=== PATIENT | male | born 1960 | race Caucasian/White ===

== ENCOUNTER 2025-07-27 10:16 | Inpatient (IN) | payer MEDICARE, SELFPAY ==
[2025-07-27] VITALS (19 sets, daily range): BP systolic 107–122; BP diastolic 65–87; PULSE 2–71; BMI 38.4; BMI 36.5
[2025-07-27 06:49] LABS: Hematocrit 23.3 % (39.0-52.0); Hemoglobin 7.2 g/dL (13.0-18.0); Mean Corp Hgb Conc. 30.9 g/dL (33.0-37.0); Mean Corpuscular Volume 97.9 fL (80.0-94.0); Nucleated Red Blood Cells % 0 % (-); Platelet Count 215 10^3/uL (130-400); Red Cell Dist. Width 16.7 % (11.5-14.5)
[2025-07-27 07:20] LABS: ALT (SGPT) 16 U/L (0-50); AST (SGOT) 21 U/L (17-59); Albumin 4.0 g/dl (3.5-5.0); Alkaline Phosphatase 131 U/L (38-126); Blood Urea Nitrogen 45 mg/dl (9-20); Calcium 8.9 mg/dl (8.4-10.2); Carbon Dioxide 28 mmol/L (22-30); Chloride 99 mmol/L (98-107); Estimated Creatinine Clearance 21 ml/min; Glucose 164 mg/dl (70-99); Potassium 3.8 mmol/L (3.5-5.1); Sodium 141 mmol/L (135-145); Total Protein 7.4 g/dl (6.3-8.2); Troponin I 0.068 ng/ml; eGFR 12.18
[2025-07-27 08:18] LABS: Venous Blood Gas B.E. 4.9 mmol/L (-4 to +4); Venous Blood Gas O2 Sat % 74.0 %
[2025-07-27 08:20] LABS: Venous Blood Gas O2 Therapy 4L
--- NOTE | 2025-07-27 08:20 | ED.GENMED ---
History of Present Illness
General
Chief Complaint: Breathing Problem
Source: patient and significant other
Time Seen by Provider: 07/27/25 06:39
History of Present Illness
History of Present Illness:
Note:
CHIEF COMPLAINT(S)
Intermittent sharp chest pain upon removal of Bipap mask and discolored urine.
HISTORY OF PRESENT ILLNESS
The patient is a 65-year-old male with a significant past medical history who presents with intermittent sharp left-sided chest pain that occurs upon removal of the Bipap mask. The pain is described as excruciating and radiates from the middle to
the upper chest. This symptom has been persistent for the last three days. Additionally, the patient reports episodes of discolored urine, described as pink, which occurred yesterday and today. Each episode of sharp chest pain is accompanied by a
release of urine, raising concerns about potential incontinence during these episodes. The patient expressed a history of anxiety during transitions off respiratory support devices, which may contribute to his distress during these episodes.
PAST MEDICAL AND SURGICAL HISTORY
The patient has a history of diabetes, hyperlipidemia, morbid obesity with alveolar hypoventilation syndrome, anxiety disorder, seizures, obstructive sleep apnea, polyneuropathy, hypertensive heart disease, chronic kidney disease, paroxysmal atrial
fibrillation, heart failure, pleural effusion, respiratory failure, gastroesophageal reflux disease, and end-stage renal disease requiring dialysis.
CHRONIC MEDICAL CONDITIONS SIGNIFICANTLY AFFECTING CARE
- Chronic obstructive pulmonary disease (COPD) requiring supplemental oxygen
- End-stage renal disease requiring dialysis
- Hypertensive heart disease and chronic kidney disease
- Paroxysmal atrial fibrillation
- Heart failure
SOCIAL DETERMINANTS AFFECTING HEALTH
Anxiety related to use and transition of oxygen and respiratory devices.
PHYSICAL EXAM
General: Alert, no acute distress. Obese
Skin: Warm and dry.
Head: Normocephalic, atraumatic.
Neck: Supple, trachea midline.
Eyes, Ears, Nose, Mouth, and Throat: Oral mucosa moist.
Cardiovascular: Regular rhythm, no murmurs. Chronic venous stasis changes to bilateral lower extremities
Respiratory: On four liters of nasal cannula, diminished breath sounds at bases, no respiratory distress
Gastrointestinal: Abdomen nondistended.
Musculoskeletal: Decreased mobility, uses a walker, left upper extremity AV graft noted with normal thrill.
Neurological: Alert and oriented to person, place, time, and situation. No focal neurological deficits observed.
Psychiatric: Cooperative, appropriate mood and affect.
PLAN
- Evaluate and monitor for potential causes of chest pain, including possible cardiac etiology.
- Re-evaluate urinary discoloration and incontinence in relation to episodes of chest pain.
- Coordination with a laminator to manage end-stage renal disease treatments and monitor dialysis effectiveness.
- Continued supplemental oxygen at home, history of respiratory failure and requirement for Bipap maintenance.
- Address anxiety related to respiratory support with potential psychologic support or therapy.
- Encourage mobilization and physical therapy to improve mobility and prevent further deconditioning.
DIFFERENTIAL DIAGNOSIS
The Differential Diagnosis includes, in no particular order and is not limited to:
1. Angina
2. Myocardial infarction
3. Pulmonary embolism
4. Gastroesophageal reflux disease
5. Anxiety-induced hyperventilation
6. Costochondritis
7. Urinary tract infection
8. Hematuria secondary to anticoagulation
9. Pulmonary edema
10. Anxiety disorder-related somatic symptoms
CARE-UPDATE
07/27/25 - 08:13
Patient exhibits signs of mild lower lobe pneumonia. Treatment will continue with current antibiotics; monitor for any changes in symptoms or respiratory status. Follow-up imaging may be required to assess resolution.
EKG
My independent EKG interpretation is:
- Rhythm: Atrial flutter with ventricular paced rhythm
- Ventricular Rate: 70 bpm
- Atrial Rate: 150 bpm
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
Disposition:
SUMMARY OF ENCOUNTER
The patient, a 65-year-old male with a significant medical history, presented to the emergency department with complaints of intermittent sharp chest pain upon removal of his Bipap mask and discolored urine, described as pink, over the last few
days. A complete blood count revealed anemia with hemoglobin at 7.2, and a baseline is unknown. The chemistry panel showed chronic renal insufficiency with creatinine at 5.0 and blood urea nitrogen elevated at 45. Potassium levels were normal at
3.8. Troponin levels were slightly elevated at 0.068, indicating potential cardiac involvement, and BNP was significantly elevated, exceeding 27,000, suggesting possible heart failure or fluid overload. A chest x-ray showed a suspected left lower
lobe infiltrate and a small pleural effusion. Treatment was initiated with broad-spectrum antibiotics, likely to address the suspected infection and prevent further complications. Given the patients end-stage renal disease, he typically receives
dialysis on Mondays, Wednesdays, and Fridays; thus, his care involves tight management of renal function and fluid status. Patient found to be hypercapnic. Start BiPAP. Patient admits he was off his BiPAP last night due to symptoms.
DISPOSITION
Admit.
ASSESSMENT
The patient is likely experiencing a combination of heart failure due to elevated BNP levels, anemia of unknown baseline possibly exacerbated by chronic kidney disease, and an infectious process given the infiltrate seen on imaging. There is also a
concern for potential cardiac ischemia given the elevated troponin level, albeit slightly.
EMERGENCY TREATMENTS ADMINISTERED
Broad-spectrum antibiotics were administered.
INDEPENDENT REVIEW OF LABS AND INTERPRETATION OF TESTS
- My independent review of CBC indicates anemia with hemoglobin at 7.2 and a normal white blood cell count of 8.6.
- My independent review of chemistry panel reveals chronic renal insufficiency with creatinine at 5.0, potassium normal at 3.8, and elevated BUN at 45.
- My independent review of cardiac markers indicates a slightly elevated troponin level at 0.068 and BNP greater than 27,000.
- My independent interpretation of the chest x-ray reveals a suspected left lower lobe infiltrate and a small pleural effusion.
PLAN
1. Admission for further monitoring and management.
2. Continue with broad-spectrum antibiotics to address the suspected infection.
3. Consulting nephrology to assess dialysis needs given the patients end-stage renal disease.
4. Additional cardiac workup given the elevated troponin to rule out myocardial infarction.
5. Continued oxygen support at home levels and reassessment of the need for respiratory support adjustments.
6. Further evaluation and monitoring of anemia and potential transfusion if clinically indicated.
7. Start BiPAP in light of hypercapnia
MEDICAL DECISION MAKING
-Complexity of Data Reviewed: Chronic conditions affecting care [diabetes, end-stage renal disease, heart failure, anemia]. Differential diagnosis includes angina, myocardial infarction, pulmonary embolism, gastroesophageal reflux disease,
anxiety-induced hyperventilation, costochondritis, urinary tract infection, hematuria secondary to anticoagulation, pulmonary edema, and anxiety disorder-related somatic symptoms.
-Data:
Category 1
- My independent review and interpretation of lab work including CBC, chemistry panel, cardiac markers, and chest x-ray.
Category 2
- Input from patient history reporting known chronic conditions including diabetes and end-stage renal disease.
-Risk:
Consideration of Admission/Observation: Escalation of care including admission was considered given the complexity and risk of the patients presenting complaint, exam findings, and underlying comorbidities. Admission was determined necessary due to
ongoing symptoms, elevated cardiac markers, and to address potential complications arising from the combination of fluid overload, cardiac concerns, and potential infection.
Diagnosis:
Anemia
Chronic renal failure
Acute hypercapnic respiratory failure
Chronic CHF
Pneumonia
Pleural effusion
Atypical chest pain
Phy Exam
Physical Exam
Physical Exam:
.
Scores
Heart Failure Risk
Heart Failure Risk Score: Not Applicable
Course
Orders/Labs/Results
Orders:
Orders
07/27/25 06:07
Electrocardiogram (*1) Urgent
Reason for Study: Shortness of Breath
EKG- Treatment ONCE
07/27/25 06:41
Complete Blood Count/With Diff Urgent
Comprehensive Metabolic Panel Urgent
NT-proBNP Urgent
TSH Reflex To Free T4 Urgent
Comment: ADD ON
Troponin I Urgent
07/27/25 07:24
Urinalysis Reflex To Culture Urgent
CR Chest - 2 Views Urgent
Comment:
Reason For Exam: cp
07/27/25 07:57
Venous Blood Gas Urgent
%Oxygen/Room Air: 4L
07/27/25 08:19
Piperacillin/Tazo 3.375 Gram [Zosyn] 3.375 gram in 50 ml IV NOW
07/27/25 08:42
Lactic Acid Q4H
Comment: CANCEL 2nd LACTIC ACID IF 1st LACTIC ACID IS LESS THAN 2
Blood Culture Q30M
IMELDA Source: Blood/Venous
Specimen Description:
07/27/25 09:09
Vancomycin [Vancocin] 2,000 mg 0.9% Sodium Chloride 500 ml [Nss] 500 ml IV NOW
07/27/25 09:13
Blood Culture Q30M
IMELDA Source: Blood/Venous
Specimen Description:
07/27/25 09:56
Admit/Transfer Patient As Directed
Co-Sign Provider:
Level of Care: Inpatient admission
Assign to:: IMU- Intermediate Care
Physician / Group: Hospitalist: Gerald
Diagnosis: Acute on chronic respiratory failure with hypoxia and hypercapnea
Reason for Hospitalization: Acute on chronic respiratory failure with hypoxia and hypercapnea
Expected length of stay greater than two midnights?: Yes
ELOS- Estimated Length of Stay in days: 2
I certify the patient meets the requirements for IP care: Yes
07/27/25 09:58
PRN Pain Medication Management As Directed
May give lesser potent ordered pain med per pt: Yes
preference::
Protocol:: Medication orders for pain may be administered in a
manner that supports deferring to patient preference
when the pt is:
- Requesting an ordered lesser potent pain medication.
Least to most potent pain medications are defined
as: acetaminophen < NSAID < tramadol < opioids
(morphine, oxycodone, hydromorphone).
- Requesting a lesser dose of the same medication IF
ORDERED.
- Requesting a less intrusive route of administration
if both routes are prescribed by the provider (PO <
IV).
07/27/25 Lunch
1600 calorie (13 carb) Diabetic
At Your Request: Limited Participation
07/27/25 10:02
Code Status As Directed
Resuscitation Status: Full Code
07/27/25 10:05
CT Chest W/o Iv Contrast Routine
Comment:
Reason For Exam: respiratory failure, poss pna v effusion
07/27/25 10:06
NEPHROLOGY CONSULT Routine
Consulting Provider: Gavin Stewart
Was physician already notified: Yes
Reason for consult: ESRD on HD
07/27/25 10:08
Add On- LAB Routine
Tests Added?: TSH w reflex please, thanks!
07/27/25 13:13
Acetaminophen [Tylenol] 650 mg PO Q6HPRN PRN pain
Melatonin 5 mg PO HSPRN PRN sleep
Sennosides [Senokot] 8.6 mg PO DAILYPRN PRN constipation
07/27/25 13:13
Activity As Directed
Activity Level: As Tolerated
Vital Signs As Directed
Frequency: Per unit guidelines
07/27/25 13:31
Troponin I Q6H
07/27/25 14:00
Ipratropium/Albuterol Sulfate [Duoneb] 3 ml INH R Q6
07/27/25 16:00
Calcium Acetate [Phoslo] 667 mg PO TID
Droxidopa 200 mg PO TID
07/27/25 18:00
Midodrine [ProAmatine] 15 mg PO TID@0800,1300,1800
07/27/25 20:00
Apixaban [Eliquis] 2.5 mg PO BID
Famotidine [Pepcid] 20 mg PO BID
Lacosamide [Vimpat] 50 mg PO BID
07/28/25 06:00
BMP [Basic Metabolic Panel] IN AM
CBC/With Diff [Complete Blood Count/With Diff] IN AM
Magnesium IN AM
Phosphorus IN AM
07/28/25 08:00
Cholecalciferol (Vitamin D3) [VITAMIN D3 (cholecalciferol)] 50 mcg PO DAILY
Clopidogrel Bisulfate [Plavix] 75 mg PO DAILY
Polyethylene Glycol Powder [Miralax] 17 grams PO DAILY
Rosuvastatin Calcium [Crestor] 40 mg PO DAILY
07/29/25 06:00
BMP [Basic Metabolic Panel] IN AM
CBC/With Diff [Complete Blood Count/With Diff] IN AM
Magnesium IN AM
Phosphorus IN AM
07/30/25 06:00
BMP [Basic Metabolic Panel] IN AM
CBC/With Diff [Complete Blood Count/With Diff] IN AM
Magnesium IN AM
Phosphorus IN AM
07/30/25 11:00
DC Protocol for Telemetry ONCE
Abnormal Lab Results
07/27/25 07/27/25
06:41 07:57
RBC 2.38 L 10^6/uL
(4.70-6.10)
Hgb 7.2 L g/dL
(13.0-18.0)
Hct 23.3 L %
(39.0-52.0)
MCV 97.9 H fL
(80.0-94.0)
MCHC 30.9 L g/dL
(33.0-37.0)
RDW 16.7 H %
(11.5-14.5)
Absolute Lymphs (auto) 1.1 L 10^3/uL
(1.2-3.4)
Absolute Monos (auto) 0.9 H 10^3/uL
(0.1-0.6)
Lymphocytes % 13.1 L %
(20.5-51.1)
Monocytes % 9.9 H %
(1.7-9.3)
VBG pH 7.24 L
(7.32-7.43)
VBG pCO2 78 H* mmHg
(35-48)
VBG HCO3 33.4 H mmol/L
(22-27)
BUN 45 H mg/dl
(9-20)
Creatinine 5.0 H* mg/dL
(0.7-1.3)
Glucose 164 H mg/dl
(70-99)
Alkaline Phosphatase 131 H U/L
(38-126)
Troponin I 0.068 H* ng/ml
07/27/25 06:41
07/27/25 06:41
Vital Signs
Initial and Last Documented VS:
Initial Vital Signs
Temp Pulse Resp Pulse Ox
98.3 F 70 18 94
07/27/25 06:08 07/27/25 06:08 07/27/25 06:08 07/27/25 06:08
Last Documented Vital Signs
Temp Pulse Resp BP Pulse Ox
97.6 F 70 23 120/75 93
07/27/25 13:18 07/27/25 13:36 07/27/25 13:36 07/27/25 13:35 07/27/25 13:55
*Pulse Oximetry
SaO2: 95
Nasal Cannula flow liters per minute: 4
Patient hypoxic: yes
*Critical Care Note
Total Time (30-74mins, 75-104mins- exclusive of procedures): 35 minutes
Data Reviewed
Source: significant other (Significant other states that he has had to have advanced oxygen support the past)
ED Attending Note
-
Portions of this chart may have been created with voice recognition software.� Occasional wrong word or��sound alike� substitutions may have occurred due to the inherent limitations of voice recognition software.
Discharge Plan
Departure
Patient Disposition: Admit
Date of Disposition: 07/27/25
Time of Disposition: 08:21
Admit to: Telemetry
Presentation/result/management discussed w/ accepting MD/DO: Hospitalist
Discharge Problem:
Pneumonia, Anemia, Chronic renal failure, Obstructive sleep apnea, Obesity, Atrial flutter, Acute hypercapnic respiratory failure
Interventions
Interventions:
*Risk Screen - Suicide Last Done: 07/27/25 06:08
*General Assessment Last Done: 07/27/25 06:08
*Neglect/Abuse Screening Last Done: 07/27/25 06:08
*ED- Fall Risk Assessment Last Done: 07/27/25 06:45
*ED COVID-19 Vaccine History Last Done: 07/27/25 06:45
*Nursing Disposition Last Done: 07/27/25 13:10
ED- Cardiac Assessment Last Done: 07/27/25 06:46
ED- Pulmonary Assessment Last Done: 07/27/25 06:46
Discharge Date and Time
Discharge Date/Time: 07/27/25 13:10
[2025-07-27] MEDS: ZOSYN 50 IV ×3 (09:20→23:00)
[2025-07-27] MEDS: VANCOCIN 540 MG IV (09:50)
--- NOTE | 2025-07-27 10:05 | HPS.HSE ---
Family Physician
-
Family Physician: Jose Alfred
Chief Complaint
-
Chest pain, acute hypercapnic respiratory failure
History of Present Illness
Mr. Talbert is a 65-year-old male with medical history of heart failure (unspecified type), paroxysmal A-fib, chronic hypoxic respiratory failure (on supplemental oxygen at baseline), ESRD (HD MWF), anemia of chronic disease, ALVIN (on BiPAP at night),
seizure disorder, insulin-dependent diabetes mellitus, and prostate enlargement who presented via EMS from [facility] with sharp left-sided chest pain overnight. He was unable to tolerate his BiPAP due to the pain. Upon evaluation in the ED he
was normotensive and afebrile. Initial chest imaging was concerning for left-sided pneumonia. Labs were remarkable for anemia with a hemoglobin of 7.2, abnormal creatinine of 5.0, elevated troponin of 0.068, and elevated proBNP of greater than
27,000. BNP and troponin are of equivocal significance considering his end-stage renal disease. He did not have a leukocytosis and lactic acid was within normal limits. However he had an abnormal pCO2 of 78 on VBG. He was placed on BiPAP,
started on broad-spectrum antibiotics, and admitted for further evaluation and management of acute hypercapnic respiratory failure and pneumonia.
Medical History
Past Medical History
Past Medical History: Reports Other
Additional Past Medical History:
medical history of heart failure (unspecified type), paroxysmal A-fib, COPD, chronic hypoxic respiratory failure (on supplemental oxygen at baseline), ESRD (HD MWF), anemia of chronic disease, ALVIN (on BiPAP at night), seizure disorder,
insulin-dependent diabetes mellitus, and prostate enlargement
Past Surgical History: Reports Other
Additional Past Surgical History:
Left thoracentesis (reported)
Social History
Tobacco: Non-smoker
Alcohol: None
Drug: None
Family History
Family History: Not pertinent
Allergies / Home Medications
Allergies reflects when Allergies were last updated in [facility].
Home Medications with original date entered in [facility]
Allergy/Medication List:
Allergies
Allergy/AdvReac Type Severity Reaction Status Date / Time
cephalexin Allergy Hives Verified 07/27/25 07:00
Home Medications
acetaminophen 325 mg tablet 650 mg PO Q6HPRN PRN mild pain 07/27/25
apixaban 2.5 mg tablet 2.5 mg PO BID 07/27/25
bisacodyl 10 mg rectal suppository (Dulcolax (bisacodyl)) 10 mg AR DAILYPRN PRN if no bm aftr mom 07/27/25
calcium acetate 667 mg tablet 667 mg PO AC 07/27/25
cholecalciferol (vitamin D3) 50 mcg (2,000 unit) capsule (Vitamin D3) 50 mcg PO DAILY 07/27/25
clopidogrel 75 mg tablet 75 mg PO DAILY 07/27/25
droxidopa 200 mg capsule 200 mg PO AC 07/27/25
famotidine 20 mg tablet 20 mg PO BID 07/27/25
insulin glargine 100 unit/mL (3 mL) subcutaneous pen (Basaglar KwikPen U-100 Insulin) 5 unit SC BID 07/27/25
insulin lispro 100 unit/mL subcutaneous pen 1 sliding scale dose SC AC 07/27/25
ipratropium 0.5 mg-albuterol 3 mg (2.5 mg base)/3 mL nebulization soln 3 ml inhalation R Q6HPRN PRN sob 07/27/25
lacosamide 50 mg tablet 50 mg PO BID 07/27/25
melatonin 5 mg tablet 5 mg PO HSPRN PRN sleep 07/27/25
midodrine 5 mg tablet 15 mg PO TID 07/27/25
polyethylene glycol 3350 17 gram oral powder packet 17 g PO DAILY 07/27/25
rosuvastatin 40 mg tablet 40 mg PO QPM 07/27/25
sennosides 8.6 mg capsule (senna) 17.2 mg PO DAILYPRN PRN constipation 07/27/25
sodium chloride-hypochlorous acid 0.033 % irrigation solution (Vashe) 1 irrig irrigation BID 07/27/25
Review of Systems
-
History Source: Patient
A 12 point ROS was completed and negative except as noted: Yes
Respiratory: Reports Trouble Breathing
Cardiac: Reports Chest Pain (Sharp left chest pain)
: Reports Difficulty Voiding (Chronic due to prostate enlargement)
Physical Exam
Vital Signs
Vital Signs
Temp Pulse Resp BP Pulse Ox
98.3 F 71 21 108/70 95
07/27/25 06:08 07/27/25 09:02 07/27/25 09:02 07/27/25 09:02 07/27/25 08:23
Physical Exam
General: Pain
Laboratory Results
-
07/27/25 06:41
07/27/25 06:41
Laboratory Results
Lactic Acid 1.6 mmol/L (0.7-2.0) 07/27/25 08:42
Total Bilirubin 0.8 mg/dl (0.2-1.3) 07/27/25 06:41
AST 21 U/L (17-59) 07/27/25 06:41
ALT 16 U/L (0-50) 07/27/25 06:41
Alkaline Phosphatase 131 U/L (38-126) H 07/27/25 06:41
Troponin I 0.068 ng/ml H* 07/27/25 06:41
Impression/Plan
-
General: No Apparent Distress, uncomfortable
HEENT: NormoCephalic, BiPAP mask in place
Respiratory: Decreased left basilar breath sounds, scattered rhonchi bilaterally
Cardiac: S1/S2 and Regular Rhythm; No Rub or Gallop
GI: Soft, Non Tender, Non Distended and Normal Bowel Sounds
Musculoskeletal: No Edema, no deformity
Skin: Warm and dry, bilateral lower extremity lipodermatosclerosis
: NO Lyles
Neuro: Awake but somnolent, Nonfocal/grossly intact
Psych: Calm and cooperative
Mr. Talbert is a 65-year-old male with medical history of heart failure (unspecified type), paroxysmal A-fib, chronic hypoxic respiratory failure (on supplemental oxygen at baseline), ESRD (HD MWF), anemia of chronic disease, ALVIN (on BiPAP at night),
seizure disorder, insulin-dependent diabetes mellitus, and prostate enlargement who presented via EMS from [facility] with sharp left-sided chest pain overnight. He was unable to tolerate his BiPAP due to the pain. Upon evaluation in the ED he
was normotensive and afebrile. Initial chest imaging was concerning for left-sided pneumonia. Labs were remarkable for anemia with a hemoglobin of 7.2, abnormal creatinine of 5.0, elevated troponin of 0.068, and elevated proBNP of greater than
27,000. BNP and troponin are of equivocal significance considering his end-stage renal disease. He did not have a leukocytosis and lactic acid was within normal limits. However he had an abnormal pCO2 of 78 on VBG. He was placed on BiPAP,
started on broad-spectrum antibiotics, and admitted for further evaluation and management of acute hypercapnic respiratory failure and pneumonia.
Acute hypercapnic respiratory failure:
- Secondary to pneumonia, CT imaging shows extensive bilateral infiltrates left worse than right
- Continue broad-spectrum antibiotics for now
- Follow-up cultures including sputum culture
- Continuous BiPAP for now, can take breaks as needed to eat and drink
- To be evaluated by pulmonology
- Patient has a history of recurrent pneumonia with reported left-sided effusion status post thoracentesis
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
- Attempting to get his prior medical records, reportedly on file at [place]
Chronic hypoxic respiratory failure:
- Secondary to COPD
- Continue supplemental oxygen and titrate as needed
- Continue scheduled nebulizers with additional as needed
ESRD:
- Continue dialysis per nephro
Anemia of chronic disease:
- Secondary to renal disease
- Hemoglobin 7.2 on admission labs, unclear baseline
- Attempting to obtain prior medical records to establish baseline hemoglobin
- No evidence of bleeding
- Monitor
CHF:
- Chronic, unspecified type, attempting to get medical records to clarify
- Unclear if current presentation is partly due to volume overload, significantly elevated proBNP but has ESRD
- Volume status managed primarily by dialysis, patient makes very little urine
- Does not appear to be on beta-blockade
- Does not appear to be on afterload reducing agents, rather takes midodrine 50 mg 3 times per day which we will continue
IDDM:
- Uses insulin glargine 5 units twice daily and short acting insulin per sliding scale at home
- Will start with Lantus 5 units at night for now with additional sliding scale as needed
- Accu-Cheks
- Diabetic diet
Paroxysmal A-fib:
- Currently rate controlled
- Not on AV andres blocking agents as an outpatient
- Continue anticoagulation with renally dosed Eliquis
Seizure disorder:
- Continue home lacosamide 50 mg p.o. twice daily
Prostate enlargement:
- Patient reports making very little urine, urinates twice daily
DVT prophylaxis: Eliquis
CODE STATUS: Full code
Total time spent on today's encounter was 65 minutes
--- NOTE | 2025-07-27 10:59 | PHA.VAN.IN ---
Assessment
- Assessment
Renal Function: Unknown baseline
Concomitant Antimicrobials: piperacillin/tazobactam
Plan
- Plan
Initial / Loading Dose: 2000mg - 07/27
Maintenance Regimen: dosing by level
Monitoring: random 07/28 0600
MRSA Screen: Ordered per protocol
Pharmacokinetics Vancomycin I
- -
Patient Age: 65
Patient Sex: Male
Vancomycin Day #: 1
Indication: Pulmonary/Respiratory
Requesting Provider: Dr. Duarte
Pertinent Antimicrobial Allergies:
cephalexin - hives
Height / Weight:
Height 6 ft
Actual Weight 128.4 kg
Pertinent Past Medical History: BMI ~38, DM, CKD
- Vital Signs / Lab Results
Temp Pulse Resp BP Pulse Ox
98.3 F 71 21 108/70 95
07/27/25 06:08 07/27/25 09:02 07/27/25 09:02 07/27/25 09:02 07/27/25 08:23
Lab Results - Hematology
07/27/25
06:41
WBC 8.6
Lab Results - Chemistry
07/27/25
06:41
BUN 45 H
Creatinine 5.0 H*
Estimated Creat Clear 21
Albumin 4.0
07/27/25
08:42
Lactic Acid 1.6
--- NOTE | 2025-07-27 11:22 | W.CON.NEPH ---
Addendum entered and electronically signed by Gavin Stewart MD 07/27/25 13:38:
check iron studies on HD for anemia, LENARD on HD
Addendum entered and electronically signed by Gavin Stewart MD 07/27/25 13:35:
I agree with the residence note with the addendum
65 year old gentleman with ESRD since 2019 which he believes is due to antiviral treatment for COVID. He had a left upper extremity AV fistula created three and half years ago which has been functioning well. He typically dialyze is with the
[facility] on Wednesdays and Fridays. Recently however he has been admitted to [facility]. He has atrial fibrillation on eliquis anticoagulation. He also has orthostasis on Droxidopa. His diabetes is controlled with insulin
therapy. He was sent to the hospital because of three days of left-sided chest pain. Imaging studies have shown multifocal bilateral pneumonia. We are asked to assist with management of his dialysis.
Patient is awake alert oriented and in no distress. Mood and affect were pleasant, insight and judgment were good. Pupils are equal round and reactive to light, extraocular movements are intact, sclera were anicteric. Hearing was normal, ears and
nose are intact. Neck was supple with trachea midline and no thyromegaly. Heart was regular rate and rhythm without rubs. Lower extremities without edema. Lungs were clear to auscultation bilaterally and with normal excursion. Abdomen was soft,
nontender, with normal active bowel sounds, and no hepatosplenomegaly. Skin was without rash and with normal turgor. Left upper extremity AVF with poor thrill, +bruit.
Laboratory values reviewed.
CT chest reviewed, bilateral multi-lobar pneumonia
chest x-ray 07/26/25 by reading left lower lobe infiltrate
EKG 07/26/25 by my reading Aflutter with V paced rhythm
Assessment
ESRD
Bilateral multilobar pneumonia
DM2
Orthostatic hypotension
Afib/Aflutter/PPM
Plan
HD tomorrow
abx dosed for ESRD
Original Note:
Consultation
-
Date/Time Consultation Requested: 07/27/2025 10:06
Date/Time Consultation Performed: 07/27/2025 11:20
Requesting Provider: Gavin Duarte MD
Performing Provider: Gavin Stewart MD
Reason for Consultation: ESRD
Medical History
-
Chief Complaint: Chest pain
History of Present Illness:
This is a 65-year-old male with past medical history of ESRD requiring dialysis MWF at [facility], atrial fibrillation on Eliquis, COPD, ALVIN on CPAP, T2DM who presents to ED 07/27/2025 complaining of sharp left-sided chest pain ongoing for the
past 3 days. In addition patient admits to discolored urine described as brown-reddish urine ongoing for the past 2 days.
To his history, he has a history of ESRD requiring dialysis diagnosed in 2019. Patient reports ESRD was caused by an antiviral medication which was used to treat COVID-19 at that time. Since then he has been receiving dialysis Monday
Monday. He currently has a AV fistula with his last dialysis session on Monday. His sessions typically last for 4 hours and he gets midday sessions. Upon presentation, laboratory showed creatinine of 5.0, BUN 45, eGFR 12.8.
Past Medical History
Past medical history
ALVIN on BiPAP, paroxysmal atrial fibrillation, ESRD on dialysis MWF, heart failure, T2DM, COPD, hyperlipidemia
Past Surgical History
Bariatric surgery, Lithotripsy, hernia, Cardiac stents
Social History
Living: Assisted Living
Allergies / Home Medications
Allergy/AdvReac Type Severity Reaction Status Date / Time
cephalexin Allergy Hives Verified 07/27/25 07:00
�Medication �Instructions �Recorded �Confirmed �Type
acetaminophen 325 mg tablet 650 mg PO Q6H PRN pain 07/27/25 07/27/25 History
apixaban 2.5 mg tablet 2.5 mg PO BID 07/27/25 07/27/25 History
calcium acetate 667 mg tablet 667 mg PO TID 07/27/25 07/27/25 History
cholecalciferol (vitamin D3) 50 50 mcg PO DAILY 07/27/25 07/27/25 History
mcg (2,000 unit) capsule (Vitamin
D3)
clopidogrel 75 mg tablet 75 mg PO DAILY 07/27/25 07/27/25 History
droxidopa 200 mg capsule 200 mg PO TID 07/27/25 07/27/25 History
famotidine 20 mg tablet 20 mg PO BID 07/27/25 07/27/25 History
insulin glargine 100 unit/mL (3 5 unit SC BID 07/27/25 07/27/25 History
mL) subcutaneous pen (Basaglar
KwikPen U-100 Insulin)
insulin lispro 100 unit/mL 1 sliding scale dose SC DIRECTED 07/27/25 07/27/25 History
subcutaneous pen
ipratropium 0.5 mg-albuterol 3 mg 3 ml inhalation Q6H SOB 07/27/25 07/27/25 History
(2.5 mg base)/3 mL nebulization
soln
lacosamide 50 mg tablet 50 mg PO BID 07/27/25 07/27/25 History
melatonin 5 mg tablet 5 mg PO HS PRN sleep 07/27/25 07/27/25 History
midodrine 5 mg tablet 15 mg PO TID 07/27/25 07/27/25 History
polyethylene glycol 3350 17 gram 17 g PO DAILY 07/27/25 07/27/25 History
oral powder packet
rosuvastatin 40 mg tablet 40 mg PO DAILY 07/27/25 07/27/25 History
sennosides 8.6 mg capsule (senna) 8.6 mg PO DAILY PRN constipation 07/27/25 07/27/25 History
Physical Exam
Vital Signs
Vital Signs
Temp Pulse Resp BP Pulse Ox
98.3 F 71 21 108/70 95
07/27/25 06:08 07/27/25 09:02 07/27/25 09:02 07/27/25 09:02 07/27/25 08:23
Lab Results
WBC 8.6 10^3/uL (4.8-10.8) 07/27/25 06:41
RBC 2.38 10^6/uL (4.70-6.10) L 07/27/25 06:41
Hgb 7.2 g/dL (13.0-18.0) L 07/27/25 06:41
Hct 23.3 % (39.0-52.0) L 07/27/25 06:41
Plt Count 215 10^3/uL (130-400) 07/27/25 06:41
Sodium 141 mmol/L (135-145) 07/27/25 06:41
Potassium 3.8 mmol/L (3.5-5.1) 07/27/25 06:41
Chloride 99 mmol/L (98-107) 07/27/25 06:41
Carbon Dioxide 28 mmol/L (22-30) 07/27/25 06:41
BUN 45 mg/dl (9-20) H 07/27/25 06:41
Creatinine 5.0 mg/dL (0.7-1.3) H* 07/27/25 06:41
eGFR 12.18 07/27/25 06:41
Glucose 164 mg/dl (70-99) H 07/27/25 06:41
Calcium 8.9 mg/dl (8.4-10.2) 07/27/25 06:41
Jnu-U-Hscuyiwokjm Pept > 60660 pg/ml 07/27/25 06:41
Albumin 4.0 g/dl (3.5-5.0) 07/27/25 06:41
Physical Exam
General: Awake and Alert
HEENT: PERRL and Other (On BiPAP)
Respiratory: Other (Decreased breath sounds bilateral bases)
Cardiac: S1/S2
Abdomen: Soft, Nontender and Nondistended
Musculoskeletal: No Edema
Vascular Access: AVF
Assessment/Plan
-
Assessment
ESRD requiring dialysis
Acute hypoxic respiratory insufficiency
Pneumonia
Paroxysmal atrial fibrillation
T2DM
Anemia
Plan
HD tomorrow
Check Iron studies
Abx per primary
Follow BMP
--- NOTE | 2025-07-27 12:24 | CM ---
Addendum entered by Jennifer Silva 07/27/25 12:34:
Per nursing at [facility] patient receives HD, Mon, Wed, Fri at 2pm, patient is on Bipap, 4 liters of oxygen, patient is assist of one person to transfer to w/c, set up for grooming and eating.
Plan; To return to [facility] when stable.
Original Note:
competitive intelligence manager reviewed patient's chart and met with patient and spoke with patient's Fallon arevalo by phone, Patient was admitted from [facility] and plan is for patient to return to [facility] when stable, patient has been at
multiple rehab facilities, patient with ESRD and is on HD, Patient also uses BIPAP, plan will be to return to [facility] when stable.
PCP: Jose Alfred
Pharmacy: [facility].
[2025-07-27] MEDS: DUONEB 3 ML INH ×2 (13:35→19:22)
[2025-07-27 13:46] LABS: Venous Blood Gas B.E. 2.7 mmol/L (-4 to +4)
--- NOTE | 2025-07-27 13:47 | PTCARENOTE ---
Patient arrived to IMU from ED. Stand and pivot from the stretcher to the chair. On BiPAP 18/6 with 4L with SpO2 92%. AOx3. V-paced with BBB and first degree on monitor. BP stable. C/O of chest pain. Repeat trop sent to lab. Call byrne within reach,
bed in lowest position, and bed of wheels locked.
[2025-07-27 13:50] LABS: Venous Blood Gas O2 Sat % 99.8 %
--- NOTE | 2025-07-27 14:00 | PTCARENOTE ---
RT at bedside to take BiPAP off patient post VBG results. Patient refused to come off of BiPAP. Care ongoing.
[2025-07-27 14:13] LABS: Troponin I 0.057 ng/ml
--- NOTE | 2025-07-27 14:55 | CON.PUL ---
Consultation
Consultation Request
Date/Time Consultation Requested: 07/27/2025 - 1209
Date/Time Consultation Performed: 07/27/2025 - 1434
Requesting Provider: Dr. Duarte
Performing Provider: Dr. Maldonado
Reason for Consultation: Acute respiratory failure
Medical History
-
Chief Complaint: Extreme chest pain
History of Present Illness:
65-year-old obese male non-smoker with past medical history of CHF, paroxysmal A-fib, chronic hypoxic respiratory failure on supplemental oxygen, ESRD on HD MWF, anemia of chronic disease, ALVIN on nocturnal BiPAP, seizure disorder, DM type II, and
BPH who presented with chest pain. Patient presented from [facility] with sharp left-sided chest pain that started overnight. He was unable to tolerate his BiPAP due to this pain. Chest imaging was concerning for left-sided pneumonia. Blood
gas showed an acute component of hypercapnia and he was placed onto BiPAP, broad-spectrum antibiotics were started and he was admitted to the IMU for further care. Pulmonary service now consulted for additional management/recommendations.
When I saw the pt he was in a chair in [facility]. He was on 4L/min NC saturating 86% --> I raised him to 6L/min with sats improving to 89-90%. He desaturates easily during movement or with speaking. Current HR 70 and BP 113/65. He says the BiPAP
helps him feel better - settings are 18/6 with set rate of 16. He says he was recently hospitalized at [place]. He does use oxygen but he has been hospitalized for so many months that he has not had a chance to be home with oxygen yet for more than 1
day. He currently denies chest pain, COYNE, abd pain, N/V/f/c.
PMHx: CHF, paroxysmal A-fib, chronic hypoxic respiratory failure on supplemental oxygen, ESRD on HD MWF, anemia of chronic disease, ALVNI on nocturnal BiPAP, seizure disorder, DM type II, BPH
PSHx: Left thoracentesis
Past Medical History
Past Medical History: Other (Above as per HPI)
Past Surgical History: Other (Above as per HPI)
Social History
Tobacco: Non-smoker
Alcohol: None
Drug: None
Personal:
Family History
Family History: Reviewed & Not Pertinent
Allergies / Home Medications
Allergies
Allergy/AdvReac Type Severity Reaction Status Date / Time
cephalexin Allergy Hives Verified 07/27/25 07:00
Home Medications
�Medication �Instructions �Recorded �Confirmed �Last Taken �Type
acetaminophen 325 mg tablet 650 mg PO Q6HPRN PRN mild pain 07/27/25 07/27/25 Unknown History
apixaban 2.5 mg tablet 2.5 mg PO BID 07/27/25 07/27/25 07/26/25 History
bisacodyl 10 mg rectal suppository 10 mg LA DAILYPRN PRN if no bm 07/27/25 07/27/25 Unknown History
(Dulcolax (bisacodyl)) aftr mom
calcium acetate 667 mg tablet 667 mg PO AC 07/27/25 07/27/25 07/26/25 History
cholecalciferol (vitamin D3) 50 50 mcg PO DAILY 07/27/25 07/27/25 07/26/25 History
mcg (2,000 unit) capsule (Vitamin
D3)
clopidogrel 75 mg tablet 75 mg PO DAILY 07/27/25 07/27/25 07/26/25 History
droxidopa 200 mg capsule 200 mg PO AC 07/27/25 07/27/25 07/26/25 History
famotidine 20 mg tablet 20 mg PO BID 07/27/25 07/27/25 07/26/25 History
insulin glargine 100 unit/mL (3 5 unit SC BID 07/27/25 07/27/25 07/26/25 History
mL) subcutaneous pen (Basaglar
KwikPen U-100 Insulin)
insulin lispro 100 unit/mL 1 sliding scale dose SC AC 07/27/25 07/27/25 07/26/25 History
subcutaneous pen
ipratropium 0.5 mg-albuterol 3 mg 3 ml inhalation R Q6HPRN PRN sob 07/27/25 07/27/25 Unknown History
(2.5 mg base)/3 mL nebulization
soln
lacosamide 50 mg tablet 50 mg PO BID 07/27/25 07/27/25 07/26/25 History
melatonin 5 mg tablet 5 mg PO HSPRN PRN sleep 07/27/25 07/27/25 Unknown History
midodrine 5 mg tablet 15 mg PO TID 07/27/25 07/27/25 07/26/25 History
polyethylene glycol 3350 17 gram 17 g PO DAILY 07/27/25 07/27/25 07/26/25 History
oral powder packet
rosuvastatin 40 mg tablet 40 mg PO QPM 07/27/25 07/27/25 07/26/25 History
sennosides 8.6 mg capsule (senna) 17.2 mg PO DAILYPRN PRN 07/27/25 07/27/25 07/26/25 History
constipation
sodium chloride-hypochlorous acid 1 irrig irrigation BID 07/27/25 07/27/25 07/26/25 History
0.033 % irrigation solution (Vashe)
Review of Systems
-
History Source: Patient
All other systems: Negative unless noted
Vitals / Labs / Diagnostic Testing
Vital Signs
Temp Pulse Resp BP Pulse Ox
96.1 F L 71 28 107/84 96
07/27/25 19:43 07/27/25 19:23 07/27/25 19:23 07/27/25 17:27 07/27/25 19:23
Lab Data
07/27/25 06:41
07/27/25 06:41
Diagnostic Testing:
Physical Exam
-
HEENT: Normocephalic, Anicteric and Other (thick neck)
Cardiovascular: S1/S2 and Peripheral Edema (+1 lower extremity edema bilaterally)
Respiratory: Wheeze (negative), Rales ([place] bilaterally in the anterior lung sullivan), Rhonchi (negative), Non-Labored Respirations and Other (Greatly diminished breath sounds bilaterally)
GI: Soft, Distended (Abdominal obesity), Non Tender and Normal Bowel Sounds
Neurology: Awake, Alert, Oriented and Tremors (negative)
Skin: Warm, Dry and Other (Chronic venous stasis changes in the bilateral lower extremities)
General: Respiratory Distress (negative), Comfortable, Fever (negative) and Chills (negative)
Assessment
-
Assessment: 65-year-old obese male non-smoker with past medical history of CHF, paroxysmal A-fib, chronic hypoxic respiratory failure on supplemental oxygen, ESRD on HD MWF, anemia of chronic disease, ALVIN on nocturnal BiPAP, seizure disorder, DM
type II, and BPH who presented with chest pain. Patient presented from [facility] with sharp left-sided chest pain that started overnight. He was unable to tolerate his BiPAP due to this pain. Chest imaging was concerning for left-sided
pneumonia. Blood gas showed an acute component of hypercapnia and he was placed onto BiPAP, broad-spectrum antibiotics were started and he was admitted to the IMU for further care. Pulmonary service now consulted for additional
management/recommendations.
Chronic conditions FANS CLERK: CHF, paroxysmal A-fib, chronic hypoxic respiratory failure on supplemental oxygen, ESRD on HD MWF, anemia of chronic disease, ALVIN on nocturnal BiPAP, seizure disorder, DM type II, BPH
Impression:
#Acute on chronic hypercapnic respiratory failure s/p improvement with BiPAP
#ALVIN on BiPAP/suspected OHS
#Acute hypoxic respiratory failure due to multifocal PNA
#Hospital acquired pneumonia (present on admission)
#Anemia
#ESRD on HD
#Elevated troponin likely due to demand ischemia with type II IN
#Abnormal urinalysis with positive nitrites and +3 leukocyte esterase with concern for UTI
#Severe anterior wedge compression fracture of T7
#CHF with acute exacerbation
#Paroxysmal A-fib
Plan:
- CT chest obtained today (07/27) shows evidence of multifocal pneumonia with patchy nodular opacities in the right upper lobe and consolidative opacities in the right lower lobe + left upper/left lower lobe with bilateral pleural effusions with
loculation in the left hemithorax, and fluid in the left oblique fissure
- Monitor mental status -if he begins to become lethargic then would place onto BiPAP and check urgent blood gas, otherwise he is at risk of intubation due to CO2 narcosis
- Maintain MAP>65
- Continue midodrine (home med)
- Hold anti-hypertensives unless needed
- Trend troponin until peaks
- Recommend cardiology consult
- Check echo
- EKG shows V-paced rhythm with underlying A-flutter; negative for Sgarbossa criteria
- Continue with BiPAP while trending serial blood gases to assure pH + pCO2 remained stable
- Continue nasal cannula while not on BiPAP, and titrate to maintain SpO2 >90-94%
- DuoNebs q6hr
- prn nebulized bronchodilators - not currently bronchospastic
- Incentive spirometer encouraged q1hr while awake
- Continue with antibiotics to Zosyn + IV vancomycin
- Follow-up infectious workup with blood cultures + urine culture; check MRSA screen and if negative then can dc IV vanc
- Obtain sputum culture if patient can produce a decent sample
- Check urine antigens for legionella and Strep PNA
- Replete electrolytes with K>4, Mg>2
- Defer HD to nephrology
- Trend H/H and transfuse if needed to keep Hb>7g/dL; keep plt>20k, unless there is concern for bleeding then keep plt>50k
- Maintain euglycemia with goal BG >100 and <180
- Pepcid 20mg BID
- DVT ppx: Eliquis
Pulmonary service will continue to follow along.
Data:
CT Chest 07/27/2025:
Mild right upper lobe pneumonia. Consolidation in the left upper lobe, left lower lobe and right lower lobe also concerning for pneumonia.
Moderate loculated left pleural effusion. Small loculated right pleural effusion.
Mild cardiomegaly.
Severe anterior wedge compression fracture of T7. Age indeterminate.
Total time spent today was 78 minutes for this encounter. Time includes reviewing laboratory test/imaging results, reviewing pertinent medical records, obtaining and reviewing medical history, performing an appropriate exam, ordering medications,
tests and procedures. Time also includes documentation of this encounter, coordinating patient care and communicating with other healthcare professionals. Total time does not include separately billed tests performed on this date of service.
--- NOTE | 2025-07-27 16:29 | PTCARENOTE ---
Patient screaming 'help'. This RN and other staff members into room. Patient found on the toilet in the bathroom. Patient unplugged himself from the monitor and took off oxygen. SpO2 61% on RA. Immediately put on 15L midflow and SpO2 90%. Ambulated
back to chair assist x2. Chair alarm in place and audible. Patient stated that he walked himself to the bathroom without assistance because 'he was going to poop his pants and he does not have any other underwear'. Educated patient that he cannot
get up with staff assistance. Call byrne and belongings within reach.
[2025-07-27] MEDS: PHOSLO 667 MG PO ×2 (17:27→19:13)
[2025-07-27 17:45] LABS: Glucose - Point of Care 206 mg/dl (70-99)
[2025-07-27] MEDS: DROXIDOPA 200 MG PO ×2 (17:56→21:58)
[2025-07-27] MEDS: NOVOLOG FLEXPEN-LOW RESISTANCE 2 UNITS SC (17:56)
--- NOTE | 2025-07-27 19:05 | PTCARENOTE ---
Patient refused antifungal powder for MASD. Education provided and patient verbalized understanding.
[2025-07-27] MEDS: ELIQUIS 2.5 MG PO (19:13)
[2025-07-27] MEDS: PEPCID 20 MG PO (19:13)
[2025-07-27 19:39] LABS: Urine Character Cloudy (Clear)
[2025-07-27 19:42] LABS: Urine Red Blood Cell >100 /HPF (0-2)
[2025-07-27 21:27] LABS: Glucose - Point of Care 234 mg/dl (70-99)
[2025-07-27] MEDS: VIMPAT 50 MG PO (21:58)
[2025-07-27] MEDS: LANTUS 0.05 UNITS SC (21:58)
[2025-07-28] VITALS (44 sets, daily range): BP systolic 86–115; BP diastolic 51–89; PULSE 2–89; O2SAT 94–98
--- NOTE | 2025-07-28 02:17 | PTCARENOTE ---
Pt agreeable to take HS medications. Agreeable to wear BiPAP HS. VSS at this time. Call byrne within reach.
[2025-07-28] MEDS: DUONEB 3 ML INH ×2 (03:55→07:21)
[2025-07-28 06:09] LABS: Hematocrit 26.5 % (39.0-52.0); Hemoglobin 8.2 g/dL (13.0-18.0); Mean Corp Hgb Conc. 30.9 g/dL (33.0-37.0); Mean Corpuscular Volume 100.8 fL (80.0-94.0); Nucleated Red Blood Cells % 0 % (-); Platelet Count 244 10^3/uL (130-400); Red Cell Dist. Width 16.9 % (11.5-14.5)
[2025-07-28 07:50] LABS: Glucose - Point of Care 165 mg/dl (70-99)
[2025-07-28] MEDS: RETACRIT 10000 UNITS IV (08:25)
[2025-07-28] MEDS: MANNITOL 25% 12.5 GRAMS IV ×2 (08:28→10:22)
[2025-07-28] MEDS: FLEXBUMIN 25% FOR HEMODIALYSIS 12.5 GRAMS IV ×2 (08:29→10:20)
--- NOTE | 2025-07-28 08:50 | W.PN.HOSP.TC ---
Today's Communication/Plan
-
Echocardiogram
Cardiology consult
Hold antibiotics
PT/OT
reduce dose of famotidine
Assessment / Plan
Assessment / Plan
Gen-AAOx3, mild respiratory distress with conversation, obese
HEENT-NC, AT, anicteric, clear oral mm
Neck-supple
CV-reg, no M, +S1/S2
Lungs-clear B/L
Abd-soft, NT, ND
Ext-bilateral lower extremity edema, hyperpigmentation
Musculoskeletal-no cyanosis, clubbing
Skin-warm and dry
Neuro-grossly non-focal
Psych-calm, cooperative
Acute on chronic hypoxic/hypercapnic respiratory failure -suspect due to bilateral pulmonary edema. Clinically doubt pneumonia. Patient denies cough, fever or chills.
On presentation he was afebrile, WBC count normal. WBC count 11.5k today, still afebrile. Hold further antibiotics.
Currently stable on 4 L nasal cannula oxygen. Use BiPAP while sleeping.
Patient denies history of emphysema or chronic lung disease. Never smoked.
Acute pulmonary edema -due to acute heart failure exacerbation in the setting of ESRD. Unknown type of heart failure.
Admission BNP greater than 27,000.
Check echocardiogram. Consult cardiology.
Patient unclear about details but believes his weight is up at least 10 pounds.
Troponin elevation -suspect acute nonischemic myocardial injury in the setting of respiratory failure, heart failure. Troponin trending down.
ESRD -on dialysis Monday. Nephrology consulted.
Paroxysmal atrial fibrillation -continue Eliquis.
Chronic anemia -hemoglobin 8.2 today. Baseline unknown. Suspect related to ESRD. Continue erythropoietin.
ALVIN -continue BiPAP while sleeping.
Seizure disorder -continue AEDs.
Hyperlipidemia -on rosuvastatin.
Chronic orthostatic hypotension -on droxidopa, midodrine.
DM 2 with hyperglycemia -prior to admission he was on glargine 5 units twice daily, lispro sliding scale.
Currently on Lantus 5 units at bedtime, aspart low resistance corrective scale.
BPH
Obesity due to excess calories
Full code
PT/OT
Dispo -SNF when medically stable.
Anticipated Discharge: > 48 hours
Subjective/Interval History
-
Date of Service: July 28, 2025
Patient seen and examined. Has conversational dyspnea. Orthopnea. Denies cough, fever or chills.
Objective Data
-
Labs:
Laboratory Results
07/28/25 07/28/25
05:44 07:00
WBC 11.5 H
Hgb 8.2 L
Hct 26.5 L
Plt Count 244
Sodium Pending
Potassium Pending
Chloride Pending
Carbon Dioxide Pending
BUN Pending
Creatinine Pending
Glucose Pending
Calcium Pending
Vital Signs:
Vital Signs
Temp Pulse Resp BP Pulse Ox
97.4 F 70 21 111/71 95
07/28/25 03:00 07/28/25 07:23 07/28/25 07:23 07/28/25 06:00 07/28/25 07:23
I&O
07/27/25 07/28/25 07/29/25
06:59 06:59 06:59
Intake Total 770 / 770
Output Total 50 / 50
Balance 720 / 720
Review of Systems
-
History Source: Patient
All other systems: Reviewed and negative
--- NOTE | 2025-07-28 09:09 | W.PN.PUL3 ---
Today's Communication / Plan
-
Volume overload a predominant issue, HD ongoing per renal
Wean O2 as tolerated, BIPAP nightly ongoing
ECHO pending, effusions are noted, but likely too small to tap
Encouraged OOB/IS/PT when not on HD
Agree with stopping abx, urine culture final pending
Assessment
-
65-year-old obese male non-smoker with past medical history of CHF, paroxysmal A-fib, chronic hypoxic respiratory failure on supplemental oxygen, ESRD on HD MWF, anemia of chronic disease, ALVIN on nocturnal BiPAP, seizure disorder, DM type II, and
BPH who presented with chest pain, hematuria. Patient presented from [facility] with sharp left-sided chest pain that started overnight. He was unable to tolerate his BiPAP due to this pain. Chest imaging was concerning for left-sided
pneumonia. Blood gas showed an acute component of hypercapnia and he was placed onto BiPAP, broad-spectrum antibiotics were started and he was admitted to the IMU for further care. Pulmonary service now consulted for additional
management/recommendations.
Impression:
Acute on chronic hypercapnic respiratory failure s/p improvement with BiPAP
ALVIN on BiPAP/suspected OHS
Acute on chronic hypoxic respiratory failure
Loculated effusion, r/o PNA
CHF with severe acute decompensated exacerbation, proBNP >83285
Elevated troponin likely due to demand ischemia with type II RI
Hematuria w/ abnormal urinalysis-positive nitrites and +3 leukocyte esterase, concerning for UTI
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
CHF
Paroxysmal A-fib
Chronic hypoxic respiratory failure on supplemental oxygen
ESRD on HD MWF
Anemia of chronic disease
ALVIN on nocturnal BiPAP
Seizure disorder
DM type II
BPH
ESRD on HD
Severe anterior wedge compression fracture of T7
Plan:
Remains on 8L NC, when off BIPAP
Maintained on BIPAP use nightly and PRN
CT chest obtained today (07/27) shows evidence of multifocal pneumonia with patchy nodular opacities in the right upper lobe and consolidative opacities in the right lower lobe + left upper/left lower lobe with bilateral pleural effusions with
loculation in the left hemithorax, and fluid in the left oblique fissure
Monitor mental status -if he begins to become lethargic then would place onto BiPAP and check urgent blood gas, otherwise he is at risk of intubation due to CO2 narcosis
Appears too small for thoracentesis
Volume overload a clear issue ongoing, volume removal needed via HD
Maintain MAP>65, continue midodrine (home med)
Hold anti-hypertensives unless needed
Trend troponin until peaks
Recommend cardiology consult
EKG shows V-paced rhythm with underlying A-flutter; negative for Sgarbossa criteria
Check echo, still pending-cardiomegaly noted on imaging with compression of L side
Continue with BiPAP while trending serial blood gases to assure pH + pCO2 remained stable
Continue nasal cannula while not on BiPAP, and titrate to maintain SpO2 >90-94%
DuoNebs q6hr
prn nebulized bronchodilators - not currently bronchospastic
Incentive spirometer encouraged q1hr while awake
Continue with antibiotics to Zosyn + IV vancomycin
Possible UTI, urine culture still pending, stop vanc
Follow-up infectious workup with blood cultures + urine culture; check MRSA screen and if negative then can dc IV vanc
Obtain sputum culture if patient can produce a decent sample
Check urine antigens for legionella and Strep PNA
ESRD on HF
Defer HD to nephrology
- Trend H/H and transfuse if needed to keep Hb>7g/dL; keep plt>20k, unless there is concern for bleeding then keep plt>50k
- Maintain euglycemia with goal BG >100 and <180
- Pepcid 20mg BID
- DVT ppx: Eliquis
Pulmonary service will continue to follow along.
Data:
CXR 07/27/25: Findings suggesting left lower lobe pneumonia. Small right pleural effusion. Cardiomegaly. Limited inspiration.
CT Chest 07/27/2025: Mild right upper lobe pneumonia. Consolidation in the left upper lobe, left lower lobe and right lower lobe also concerning for pneumonia. Moderate loculated left pleural effusion. Small loculated right pleural effusion. Mild
cardiomegaly. Severe anterior wedge compression fracture of T7. Age indeterminate.
ECHO pending
Total time spent today was 51 minutes for this encounter. Time includes reviewing laboratory test/imaging results, reviewing pertinent medical records, obtaining and reviewing medical history, performing an appropriate exam, ordering medications,
tests and procedures. Time also includes documentation of this encounter, coordinating patient care and communicating with other healthcare professionals. Total time does not include separately billed tests performed on this date of service.
Subjective Data
-
Date of Service:
Date of Service: July 28, 2025
Chief Complaint: Pulmonary Follow Up
Subjective:
On HD and BIPAP
Notes his SOB has not been improved
Remains on 8L while off PAP
Objective Data
Data Reviewed
Vital Signs / I&O / Oxygen:
Vital Signs
Temp Pulse Resp BP Pulse Ox
98.8 F 70 21 111/71 95
07/28/25 07:08 07/28/25 07:23 07/28/25 07:23 07/28/25 06:00 07/28/25 07:23
Intake and Output
07/27/25 07/28/25 07/29/25
06:59 06:59 06:59
Intake Total 770 / 770
Output Total 50 / 50
Balance 720 / 720
SaO2 95
Nasal Cannula flow liters per 8
minute
Physical Exam
General: Comfortable and Other (NAD, obese)
HEENT: Normocephalic, Anicteric and Moist Mucous Membranes
Cardiovascular: S1-S2, Regular Rhythm and Peripheral Edema
Respiratory: Non-Labored Respirations and Other (overall diminished BS, poor body habitus)
GI: Soft, Distended (hernia present) and Non Tender
Neurology: Awake, Alert, Oriented and No Motor Deficits
Skin: Warm, Dry and Good Color
Labs/Micro/Reports
Lab Data
07/28/25 05:44
Microbiology
07/27/25 08:42 Blood/Venous Blood Culture - Preliminary
No Growth in 24 hours- Final report to follow
07/27/25 13:31 Nose Nasal Screen MRSA (PCR) - Final
MRSA not detected - performed by PCR methodology.
[2025-07-28] MEDS: PHOSLO 667 MG PO ×3 (09:21→19:22)
[2025-07-28] MEDS: MIRALAX 17 GRAMS PO (09:21)
[2025-07-28] MEDS: VIMPAT 50 MG PO ×2 (09:21→19:23)
[2025-07-28] MEDS: DROXIDOPA 200 MG PO ×3 (09:21→19:22)
[2025-07-28] MEDS: NOVOLOG FLEXPEN-LOW RESISTANCE 1 UNITS SC ×2 (09:22→18:03)
[2025-07-28] MEDS: ZOSYN IV (09:26)
[2025-07-28] MEDS: PEPCID PO (09:26)
[2025-07-28 09:51] LABS: Blood Urea Nitrogen 36 mg/dl (9-20); Calcium 8.2 mg/dl (8.4-10.2); Carbon Dioxide 28 mmol/L (22-30); Chloride 98 mmol/L (98-107); Estimated Creatinine Clearance 25 ml/min; Glucose 221 mg/dl (70-99); Iron 52 ug/dl (49-181); Magnesium 1.8 mg/dl (1.6-2.3); Potassium 3.4 mmol/L (3.5-5.1); Sodium 137 mmol/L (135-145); eGFR 15.46
--- NOTE | 2025-07-28 10:01 | W.PN.NEPH.HD ---
Assessment
-
seen on hd. bp soft. midodrine given
will do extra UF tomorrow
Progress Note - Hemodialysis
-
Date of Service: July 28, 2025
Duration: 30 minutes and 3 hours
Potassium Bath: 2
Calcium Bath: 2.5
Opti-Dialyzer: 160
Ultrafiltration: Other
Blood Flow: 400
Dialysate Flow: 600
[2025-07-28 10:03] LABS: Ferritin 893.0 ng/ml (17.9-464.0)
[2025-07-28 10:09] LABS: Total Iron Binding Capacity 255 ug/dl (261-462)
--- NOTE | 2025-07-28 11:16 | CON.CAR ---
Addendum entered and electronically signed by Sharath Murray MD 07/28/25 18:22:
65-year-old man with end-stage renal disease who resides at [place] who presented with chest pain and suspected left lung pneumonia.
PMH: End-stage renal disease, obstructive sleep apnea on BiPAP, seizures, type 2 diabetes, COPD, paroxysmal A-fib, orthostasis on both droxidopa and midodrine, hypercholesterolemia, CHF, Pacemaker, GERD
Current medicines: Lantus, apixaban 2.5 mg twice daily, clopidogrel 75 mg daily, droxidopa, 200 mg 3 times daily, Vimpat, midodrine 15 mg p.o. 3 times daily, MiraLAX, rosuvastatin 40 mg a day, Pepcid 10 mg at bedtime, as needed midodrine
86/54, pulse 78, respiratory rate 35, saturations 92%, weight is 122 kg, another weight is 128.4 kg, morbidly obese, limited lung exam but diminished in bases,, edema, massively obese,currently on BiPAP
Chest CT probable right upper lobe pneumonia, mild left upper lobe pneumonia, severe left lower lobe and moderate right lower lobe pneumonia, loculated left pleural effusion small loculated right pleural effusion, T7 fracture
Chest x-ray: Pacemaker, massive cardiomegaly, effusions, vascular congestion
Echo is pending:
Hemoglobin is 8.2, white count is 11.5, MCV is 100.8, creatinine is 4.1, BUN is 36, potassium is 3.4, proBNP is greater than 27,000, troponin is 0.068
ECG atrial flutter with ventricular pacing.
Impression:
Acute on chronic heart failure, EF currently unknown
Suspected bilateral pneumonia with bilateral loculated effusions
Pleuritic chest pain with low-level troponin 0.068
Anemia
Obstructive sleep apnea
Acute on chronic respiratory failure, likely multifactorial
End-stage renal disease
Paroxysmal atrial fibrillation, currently in atrial flutter
Orthostatic hypotension on both midodrine and droxidopa
Morbid obesity
GERD
Seizure disorder
Anxiety
Pacemaker
GERD
Hypercholesterolemia
Type 2 diabetes
Hematuria
Plan:
He presents with acute on chronic heart failure, EF unknown. He has an elevated troponin that is likely nonischemic myocardial injury.
He has profound orthostasis/hypotension likely chronic given that he is on both midodrine and droxidopa, something I have not seen previously. We may need to consider phenylephrine or norepinephrine if hypotension remains an ongoing issue.
He has anemia with hematuria, on Plavix and apixaban. His apixaban should be 5 mg twice daily, and he should probably not be on Plavix given recent data on combined therapy for chronic conditions. I will stop Plavix and increase apixaban to 5 mg
daily. If hemoglobin drops further we may need to hold Eliquis.
We will need to interrogate pacemaker. I might consider an increase in his basal rate to augment his cardiac output.
He has ongoing acute on chronic heart failure, EF unknown. It will be important to rule out pericardial effusion etc. Await echo. From cardiology standpoint, will defer volume management to nephrology and would favor aggressive dialysis as blood
pressure will tolerate.
Optimization of GDMT for heart failure will be problematic given his blood pressure.
We will need to review his old records regarding possibility of underlying CAD/etc. Options very limited at this time.
Original Note:
Consultation
Consultation Request
Date/Time Consultation Requested: 07/28/2025 08:50
Date/Time Consultation Performed: 07/28/2025 10:30
Requesting Provider: Nickolas Spencer DO
Performing Provider: Devon Morley DO (Resident); Sharath Murray MD
Reason for Consultation: SOB, Chest Pain
Medical History
-
Chief Complaint: Chest Pain
History of Present Illness:
Erich Talbert is a 65M w/ PMHx of CHF (unknown type), atrial fibrillation, chronic hypoxic respiratory failure requiring supplemental O2 and BiPAP qhs, ESRD on HD MWF, ACD, ALVIN, Sz d/o, and IDDM who presented to the ED yesterday morning with chest
pain. Patient presented from [facility] where he endorses that over the past 4 days, he had been experiencing chest pain intermittently. Patient states that the pain presents upon waking up in the morning. He denies that these pains wake him from
sleep. Instead, he wakes up without pain, and then when he removes his BiPAP and puts on his nasal cannula, is when he starts to experiences the pain, which lasts for about 5 minutes afterwards before subsiding. He endorses that the pain is very
localized to the left parasternal area, and sometimes radiates up to the left upper chest.
Additionally, the patient endorses brown/reddish urine for approximately 2 days. He notes that he always sleeps in Walden's position. He is unsure about weight gain, as he does not get weighed at [facility], but notes from what he has been told
at dialysis, his weights are usually up and down, and have not recently been up.
ED COURSE
Hb 7.2, Cr 5.0, Trop 0.068
BNP 73627
CXR showed possible L sided pneumonia
VBG showed acute component of hypercapnia
Patient was placed on BiPAP, started on broad spectrum abx and admitted to IMU.
HOSPITAL COURSE
MWF HD, electrolyte repletion per nephrology
Continued on midodrine for soft BPs.
Continued on BiPAP with repeat blood gas showing resolution of hypercapnia
CT Chest showing mild right upper lobe pneumonia, consolidation in the left upper lobe, left lower lobe and right lower lobe also concerning for pneumonia, and moderate loculated left pleural effusion as well as small loculated right pleural
effusion.
At time of interview, patient is receiving HD, currently on BiPAP and without any acute complaints.
Past Medical History
Past Medical History: Other (CHF? (unknown type?), atrial fibrillation, chronic hypoxic respiratory failure requiring supplemental O2 and BiPAP qhs, ESRD on HD MWF, ACD, ALVIN, Sz d/o, and IDDM)
Social History
Tobacco: Non-Smoker
Alcohol: None
Drug: None
Living: Half-Way
Allergies / Home Medications
Allergy/AdvReac Type Severity Reaction Status Date / Time
cephalexin Allergy Hives Verified 07/27/25 07:00
�Medication �Instructions �Recorded �Confirmed �Type
acetaminophen 325 mg tablet 650 mg PO Q6HPRN PRN mild pain 07/27/25 07/27/25 History
apixaban 2.5 mg tablet 2.5 mg PO BID AFib 07/27/25 07/27/25 History
bisacodyl 10 mg rectal suppository 10 mg OR DAILYPRN PRN if no bm 07/27/25 07/27/25 History
(Dulcolax (bisacodyl)) aftr mom
calcium acetate 667 mg tablet 667 mg PO AC Hyperphosphatemia 07/27/25 07/27/25 History
cholecalciferol (vitamin D3) 50 50 mcg PO DAILY Supplement 07/27/25 07/27/25 History
mcg (2,000 unit) capsule (Vitamin
D3)
clopidogrel 75 mg tablet 75 mg PO DAILY Blood Clot 07/27/25 07/27/25 History
Prevention/Tx
droxidopa 200 mg capsule 200 mg PO AC Orthostatic 07/27/25 07/27/25 History
hypotension
famotidine 20 mg tablet 20 mg PO BID Gastrointestinal Issue 07/27/25 07/27/25 History
insulin glargine 100 unit/mL (3 5 unit SC BID Diabetes 07/27/25 07/27/25 History
mL) subcutaneous pen (Basaglar
KwikPen U-100 Insulin)
insulin lispro 100 unit/mL 1 sliding scale dose SC AC Diabetes 07/27/25 07/27/25 History
subcutaneous pen
ipratropium 0.5 mg-albuterol 3 mg 3 ml inhalation R Q6HPRN PRN sob 07/27/25 07/27/25 History
(2.5 mg base)/3 mL nebulization
soln
lacosamide 50 mg tablet 50 mg PO BID Seizures 07/27/25 07/27/25 History
melatonin 5 mg tablet 5 mg PO HSPRN PRN sleep 07/27/25 07/27/25 History
midodrine 5 mg tablet 15 mg PO TID Hypotension 07/27/25 07/27/25 History
polyethylene glycol 3350 17 gram 17 g PO DAILY Constipation 07/27/25 07/27/25 History
oral powder packet
rosuvastatin 40 mg tablet 40 mg PO QPM High Cholesterol 07/27/25 07/27/25 History
sennosides 8.6 mg capsule (senna) 17.2 mg PO DAILYPRN PRN 07/27/25 07/27/25 History
constipation
sodium chloride-hypochlorous acid 1 irrig irrigation BID Wounds 07/27/25 07/27/25 History
0.033 % irrigation solution (Vashe)
Review of Systems
-
History Source: Patient
All other systems: Negative unless noted
Physical Exam
Vital Signs
Temp Pulse Resp BP Pulse Ox
98.8 F 70 21 111/71 95
07/28/25 07:08 07/28/25 07:23 07/28/25 07:23 07/28/25 06:00 07/28/25 07:23
Lab Results
07/28/25 05:44
07/28/25 08:52
Troponin I 0.057 ng/ml H* 07/27/25 13:31
[id number] Pept > 01414 pg/ml 07/27/25 06:41
Physical Exam
General: Other (Currently receiving HD, on BiPAP with adequate oxygenation)
Respiratory: Clear and Other (Good air movement on BiPAP)
Cardiac: S1/S2 and Regular Rhythm; Negative Murmur or Rub
Musculoskeletal: No Clubbing, No Cyanosis, No Edema and Other (chronic venous stasis changes of the lower extremities bilaterally)
Skin: Warm
Neuro: Awake
Psych: Calm
Impression / Plan
-
Erich Princeton is a 65M w/ PMHx of atrial fibrillation, chronic hypoxic respiratory failure requiring supplemental O2 and BiPAP qhs, ESRD on HD MWF, ACD, ALVIN, Sz d/o, IDDM and possible CHF who presented to the ED with daily sharp CP lasting five
minutes at a time for the past few mornings when taking off his BiPAP and putting on nasal cannula, and was found to have potential pneumonia on CXR/CT Chest, without clinical signs of pneumonia. In the ED his troponin was 0.068 and BNP 27,000. We
were consulted to evaluate for CHF. There is a questionable hisotry of CHF, and no old records to review, but given the elevated BNP and acute on chronic respiratory failure, it would benefit the patient to evaluate for heart failure. We will
continue to follow.
PLAN
Await ECHO results for further recommendations.
[2025-07-28 11:43] LABS: Glucose - Point of Care 125 mg/dl (70-99)
[2025-07-28] MEDS: CRESTOR 40 MG PO (12:53)
[2025-07-28] MEDS: ELIQUIS 2.5 MG PO (12:54)
[2025-07-28] MEDS: PLAVIX 75 MG PO (12:54)
[2025-07-28] MEDS: VITAMIN D3 (cholecalciferol) 50 MCG PO (12:54)
[2025-07-28] MEDS: NOVOLOG FLEXPEN-LOW RESISTANCE SC (12:55)
[2025-07-28] MEDS: CALCIUM GLUCONATE 100 IV (14:51)
[2025-07-28] MEDS: KCL 20 MEQ PO (14:51)
--- NOTE | 2025-07-28 15:55 | PTCARENOTE ---
Caring for pt throughout the day. Aox3, very anxious. Pt's S.O also very anxious over the phone, emotional support provided. VPaced on tele monitor. On and off Bipap throughout the day by RT. Tolerated HD. OOB to chair for short time. Bed alarm in
place for safety. Call byrne within reach.
[2025-07-28 17:36] LABS: Glucose - Point of Care 179 mg/dl (70-99)
[2025-07-28] MEDS: ELIQUIS 5 MG PO (19:23)
[2025-07-28] MEDS: LANTUS 0.05 UNITS SC (21:40)
[2025-07-28] MEDS: PEPCID 10 MG PO (21:41)
[2025-07-28 21:52] LABS: Glucose - Point of Care 143 mg/dl (70-99)
[2025-07-29] VITALS (30 sets, daily range): BP systolic 95–142; BP diastolic 63–85; PULSE 2; BMI 36.3
--- NOTE | 2025-07-29 07:57 | W.PN.HOSP.TC ---
Today's Communication/Plan
-
Wean down oxygen
Daily weights
Check labs
Echocardiogram
Assessment / Plan
Assessment / Plan
Gen-AAOx3, mild respiratory distress with conversation, obese
HEENT-NC, AT, anicteric, clear oral mm
Neck-supple
CV-reg, no M, +S1/S2
Lungs-clear B/L
Abd-soft, NT, ND
Ext-bilateral lower extremity edema, hyperpigmentation
Musculoskeletal-no cyanosis, clubbing
Skin-warm and dry
Neuro-grossly non-focal
Psych-calm, cooperative
Acute on chronic hypoxic/hypercapnic respiratory failure -suspect due to bilateral pulmonary edema. Clinically doubt pneumonia. Patient denies cough, fever or chills.
Antibiotics discontinued.
Currently stable on 10 L nasal cannula oxygen, wean down oxygen as able. Use BiPAP while sleeping.
Patient denies history of emphysema or chronic lung disease. Never smoked.
Acute pulmonary edema -due to acute heart failure exacerbation in the setting of ESRD. Unknown type of heart failure.
Admission BNP greater than 27,000.
Check echocardiogram. Appreciate cardiology input.
Patient unclear about details but believes his weight is up at least 10 pounds.
Unclear accuracy of weights, no weight recorded in 2 days. Spoke with nursing about getting daily weights.
Troponin elevation -suspect acute nonischemic myocardial injury in the setting of respiratory failure, heart failure. Troponin trending down.
ESRD -on dialysis Monday. Nephrology consulted. He had dialysis yesterday, getting ultrafiltration today.
CAD -with history of coronary stents. Plavix discontinued by cardiology. Patient states last stent was 2021.
Paroxysmal atrial fibrillation -continue Eliquis. Dose increased by cardiology to 5 mg twice daily.
Chronic anemia -hemoglobin pending for today. Baseline unknown. Suspect related to ESRD. Continue erythropoietin.
ALVIN -continue BiPAP while sleeping.
Seizure disorder -continue AEDs.
Hyperlipidemia -on rosuvastatin.
Chronic orthostatic hypotension -on droxidopa, midodrine.
DM 2 with hyperglycemia -prior to admission he was on glargine 5 units twice daily, lispro sliding scale.
Currently on Lantus 5 units at bedtime, aspart low resistance corrective scale.
BPH
Obesity due to excess calories
Full code
PT/OT
Dispo -SNF when medically stable.
Anticipated Discharge: > 48 hours
Subjective/Interval History
-
Date of Service: July 29, 2025
Patient seen and examined. States breathing is a little bit better. No other complaints.
Objective Data
-
Labs:
Laboratory Results
07/29/25
07:39
WBC Pending
Hgb Pending
Hct Pending
Plt Count Pending
Sodium Pending
Potassium Pending
Chloride Pending
Carbon Dioxide Pending
BUN Pending
Creatinine Pending
Glucose Pending
Calcium Pending
Vital Signs:
Vital Signs
Temp Pulse Resp BP Pulse Ox
96.7 F L 71 20 105/65 100
07/29/25 03:00 07/29/25 06:00 07/29/25 06:00 07/29/25 06:00 07/29/25 06:00
I&O
07/28/25 07/29/25 07/30/25
06:59 06:59 06:59
Intake Total 770 / 770
Output Total 50 / 50
Balance 720 / 720
Review of Systems
-
History Source: Patient
All other systems: Reviewed and negative
[2025-07-29 08:08] LABS: Hematocrit 26.2 % (39.0-52.0); Hemoglobin 8.3 g/dL (13.0-18.0); Mean Corp Hgb Conc. 31.7 g/dL (33.0-37.0); Mean Corpuscular Volume 100.8 fL (80.0-94.0); Nucleated Red Blood Cells % 0 % (-); Platelet Count 277 10^3/uL (130-400); Red Cell Dist. Width 17.4 % (11.5-14.5)
[2025-07-29] MEDS: PHOSLO 667 MG PO ×3 (08:18→20:21)
[2025-07-29] MEDS: DROXIDOPA 200 MG PO ×3 (08:18→20:22)
[2025-07-29] MEDS: MIRALAX 17 GRAMS PO (08:19)
[2025-07-29] MEDS: CRESTOR 40 MG PO (08:19)
[2025-07-29] MEDS: VITAMIN D3 (cholecalciferol) 50 MCG PO (08:19)
[2025-07-29] MEDS: VIMPAT 50 MG PO ×2 (08:19→20:22)
[2025-07-29] MEDS: ELIQUIS 5 MG PO ×2 (08:20→20:21)
[2025-07-29] MEDS: FLEXBUMIN 25% FOR HEMODIALYSIS 12.5 GRAMS IV ×2 (08:23→09:48)
[2025-07-29 08:42] LABS: Blood Urea Nitrogen 38 mg/dl (9-20); Calcium 9.2 mg/dl (8.4-10.2); Carbon Dioxide 27 mmol/L (22-30); Chloride 100 mmol/L (98-107); Estimated Creatinine Clearance 22 ml/min; Glucose 149 mg/dl (70-99); Magnesium 2.0 mg/dl (1.6-2.3); Potassium 4.1 mmol/L (3.5-5.1); Sodium 139 mmol/L (135-145); eGFR 13.83
[2025-07-29 09:19] LABS: Glucose - Point of Care 149 mg/dl (70-99)
--- NOTE | 2025-07-29 09:26 | W.PN.PUL3 ---
Today's Communication / Plan
-
BIPAP can be changed to nightly and PRN use, O2 ~6-8L, satting 98%, could likely wean down further
Continue volume removal via HD
IS encouraged, PT/OT, OOB
Daily weights/fluid and diet restrictions continued
Can likely transfer out of IMU if doing well
Assessment
-
65-year-old obese male non-smoker with past medical history of CHF, paroxysmal A-fib, chronic hypoxic respiratory failure on supplemental oxygen, ESRD on HD MWF, anemia of chronic disease, ALVIN on nocturnal BiPAP, seizure disorder, DM type II, and
BPH who presented with chest pain, hematuria. Patient presented from [facility] with sharp left-sided chest pain that started overnight. He was unable to tolerate his BiPAP due to this pain. Chest imaging was concerning for left-sided
pneumonia. Blood gas showed an acute component of hypercapnia and he was placed onto BiPAP, broad-spectrum antibiotics were started and he was admitted to the IMU for further care. Pulmonary service now consulted for additional
management/recommendations.
Impression:
Acute on chronic hypercapnic respiratory failure s/p improvement with BiPAP
ALVIN on BiPAP/suspected OHS
Acute on chronic hypoxic respiratory failure
Loculated effusion, r/o PNA
CHF with severe acute decompensated exacerbation, proBNP >00046
Elevated troponin likely due to demand ischemia with type II IN
Hematuria w/ abnormal urinalysis-positive nitrites and +3 leukocyte esterase, concerning for UTI
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
CHF
Paroxysmal A-fib
Chronic hypoxic respiratory failure on supplemental oxygen
ESRD on HD MWF
Anemia of chronic disease
ALVIN on nocturnal BiPAP
Seizure disorder
DM type II
BPH
ESRD on HD
Severe anterior wedge compression fracture of T7
Plan:
Remains on 8L NC, when off BIPAP--weaning down
Maintained on BIPAP use nightly and PRN--can take longer breaks during the day
CT chest obtained today (07/27) shows evidence of multifocal pneumonia with patchy nodular opacities in the right upper lobe and consolidative opacities in the right lower lobe + left upper/left lower lobe with bilateral pleural effusions with
loculation in the left hemithorax, and fluid in the left oblique fissure
Monitor mental status -if he begins to become lethargic then would place onto BiPAP and check urgent blood gas, otherwise he is at risk of intubation due to CO2 narcosis
Appears too small for thoracentesis
Volume overload a clear issue ongoing, volume removal needed via HD
Maintain MAP>65, continue midodrine (home med)
Hold anti-hypertensives unless needed
Trend troponin until peaks
Recommend cardiology consult
EKG shows V-paced rhythm with underlying A-flutter; negative for Sgarbossa criteria
Check echo, still pending-cardiomegaly noted on imaging with compression of L side
Continue with BiPAP while trending serial blood gases to assure pH + pCO2 remained stable
Continue nasal cannula while not on BiPAP, and titrate to maintain SpO2 >90-94%
DuoNebs q6hr
prn nebulized bronchodilators - not currently bronchospastic
Incentive spirometer encouraged q1hr while awake
Continue with antibiotics to Zosyn + IV vancomycin
Possible UTI, urine culture still pending, stop vanc
Follow-up infectious workup with blood cultures + urine culture; check MRSA screen and if negative then can dc IV vanc
Obtain sputum culture if patient can produce a decent sample
Check urine antigens for legionella and Strep PNA
ESRD on HF
Defer HD to nephrology
- Trend H/H and transfuse if needed to keep Hb>7g/dL; keep plt>20k, unless there is concern for bleeding then keep plt>50k
- Maintain euglycemia with goal BG >100 and <180
- Pepcid 20mg BID
- DVT ppx: Eliquis
Pulmonary service will continue to follow along.
Data:
CXR 07/27/25: Findings suggesting left lower lobe pneumonia. Small right pleural effusion. Cardiomegaly. Limited inspiration.
CT Chest 07/27/2025: Mild right upper lobe pneumonia. Consolidation in the left upper lobe, left lower lobe and right lower lobe also concerning for pneumonia. Moderate loculated left pleural effusion. Small loculated right pleural effusion. Mild
cardiomegaly. Severe anterior wedge compression fracture of T7. Age indeterminate.
ECHO pending
Total time spent today was 51 minutes for this encounter. Time includes reviewing laboratory test/imaging results, reviewing pertinent medical records, obtaining and reviewing medical history, performing an appropriate exam, ordering medications,
tests and procedures. Time also includes documentation of this encounter, coordinating patient care and communicating with other healthcare professionals. Total time does not include separately billed tests performed on this date of service.
Subjective Data
-
Date of Service:
Date of Service: July 29, 2025
Chief Complaint: Pulmonary Follow Up
Subjective:
Remains on BIPAP overnight, can take breaks today
O2 reduced to 6-8L use --satting 98%
Objective Data
Data Reviewed
Vital Signs / I&O / Oxygen:
Vital Signs
Temp Pulse Resp BP Pulse Ox
98.4 F 71 20 105/65 100
07/29/25 09:09 07/29/25 06:00 07/29/25 06:00 07/29/25 06:00 07/29/25 06:00
Intake and Output
07/28/25 07/29/25 07/30/25
06:59 06:59 06:59
Intake Total 770 / 770
Output Total 50 / 50
Balance 720 / 720
SaO2 100
Nasal Cannula flow liters per 5
minute
Physical Exam
General: Comfortable and Other (NAD, obese)
HEENT: Normocephalic, Anicteric and Moist Mucous Membranes
Cardiovascular: S1-S2, Regular Rhythm and Peripheral Edema
Respiratory: Non-Labored Respirations and Other (overall diminished BS, poor body habitus)
GI: Soft, Distended (hernia present) and Non Tender
Neurology: Awake, Alert, Oriented and No Motor Deficits
Skin: Warm, Dry and Good Color
Labs/Micro/Reports
Lab Data
07/29/25 07:39
07/29/25 07:39
Microbiology
07/27/25 08:42 Blood/Venous Blood Culture - Preliminary
No Growth in 48 hours- Final report to follow
07/27/25 09:13 Blood/Venous Blood Culture - Preliminary
No Growth in 24 hours- Final report to follow
07/27/25 13:31 Nose Nasal Screen MRSA (PCR) - Final
MRSA not detected - performed by PCR methodology.
[2025-07-29] MEDS: NOVOLOG FLEXPEN-LOW RESISTANCE SC (10:10)
--- NOTE | 2025-07-29 10:21 | W.PN.NEPH.HD ---
Assessment
-
seen on dialysis=extra UF today shila tx
HD wed reg schedule
Progress Note - Hemodialysis
-
Date of Service: July 29, 2025
--- NOTE | 2025-07-29 11:32 | CM ---
Following up on Patient. RN State that patient is on a higher nasal cannula then he was at [facility] so they are working on weaning him down. Patient from [facility] for LTC.
JULIO CÉSAR Pham saw that PT/OT recommended SNF so made referral to [facility] so they can follow
[2025-07-29 12:10] LABS: Glucose - Point of Care 240 mg/dl (70-99)
[2025-07-29] MEDS: NOVOLOG FLEXPEN-LOW RESISTANCE 2 UNITS SC (13:07)
--- NOTE | 2025-07-29 15:24 | W.PN.CD ---
Addendum entered and electronically signed by Sharath Murray MD 07/29/25 16:07:
65-year-old man with end-stage renal disease who resides at [facility] who presented with chest pain and suspected left lung pneumonia.
PMH: End-stage renal disease, obstructive sleep apnea on BiPAP, seizures, type 2 diabetes, COPD, paroxysmal A-fib, orthostasis on both droxidopa and midodrine, hypercholesterolemia, CHF, Pacemaker, GERD
Current medications: Lantus insulin, droxidopa 200 3 times daily, Vimpat, midodrine 15 mg p.o. 3 times daily, polyethylene, rosuvastatin 40 mg a day, apixaban 5 mg twice daily, aspirin has been stopped
105/65, pulse 71, respiratory rate 20, afebrile sats 100%, weight is 121.3 kg, down 0.7 kg, complains of shortness of breath but not on BiPAP, wants to sit in chair, just completed hemodialysis, diminished breath sounds left greater than right base,
limited exam, regular rate and rhythm, no obvious murmurs, 2+ to 3+ edema, extremely obese
Hemoglobin is 8.3, BUN/creatinine are 38 and 4.5, potassium is 4.[address] probable right upper lobe pneumonia, mild left upper lobe pneumonia, severe left lower lobe and moderate right lower lobe pneumonia, loculated left pleural effusion small loculated right pleural effusion, T7 fracture
Chest x-ray: Pacemaker, massive cardiomegaly, effusions, vascular congestion
Telemetry: Atrial fibrillation/flutter and ventricular pacing 70
Impression:
Acute on chronic heart failure, EF currently unknown
Suspected bilateral pneumonia with bilateral loculated effusions
Pleuritic chest pain with low-level troponin 0.068
Anemia
Obstructive sleep apnea
Acute on chronic respiratory failure, likely multifactorial
End-stage renal disease
Paroxysmal atrial fibrillation, currently in atrial flutter
Orthostatic hypotension on both midodrine and droxidopa
Morbid obesity
GERD
Seizure disorder
Anxiety
Pacemaker
GERD
Hypercholesterolemia
Type 2 diabetes
Hematuria
Plan:
Cardiac status largely unchanged, suspect still substantially volume overloaded.
Anticoagulant regimen has been optimized, now on appropriate dose apixaban and off clopidogrel
Will await records
Favor continued aggressive hemodialysis as blood pressure permits. Dialysis nurse reports 2.4 kg today.
Await echocardiogram.
Long-term therapeutic options remain limited
Original Note:
Today's Communication / Plan
-
.
Impression / Plan
-
Erich Talbert is a 65M w/ PMHx of atrial fibrillation, chronic hypoxic respiratory failure requiring supplemental O2 and BiPAP qhs, ESRD on HD MWF, ACD, ALVIN, Sz d/o, IDDM, orthostasis on midodrine and doxidropa, and possible CHF who presented to the
ED with daily sharp CP lasting five minutes at a time for the past few mornings when taking off his BiPAP and putting on nasal cannula, and was found to have potential pneumonia on CXR/CT Chest, without clinical signs of pneumonia. In the ED his
troponin was 0.068 and BNP 27,000. We were consulted to evaluate for CHF. There is a questionable hisotry of CHF, and no old records to review, but given the elevated BNP and acute on chronic respiratory failure, it would benefit the patient to
evaluate for heart failure. We will continue to follow. This morning his respiratory status is improved, saturating 100% on 8L O2. Troponins have peaked and likely represent nonischemic myocardial injury.
PLAN
Await ECHO results for further recommendations.
Plavix discontinued, Hb stable, continue to monitor
Continue Midodrine and Droxidopa, maintain MAP > 65
Optimization of GDMT is not really an option at this point given soft BPs
Will need to interrogate PM
Continue HD; volume management per nephrology
Physical Exam
Vital Signs/Labs
Vital Signs
Temp Pulse Resp BP Pulse Ox
98.1 F 71 20 138/85 100
07/29/25 12:38 07/29/25 06:00 07/29/25 06:00 07/29/25 14:00 07/29/25 06:00
07/28/25 07/29/25 07/30/25
06:59 06:59 06:59
Actual Weight 122 kg 121.3 kg
07/29/25 07:39
07/29/25 07:39
Magnesium 2.0 mg/dl (1.6-2.3) 07/29/25 07:39
07/27/25
06:41
Jsk-[id number]-Jzmwmoqpoba Pept > 18794
LAB Results
07/27/25 07/27/25
06:41 13:31
Troponin I 0.068 H* 0.057 H*
Physical Exam
Constitutional: Other (99% on 8L NC; drops to low 90s with prolonged speaking)
Cardiovascular: Rhythm & rate is regular, Pedal edema is absent, JVD pressure is normal and Systolic murmur absent
Respiratory: Respiratory effort normal and Other (upper lung sullivan clear to auscultation, diminished bibasilar breath sounds)
Neuro/Psych: Alert
Data Reviewed
-
Date of Service: July 29, 2025
Labs: Labs Reviewed by me
[2025-07-29 16:49] LABS: Glucose - Point of Care 162 mg/dl (70-99)
[2025-07-29] MEDS: NOVOLOG FLEXPEN-LOW RESISTANCE 1 UNITS SC (17:59)
[2025-07-29] MEDS: PEPCID 10 MG PO (20:21)
--- NOTE | 2025-07-29 21:42 | PTCARENOTE ---
Caring for pt overnight. aaox3, denies pain. C/o SOB at rest, states its the worst it has been. pt asked to be put on bipap early. RT up to see pt. Sats currently 92% on bipap 15L. Vpaced on monitor. BP stable. No assessment changes. Will monitor.
[2025-07-29 21:52] LABS: Glucose - Point of Care 215 mg/dl (70-99)
[2025-07-29] MEDS: LANTUS 0.05 UNITS SC (21:53)
[2025-07-30] VITALS (33 sets, daily range): BP systolic 98–125; BP diastolic 37–84; PULSE 2–91; O2SAT 94–98; BMI 35.5
--- NOTE | 2025-07-30 02:28 | DOWNTIME ---
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 Downtime documentation of patient's care, including medication administrations, has been reconciled in the electronic record per guidelines. Refer to the
patient's paper chart under the miscellaneous tab to see printed paper medication records and downtime forms.
[2025-07-30 05:57] LABS: Hematocrit 25.7 % (39.0-52.0); Hemoglobin 8.0 g/dL (13.0-18.0); Mean Corp Hgb Conc. 31.1 g/dL (33.0-37.0); Mean Corpuscular Volume 101.2 fL (80.0-94.0); Nucleated Red Blood Cells % 0 % (-); Platelet Count 193 10^3/uL (130-400); Red Cell Dist. Width 17.5 % (11.5-14.5)
[2025-07-30 06:49] LABS: Blood Urea Nitrogen 51 mg/dl (9-20); Calcium 8.7 mg/dl (8.4-10.2); Carbon Dioxide 29 mmol/L (22-30); Chloride 99 mmol/L (98-107); Estimated Creatinine Clearance 18 ml/min; Glucose 114 mg/dl (70-99); Magnesium 2.2 mg/dl (1.6-2.3); Potassium 3.8 mmol/L (3.5-5.1); Sodium 140 mmol/L (135-145); eGFR 10.87
--- NOTE | 2025-07-30 07:46 | W.PN.HOSP.TC ---
Addendum entered and electronically signed by Nickolas Spencer DO 07/30/25 13:07:
Updated patient's power of civil rights attorney Romain Frances, on the phone. [phone].
We discussed that Mr. Talbert unfortunately has a poor overall prognosis given his multiple comorbidities and progressive decline over the years.
We talked about objective findings including echocardiogram results, imaging results, etc.
Romain is Erich's cousin.
Original Note:
Today's Communication/Plan
-
Chest x-ray with decubital films
Assessment / Plan
Assessment / Plan
Gen-AAOx3, mild respiratory distress with conversation, obese
HEENT-NC, AT, anicteric, clear oral mm
Neck-supple
CV-reg, no M, +S1/S2
Lungs-clear B/L
Abd-soft, NT, ND
Ext-bilateral lower extremity edema, hyperpigmentation
Musculoskeletal-no cyanosis, clubbing
Skin-warm and dry
Neuro-grossly non-focal
Psych-calm, cooperative
Acute on chronic hypoxic/hypercapnic respiratory failure -suspect due to bilateral pulmonary edema, bilateral pleural effusions, worse on the left. Clinically doubt pneumonia. Patient denies cough, fever or chills.
Antibiotics discontinued.
Currently stable on 10 L nasal cannula oxygen, wean down oxygen as able. Use BiPAP while sleeping.
Patient denies history of emphysema or chronic lung disease. Never smoked.
Acute pulmonary edema -due to acute heart failure exacerbation in the setting of ESRD.
Admission BNP greater than 27,000.
Patient unclear about details but believes his weight is up at least 10 pounds.
Weight down 10 kg since admission.
Acute on chronic heart failure with midrange EF exacerbation -EF 45%. Mild LVH with septal contraction abnormalities, multiple regional wall motion abnormalities, probable restrictive physiology. Moderate AR, severe TR, PA pressure 62 mmHg.
Bilateral pleural effusions -moderate loculated left pleural effusion, small loculated right effusion on CT. Patient states had a thoracentesis on the left side about 4 months ago at [facility]. Details unavailable.
Will check chest x-ray today to evaluate for possible thoracentesis.
Troponin elevation -suspect acute nonischemic myocardial injury in the setting of respiratory failure, heart failure. Troponin trending down.
ESRD -on dialysis Monday. Nephrology following.
CAD -with history of coronary stents. Plavix discontinued by cardiology. Patient states last stent was 2021.
Paroxysmal atrial fibrillation -continue Eliquis. Dose increased by cardiology to 5 mg twice daily.
Chronic anemia -hemoglobin stable at 8.0. Baseline unknown. Suspect related to ESRD. Continue erythropoietin.
ALVIN -continue BiPAP while sleeping.
Seizure disorder -continue AEDs.
Hyperlipidemia -on rosuvastatin.
Chronic orthostatic hypotension -on droxidopa, midodrine.
DM 2 with hyperglycemia -prior to admission he was on glargine 5 units twice daily, lispro sliding scale.
Currently on Lantus 5 units at bedtime, aspart low resistance corrective scale.
BPH
Obesity due to excess calories -patient states he had bariatric surgery about 8 or 9 years ago. Originally weighed 400 pounds.
Full code
PT/OT
Dispo -SNF when medically stable.
Anticipated Discharge: > 48 hours
Subjective/Interval History
-
Date of Service: July 30, 2025
Patient seen and examined. No new complaints.
Objective Data
-
Labs:
Laboratory Results
07/30/25
05:32
WBC 8.3
Hgb 8.0 L
Hct 25.7 L
Plt Count 193 D
Sodium 140
Potassium 3.8
Chloride 99
Carbon Dioxide 29
BUN 51 H
Creatinine 5.5 H*
Glucose 114 H
Calcium 8.7
Vital Signs:
Vital Signs
Temp Pulse Resp BP Pulse Ox
97.5 F 70 15 125/84 90
07/30/25 03:00 07/30/25 04:00 07/30/25 04:00 07/30/25 04:00 07/30/25 02:00
Review of Systems
-
History Source: Patient
All other systems: Reviewed and negative
[2025-07-30] MEDS: VIMPAT 50 MG PO ×2 (07:48→20:13)
[2025-07-30] MEDS: DROXIDOPA 200 MG PO ×3 (07:48→20:14)
[2025-07-30] MEDS: CRESTOR 40 MG PO (07:48)
[2025-07-30] MEDS: VITAMIN D3 (cholecalciferol) 50 MCG PO (07:48)
[2025-07-30 07:54] LABS: Glucose - Point of Care 130 mg/dl (70-99)
[2025-07-30] MEDS: NOVOLOG FLEXPEN-LOW RESISTANCE SC ×2 (08:44→13:46)
--- NOTE | 2025-07-30 09:07 | W.PN.PUL3 ---
Today's Communication / Plan
-
ECHO w/ reduced EF, severe PH
Volume removal ongoing with HD
O2 weaned to 4L when off BIPAP, will adjust BIPAP for possible apneas at night
Repeat CXR
Encouraged PT/OT, IS -- body habitus likely contributing to hypoxia
Assessment
-
65-year-old obese male non-smoker with past medical history of CHF, paroxysmal A-fib, chronic hypoxic respiratory failure on supplemental oxygen, ESRD on HD MWF, anemia of chronic disease, ALVIN on nocturnal BiPAP, seizure disorder, DM type II, and
BPH who presented with chest pain, hematuria. Patient presented from [facility] with sharp left-sided chest pain that started overnight. He was unable to tolerate his BiPAP due to this pain. Chest imaging was concerning for left-sided
pneumonia. Blood gas showed an acute component of hypercapnia and he was placed onto BiPAP, broad-spectrum antibiotics were started and he was admitted to the IMU for further care. Pulmonary service now consulted for additional
management/recommendations.
Impression:
Acute on chronic hypercapnic respiratory failure s/p improvement with BiPAP
ALVIN on BiPAP/suspected OHS
Acute on chronic hypoxic respiratory failure
Loculated effusion, r/o PNA
Acute HFrEF with severe acute decompensated exacerbation, proBNP >64214
Elevated troponin likely due to demand ischemia with type II PR
Hematuria w/ abnormal urinalysis-positive nitrites and +3 leukocyte esterase, concerning for UTI
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
CHF
Paroxysmal A-fib
Chronic hypoxic respiratory failure on supplemental oxygen
ESRD on HD MWF
Anemia of chronic disease
ALVIN on nocturnal BiPAP
Seizure disorder
DM type II
BPH
ESRD on HD
Severe anterior wedge compression fracture of T7
Plan:
Remains on 4L NC, when off BIPAP--weaning down
Maintained on BIPAP use nightly and PRN--can take longer breaks during the day
Adjustments on BIPAP device as needed
CT chest obtained today (9/14) shows evidence of multifocal pneumonia with patchy nodular opacities in the right upper lobe and consolidative opacities in the right lower lobe + left upper/left lower lobe with bilateral pleural effusions with
loculation in the left hemithorax, and fluid in the left oblique fissure
Monitor mental status -if he begins to become lethargic then would place onto BiPAP and check urgent blood gas, otherwise he is at risk of intubation due to CO2 narcosis
Appears too small for thoracentesis
Volume overload a clear issue ongoing, volume removal needed via HD
Maintain MAP>65, continue midodrine (home med)
Hold anti-hypertensives unless needed
Trend troponin until peaks
Recommend cardiology consult
EKG shows V-paced rhythm with underlying A-flutter; negative for Sgarbossa criteria
ECHO showing reduced EF, 45%/severe PH
Continue with BiPAP while trending serial blood gases to assure pH + pCO2 remained stable
Continue nasal cannula while not on BiPAP, and titrate to maintain SpO2 >90-94%
DuoNebs q6hr
prn nebulized bronchodilators - not currently bronchospastic
Incentive spirometer encouraged q1hr while awake
Continue with antibiotics to Zosyn + IV vancomycin
Possible UTI, urine culture still pending, stop vanc
Follow-up infectious workup with blood cultures + urine culture; check MRSA screen and if negative then can dc IV vanc
Obtain sputum culture if patient can produce a decent sample
Check urine antigens for legionella and Strep PNA
ESRD on HF
Defer HD to nephrology
- Trend H/H and transfuse if needed to keep Hb>7g/dL; keep plt>20k, unless there is concern for bleeding then keep plt>50k
- Maintain euglycemia with goal BG >100 and <180
- Pepcid 20mg BID
- DVT ppx: Eliquis
Pulmonary service will continue to follow along.
Data:
CXR 07/27/25: Findings suggesting left lower lobe pneumonia. Small right pleural effusion. Cardiomegaly. Limited inspiration.
CT Chest 07/27/2025: Mild right upper lobe pneumonia. Consolidation in the left upper lobe, left lower lobe and right lower lobe also concerning for pneumonia. Moderate loculated left pleural effusion. Small loculated right pleural effusion. Mild
cardiomegaly. Severe anterior wedge compression fracture of T7. Age indeterminate.
ECHO 07/29/25- 1. Mild left ventricular hypertrophy with septal contraction abnormalities, multiple regional wall motion abnormalities as described below with estimated ejection fraction 45%. Probable restrictive physiology.
2. Thickened mitral leaflets with mitral annular calcification, mild mitral regurgitation and dilated left atrium.
3. Aortic sclerosis with moderate aortic regurgitation.
4. Dilated and focally hypokinetic right ventricle, mildly dilated right atrium, severe tricuspid regurgitation and pulmonary artery systolic pressure of 62 mmHg. Pacing wire identified.
5. Large left pleural effusion is seen.
6. There are no prior echoes available for comparison.
Total time spent today was 51 minutes for this encounter. Time includes reviewing laboratory test/imaging results, reviewing pertinent medical records, obtaining and reviewing medical history, performing an appropriate exam, ordering medications,
tests and procedures. Time also includes documentation of this encounter, coordinating patient care and communicating with other healthcare professionals. Total time does not include separately billed tests performed on this date of service.
Subjective Data
-
Date of Service:
Date of Service: July 30, 2025
Chief Complaint: Pulmonary Follow Up
Subjective:
Some hypoxemia noted overnight while on BIPAP
When off, he has been weaned to 4L NC
Objective Data
Data Reviewed
Vital Signs / I&O / Oxygen:
Vital Signs
Temp Pulse Resp BP Pulse Ox
97.5 F 70 15 125/84 90
07/30/25 07:05 07/30/25 04:00 07/30/25 04:00 07/30/25 04:00 07/30/25 02:00
SaO2 90
Nasal Cannula flow liters per 5
minute
Physical Exam
General: Comfortable and Other (NAD, obese)
HEENT: Normocephalic, Anicteric and Moist Mucous Membranes
Cardiovascular: S1-S2, Regular Rhythm and Peripheral Edema
Respiratory: Non-Labored Respirations and Other (overall diminished BS, poor body habitus)
GI: Soft, Distended (hernia present) and Non Tender
Neurology: Awake, Alert, Oriented and No Motor Deficits
Skin: Warm, Dry and Good Color
Labs/Micro/Reports
Lab Data
07/30/25 05:32
07/30/25 05:32
Microbiology
07/27/25 08:42 Blood/Venous Blood Culture - Preliminary
No Growth in 72 hours- Final report to follow
07/27/25 19:26 Urine Urine Culture - Preliminary
Escherichia coli
07/27/25 09:13 Blood/Venous Blood Culture - Preliminary
No Growth in 48 hours- Final report to follow
07/27/25 13:31 Nose Nasal Screen MRSA (PCR) - Final
MRSA not detected - performed by PCR methodology.
--- NOTE | 2025-07-30 09:18 | W.PN.CD ---
Addendum entered and electronically signed by Tadeo Espinal DO 07/30/25 13:01:
I saw and evaluated the patient. I reviewed the resident�s note and agree with findings and plan as documented in the resident�s note.
Impression:
Acute on chronic heart failure, EF 45%
Suspected bilateral pneumonia with bilateral loculated effusions
Pleuritic chest pain with low-level peak troponin 0.068
Anemia
Obstructive sleep apnea
History of CAD with multiple stents per patient
Acute on chronic respiratory failure, likely multifactorial
End-stage renal disease
Paroxysmal atrial fibrillation, currently in atrial flutter
Orthostatic hypotension on both midodrine and droxidopa
Morbid obesity
GERD
Seizure disorder
Anxiety
Pacemaker
GERD
Hypercholesterolemia
Type 2 diabetes
[address] probable right upper lobe pneumonia, mild left upper lobe pneumonia, severe left lower lobe and moderate right lower lobe pneumonia, loculated left pleural effusion small loculated right pleural effusion, T7 fracture
Chest x-ray: Pacemaker, massive cardiomegaly, effusions, vascular congestion
Plan:
He continues with Eliquis for stroke prophylaxis and the setting of paroxysmal atrial fibrillation/flutter
Continue midodrine/droxidopa for orthostasis
Continue HD for volume control.
Options are limited with regards to GDMT given his chronic orthostasis. Could consider Toprol given his history of CAD, if blood pressure can tolerate.
Await records from Dr. Hamilton from [facility]. 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
Continue volume control as per nephrology with HD.
Evaluation and imaging of pleural effusion as per primary service. Consider thoracentesis if there is significant amount of fluid
Reviewed available records from previous hospitalization for respiratory failure and seizure May 2025 outside hospital
Original Note:
Today's Communication / Plan
-
.
Impression / Plan
-
Erich Talbert is a 65M w/ PMHx of atrial fibrillation, chronic hypoxic respiratory failure requiring supplemental O2 and BiPAP qhs, ESRD on HD MWF, ACD, ALVIN, Sz d/o, IDDM, orthostasis on midodrine and doxidropa, and possible CHF who presented to the
ED with daily sharp CP lasting five minutes at a time for the past few mornings (RETURN TO SERVICE INSPECTOR) when taking off his BiPAP and putting on nasal cannula, and was found to have potential pneumonia on CXR/CT Chest, without clinical signs of pneumonia. In the ED
his troponin was 0.068 and BNP 27,000. We were consulted to evaluate for CHF. There is a questionable hisotry of CHF, and no old records to review, but given the elevated BNP and acute on chronic respiratory failure, it would benefit the patient to
evaluate for heart failure. We will continue to follow. No chest pain events during admission. Initial improvement in respiratory status s/p HD on Monday, but a little worse this morning. Saturating high 80s to low 90s on 11L. For HD today.
Troponins have peaked and likely represent nonischemic myocardial injury. ECHO w/ EF 45%, multiple wall motion abnormalities. Dilated and focally hypokinetic right ventricle, mildly dilated right atrium, severe tricuspid regurgitation and pulmonary
artery systolic pressure of 62 mmHg. Possible restrictive pathology?
PLAN
Anticoagulation regimen has been optimized.
Continue Midodrine and Droxidopa, maintain MAP > 65
Optimization of GDMT is not really an option at this point given soft BPs.
Will consider adding low dose BB at some point, both from secondary [place] prevention standpoint, and CHF standpoint, but will need more confidence in blood pressure management.
Will obtain records from his previous cardiology office visit, Dr. Aiken at [facility].
Continue HD; volume management per nephrology
L Pleural Effusion management per primary.
Physical Exam
Vital Signs/Labs
Vital Signs
Temp Pulse Resp BP Pulse Ox
97.5 F 70 15 125/84 90
07/30/25 07:05 07/30/25 04:00 07/30/25 04:00 07/30/25 04:00 07/30/25 02:00
07/29/25 07/30/25 07/31/25
06:59 06:59 06:59
Actual Weight 118.7 kg
07/30/25 05:32
07/30/25 05:32
Magnesium 2.2 mg/dl (1.6-2.3) 07/30/25 05:32
07/27/25
06:41
[id number]-Ydswsemowjt Pept > 36418
LAB Results
07/27/25
13:31
Troponin I 0.057 H*
Physical Exam
Constitutional: Other (Mild respiratory distress)
Cardiovascular: Rhythm & rate is regular, Pedal edema is absent and Systolic murmur absent
Respiratory: Labored respirations and Other (Anterior Exam: upper lung sullivan CTAB, diminished breath sounds bibasilarly)
Neuro/Psych: Alert
Data Reviewed
-
Date of Service: July 30, 2025
--- NOTE | 2025-07-30 09:26 | W.PN.NEPH.HD ---
Assessment
-
Seen on HD. still SOB. on high 8L O2. VSS otherwise. access ok
UF tomorrow
Progress Note - Hemodialysis
-
Date of Service: July 30, 2025
Duration: 30 minutes and 3 hours
Potassium Bath: 2
Calcium Bath: 2.5
Opti-Dialyzer: 160
Ultrafiltration: Other (2.5kg)
Blood Flow: 400
Dialysate Flow: 600
Heparin: 0
EPO: 52914 units
[2025-07-30] MEDS: RETACRIT 10000 UNITS IV (10:12)
[2025-07-30] MEDS: PHOSLO 667 MG PO ×2 (10:24→17:46)
[2025-07-30] MEDS: COMPAZINE 5 MG IV (10:24)
[2025-07-30 11:44] LABS: Glucose - Point of Care 129 mg/dl (70-99)
[2025-07-30] MEDS: ELIQUIS 5 MG PO ×2 (12:50→20:13)
[2025-07-30] MEDS: MIRALAX 17 GRAMS PO (12:50)
[2025-07-30 17:01] LABS: Glucose - Point of Care 236 mg/dl (70-99)
[2025-07-30] MEDS: NOVOLOG FLEXPEN-LOW RESISTANCE 2 UNITS SC (17:46)
[2025-07-30] MEDS: PEPCID 10 MG PO (20:12)
[2025-07-30] MEDS: LANTUS 0.05 UNITS SC (21:25)
[2025-07-30] MEDS: SENOKOT 8.6 MG PO (21:27)
--- NOTE | 2025-07-30 21:35 | PTCARENOTE ---
Caring for pt overnight. aaox3, pleasant. Denies pain. SOB at rest and exertion. Remains on 8LMF. Bipap HS, requested bipap early for sob. When sitting in chair pt was c/o chest pressure, sob, nausea & feeling hot. BP stable. EKG done, reading
aflutter Vpaced. Occupational Health Specialist aware. Pt felt better after getting to bed. All other VSS. L lung dimished. No other issues, will continue to monitor.
[2025-07-30 21:36] LABS: Glucose - Point of Care 238 mg/dl (70-99)
[2025-07-31] VITALS (11 sets, daily range): BP systolic 102–126; BP diastolic 68–91; BMI 35.3
[2025-07-31 04:55] LABS: Hematocrit 26.5 % (39.0-52.0); Hemoglobin 8.3 g/dL (13.0-18.0)
[2025-07-31 05:22] LABS: Carbon Dioxide 28 mmol/L (22-30); Chloride 101 mmol/L (98-107); Potassium 3.6 mmol/L (3.5-5.1); Sodium 141 mmol/L (135-145)
--- NOTE | 2025-07-31 07:38 | W.PN.HOSP.TC ---
Today's Communication/Plan
-
Chest ultrasound
Adjust insulin
Assessment / Plan
Assessment / Plan
Gen-AAOx3, mild respiratory distress with conversation, obese
HEENT-NC, AT, anicteric, clear oral mm
Neck-supple
CV-reg, no M, +S1/S2
Lungs-clear B/L
Abd-soft, NT, ND
Ext-bilateral lower extremity edema, hyperpigmentation
Musculoskeletal-no cyanosis, clubbing
Skin-warm and dry
Neuro-grossly non-focal
Psych-calm, cooperative
Acute on chronic hypoxic/hypercapnic respiratory failure -suspect due to bilateral pulmonary edema, bilateral pleural effusions, worse on the left. Clinically doubt pneumonia. Patient denies cough, fever or chills.
Antibiotics discontinued.
Currently stable on 8 L nasal cannula oxygen, wean down oxygen as able. Use BiPAP while sleeping.
Patient denies history of emphysema or chronic lung disease. Never smoked.
Acute pulmonary edema -due to acute heart failure exacerbation in the setting of ESRD.
Admission BNP greater than 27,000.
Patient unclear about details but believes his weight is up at least 10 pounds.
Weight down 10 kg since admission.
Acute on chronic heart failure with midrange EF exacerbation -EF 45%. Mild LVH with septal contraction abnormalities, multiple regional wall motion abnormalities, probable restrictive physiology. Moderate AR, severe TR, PA pressure 62 mmHg.
Bilateral pleural effusions -moderate loculated left pleural effusion, small loculated right effusion on CT. Patient states had a thoracentesis on the left side about 4 months ago at [facility]. Details unavailable.
Repeat chest x-ray 07/30 with moderate bilateral pleural effusions, associated atelectasis, cannot rule out pneumonia. Clinically without significant pneumonia symptoms although coughing started last night. Will monitor for now off antibiotics.
Chest ultrasound to be done today and decide if feasible for thoracentesis.
Troponin elevation -suspect acute nonischemic myocardial injury in the setting of respiratory failure, heart failure. Troponin trending down.
ESRD -on dialysis Monday. Nephrology following.
CAD -with history of coronary stents. Plavix discontinued by cardiology. Patient states last stent was 2021.
Paroxysmal atrial fibrillation -continue Eliquis. Dose increased by cardiology to 5 mg twice daily.
Chronic anemia -hemoglobin stable at 8.3. Baseline unknown. Suspect related to ESRD. Continue erythropoietin.
ALVIN -continue BiPAP while sleeping.
Seizure disorder -continue AEDs.
Hyperlipidemia -on rosuvastatin.
Chronic orthostatic hypotension -on droxidopa, midodrine.
DM 2 with hyperglycemia -prior to admission he was on glargine 5 units twice daily, lispro sliding scale.
Currently on Lantus 5 units at bedtime, aspart low resistance corrective scale.
Glucoses in the morning are controlled but tend to go over 200 by dinnertime and bedtime. Can add mealtime aspart with lunch and dinner.
BPH
Obesity due to excess calories -patient states he had bariatric surgery about 8 or 9 years ago. Originally weighed 400 pounds.
Full code
PT/OT
Dispo -SNF when medically stable.
Anticipated Discharge: > 48 hours
Subjective/Interval History
-
Date of Service: July 31, 2025
Patient seen and examined. Complaining of dry cough that started last night.
Objective Data
-
Labs:
Laboratory Results
07/31/25
04:36
Hgb 8.3 L
Hct 26.5 L
Sodium 141
Potassium 3.6
Chloride 101
Carbon Dioxide 28
Vital Signs:
Vital Signs
Temp Pulse Resp BP Pulse Ox
98.1 F 71 15 102/68 100
07/31/25 07:34 07/31/25 06:00 07/31/25 06:00 07/31/25 06:00 07/31/25 06:00
Review of Systems
-
History Source: Patient
All other systems: Reviewed and negative
[2025-07-31 07:46] LABS: Glucose - Point of Care 143 mg/dl (70-99)
[2025-07-31] MEDS: NOVOLOG FLEXPEN-LOW RESISTANCE SC ×2 (08:55→17:32)
[2025-07-31] MEDS: CRESTOR 40 MG PO (08:56)
[2025-07-31] MEDS: DROXIDOPA 200 MG PO ×3 (09:01→21:49)
[2025-07-31] MEDS: ELIQUIS 5 MG PO ×2 (09:03→20:01)
[2025-07-31] MEDS: PHOSLO 667 MG PO ×3 (09:03→17:28)
[2025-07-31] MEDS: VITAMIN D3 (cholecalciferol) 50 MCG PO (09:03)
[2025-07-31] MEDS: MIRALAX 17 GRAMS PO (09:05)
[2025-07-31] MEDS: VIMPAT 50 MG PO ×2 (09:07→20:01)
--- NOTE | 2025-07-31 09:11 | W.PN.PUL3 ---
Today's Communication / Plan
-
Chest US w/ small to moderate L side, patient was agreeable to thora which can be done in AM
ESRD on HD, has session this afternoon, volume removal per renal
Weaning O2 as able
E coli noted on urine, continue abx
PT/OT evals
BIPAP continues nightly
Assessment
-
65-year-old obese male non-smoker with past medical history of CHF, paroxysmal A-fib, chronic hypoxic respiratory failure on supplemental oxygen, ESRD on HD MWF, anemia of chronic disease, ALVIN on nocturnal BiPAP, seizure disorder, DM type II, and
BPH who presented with chest pain, hematuria. Patient presented from [facility] with sharp left-sided chest pain that started overnight. He was unable to tolerate his BiPAP due to this pain. Chest imaging was concerning for left-sided
pneumonia. Blood gas showed an acute component of hypercapnia and he was placed onto BiPAP, broad-spectrum antibiotics were started and he was admitted to the IMU for further care. Pulmonary service now consulted for additional
management/recommendations.
Impression:
Acute on chronic hypercapnic respiratory failure s/p improvement with BiPAP
ALVIN on BiPAP/suspected OHS
Acute on chronic hypoxic respiratory failure
Loculated effusion, r/o PNA
Acute HFrEF with severe acute decompensated exacerbation, proBNP >52838
Elevated troponin likely due to demand ischemia with type II AR
E. Coli UTI
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
CHF
Paroxysmal A-fib
Chronic hypoxic respiratory failure on supplemental oxygen
ESRD on HD MWF
Anemia of chronic disease
ALVIN on nocturnal BiPAP
Seizure disorder
DM type II
BPH
ESRD on HD
Severe anterior wedge compression fracture of T7
Plan:
Remains on 4L NC, when off BIPAP--weaning down
Maintained on BIPAP use nightly and PRN--can take longer breaks during the day
Adjustments on BIPAP device as needed
CT chest obtained today (07/27) shows evidence of multifocal pneumonia with patchy nodular opacities in the right upper lobe and consolidative opacities in the right lower lobe + left upper/left lower lobe with bilateral pleural effusions with
loculation in the left hemithorax, and fluid in the left oblique fissure
Monitor mental status -if he begins to become lethargic then would place onto BiPAP and check urgent blood gas, otherwise he is at risk of intubation due to CO2 narcosis
Appears too small for thoracentesis
Chest US reviewed with small-moderate L effusion--he was amenable to thora
Volume overload a clear issue ongoing, volume removal needed via HD
Maintain MAP>65, continue midodrine (home med)
Hold anti-hypertensives unless needed
Trend troponin until peaks
Recommend cardiology consult
EKG shows V-paced rhythm with underlying A-flutter; negative for Sgarbossa criteria
ECHO showing reduced EF, 45%/severe PH
Continue with BiPAP while trending serial blood gases to assure pH + pCO2 remained stable
Continue nasal cannula while not on BiPAP, and titrate to maintain SpO2 >90-94%
DuoNebs q6hr
prn nebulized bronchodilators - not currently bronchospastic
Incentive spirometer encouraged q1hr while awake
Continue with antibiotics to Zosyn + IV vancomycin
E.coli UTI, cultures reviewed
Stop vanco
Resume IV abx
ESRD on HF
Defer HD to nephrology
- Trend H/H and transfuse if needed to keep Hb>7g/dL; keep plt>20k, unless there is concern for bleeding then keep plt>50k
- Maintain euglycemia with goal BG >100 and <180
- Pepcid 20mg BID
- DVT ppx: Eliquis
Pulmonary service will continue to follow along.
Data:
CXR 07/27/25: Findings suggesting left lower lobe pneumonia. Small right pleural effusion. Cardiomegaly. Limited inspiration.
CT Chest 07/27/2025: Mild right upper lobe pneumonia. Consolidation in the left upper lobe, left lower lobe and right lower lobe also concerning for pneumonia. Moderate loculated left pleural effusion. Small loculated right pleural effusion. Mild
cardiomegaly. Severe anterior wedge compression fracture of T7. Age indeterminate.
ECHO 07/29/25- 1. Mild left ventricular hypertrophy with septal contraction abnormalities, multiple regional wall motion abnormalities as described below with estimated ejection fraction 45%. Probable restrictive physiology.
2. Thickened mitral leaflets with mitral annular calcification, mild mitral regurgitation and dilated left atrium.
3. Aortic sclerosis with moderate aortic regurgitation.
4. Dilated and focally hypokinetic right ventricle, mildly dilated right atrium, severe tricuspid regurgitation and pulmonary artery systolic pressure of 62 mmHg. Pacing wire identified.
5. Large left pleural effusion is seen.
6. There are no prior echoes available for comparison.
Total time spent today was 51 minutes for this encounter. Time includes reviewing laboratory test/imaging results, reviewing pertinent medical records, obtaining and reviewing medical history, performing an appropriate exam, ordering medications,
tests and procedures. Time also includes documentation of this encounter, coordinating patient care and communicating with other healthcare professionals. Total time does not include separately billed tests performed on this date of service.
Subjective Data
-
Date of Service:
Date of Service: July 31, 2025
Chief Complaint: Pulmonary Follow Up
Subjective:
Better this AM, sitting in chair
Now on 6L NC
Objective Data
Data Reviewed
Vital Signs / I&O / Oxygen:
Vital Signs
Temp Pulse Resp BP Pulse Ox
98.1 F 71 15 102/68 100
07/31/25 07:34 07/31/25 06:00 07/31/25 06:00 07/31/25 06:00 07/31/25 06:00
SaO2 100
Nasal Cannula flow liters per 8
minute
Physical Exam
General: Comfortable and Other (NAD, obese)
HEENT: Normocephalic, Anicteric and Moist Mucous Membranes
Cardiovascular: S1-S2, Regular Rhythm and Peripheral Edema
Respiratory: Non-Labored Respirations and Other (overall diminished BS, poor body habitus)
GI: Soft, Distended (hernia present) and Non Tender
Neurology: Awake, Alert, Oriented and No Motor Deficits
Skin: Warm, Dry and Good Color
Labs/Micro/Reports
Lab Data
07/31/25 04:36
07/31/25 04:36
Microbiology
07/27/25 08:42 Blood/Venous Blood Culture - Preliminary
No Growth in 4 days- Final report to follow
07/27/25 09:13 Blood/Venous Blood Culture - Preliminary
No Growth in 72 hours- Final report to follow
07/27/25 19:26 Urine Urine Culture - Preliminary
Escherichia coli
07/27/25 13:31 Nose Nasal Screen MRSA (PCR) - Final
MRSA not detected - performed by PCR methodology.
--- NOTE | 2025-07-31 09:26 | W.PN.CARDCBS ---
Today's Communication / Plan
-
He continues with Eliquis for stroke prophylaxis and the setting of paroxysmal atrial fibrillation/flutter
Continue midodrine/droxidopa for orthostasis
Continue HD for volume control.
wt down 8-20 lbs, pt believed he was 10 lbs up in wt.
Options are limited with regards to GDMT given his chronic orthostasis. Could consider Toprol given his history of CAD, if blood pressure can tolerate.
Await records from Dr. Aiken from [facility]. 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
Continue volume control as per nephrology with HD.
Medical therapy for nonMI troponin, could consider outpt ischemic eval with his banbury mill operator.
Echo reviewed with pt.
Evaluation and imaging of pleural effusion as per primary service.
Consider thoracentesis if there is significant amount of fluid, chest u/s ordered by primary service.
Evaluation of back pain as per primary service.
Impression / Plan
-
.
Composition Roll Maker And Cutter: Dr Aiken, [facility]
Impression:
Acute on chronic heart failure, EF 45%
Suspected bilateral pneumonia with bilateral loculated effusions
Pleuritic chest pain with low-level peak troponin 0.068
b/l pleural effusions
Anemia
Obstructive sleep apnea
History of CAD with multiple stents per patient
Acute on chronic respiratory failure, likely multifactorial
End-stage renal disease
Paroxysmal atrial fibrillation, currently in atrial flutter
Orthostatic hypotension on both midodrine and droxidopa
Morbid obesity
GERD
Seizure disorder
Anxiety
Pacemaker
GERD
Hypercholesterolemia
Type 2 diabetes
Hematuria
[address] probable right upper lobe pneumonia, mild left upper lobe pneumonia, severe left lower lobe and moderate right lower lobe pneumonia, loculated left pleural effusion small loculated right pleural effusion, T7 fracture
Chest x-ray: Pacemaker, massive cardiomegaly, effusions, vascular congestion
Echo Sept 2024: Mild left ventricular hypertrophy with septal contraction abnormalities, multiple regional wall motion abnormalities as described below with estimated ejection fraction 45%. Probable restrictive physiology.
mild mitral regurgitation and dilated left atrium, moderate aortic regurgitation, Dilated and focally hypokinetic right ventricle, mildly dilated right atrium, severe tricuspid regurgitation, PASP 62 mmHg. Pacing wire
identified. Large left pleural effusion is seen.
Plan:
He continues with Eliquis for stroke prophylaxis and the setting of paroxysmal atrial fibrillation/flutter
Continue midodrine/droxidopa for orthostasis
Continue HD for volume control.
wt down 8-20 lbs, pt believed he was 10 lbs up in wt.
Options are limited with regards to GDMT given his chronic orthostasis. Could consider Toprol given his history of CAD, if blood pressure can tolerate.
Await records from Dr. Aiken from [facility]. 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
Continue volume control as per nephrology with HD.
Medical therapy for nonMI troponin, could consider outpt ischemic eval with his banbury mill operator.
Echo reviewed with pt.
Evaluation and imaging of pleural effusion as per primary service.
Consider thoracentesis if there is significant amount of fluid, chest u/s ordered by primary service.
Evaluation of back pain as per primary service.
Discussed with nursing.
Progress Note - Composition Roll Maker And Cutter
Subjective
Date of Service: July 31, 2025
Pt seen and examined. Complains of back pain and lethargy. No chest pain or shortness of breath.
Objective
Labs:
07/31/25 04:36
07/31/25 04:36
Labs
Hgb 8.3 g/dL (13.0-18.0) L 07/31/25 04:36
Hct 26.5 % (39.0-52.0) L 07/31/25 04:36
Plt Count 193 10^3/uL (130-400) D 07/30/25 05:32
Sodium 141 mmol/L (135-145) 07/31/25 04:36
Potassium 3.6 mmol/L (3.5-5.1) 07/31/25 04:36
BUN 51 mg/dl (9-20) H 07/30/25 05:32
Creatinine 5.5 mg/dL (0.7-1.3) H* 07/30/25 05:32
Glucose 114 mg/dl (70-99) H 07/30/25 05:32
Vital Signs and I&O:
Vital Signs
Temp Pulse Resp BP Pulse Ox
98.1 F 71 15 112/75 100
07/31/25 07:34 07/31/25 06:00 07/31/25 06:00 07/31/25 09:01 07/31/25 06:00
Vital Signs
Temp Pulse Resp BP Pulse Ox
98.1 F 71 15 112/75 100
07/31/25 07:34 07/31/25 06:00 07/31/25 06:00 07/31/25 09:01 07/31/25 06:00
Physical Exam
Physical Exam
General: No acute distress, AAOX3
Neck: Negative JVD
Heart: Regular, Negative S3 positive S1/S2, Negative S4, No murmur
Lungs: CTA b/l, negative wheezes/rales/rhonchi
Abd: Morbid obesity. Positive BS, NT/ND, neg rebound/rigidity/guarding
Ext: Negative cyanosis/clubbing/edema
Neuro: nonfocal
[2025-07-31] MEDS: NOVOLOG FLEXPEN 4 UNITS SC ×2 (12:11→18:05)
[2025-07-31] MEDS: NOVOLOG FLEXPEN-LOW RESISTANCE 2 UNITS SC (12:11)
[2025-07-31 12:23] LABS: Glucose - Point of Care 232 mg/dl (70-99)
--- NOTE | 2025-07-31 14:02 | PTCARENOTE ---
pt arrived from imu. able to walk to bed with RW and min assist. pt very chan. o2 6l. able to recover quickly. placed air overlay on mattress requested by pt for comfort. red/purple area noted over pt sacrum and testicles. wounds on both shins
noted. breath sounds diminished both lungs
--- NOTE | 2025-07-31 14:22 | PTCARENOTE ---
Received downgrade orders from hospitalist; Bed obtained on , Report given to Alex MENDES. Transport contacted, Pt moved to Rm [id number].
[2025-07-31 14:42] LABS: LDH 150 U/L (120-246); Total Protein 6.9 g/dl (6.3-8.2)
--- NOTE | 2025-07-31 15:21 | W.PN.NEPH.HD ---
Assessment
-
Seen on HD. VSS. says he feels a little confused today. down to 6L NC. Access ok
HD tomorrow
Progress Note - Hemodialysis
-
Date of Service: July 31, 2025
Duration: 30 minutes and 2 hours
Opti-Dialyzer: 160
Ultrafiltration: Other (2.5kg)
Blood Flow: 250
Heparin: 0
EPO: 0
--- NOTE | 2025-07-31 15:22 | CM ---
Following up on Patient. RN stated that patient needed HD sessions 4 days in a row so not ready.
PLAN: Return to [place] when ready.
[2025-07-31 17:30] LABS: Glucose - Point of Care 133 mg/dl (70-99)
[2025-07-31 21:41] LABS: Glucose - Point of Care 145 mg/dl (70-99)
[2025-07-31] MEDS: LANTUS 0.05 UNITS SC (21:48)
[2025-07-31] MEDS: PEPCID 10 MG PO (21:49)
[2025-08-01] VITALS (11 sets, daily range): BP systolic 70–114; BP diastolic 49–76; PULSE 2–74; BMI 36.0
[2025-08-01 07:46] LABS: Glucose - Point of Care 185 mg/dl (70-99)
[2025-08-01] MEDS: MIRALAX PO ×2 (07:49→07:58)
[2025-08-01] MEDS: ELIQUIS 5 MG PO ×2 (07:50→20:08)
[2025-08-01] MEDS: VITAMIN D3 (cholecalciferol) 50 MCG PO (07:50)
[2025-08-01] MEDS: DROXIDOPA 200 MG PO ×3 (07:50→20:08)
[2025-08-01] MEDS: VIMPAT 50 MG PO ×2 (07:50→20:11)
[2025-08-01] MEDS: CRESTOR 40 MG PO (07:50)
[2025-08-01] MEDS: PHOSLO 667 MG PO ×3 (07:50→17:34)
[2025-08-01] MEDS: NOVOLOG FLEXPEN-LOW RESISTANCE 1 UNITS SC (07:51)
[2025-08-01] MEDS: NOVOLOG FLEXPEN 4 UNITS SC ×3 (07:52→17:33)
[2025-08-01 08:22] LABS: Hematocrit 26.1 % (39.0-52.0); Hemoglobin 8.2 g/dL (13.0-18.0)
[2025-08-01] MEDS: MANNITOL 25% 12.5 GRAMS IV ×2 (08:25→10:00)
[2025-08-01] MEDS: FLEXBUMIN 25% FOR HEMODIALYSIS 12.5 GRAMS IV ×2 (08:30→09:59)
[2025-08-01] MEDS: RETACRIT 10000 UNITS IV (08:37)
[2025-08-01 08:51] LABS: Carbon Dioxide 26 mmol/L (22-30); Chloride 101 mmol/L (98-107); Potassium 3.8 mmol/L (3.5-5.1); Sodium 140 mmol/L (135-145)
--- NOTE | 2025-08-01 09:10 | W.PN.PUL3 ---
Today's Communication / Plan
-
Still remains on O2, weaning as tolerated
He is currently on HD, with volume removal
IR is consulted for thoracentesis, likely today
Encourage continued out of bed, PT OT
Await fluid analysis
Assessment
-
65-year-old obese male non-smoker with past medical history of CHF, paroxysmal A-fib, chronic hypoxic respiratory failure on supplemental oxygen, ESRD on HD MWF, anemia of chronic disease, ALVIN on nocturnal BiPAP, seizure disorder, DM type II, and
BPH who presented with chest pain, hematuria. Patient presented from [facility] with sharp left-sided chest pain that started overnight. He was unable to tolerate his BiPAP due to this pain. Chest imaging was concerning for left-sided
pneumonia. Blood gas showed an acute component of hypercapnia and he was placed onto BiPAP, broad-spectrum antibiotics were started and he was admitted to the IMU for further care. Pulmonary service now consulted for additional
management/recommendations.
Impression:
Acute on chronic hypercapnic respiratory failure s/p improvement with BiPAP
ALVIN on BiPAP/suspected OHS
Acute on chronic hypoxic respiratory failure
Loculated effusion, r/o PNA
Acute HFrEF with severe acute decompensated exacerbation, proBNP >82967
Elevated troponin likely due to demand ischemia with type II PA
E. Coli UTI
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
CHF
Paroxysmal A-fib
Chronic hypoxic respiratory failure on supplemental oxygen
ESRD on HD MWF
Anemia of chronic disease
ALVIN on nocturnal BiPAP
Seizure disorder
DM type II
BPH
ESRD on HD
Severe anterior wedge compression fracture of T7
Plan:
Remains on 4L NC, when off BIPAP--weaning down
Maintained on BIPAP use nightly and PRN--can take longer breaks during the day
Adjustments on BIPAP device as needed
CT chest obtained today (07/27) shows evidence of multifocal pneumonia with patchy nodular opacities in the right upper lobe and consolidative opacities in the right lower lobe + left upper/left lower lobe with bilateral pleural effusions with
loculation in the left hemithorax, and fluid in the left oblique fissure
Monitor mental status -if he begins to become lethargic then would place onto BiPAP and check urgent blood gas, otherwise he is at risk of intubation due to CO2 narcosis
Appears too small for thoracentesis
Chest US reviewed with small-moderate L effusion--he was amenable to thora
Volume overload a clear issue ongoing, volume removal needed via HD
Maintain MAP>65, continue midodrine (home med)
Hold anti-hypertensives unless needed
Trend troponin until peaks
Recommend cardiology consult
EKG shows V-paced rhythm with underlying A-flutter; negative for Sgarbossa criteria
ECHO showing reduced EF, 45%/severe PH
Continue with BiPAP while trending serial blood gases to assure pH + pCO2 remained stable
Continue nasal cannula while not on BiPAP, and titrate to maintain SpO2 >90-94%
DuoNebs q6hr
prn nebulized bronchodilators - not currently bronchospastic
Incentive spirometer encouraged q1hr while awake
Continue with antibiotics to Zosyn + IV vancomycin
E.coli UTI, cultures reviewed
Stop vanco
Resume IV abx
ESRD on HF
Defer HD to nephrology
- Trend H/H and transfuse if needed to keep Hb>7g/dL; keep plt>20k, unless there is concern for bleeding then keep plt>50k
- Maintain euglycemia with goal BG >100 and <180
- Pepcid 20mg BID
- DVT ppx: Eliquis
Pulmonary service will continue to follow along.
Data:
CXR 07/27/25: Findings suggesting left lower lobe pneumonia. Small right pleural effusion. Cardiomegaly. Limited inspiration.
CT Chest 07/27/2025: Mild right upper lobe pneumonia. Consolidation in the left upper lobe, left lower lobe and right lower lobe also concerning for pneumonia. Moderate loculated left pleural effusion. Small loculated right pleural effusion. Mild
cardiomegaly. Severe anterior wedge compression fracture of T7. Age indeterminate.
ECHO 07/29/25- 1. Mild left ventricular hypertrophy with septal contraction abnormalities, multiple regional wall motion abnormalities as described below with estimated ejection fraction 45%. Probable restrictive physiology.
2. Thickened mitral leaflets with mitral annular calcification, mild mitral regurgitation and dilated left atrium.
3. Aortic sclerosis with moderate aortic regurgitation.
4. Dilated and focally hypokinetic right ventricle, mildly dilated right atrium, severe tricuspid regurgitation and pulmonary artery systolic pressure of 62 mmHg. Pacing wire identified.
5. Large left pleural effusion is seen.
6. There are no prior echoes available for comparison.
Total time spent today was 51 minutes for this encounter. Time includes reviewing laboratory test/imaging results, reviewing pertinent medical records, obtaining and reviewing medical history, performing an appropriate exam, ordering medications,
tests and procedures. Time also includes documentation of this encounter, coordinating patient care and communicating with other healthcare professionals. Total time does not include separately billed tests performed on this date of service.
Subjective Data
-
Date of Service:
Date of Service: August 01, 2025
Chief Complaint: Pulmonary Follow Up
Subjective:
No new complaints, currently on HD
He remains on O2
Objective Data
Data Reviewed
Vital Signs / I&O / Oxygen:
Vital Signs
Temp Pulse Resp BP Pulse Ox
97.7 F 72 19 108/70 99
08/01/25 07:00 08/01/25 07:51 08/01/25 07:00 08/01/25 07:51 08/01/25 07:00
Intake and Output
07/31/25 08/01/25 08/02/25
06:59 06:59 06:59
Intake Total 360 / 360
Balance 360 / 360
SaO2 99
Nasal Cannula flow liters per 6
minute
Physical Exam
General: Comfortable and Other (NAD, obese)
HEENT: Normocephalic, Anicteric and Moist Mucous Membranes
Cardiovascular: S1-S2, Regular Rhythm and Peripheral Edema
Respiratory: Non-Labored Respirations and Other (overall diminished BS, poor body habitus)
GI: Soft, Distended (hernia present) and Non Tender
Neurology: Awake, Alert, Oriented and No Motor Deficits
Skin: Warm, Dry and Good Color
Labs/Micro/Reports
Lab Data
08/01/25 07:51
08/01/25 07:51
Microbiology
07/27/25 08:42 Blood/Venous Blood Culture - Final
No Growth - Final Report
07/27/25 09:13 Blood/Venous Blood Culture - Preliminary
No Growth in 4 days- Final report to follow
07/27/25 19:26 Urine Urine Culture - Final
Escherichia coli - ESBL
--- NOTE | 2025-08-01 10:38 | W.PN.HOSP.TC ---
Today's Communication/Plan
-
Dialysis
Thoracentesis
Liberalize diet
Assessment / Plan
Assessment / Plan
Gen-AAOx3, obese
HEENT-NC, AT, anicteric, clear oral mm
Neck-supple
CV-reg, no M, +S1/S2
Lungs-clear B/L
Abd-soft, NT, ND
Ext-bilateral lower extremity edema, hyperpigmentation
Musculoskeletal-no cyanosis, clubbing
Skin-warm and dry
Neuro-grossly non-focal
Psych-calm, cooperative
Acute on chronic hypoxic/hypercapnic respiratory failure -suspect due to bilateral pulmonary edema, bilateral pleural effusions, worse on the left. Clinically doubt pneumonia. Patient denies cough, fever or chills.
Antibiotics discontinued.
Currently stable on 8 L nasal cannula oxygen, wean down oxygen as able. Use BiPAP while sleeping.
Patient denies history of emphysema or chronic lung disease. Never smoked.
Acute pulmonary edema -due to acute heart failure exacerbation in the setting of ESRD.
Admission BNP greater than 27,000.
Patient unclear about details but believes his weight is up at least 10 pounds.
Weight down 8 kg since admission.
Acute on chronic heart failure with midrange EF exacerbation -EF 45%. Mild LVH with septal contraction abnormalities, multiple regional wall motion abnormalities, probable restrictive physiology. Moderate AR, severe TR, PA pressure 62 mmHg.
Bilateral pleural effusions -moderate loculated left pleural effusion, small loculated right effusion on CT. Patient states had a thoracentesis on the left side about 4 months ago at [facility]. Details unavailable.
Repeat chest x-ray 07/30 with moderate bilateral pleural effusions, associated atelectasis, cannot rule out pneumonia. Clinically without significant pneumonia symptoms although coughing started last night. Will monitor for now off antibiotics.
Chest ultrasound shows small to moderate left pleural effusion, small right-sided.
IR consulted for thoracentesis on the left side today after dialysis.
Troponin elevation -suspect acute nonischemic myocardial injury in the setting of respiratory failure, heart failure. Troponin trending down.
ESRD -on dialysis Monday. Nephrology following.
CAD -with history of coronary stents. Plavix discontinued by cardiology. Patient states last stent was 2021.
Paroxysmal atrial fibrillation -continue Eliquis. Dose increased by cardiology to 5 mg twice daily.
Chronic anemia -hemoglobin stable at 8.3. Baseline unknown. Suspect related to ESRD. Continue erythropoietin.
ALVIN -continue BiPAP while sleeping.
Seizure disorder -continue AEDs.
Hyperlipidemia -on rosuvastatin.
Chronic orthostatic hypotension -on droxidopa, midodrine.
DM 2 with hyperglycemia -prior to admission he was on glargine 5 units twice daily, lispro sliding scale.
Currently on Lantus 5 units at bedtime, 4 units with each meal, aspart low resistance corrective scale.
Glucose 185 this morning, 145 last night.
BPH
Obesity due to excess calories -patient states he had bariatric surgery about 8 or 9 years ago. Originally weighed 400 pounds.
Full code
PT/OT
Dispo -SNF when medically stable.
Anticipated Discharge: > 48 hours
Subjective/Interval History
-
Date of Service: August 01, 2025
Patient seen and examined, complaining of inadequate calories in diet.
Objective Data
-
Labs:
Laboratory Results
08/01/25
07:51
Hgb 8.2 L
Hct 26.1 L
Sodium 140
Potassium 3.8
Chloride 101
Carbon Dioxide 26
Vital Signs:
Vital Signs
Temp Pulse Resp BP Pulse Ox
97.7 F 72 19 108/70 99
08/01/25 07:00 08/01/25 07:51 08/01/25 07:00 08/01/25 07:51 08/01/25 09:01
I&O
09/08/01/25 08/02/25
06:59 06:59 06:59
Intake Total 360 / 360
Balance 360 / 360
Review of Systems
-
History Source: Patient
All other systems: Reviewed and negative
--- NOTE | 2025-08-01 11:37 | W.PN.NEPH.HD ---
Assessment
-
shila HD 2.5 L
next tx will be monday
Progress Note - Hemodialysis
-
Date of Service: August 01, 2025
Duration: 30 minutes and 2 hours
Potassium Bath: 3
Calcium Bath: 2.5
Opti-Dialyzer: 160
Ultrafiltration: Other (2.5kg)
Blood Flow: 250
Heparin: 0
EPO: 0
[2025-08-01 12:29] LABS: Glucose - Point of Care 85 mg/dl (70-99)
[2025-08-01] MEDS: NOVOLOG FLEXPEN-LOW RESISTANCE SC ×2 (12:35→17:32)
--- NOTE | 2025-08-01 14:07 | W.PN.CARDCBS ---
Addendum entered and electronically signed by Sharath Murray MD 08/01/25 19:45:
65-year-old man with end-stage renal disease who resides at [place] who presented with chest pain and suspected left lung pneumonia.
PMH: End-stage renal disease, obstructive sleep apnea on BiPAP, seizures, type 2 diabetes, COPD, paroxysmal A-fib, orthostasis on both droxidopa and midodrine, hypercholesterolemia, CHF, Pacemaker, GERD
Current meds: Lantus insulin, droxidopa, Vimpat, midodrine 15 3 times daily, MiraLAX, rosuvastatin 40 mg a day, Pepcid, apixaban 5 mg twice daily, insulin
107/65, pulse 72, respiratory rate 18, afebrile, weight is 120.4 kg, up 2.4 kg from the , Appears relatively comfortable, had dialysis earlier this morning, diminished breath sounds in lung, regular rate and rhythm, JVD hard to assess, massively
obese, lower extremity edema but improved
Chest x-ray:Low lung volumes, bilateral effusions, possible infiltrates at bases, pacemaker,
Thoracentesis:1000 mL of serosanguineous fluid from left performed today
Hemoglobin is 8.2, Troponin 0.057, proBNP greater than 27,000 on admission July 27
Plan:
Volume status is modestly improved. Best option is to continue aggressive hemodialysis as blood pressure will tolerate.
No changes in medical regimen at this time.
We will sign off. Outpatient superintendent commissary is Dr. Anupam Aiken and patient should follow up to him. Please call with questions
Original Note:
Today's Communication / Plan
-
-getting thoracentesis today
Impression / Plan
-
.
Veterinary Medical Officer: Dr Aiken, [facility]
Impression:
Acute on chronic heart failure, EF 45%
Suspected bilateral pneumonia with bilateral loculated effusions
Pleuritic chest pain with low-level peak troponin 0.068
b/l pleural effusions
Anemia
Obstructive sleep apnea
History of CAD with multiple stents per patient
Acute on chronic respiratory failure, likely multifactorial
End-stage renal disease
Paroxysmal atrial fibrillation, currently in atrial flutter
Orthostatic hypotension on both midodrine and droxidopa
Morbid obesity
GERD
Gilbert's disease
Seizure disorder
Anxiety
Pacemaker -[employer] pacemaker
AV block s/p pacemaker
NSTEMI
GERD
Hypercholesterolemia
Type 2 diabetes
[address] probable right upper lobe pneumonia, mild left upper lobe pneumonia, severe left lower lobe and moderate right lower lobe pneumonia, loculated left pleural effusion small loculated right pleural effusion, T7 fracture
Chest x-ray: Pacemaker, massive cardiomegaly, effusions, vascular congestion
Echo Jul 29 2025: Mild left ventricular hypertrophy with septal contraction abnormalities, multiple regional wall motion abnormalities as described below with estimated ejection fraction 45%. Probable restrictive physiology.
mild mitral regurgitation and dilated left atrium, moderate aortic regurgitation, Dilated and focally hypokinetic right ventricle, mildly dilated right atrium, severe tricuspid regurgitation, PASP 62 mmHg. Pacing wire
identified. Large left pleural effusion is seen.
TTE 06/30/2025 at [place]: EF 55%, moderate TR, PASP 58 mmHg
Plan:
He continues with Eliquis for stroke prophylaxis and the setting of paroxysmal atrial fibrillation/flutter
telemetry reviewed: V paced, 70s with PVCs
Continue HD for volume control. wt was up 5 lbs overnight, overall down down 3 lbs on standing scale since admit.
Had HD today with 2.5 L removed. Next HD Monday
wt down 8-20 lbs, pt believed he was 10 lbs up in wt.
Options are limited with regards to GDMT given his chronic orthostasis. Could consider Toprol given his history of CAD, if blood pressure can tolerate.
Continue midodrine/droxidopa for orthostasis. BPs have been 95-108/65-[address] Aiken from [facility]. I personally requested these today and patient signed records release. I personally spoke with Dr Aiken's office today and await records to be faxed. THe office confirms he was last seen >1 yr
ago.
Continue volume control as per nephrology with HD.
Medical therapy for nonMI troponin, could consider outpt ischemic eval with his superintendent commissary.
Echo 07/29/2025 EF 45%, multiple regional wall motion abnormalities, moderate AI, severe TR, PASP 62, large left pleural effusion.
Evaluation and imaging of pleural effusion as per primary service.
-Plan for left-sided thoracentesis today after dialysis
Evaluation of back pain as per primary service.
Progress Note - Veterinary Medical Officer
Subjective
Date of Service: August 01, 2025
c/o feeling confused
coughing overnight
Objective
Labs:
08/01/25 07:51
08/01/25 07:51
Labs
Hgb 8.2 g/dL (13.0-18.0) L 08/01/25 07:51
Hct 26.1 % (39.0-52.0) L 08/01/25 07:51
Plt Count 193 10^3/uL (130-400) D 07/30/25 05:32
Sodium 140 mmol/L (135-145) 08/01/25 07:51
Potassium 3.8 mmol/L (3.5-5.1) 08/01/25 07:51
BUN 51 mg/dl (9-20) H 07/30/25 05:32
Creatinine 5.5 mg/dL (0.7-1.3) H* 07/30/25 05:32
Glucose 114 mg/dl (70-99) H 07/30/25 05:32
Vital Signs and I&O:
Vital Signs
Temp Pulse Resp BP Pulse Ox
97.4 F 72 19 108/68 99
08/01/25 10:57 08/01/25 13:26 08/01/25 10:57 08/01/25 13:26 08/01/25 10:57
Vital Signs
Temp Pulse Resp BP Pulse Ox
97.4 F 72 19 108/68 99
08/01/25 10:57 08/01/25 13:26 08/01/25 10:57 08/01/25 13:26 08/01/25 10:57
Intake & Output
07/30/25 07/31/25 08/01/25 08/02/25
06:59 06:59 06:59 06:59
Intake Total 360 / 360
Balance 360 / 360
Physical Exam
Physical Exam
GEN: No distress, awake, Ox3
HEENT: supple, anicteric, mmm
LUNGS: decreased at bases
CV: Reg, S1/S2, no murmur
ABD: soft, BS+, NT/ND
EXT: trace LE edema with venous stasis color changes
NEURO: Gross non-focal
SKIN: No rash
[2025-08-01 17:14] LABS: Body Fluid Second Tech DW
[2025-08-01 17:31] LABS: Glucose - Point of Care 144 mg/dl (70-99)
[2025-08-01] MEDS: PEPCID 10 MG PO (20:09)
[2025-08-01 21:36] LABS: Glucose - Point of Care 160 mg/dl (70-99)
[2025-08-01] MEDS: LANTUS 0.05 UNITS SC (22:27)
[2025-08-02] VITALS (8 sets, daily range): BP systolic 105–155; BP diastolic 65–71; PULSE 2–70; O2SAT 100; BMI 36.0
[2025-08-02 07:33] LABS: Glucose - Point of Care 109 mg/dl (70-99)
[2025-08-02] MEDS: MIRALAX 17 GRAMS PO (07:48)
[2025-08-02] MEDS: VIMPAT 50 MG PO ×2 (07:49→20:58)
[2025-08-02] MEDS: CRESTOR 40 MG PO (07:49)
[2025-08-02] MEDS: DROXIDOPA 200 MG PO ×3 (07:49→20:29)
[2025-08-02] MEDS: ELIQUIS 5 MG PO ×2 (07:49→20:29)
[2025-08-02] MEDS: PHOSLO 667 MG PO ×3 (07:49→17:42)
[2025-08-02] MEDS: NOVOLOG FLEXPEN-LOW RESISTANCE SC (07:49)
[2025-08-02] MEDS: VITAMIN D3 (cholecalciferol) 50 MCG PO (07:49)
[2025-08-02] MEDS: NOVOLOG FLEXPEN 4 UNITS SC ×3 (07:50→17:39)
--- NOTE | 2025-08-02 10:04 | W.PN.PUL3 ---
Today's Communication / Plan
-
- Initiate treatment for community-acquired pneumonia, follow-up on pleural fluid cultures
- Continue BiPAP nightly and when napping, wean oxygen as tolerated
Assessment
-
65-year-old obese male non-smoker with past medical history of CHF, paroxysmal A-fib, chronic hypoxic respiratory failure on supplemental oxygen, ESRD on HD MWF, anemia of chronic disease, ALVIN on nocturnal BiPAP, seizure disorder, DM type II, and
BPH who presented with chest pain, hematuria. Patient presented from [facility] with sharp left-sided chest pain that started overnight. He was unable to tolerate his BiPAP due to this pain. Chest imaging was concerning for left-sided
pneumonia. Blood gas showed an acute component of hypercapnia and he was placed onto BiPAP, broad-spectrum antibiotics were started and he was admitted to the IMU for further care. Pulmonary service now consulted for additional
management/recommendations.
Impression:
#1. Acute on chronic hypercapnic respiratory failure s/p improvement with BiPAP
- Follow-up ABG with improving hypercapnia, this morning awake and alert
- Continue BiPAP therapy nightly and when napping, follow-up VBG in a.m.
#2. ALVIN on BiPAP/suspected OHS
- At baseline patient uses nightly BiPAP. Continue
- Patient at risk of hypercapnia and encephalopathy. Low threshold to check blood gas in the event of any change in mental status
#3. Acute on chronic hypoxic respiratory failure
-Suspect related to volume overload, pulmonary edema. Cannot rule out multifocal pneumonia
-Pleural fluid analysis suggestive of exudative effusion, concerning for parapneumonic effusion.
-Continue fluid removal as tolerated with HD, initiate antibiotics targeting community-acquired pneumonia, follow-up on pleural fluid cultures
#4. B/l Pleural effusions, L>R
- Chronically volume overload with underlying heart failure and incisional disease with very elevated BNP
- S/p left-sided thoracentesis on 08/01, 1 L fluid removed, exudative with protein 4.5 and LDH 226. pH is normal and glucose is not low. Parapneumonic effusion in differential diagnosis. Also multifocal opacities noted concerning for pneumonia
-Follow-up on pleural fluid cultures, initiate antibiotics targeting community-acquired pneumonia
#5. Acute HFrEF with severe acute decompensated exacerbation, proBNP >37152
- Also noted to have elevated troponin likely due to demand ischemia with type II [place]
- Cardiology service on case, continue fluid removal with dialysis as tolerated
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
CHF
Paroxysmal A-fib
Chronic hypoxic respiratory failure on supplemental oxygen
ESRD on HD MWF
Anemia of chronic disease
ALVIN on nocturnal BiPAP
Seizure disorder
DM type II
BPH
ESRD on HD
Severe anterior wedge compression fracture of T7
Pulmonary service will continue to follow along.
Data:
CXR 07/27/25: Findings suggesting left lower lobe pneumonia. Small right pleural effusion. Cardiomegaly. Limited inspiration.
CT Chest 07/27/2025: Mild right upper lobe pneumonia. Consolidation in the left upper lobe, left lower lobe and right lower lobe also concerning for pneumonia. Moderate loculated left pleural effusion. Small loculated right pleural effusion. Mild
cardiomegaly. Severe anterior wedge compression fracture of T7. Age indeterminate.
ECHO 07/29/25- 1. Mild left ventricular hypertrophy with septal contraction abnormalities, multiple regional wall motion abnormalities as described below with estimated ejection fraction 45%. Probable restrictive physiology.
2. Thickened mitral leaflets with mitral annular calcification, mild mitral regurgitation and dilated left atrium.
3. Aortic sclerosis with moderate aortic regurgitation.
4. Dilated and focally hypokinetic right ventricle, mildly dilated right atrium, severe tricuspid regurgitation and pulmonary artery systolic pressure of 62 mmHg. Pacing wire identified.
5. Large left pleural effusion is seen.
6. There are no prior echoes available for comparison.
Total time spent today was 45 minutes for this encounter. Time includes reviewing laboratory test/imaging results, reviewing pertinent medical records, obtaining and reviewing medical history, performing an appropriate exam, ordering medications,
tests and procedures. Time also includes documentation of this encounter, coordinating patient care and communicating with other healthcare professionals. Total time does not include separately billed tests performed on this date of service.
Subjective Data
-
Date of Service:
Date of Service: August 02, 2025
Chief Complaint: Pulmonary Follow Up
Subjective:
Comfortably sitting in chair in no acute distress
Review of Systems
Genitourinary: Other (No new symptoms reported, reports feeling better since he had thoracentesis)
Objective Data
Data Reviewed
Vital Signs / I&O / Oxygen:
Vital Signs
Temp Pulse Resp BP Pulse Ox
98.3 F 72 18 108/70 100
08/02/25 07:30 08/02/25 07:30 08/02/25 07:30 08/02/25 07:30 08/02/25 07:30
Intake and Output
08/01/25 08/02/25 08/03/25
06:59 06:59 06:59
Intake Total 360 / 360 940 / 940
Balance 360 / 360 940 / 940
SaO2 100
Nasal Cannula flow liters per 6
minute
Physical Exam
General: Comfortable and Other (NAD, obese)
HEENT: Normocephalic, Anicteric and Moist Mucous Membranes
Cardiovascular: S1-S2, Regular Rhythm and Peripheral Edema
Respiratory: Non-Labored Respirations and Other (overall diminished BS, poor body habitus)
GI: Soft, Distended (hernia present) and Non Tender
Neurology: Awake, Alert, Oriented and No Motor Deficits
Skin: Warm, Dry and Good Color
Labs/Micro/Reports
Lab Data
08/01/25 07:51
08/01/25 07:51
Microbiology
08/01/25 14:38 Pleural Fluid Gram Stain - Preliminary
07/27/25 09:13 Blood/Venous Blood Culture - Final
No Growth - Final Report
07/27/25 08:42 Blood/Venous Blood Culture - Final
No Growth - Final Report
07/27/25 19:26 Urine Urine Culture - Final
Escherichia coli - ESBL
--- NOTE | 2025-08-02 10:24 | W.PN.HOSP.TC ---
Today's Communication/Plan
-
Start antibiotics
Wean oxygen as able
Continue PT
Assessment / Plan
Assessment / Plan
Gen-awake, not fully alert, obese
HEENT-NC, AT, anicteric, clear oral mm
Neck-supple
CV-reg, no M, +S1/S2
Lungs-clear B/L
Abd-soft, NT, ND
Ext-bilateral lower extremity edema, hyperpigmentation
Musculoskeletal-no cyanosis, clubbing
Skin-warm and dry
Neuro-grossly non-focal
Psych-calm, cooperative
Acute on chronic hypoxic/hypercapnic respiratory failure -suspect due to bilateral pulmonary edema, bilateral pleural effusions, worse on the left.
Currently stable on 6 L nasal cannula oxygen, wean down oxygen as able. Use BiPAP while sleeping.
Patient denies history of emphysema or chronic lung disease. Never smoked.
Acute pulmonary edema -due to acute heart failure exacerbation in the setting of ESRD.
Admission BNP greater than 27,000.
Patient unclear about details but believes his weight is up at least 10 pounds.
Weight down 8 kg since admission.
Acute on chronic heart failure with midrange EF exacerbation -EF 45%. Mild LVH with septal contraction abnormalities, multiple regional wall motion abnormalities, probable restrictive physiology. Moderate AR, severe TR, PA pressure 62 mmHg.
Bilateral pleural effusions -moderate loculated left pleural effusion, small loculated right effusion on CT. Patient states had a thoracentesis on the left side about 4 months ago at [facility]. Details unavailable.
Repeat chest x-ray 07/30 with moderate bilateral pleural effusions, associated atelectasis, cannot rule out pneumonia. Mild cough noted to start in the hospital.
Exudative fluid noted on thoracentesis, 1 L removed serosanguineous fluid by IR from the left chest. Symptomatic occasionally feels better, less short of breath.
Start empiric antibiotics for presumed community-acquired pneumonia. Discussed with pulmonary.
Bacteriuria -urine culture shows ESBL E. coli. Unclear if this represents true infection. Patient has minimal symptoms and makes minimal urine but does note new onset of hematuria. Started on Unasyn for pneumonia which will also cover E. coli.
Troponin elevation -suspect acute nonischemic myocardial injury in the setting of respiratory failure, heart failure. Troponin trending down.
ESRD -on dialysis Monday. Nephrology following.
CAD -with history of coronary stents. Plavix discontinued by cardiology. Patient states last stent was 2021.
Paroxysmal atrial fibrillation -continue Eliquis. Dose increased by cardiology to 5 mg twice daily.
Chronic anemia -hemoglobin stable at 8.3. Baseline unknown. Suspect related to ESRD. Continue erythropoietin.
ALVIN -continue BiPAP while sleeping.
Seizure disorder -continue AEDs.
Hyperlipidemia -on rosuvastatin.
Chronic orthostatic hypotension -on droxidopa, midodrine.
DM 2 with hyperglycemia -prior to admission he was on glargine 5 units twice daily, lispro sliding scale.
Currently on Lantus 5 units at bedtime, 4 units with each meal, aspart low resistance corrective scale.
Glucose 109 this morning, 160 last night.
BPH
Obesity due to excess calories -patient states he had bariatric surgery about 8 or 9 years ago. Originally weighed 400 pounds.
Full code
PT/OT
Dispo -SNF when medically stable.
Anticipated Discharge: > 48 hours
Subjective/Interval History
-
Date of Service: August 02, 2025
Patient seen and examined. No new complaints. Feeling sleepy.
Objective Data
-
Vital Signs:
Vital Signs
Temp Pulse Resp BP Pulse Ox
98.3 F 72 18 108/70 100
08/02/25 07:30 08/02/25 07:30 08/02/25 07:30 08/02/25 07:30 08/02/25 07:30
I&O
08/01/25 08/02/25 08/03/25
06:59 06:59 06:59
Intake Total 360 / 360 940 / 940
Balance 360 / 360 940 / 940
Review of Systems
-
History Source: Patient
All other systems: Reviewed and negative
[2025-08-02] MEDS: UNASYN IV ×2 (12:02→23:01)
[2025-08-02 12:16] LABS: Glucose - Point of Care 246 mg/dl (70-99)
[2025-08-02] MEDS: NOVOLOG FLEXPEN-LOW RESISTANCE 2 UNITS SC (12:43)
--- NOTE | 2025-08-02 15:30 | W.PN.NEPH.PH ---
Today's Communication / Plan
-
No acute need for dialysis today
Assessment/Plan
-
Assessment
ESRD requiring dialysis
Acute hypoxic respiratory insufficiency
Pneumonia
Paroxysmal atrial fibrillation
T2DM
Anemia
Plan
Continue Monday schedule
Abx per primary
Follow BMP
Ultrafiltration with dialysis 5 days a last week
No acute need for further ultrafiltration today and he is status post thoracentesis 1 L
-
-
Date of Service: August 02, 2025
CC / HPI / ROS
-
Chief Complaint:
Shortness of breath
History of Present Illness:
ESRD/pneumonia
Review of Systems:
Remains on nasal cannula but much improved
Labs
-
Labs:
WBC 8.3 10^3/uL (4.8-10.8) 07/30/25 05:32
RBC 2.54 10^6/uL (4.70-6.10) L 07/30/25 05:32
Hgb 8.2 g/dL (13.0-18.0) L 08/01/25 07:51
Hct 26.1 % (39.0-52.0) L 08/01/25 07:51
Plt Count 193 10^3/uL (130-400) D 07/30/25 05:32
Sodium 140 mmol/L (135-145) 08/01/25 07:51
Potassium 3.8 mmol/L (3.5-5.1) 08/01/25 07:51
Chloride 101 mmol/L (98-107) 08/01/25 07:51
Carbon Dioxide 26 mmol/L (22-30) 08/01/25 07:51
BUN 51 mg/dl (9-20) H 07/30/25 05:32
Creatinine 5.5 mg/dL (0.7-1.3) H* 07/30/25 05:32
eGFR 10.87 07/30/25 05:32
Glucose 114 mg/dl (70-99) H 07/30/25 05:32
Calcium 8.7 mg/dl (8.4-10.2) 07/30/25 05:32
Phosphorus 5.4 mg/dl (2.5-4.5) H 07/30/25 05:32
Vcz-P-Utgheogfzzl Pept > 36969 pg/ml 07/27/25 06:41
Albumin 4.0 g/dl (3.5-5.0) 07/27/25 06:41
Physical Exam
-
Vital Signs:
Vital Signs
Temp Pulse Resp BP Pulse Ox
98.6 F 72 18 122/71 99
08/02/25 11:45 08/02/25 11:45 08/02/25 11:45 08/02/25 11:45 08/02/25 11:45
Respiratory:: Bilateral: CTA
Lung Excursion:: Normal
Abdomen:: Soft
Bowel Sounds:: Normal
Extremity Edema:: None: Bilateral:
[2025-08-02 16:40] LABS: Glucose - Point of Care 160 mg/dl (70-99)
[2025-08-02] MEDS: NOVOLOG FLEXPEN-LOW RESISTANCE 1 UNITS SC (17:38)
[2025-08-02] MEDS: PEPCID 10 MG PO (20:29)
[2025-08-02 21:28] LABS: Glucose - Point of Care 151 mg/dl (70-99)
[2025-08-02] MEDS: LANTUS 0.05 UNITS SC (23:01)
[2025-08-03] VITALS (7 sets, daily range): BP systolic 102–119; BP diastolic 66–74; PULSE 2–70; BMI 34.1
[2025-08-03 06:31] LABS: Venous Blood Gas B.E. 2.9 mmol/L (-4 to +4); Venous Blood Gas O2 Sat % 99.4 %
[2025-08-03 07:43] LABS: Glucose - Point of Care 158 mg/dl (70-99)
[2025-08-03] MEDS: NOVOLOG FLEXPEN-LOW RESISTANCE 1 UNITS SC (07:55)
[2025-08-03] MEDS: NOVOLOG FLEXPEN 4 UNITS SC ×3 (07:55→17:23)
[2025-08-03] MEDS: VIMPAT 50 MG PO ×2 (07:56→19:41)
[2025-08-03] MEDS: VITAMIN D3 (cholecalciferol) 50 MCG PO (07:56)
[2025-08-03] MEDS: CRESTOR 40 MG PO (07:56)
[2025-08-03] MEDS: DROXIDOPA 200 MG PO ×3 (07:57→19:40)
[2025-08-03] MEDS: ELIQUIS 5 MG PO ×2 (07:57→19:41)
[2025-08-03] MEDS: PHOSLO 667 MG PO ×3 (07:57→17:23)
[2025-08-03] MEDS: MIRALAX 17 GRAMS PO (07:58)
--- NOTE | 2025-08-03 10:19 | W.PN.HOSP.TC ---
Today's Communication/Plan
-
Continue current care
Assessment / Plan
Assessment / Plan
Gen-awake, not fully alert, obese
HEENT-NC, AT, anicteric, clear oral mm
Neck-supple
CV-reg, no M, +S1/S2
Lungs-clear B/L
Abd-soft, NT, ND
Ext-bilateral lower extremity edema, hyperpigmentation
Musculoskeletal-no cyanosis, clubbing
Skin-warm and dry
Neuro-grossly non-focal
Psych-calm, cooperative
Acute on chronic hypoxic/hypercapnic respiratory failure -suspect due to bilateral pulmonary edema, bilateral pleural effusions, worse on the left.
Currently stable on 4-5 L nasal cannula oxygen, wean down oxygen as able. Use BiPAP while sleeping.
Patient denies history of emphysema or chronic lung disease. Never smoked.
Acute pulmonary edema -due to acute heart failure exacerbation in the setting of ESRD.
Admission BNP greater than 27,000.
Patient unclear about details but believes his weight is up at least 10 pounds.
Weight down 14 kg since admission.
Acute on chronic heart failure with midrange EF exacerbation -EF 45%. Mild LVH with septal contraction abnormalities, multiple regional wall motion abnormalities, probable restrictive physiology. Moderate AR, severe TR, PA pressure 62 mmHg.
Bilateral pleural effusions -moderate loculated left pleural effusion, small loculated right effusion on CT. Patient states had a thoracentesis on the left side about 4 months ago at [facility]. Details unavailable.
Repeat chest x-ray 07/30 with moderate bilateral pleural effusions, associated atelectasis, cannot rule out pneumonia. Mild cough noted to start in the hospital.
Exudative fluid noted on thoracentesis, 1 L removed serosanguineous fluid by IR from the left chest. Symptomatic occasionally feels better, less short of breath.
Continue Unasyn for empiric treatment of presumed community-acquired pneumonia.
Bacteriuria -urine culture shows ESBL E. coli. Unclear if this represents true infection. Patient has minimal symptoms and makes minimal urine but does note new onset of hematuria. Started on Unasyn for pneumonia which will also cover E. coli.
Troponin elevation -suspect acute nonischemic myocardial injury in the setting of respiratory failure, heart failure. Troponin trending down.
ESRD -on dialysis Monday. Nephrology following.
CAD -with history of coronary stents. Plavix discontinued by cardiology. Patient states last stent was 2021.
Paroxysmal atrial fibrillation -continue Eliquis. Dose increased by cardiology to 5 mg twice daily.
Chronic anemia -hemoglobin stable at 8.3. Baseline unknown. Suspect related to ESRD. Continue erythropoietin.
ALVIN -continue BiPAP while sleeping.
Seizure disorder -continue AEDs.
Hyperlipidemia -on rosuvastatin.
Chronic orthostatic hypotension -on droxidopa, midodrine.
DM 2 with hyperglycemia -prior to admission he was on glargine 5 units twice daily, lispro sliding scale.
Currently on Lantus 5 units at bedtime, 4 units with each meal, aspart low resistance corrective scale.
Glucose 158 this morning, 151 last night.
BPH
Obesity due to excess calories -patient states he had bariatric surgery about 8 or 9 years ago. Originally weighed 400 pounds.
Full code
PT/OT
Dispo -SNF when medically stable. Anticipate discharge Monday if stable after dialysis.
Updated case management.
Anticipated Discharge: Within 24 hours
Subjective/Interval History
-
Date of Service: August 03, 2025
Patient seen and examined. Improving overall. Complaining of chronic insomnia.
Objective Data
-
Vital Signs:
Vital Signs
Temp Pulse Resp BP Pulse Ox
98.4 F 72 18 108/69 100
08/03/25 07:40 08/03/25 07:40 08/03/25 07:40 08/03/25 07:56 08/03/25 07:40
I&O
08/02/25 08/03/25 08/04/25
06:59 06:59 06:59
Intake Total 940 / 940 1340 / 1340
Balance 940 / 940 1340 / 1340
Review of Systems
-
History Source: Patient
All other systems: Reviewed and negative
[2025-08-03] MEDS: UNASYN IV (10:58)
--- NOTE | 2025-08-03 11:18 | W.PN.PUL3 ---
Today's Communication / Plan
-
- f/u ABG at 2 pm
- Need to continue BIPAP 18/10 post discharge
Assessment
-
65-year-old obese male non-smoker with past medical history of CHF, paroxysmal A-fib, chronic hypoxic respiratory failure on supplemental oxygen, ESRD on HD MWF, anemia of chronic disease, ALVIN on nocturnal BiPAP, seizure disorder, DM type II, and
BPH who presented with chest pain, hematuria. Patient presented from [facility] with sharp left-sided chest pain that started overnight. He was unable to tolerate his BiPAP due to this pain. Chest imaging was concerning for left-sided
pneumonia. Blood gas showed an acute component of hypercapnia and he was placed onto BiPAP, broad-spectrum antibiotics were started and he was admitted to the IMU for further care. Pulmonary service now consulted for additional
management/recommendations.
Impression:
#1. Acute on chronic hypercapnic respiratory failure s/p improvement with BiPAP
- Follow-up ABG with improving hypercapnia, this morning awake and alert
- VBG this AM 7.. Patient awake, alert, oriented times 3 and sitting in chair comfortably.
- BIPAP 18/10 nightly and when napping. Will get f/u VBG today at 2 pm
#2. ALVIN on BiPAP/suspected OHS
- Patient reports he was given CPAP at his facility rather than on BiPAP. Need to be discharged on BiPAP 18/10.
- Patient at risk of hypercapnia and encephalopathy. Low threshold to check blood gas in the event of any change in mental status
#3. Acute on chronic hypoxic respiratory failure
-Suspect related to volume overload, pulmonary edema. Cannot rule out multifocal pneumonia
-Pleural fluid analysis suggestive of exudative effusion, concerning for parapneumonic effusion.
-Continue fluid removal as tolerated with HD, initiated antibiotics targeting community-acquired pneumonia, follow-up on pleural fluid cultures
-7 days of antibiotics should suffice, currently on Unasyn
#4. B/l Pleural effusions, L>R
- Chronically volume overload with underlying heart failure and incisional disease with very elevated BNP
- S/p left-sided thoracentesis on 08/01, 1 L fluid removed, exudative with protein 4.5 and LDH 226. pH is normal and glucose is not low. Parapneumonic effusion in differential diagnosis. Also multifocal opacities noted concerning for pneumonia
-Follow-up on pleural fluid cultures, initiate antibiotics targeting community-acquired pneumonia
#5. Acute HFrEF with severe acute decompensated exacerbation, proBNP >29230
- Also noted to have elevated troponin likely due to demand ischemia with type II SC
- Cardiology service on case, continue fluid removal with dialysis as tolerated
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
CHF
Paroxysmal A-fib
Chronic hypoxic respiratory failure on supplemental oxygen
ESRD on HD MWF
Anemia of chronic disease
ALVIN on nocturnal BiPAP
Seizure disorder
DM type II
BPH
ESRD on HD
Severe anterior wedge compression fracture of T7
Pulmonary service will continue to follow along.
Data:
CXR 07/27/25: Findings suggesting left lower lobe pneumonia. Small right pleural effusion. Cardiomegaly. Limited inspiration.
CT Chest 07/27/2025: Mild right upper lobe pneumonia. Consolidation in the left upper lobe, left lower lobe and right lower lobe also concerning for pneumonia. Moderate loculated left pleural effusion. Small loculated right pleural effusion. Mild
cardiomegaly. Severe anterior wedge compression fracture of T7. Age indeterminate.
ECHO 07/29/25- 1. Mild left ventricular hypertrophy with septal contraction abnormalities, multiple regional wall motion abnormalities as described below with estimated ejection fraction 45%. Probable restrictive physiology.
2. Thickened mitral leaflets with mitral annular calcification, mild mitral regurgitation and dilated left atrium.
3. Aortic sclerosis with moderate aortic regurgitation.
4. Dilated and focally hypokinetic right ventricle, mildly dilated right atrium, severe tricuspid regurgitation and pulmonary artery systolic pressure of 62 mmHg. Pacing wire identified.
5. Large left pleural effusion is seen.
6. There are no prior echoes available for comparison.
Total time spent today was 45 minutes for this encounter. Time includes reviewing laboratory test/imaging results, reviewing pertinent medical records, obtaining and reviewing medical history, performing an appropriate exam, ordering medications,
tests and procedures. Time also includes documentation of this encounter, coordinating patient care and communicating with other healthcare professionals. Total time does not include separately billed tests performed on this date of service.
Subjective Data
-
Date of Service:
Date of Service: August 03, 2025
Chief Complaint: Pulmonary Follow Up
Subjective:
Patient comfortably sitting in chair in no acute distress.
Review of Systems
Genitourinary: Other (All 14 systems reviewed and negative except as stated above in the history of present illness.)
Objective Data
Data Reviewed
Vital Signs / I&O / Oxygen:
Vital Signs
Temp Pulse Resp BP Pulse Ox
98.4 F 72 18 108/69 100
08/03/25 07:40 08/03/25 07:40 08/03/25 07:40 08/03/25 07:56 08/03/25 07:40
Intake and Output
08/02/25 08/03/25 08/04/25
06:59 06:59 06:59
Intake Total 940 / 940 1340 / 1340
Balance 940 / 940 1340 / 1340
SaO2 100
Nasal Cannula flow liters per 5
minute
Physical Exam
General: Comfortable and Other (NAD, obese)
HEENT: Normocephalic, Anicteric and Moist Mucous Membranes
Cardiovascular: S1-S2, Regular Rhythm and Peripheral Edema
Respiratory: Non-Labored Respirations and Other (overall diminished BS, poor body habitus)
GI: Soft, Distended (hernia present) and Non Tender
Neurology: Awake, Alert, Oriented and No Motor Deficits
Skin: Warm, Dry and Good Color
Labs/Micro/Reports
Lab Data
08/01/25 07:51
08/01/25 07:51
Microbiology
08/01/25 14:38 Pleural Fluid Body Fluid Culture - Preliminary
No Growth After 48 Hours
08/01/25 14:38 Pleural Fluid Gram Stain - Preliminary
07/27/25 09:13 Blood/Venous Blood Culture - Final
No Growth - Final Report
07/27/25 08:42 Blood/Venous Blood Culture - Final
No Growth - Final Report
07/27/25 19:26 Urine Urine Culture - Final
Escherichia coli - ESBL
[2025-08-03 11:35] LABS: Glucose - Point of Care 216 mg/dl (70-99)
[2025-08-03] MEDS: NOVOLOG FLEXPEN-LOW RESISTANCE 2 UNITS SC (12:45)
[2025-08-03 14:18] LABS: B.E. 2.3 mmol/L; HCO3 29.2 mmol/L (21-28); O2 Saturation % 98.4 % (94-98); PCO2 58 mmHg (35-48); PO2 109 mmHg (83-108)
--- NOTE | 2025-08-03 14:30 | W.PN.NEPH.PH ---
Today's Communication / Plan
-
Dialysis Monday
Assessment/Plan
-
Assessment
ESRD requiring dialysis
Acute hypoxic respiratory insufficiency
Pneumonia
Paroxysmal atrial fibrillation
T2DM
Anemia
Plan
Continue Monday schedule
Abx per primary
Ultrafiltration with dialysis 5 days a last week
No acute need for further ultrafiltration today and he is status post thoracentesis 1 L monday
-
-
Date of Service: August 03, 2025
CC / HPI / ROS
-
Chief Complaint:
Shortness of breath
History of Present Illness:
ESRD/pneumonia
Review of Systems:
Remains on nasal cannula but much improved
Labs
-
Labs:
WBC 8.3 10^3/uL (4.8-10.8) 07/30/25 05:32
RBC 2.54 10^6/uL (4.70-6.10) L 07/30/25 05:32
Hgb 8.2 g/dL (13.0-18.0) L 08/01/25 07:51
Hct 26.1 % (39.0-52.0) L 08/01/25 07:51
Plt Count 193 10^3/uL (130-400) D 07/30/25 05:32
Sodium 140 mmol/L (135-145) 08/01/25 07:51
Potassium 3.8 mmol/L (3.5-5.1) 08/01/25 07:51
Chloride 101 mmol/L (98-107) 08/01/25 07:51
Carbon Dioxide 26 mmol/L (22-30) 08/01/25 07:51
BUN 51 mg/dl (9-20) H 07/30/25 05:32
Creatinine 5.5 mg/dL (0.7-1.3) H* 07/30/25 05:32
eGFR 10.87 07/30/25 05:32
Glucose 114 mg/dl (70-99) H 07/30/25 05:32
Calcium 8.7 mg/dl (8.4-10.2) 07/30/25 05:32
Phosphorus 5.4 mg/dl (2.5-4.5) H 07/30/25 05:32
Zju-R-Izrlzaosjqq Pept > 63658 pg/ml 07/27/25 06:41
Albumin 4.0 g/dl (3.5-5.0) 07/27/25 06:41
Physical Exam
-
Vital Signs:
Vital Signs
Temp Pulse Resp BP Pulse Ox
98.4 F 72 18 100/58 100
08/03/25 07:40 08/03/25 13:41 08/03/25 07:40 08/03/25 13:41 08/03/25 07:40
Respiratory:: Bilateral: CTA
Lung Excursion:: Normal
Abdomen:: Soft
Bowel Sounds:: Normal
Extremity Edema:: None: Bilateral:
[2025-08-03 16:50] LABS: Glucose - Point of Care 119 mg/dl (70-99)
[2025-08-03] MEDS: NOVOLOG FLEXPEN-LOW RESISTANCE SC (16:56)
[2025-08-03] MEDS: PEPCID 10 MG PO (19:40)
[2025-08-03 21:32] LABS: Glucose - Point of Care 145 mg/dl (70-99)
[2025-08-04] MEDS: LANTUS 0.05 UNITS SC (00:09)
[2025-08-04] MEDS: UNASYN IV ×2 (00:10→10:55)
[2025-08-04 05:05] VITALS: BMI 34.7
[2025-08-04 07:14] VITALS: BP 109/60
[2025-08-04 07:19] LABS: Glucose - Point of Care 151 mg/dl (70-99)
[2025-08-04] MEDS: DROXIDOPA 200 MG PO ×2 (07:34→16:43)
[2025-08-04] MEDS: PHOSLO 667 MG PO ×3 (07:35→16:43)
[2025-08-04] MEDS: NOVOLOG FLEXPEN-LOW RESISTANCE 1 UNITS SC ×2 (07:35→16:52)
[2025-08-04] MEDS: VIMPAT 50 MG PO (07:35)
[2025-08-04] MEDS: NOVOLOG FLEXPEN 4 UNITS SC ×3 (07:36→16:53)
[2025-08-04 08:08] LABS: Hematocrit 25.5 % (39.0-52.0); Hemoglobin 8.1 g/dL (13.0-18.0); Mean Corp Hgb Conc. 31.8 g/dL (33.0-37.0); Mean Corpuscular Volume 100.8 fL (80.0-94.0); Platelet Count 178 10^3/uL (130-400); Red Cell Dist. Width 18.8 % (11.5-14.5)
[2025-08-04] MEDS: MANNITOL 25% 12.5 GRAMS IV ×2 (08:20→10:07)
[2025-08-04] MEDS: FLEXBUMIN 25% FOR HEMODIALYSIS 12.5 GRAMS IV ×2 (08:22→10:05)
[2025-08-04] MEDS: RETACRIT 10000 UNITS IV (08:23)
[2025-08-04 08:46] LABS: Blood Urea Nitrogen 67 mg/dl (9-20); Calcium 8.2 mg/dl (8.4-10.2); Carbon Dioxide 23 mmol/L (22-30); Chloride 99 mmol/L (98-107); Estimated Creatinine Clearance 14 ml/min; Glucose 284 mg/dl (70-99); Potassium 4.7 mmol/L (3.5-5.1); Sodium 137 mmol/L (135-145); eGFR 8.00
--- NOTE | 2025-08-04 08:53 | W.PN.NEPH.HD ---
Assessment
-
Patient seen on dialysis
Systolic blood pressure 106 at current aggressive UF
Patient will continue to be problematic as he has incessant weight gains with associated chronic hypotension requiring midodrine support on dialysis (15mg TID)
Progress Note - Hemodialysis
-
Date of Service: August 04, 2025
Duration: 30 minutes and 3 hours
Potassium Bath: 3
Calcium Bath: 2.5
Opti-Dialyzer: 160
Ultrafiltration: Other (3.5 kg is hemodynamically tolerated)
Blood Flow: 400
Dialysate Flow: 600
Heparin: None
EPO: 10,000
[2025-08-04 11:48] LABS: Glucose - Point of Care 82 mg/dl (70-99)
[2025-08-04] MEDS: NOVOLOG FLEXPEN-LOW RESISTANCE SC (11:52)
--- NOTE | 2025-08-04 12:20 | W.PN.PUL3 ---
Today's Communication / Plan
-
Continue current BiPAP settings with naps and at bedtime.
Upon discharge should be discharged on BiPAP 18/10 not CPAP.
Continue to maintain negative fluid balance-still currently on ampicillin. Volume overloaded-contributing to patient hypercapnia decompensation.
Continue antibiotics to cover for pneumonia-currently on Unasyn-complete total 7 days. Hopefully can transition to oral antibiotics soon.
Avoid sedatives.
Will follow
Assessment
-
65-year-old obese male non-smoker with past medical history of CHF, paroxysmal A-fib, chronic hypoxic respiratory failure on supplemental oxygen, ESRD on HD MWF, anemia of chronic disease, ALVIN on nocturnal BiPAP, seizure disorder, DM type II, and
BPH who presented with chest pain, hematuria. Patient presented from [facility] with sharp left-sided chest pain that started overnight. He was unable to tolerate his BiPAP due to this pain. Chest imaging was concerning for left-sided
pneumonia. Blood gas showed an acute component of hypercapnia and he was placed onto BiPAP, broad-spectrum antibiotics were started and he was admitted to the IMU for further care. Pulmonary service now consulted for additional
management/recommendations.
Impression:
#1. Acute on chronic hypercapnic respiratory failure s/p improvement with BiPAP
- Mental status back to baseline-
-ABG 08/03/2025: 7.31/58/109
- BIPAP 18/10 nightly and when napping.
- Avoid sedatives
- Continue to treat underlying heart failure.
#2. ALVIN on BiPAP/suspected OHS
- Patient reports he was given CPAP at his facility rather than on BiPAP. Need to be discharged on BiPAP 18/10.
- Patient at risk of hypercapnia and encephalopathy. Low threshold to check blood gas in the event of any change in mental status
#3. Acute on chronic hypoxic respiratory failure
-Suspect related to volume overload, pulmonary edema. Cannot rule out multifocal pneumonia
-Pleural fluid analysis suggestive of exudative effusion, concerning for parapneumonic effusion.
-Continue fluid removal as tolerated with HD, initiated antibiotics targeting community-acquired pneumonia-pleural fluid negative cultures so far.
-7 days of antibiotics should suffice, currently on Unasyn
#4. B/l Pleural effusions, L>R
- Chronically volume overload with underlying heart failure and incisional disease with very elevated BNP
- S/p left-sided thoracentesis on 08/01, 1 L fluid removed, exudative with protein 4.5 and LDH 226. pH is normal and glucose is not low. Parapneumonic effusion in differential diagnosis. Also multifocal opacities noted concerning for pneumonia
- Negative cultures, no cytology available so far.
#5. Acute HFrEF with severe acute decompensated exacerbation, proBNP >50700
- Also noted to have elevated troponin likely due to demand ischemia with type II NC
- Cardiology service on case, continue fluid removal with dialysis as tolerated
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
CHF
Paroxysmal A-fib
Chronic hypoxic respiratory failure on supplemental oxygen
ESRD on HD MWF
Anemia of chronic disease
ALVIN on nocturnal BiPAP
Seizure disorder
DM type II
BPH
ESRD on HD
Severe anterior wedge compression fracture of T7
Pulmonary service will continue to follow along.
Data:
CXR 07/27/25: Findings suggesting left lower lobe pneumonia. Small right pleural effusion. Cardiomegaly. Limited inspiration.
CT Chest 07/27/2025: Mild right upper lobe pneumonia. Consolidation in the left upper lobe, left lower lobe and right lower lobe also concerning for pneumonia. Moderate loculated left pleural effusion. Small loculated right pleural effusion. Mild
cardiomegaly. Severe anterior wedge compression fracture of T7. Age indeterminate.
ECHO 07/29/25- 1. Mild left ventricular hypertrophy with septal contraction abnormalities, multiple regional wall motion abnormalities as described below with estimated ejection fraction 45%. Probable restrictive physiology.
2. Thickened mitral leaflets with mitral annular calcification, mild mitral regurgitation and dilated left atrium.
3. Aortic sclerosis with moderate aortic regurgitation.
4. Dilated and focally hypokinetic right ventricle, mildly dilated right atrium, severe tricuspid regurgitation and pulmonary artery systolic pressure of 62 mmHg. Pacing wire identified.
5. Large left pleural effusion is seen.
6. There are no prior echoes available for comparison.
Subjective Data
-
Date of Service:
Date of Service: August 04, 2025
Chief Complaint: Pulmonary Follow Up (Acute on chronic hypercapnic respiratory failure)
Subjective:
No new complaints
Tolerating BiPAP
Denies phlegm production
Denies chest pain.
Review of Systems
Cardiopulmonary: Dyspnea and Dyspnea on Exertion
GI: Nausea (n) and Vomiting (n)
Neuro: Headache (n)
Objective Data
Data Reviewed
Vital Signs / I&O / Oxygen:
Vital Signs
Temp Pulse Resp BP Pulse Ox
98.8 F 72 18 109/60 94
08/04/25 07:14 08/04/25 07:14 08/04/25 07:14 08/04/25 07:14 08/04/25 08:16
Intake and Output
08/03/25 08/04/25 08/05/25
06:59 06:59 06:59
Intake Total 1340 / 1340 480 / 480
Balance 1340 / 1340 480 / 480
SaO2 94
Nasal Cannula flow liters per 4
minute
Physical Exam
General: Comfortable and Other (NAD, obese)
HEENT: Normocephalic, Anicteric and Moist Mucous Membranes
Cardiovascular: S1-S2, Regular Rhythm and Peripheral Edema
Respiratory: Non-Labored Respirations and Other (overall diminished BS, poor body habitus)
GI: Soft, Distended (hernia present) and Non Tender
Neurology: Awake, Alert, Oriented and No Motor Deficits
Skin: Warm, Dry and Good Color
Labs/Micro/Reports
Lab Data
08/04/25 07:34
08/04/25 07:34
Laboratory Results
08/03/25
13:59
pH 7.31 L
pCO2 58 H
pO2 109 H
HCO3 29.2 H
O2 Delivery Level
Microbiology
08/01/25 14:38 Pleural Fluid Body Fluid Culture - Final
No Growth After 72 Hours
08/01/25 14:38 Pleural Fluid Gram Stain - Final
07/27/25 09:13 Blood/Venous Blood Culture - Final
No Growth - Final Report
07/27/25 08:42 Blood/Venous Blood Culture - Final
No Growth - Final Report
[2025-08-04] MEDS: CRESTOR 40 MG PO (12:21)
[2025-08-04] MEDS: MIRALAX 17 GRAMS PO (12:21)
[2025-08-04] MEDS: ELIQUIS 5 MG PO (12:21)
[2025-08-04] MEDS: VITAMIN D3 (cholecalciferol) 50 MCG PO (12:22)
--- NOTE | 2025-08-04 12:28 | W.PN.HOSP.TC ---
Today's Communication/Plan
-
Assessment / Plan
Assessment / Plan
General: No Apparent Distress, comfortable
HEENT: NormoCephalic, atraumatic
Respiratory: Mild scattered rhonchi bilaterally, no increased work of breathing
Cardiac: S1/S2 and Regular Rhythm; No Rub or Gallop
GI: Soft, Non Tender, Non Distended and Normal Bowel Sounds
Musculoskeletal: No Edema, no deformity
Skin: Warm and dry, bilateral lower extremity wounds with dressings in place
: NO Lyles
Neuro: Awake and alert, Nonfocal/grossly intact
Psych: Calm and cooperative
Acute on chronic hypoxic/hypercapnic respiratory failure:
- suspect due to bilateral pulmonary edema, bilateral pleural effusions, worse on the left.
- Clinically improving with antibiotics and left thoracentesis 08/01
- Will continue antibiotics for 1 more day to complete 10-day course
- Currently stable on 4-5 L nasal cannula oxygen, wean down oxygen as able. Use BiPAP while sleeping.
- Patient denies history of emphysema or chronic lung disease. Never smoked. 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
Acute pulmonary edema:
- due to acute heart failure exacerbation in the setting of ESRD.
- Admission BNP greater than 27,000.
- Patient unclear about details but believes his weight is up at least 10 pounds.
- Weight down approximately 14 kg since admission.
Acute on chronic heart failure with midrange EF exacerbation:
- EF 45%. Mild LVH with septal contraction abnormalities, multiple regional wall motion abnormalities, probable restrictive physiology. Moderate AR, severe TR, PA pressure 62 mmHg.
- Treating as above
Bilateral pleural effusions:
- moderate loculated left pleural effusion, small loculated right effusion on CT.
- Patient states had a thoracentesis on the left side about 4 months ago at [facility]. Details unavailable.
- Repeat chest x-ray 07/30 with moderate bilateral pleural effusions, associated atelectasis, cannot rule out pneumonia. Mild cough noted to start in the hospital.
- Underwent left thoracentesis 08/01/2025 with 1 L serosanguineous fluid removed, exudative fluid noted, cultures with no growth to date, now feels better, less short of breath.
- Currently treating with Unasyn for empiric treatment of presumed community-acquired pneumonia, will continue antibiotics for 1 more day to complete total 10-day course
Bacteriuria:
- urine culture shows ESBL E. coli. Unclear if this represents true infection.
- Patient has minimal symptoms and makes minimal urine but does note new onset of hematuria.
- Started on Unasyn for pneumonia which will also cover E. coli.
Troponin elevation:
- suspect this is elevated due to ESRD, doubt acute ischemia
ESRD -on dialysis Monday. Nephrology following. UF challenging due to hypotension requiring midodrine
CAD -with history of coronary stents. Plavix discontinued by cardiology. Patient states last stent was 2021.
Paroxysmal atrial fibrillation -continue Eliquis. Dose increased by cardiology to 5 mg twice daily.
Chronic anemia -hemoglobin stable at 8.3. Baseline unknown. Suspect related to ESRD. Continue erythropoietin.
ALVIN -continue BiPAP while sleeping.
Seizure disorder -continue AEDs.
Hyperlipidemia -on rosuvastatin.
Chronic orthostatic hypotension -on droxidopa, midodrine.
DM 2 with hyperglycemia -prior to admission he was on glargine 5 units twice daily, lispro sliding scale.
Currently on Lantus 5 units at bedtime, 4 units with each meal, aspart low resistance corrective scale.
Glucose 158 this morning, 151 last night.
BPH
Obesity due to excess calories -patient states he had bariatric surgery about 8 or 9 years ago. Originally weighed 400 pounds.
Full code
PT/OT
Dispo -SNF when medically stable. Possibly today after dialysis.
Updated case management.
Anticipated Discharge: 24 - 48 hours
Subjective/Interval History
-
Date of Service: August 04, 2025
Patient was seen and examined at bedside this morning during his dialysis treatment. Breathing much more comfortably after left thoracentesis on 08/01.
Objective Data
-
Labs:
Laboratory Results
08/04/25
07:34
WBC 8.5
Hgb 8.1 L
Hct 25.5 L
Plt Count 178
Sodium 137
Potassium 4.7
Chloride 99
Carbon Dioxide 23
BUN 67 H
Creatinine 7.1 H*
Glucose 284 H
Calcium 8.2 L
Vital Signs:
Vital Signs
Temp Pulse Resp BP Pulse Ox
98.8 F 72 18 109/60 94
08/04/25 07:14 08/04/25 07:14 08/04/25 07:14 08/04/25 07:14 08/04/25 08:16
I&O
08/03/25 08/04/25 08/05/25
06:59 06:59 06:59
Intake Total 1340 / 1340 480 / 480
Balance 1340 / 1340 480 / 480
Review of Systems
-
History Source: Patient
All other systems: Reviewed and negative
Physical Exam
-
General: No Apparent Distress
--- NOTE | 2025-08-04 13:21 | CM ---
Addendum entered by Love Crespo 08/04/25 14:51:
0 transport set - notified Jennifer nixon
Original Note:
Patient seen at beside
HD today
tt from hospitalist discharge today
Spoke with [facility] & updated careport
IMM explained & signed. In chart
Plan: [facility]
Report #: [phone]
Fax #: [phone]
transportation forms on chart
[2025-08-04 15:10] VITALS: BP 111/71
[2025-08-04 16:53] LABS: Glucose - Point of Care 170 mg/dl (70-99)
--- NOTE | 2025-08-04 17:09 | W.DCSUMMARY ---
Discharge Summary
Discharge Data
Date of Admission: 07/27/25
Date of Discharge: 08/04/25
Total time spent discharging patient (in min): 46
-
Pending Results: No
Hospital Course
Mr. Talbert is a 65-year-old male with medical history of heart failure (unspecified type), paroxysmal A-fib, chronic hypoxic respiratory failure (on supplemental oxygen at baseline), ESRD (HD MWF), anemia of chronic disease, ALVIN (on BiPAP at night),
seizure disorder, insulin-dependent diabetes mellitus, and prostate enlargement who presented via EMS from [facility] with sharp left-sided chest pain. He was unable to tolerate his BiPAP due to the pain. Upon evaluation in the ED he was
normotensive and afebrile. Initial chest imaging was concerning for left-sided pneumonia. Labs were remarkable for anemia with a hemoglobin of 7.2, abnormal creatinine of 5.0, elevated troponin of 0.068, and elevated proBNP of greater than 27,000.
BNP and troponin are of equivocal significance considering his end-stage renal disease. He did not have a leukocytosis and lactic acid was within normal limits. However he had an abnormal pCO2 of 78 on VBG. He was placed on BiPAP, started on
broad-spectrum antibiotics, and admitted for further evaluation and management of acute hypercapnic respiratory failure and pneumonia.
Further imaging of his chest with CT showed bilateral pulmonary edema/ infiltrates and a moderate loculated left pleural effusion. He underwent left thoracentesis 08/01/2025 with 1 L serosanguineous fluid removed, exudative exudative by labs,
cultures were sterile. He felt significant improvement in his respiratory status after the thoracentesis. He was continued on baseline supplemental oxygen and BiPAP while sleeping throughout his hospitalization. His volume status was managed with
hemodialysis, which is complicated by hypotension requiring midodrine. His weight went down by approximately 14 kg during this admission. He makes very little urine, however his urine did grow ESBL E coli sensitive to Unasyn. He was treated with
IV antibiotics during his hospitalization to cover for pneumonia which would also cover a urinary tract infection. He was given a prescription for Augmentin at the time of discharge to complete a total 10-day antibiotic course. He had a mild
troponin elevation at the time of admission which remained stable. This is likely due to ESRD and was not felt to be due to ACS. His last stent was placed in 2021 and so his Plavix was discontinued. His diabetic regimen was adjusted during this
admission. He will need ongoing monitoring and dosage adjustments as needed. At time of hospital discharge he was medically stable.
Discharge Plan
-
Patient Disposition: Usp/SNF
Discharge Diagnosis/Procedures: Acute on chronic respiratory failure, acute on chronic heart failure exacerbation, pleural effusions
Condition: Fair
Diet: 2 Gram Sodium, Diabetic, Carb Controlled and Other diet
Additional Diets: 40 ounce daily fluid restriction
Activity: With assistance
Driving Restrictions: No driving
Bathing Restrictions: None
Referrals:
Jose Alfred MD [Family Provider]
Prescriptions:
New
Eliquis 5 mg Tablet
5 mg PO BID 30 Days Qty: 60 0RF
Continued
acetaminophen 325 mg Tablet
650 mg PO Q6HPRN PRN (Reason: mild pain)
ipratropium-albuterol 0.5 mg-3 mg(2.5 mg base)/3 mL Solution For Nebulization
3 ml INHALATION R Q6HPRN PRN (Reason: sob)
polyethylene glycol 3350 17 gram Powder In Packet
17 g PO DAILY
midodrine 5 mg Tablet
15 mg PO TID
famotidine 20 mg Tablet
20 mg PO BID
insulin lispro 100 unit/mL Insulin Pen
1 sliding scale dose SC AC
Rx Instructions:
150-200=2units, 201-250=4units, 251-300=6units
rosuvastatin 40 mg Tablet
40 mg PO QPM
senna 8.6 mg Capsule
17.2 mg PO DAILYPRN PRN (Reason: constipation)
melatonin 5 mg Tablet
5 mg PO HSPRN PRN (Reason: sleep)
cholecalciferol (vitamin D3) [Vitamin D3] 50 mcg (2,000 unit) Capsule
50 mcg PO DAILY
lacosamide 50 mg Tablet
50 mg PO BID
droxidopa 200 mg Capsule
200 mg PO AC
calcium acetate 667 mg Tablet
667 mg PO AC
bisacodyl [Dulcolax (bisacodyl)] 10 mg Suppository
10 mg OK DAILYPRN PRN (Reason: if no bm aftr mom)
Vashe 0.033 % Irrigation Solution
1 irrig IRRIGATION BID
Changed
insulin glargine [Basaglar KwikPen U-100 Insulin] 100 unit/mL (3 mL) Insulin Pen
5 unit SC HS Qty: 0 0RF
Discontinued
clopidogrel 75 mg Tablet
75 mg PO DAILY
apixaban 2.5 mg Tablet
2.5 mg PO BID
Discharge Orders:
Discharge Patient (As Directed); Ordered 08/04/25
Ordered By: Gavin Duarte
Discharge Date and Time
Print Language: FAROESE
== END 2025-08-04 19:02 | DRG 193 ==
LOC: 3 WEST ACU 10:16
PROVIDERS: Hospitalist; Internal Medicine; Internal Medicine Nephrology; Radiology Vascular & Interventional Radiology; Specialist; ADMITTING PHYSICIAN Internal Medicine; CONSULT PHYSICIAN Internal Medicine Cardiovascular Disease; CONSULT PHYSICIAN Internal Medicine Critical Care Medicine; CONSULT PHYSICIAN Specialist; EMERGENCY PHYSICIAN Emergency Medicine; FAMILY PHYSICIAN Internal Medicine
PROC: 5A09357 Assistance with Respiratory Ventilation, Less than 24 Consecutive Hours, Continuous Positive Airway Pressure (ICD-10-PCS; 2025-07-27)
PROC: 5A1D70Z Performance of Urinary Filtration, Intermittent, Less than 6 Hours Per Day (ICD-10-PCS; 2025-07-28)
PROC: 5A0935A Assistance with Respiratory Ventilation, Less than 24 Consecutive Hours, High Flow/Velocity Cannula (ICD-10-PCS; 2025-07-30)
PROC: 0W9B3ZZ Drainage of Left Pleural Cavity, Percutaneous Approach (ICD-10-PCS; 2025-08-01)
DX: J18.9 Pneumonia, unspecified organism (principal); I50.23 Acute on chronic systolic (congestive) heart failure; J81.0 Acute pulmonary edema; J96.21 Acute and chronic respiratory failure with hypoxia; J96.22 Acute and chronic respiratory failure with hypercapnia; N18.6 End stage renal disease; J44.0 Chronic obstructive pulmonary disease with (acute) lower respiratory infection; I48.92 Unspecified atrial flutter; E66.2 Morbid (severe) obesity with alveolar hypoventilation; I13.2 Hypertensive heart and chronic kidney disease with heart failure and with stage 5 chronic kidney disease, or end stage renal disease; M48.54XA Collapsed vertebra, not elsewhere classified, thoracic region, initial encounter for fracture; N39.0 Urinary tract infection, site not specified; J91.8 Pleural effusion in other conditions classified elsewhere; I5A Non-ischemic myocardial injury (non-traumatic); I48.0 Paroxysmal atrial fibrillation; I95.1 Orthostatic hypotension; K21.9 Gastro-esophageal reflux disease without esophagitis; E11.22 Type 2 diabetes mellitus with diabetic chronic kidney disease; E11.42 Type 2 diabetes mellitus with diabetic polyneuropathy; E78.00 Pure hypercholesterolemia, unspecified; F41.9 Anxiety disorder, unspecified; G40.909 Epilepsy, unspecified, not intractable, without status epilepticus; D63.1 Anemia in chronic kidney disease; Y95 Nosocomial condition; E11.65 Type 2 diabetes mellitus with hyperglycemia; N40.1 Benign prostatic hyperplasia with lower urinary tract symptoms; R32 Unspecified urinary incontinence; I25.10 Atherosclerotic heart disease of native coronary artery without angina pectoris; B96.20 Unspecified Escherichia coli [E. coli] as the cause of diseases classified elsewhere; Z79.4 Long term (current) use of insulin; Z95.0 Presence of cardiac pacemaker; Z99.2 Dependence on renal dialysis; Z99.81 Dependence on supplemental oxygen; Z95.5 Presence of coronary angioplasty implant and graft; Z88.1 Allergy status to other antibiotic agents; Z79.899 Other long term (current) drug therapy; Z79.01 Long term (current) use of anticoagulants; Z79.02 Long term (current) use of antithrombotics/antiplatelets; Z68.38 Body mass index [BMI] 38.0-38.9, adult
CPT/HCPCS: 32555; 36600; 71045; 71046; 71048; 71250; 76604; 80048; 80051; 80053; 80202; 81003; 81015; 82728; 82805; 82945; 82962; 83540; 83550; 83605; 83615; 83735; 83880; 83986; 84100; 84155; 84157; 84443; 84484; 85014; 85018; 85025; 85027; 87015; 87040; 87070; 87077; 87086; 87186; 87205; 87641; 89051; 93005; 93306; 94640; 94660; 96374; 96375; 97116; 97163; 97167; 97530; 99285; G0257; P9047; Q5106; Q9950

== ENCOUNTER 2025-10-03 16:00 | Inpatient (IN) | payer MEDICARE, OTHER, SELFPAY ==
[2025-10-03] VITALS (7 sets, daily range): BP systolic 105–137; BP diastolic 65–88; PULSE 2–99; BMI 36.3; BMI 35.0
[2025-10-03 13:52] LABS: Hematocrit 29.8 % (39.0-52.0); Hemoglobin 9.2 g/dL (13.0-18.0); Mean Corp Hgb Conc. 30.9 g/dL (33.0-37.0); Mean Corpuscular Volume 100.3 fL (80.0-94.0); Nucleated Red Blood Cells % 0 % (-); Platelet Count 182 10^3/uL (130-400); Red Cell Dist. Width 16.8 % (11.5-14.5)
[2025-10-03 14:08] LABS: ALT (SGPT) 19 U/L (0-50); AST (SGOT) 25 U/L (17-59); Albumin 4.2 g/dl (3.5-5.0); Alkaline Phosphatase 127 U/L (38-126); Blood Urea Nitrogen 43 mg/dl (9-20); Calcium 8.9 mg/dl (8.4-10.2); Carbon Dioxide 31 mmol/L (22-30); Chloride 96 mmol/L (98-107); Estimated Creatinine Clearance 20 ml/min; Glucose 163 mg/dl (70-99); Potassium 4.3 mmol/L (3.5-5.1); Sodium 137 mmol/L (135-145); Total Protein 8.1 g/dl (6.3-8.2); eGFR 11.90
[2025-10-03 14:18] LABS: Troponin I 0.075 ng/ml
--- NOTE | 2025-10-03 14:50 | ED.GENMED ---
History of Present Illness
General
Chief Complaint: Breathing Problem
Source: patient
Exam Limitations: none
Time Seen by Provider: 10/03/25 13:40
History of Present Illness
History of Present Illness:
Patient only had 1 hour of dialysis because of shortness of breath. This has been a issue progressive over the last 2 weeks. Also worse at night the last few weeks. No chest pain no fever no cough. Symptoms are moderate in nature.
Past History
Past History
ED Past Medical History: CAD, CHF, GERD, IDDM and Other (Renal failure)
ED Past Surgical History: Cardiac, Urological and Other (Bariatric surgery)
Phy Exam
Physical Exam
Physical Exam:
GENERAL: Alert and oriented in no apparent distress. Chronically ill-appearing
EYE: Orbits normal.
NECK: Supple, no significant adenopathy.
ENT: Pharynx without erythema
CARDIAC: Regular rate and rhythm without any obvio decreased breath sounds diffusely.
Lungs: Mild tachypnea. Decreased breath sounds diffusely. Mild rales in the bases.
ABDOMEN: Soft, without focal tenderness or distention
NEUROLOGICAL: Alert and oriented , grossly non-focal
SKIN: Warm and dry, no rash or lesion, no discoloration, skin intact.
MUSCULOSKELETAL: Chronic edema. Shunt left arm. Upon removing the bandage active bleeding. Pressure wrap placed.
PSYCH: Normal and appropriate interaction.
Scores
Heart Failure Risk
Heart Failure Risk Score: Not Applicable
Course
Orders/Labs/Results
Orders:
Orders
10/03/25 13:36
Electrocardiogram (*1) Urgent
Reason for Study: Other
Other Reason for Exam: Respiratory Distress
Cardiac Monitoring- Treatment ONCE
EKG- Treatment ONCE
IV Insert/Care/Rem.- Treatment PRN
CR Chest - 2 Views Urgent
Comment:
Reason For Exam: respiratory distress
10/03/25 13:39
Complete Blood Count/With Diff Urgent
Comprehensive Metabolic Panel Urgent
NT-proBNP Urgent
Troponin I Urgent
10/03/25 Dinner
2000 calorie (17 carb) Diabetic
At Your Request: Full Participation
Does patient need a safe tray?: No
Fluid Restriction: 1440 mL/day (48 oz)
Diabetic Diet: Potassium, 2 Gram
Sodium, 2 Gram
10/03/25 15:28
Admit/Transfer Patient As Directed
Co-Sign Provider:
Level of Care: Inpatient admission
Assign to:: Telemetry
Physician / Group: Delma
Diagnosis: Pleural Effusion, CHF
Reason for Telemetry: Acute Heart Failure
Date to Stop Telemetry: 10/06/25
Time to Stop Telemetry: 11:00
Reason for Hospitalization: Thoracentesis, Volume management
Expected length of stay greater than two midnights?: Yes
ELOS- Estimated Length of Stay in days: 3
I certify the patient meets the requirements for IP care: Yes
PRN Pain Medication Management As Directed
May give lesser potent ordered pain med per pt: Yes
preference::
Protocol:: Medication orders for pain may be administered in a
manner that supports deferring to patient preference
when the pt is:
- Requesting an ordered lesser potent pain medication.
Least to most potent pain medications are defined
as: acetaminophen < NSAID < tramadol < opioids
(morphine, oxycodone, hydromorphone).
- Requesting a lesser dose of the same medication IF
ORDERED.
- Requesting a less intrusive route of administration
if both routes are prescribed by the provider (PO <
IV).
10/03/25 15:35
Code Status As Directed
Resuscitation Status: Full Code
10/03/25 15:41
IRAD CONSULT Routine
Consulting Provider: Leland Davidson
Was physician already notified: Yes
Procedure being ordered, including laterality if applicable: Left Thoracentesis
Acknowledgement that appropriate orders are entered: Yes
10/03/25 16:39
Acetaminophen [Tylenol] 650 mg PO Q6HPRN PRN mild pain
Calcium Acetate [Phoslo] 667 mg PO AC
Dextrose 50%-Water [Dextrose 50% Syringe] 12.5 grams IV [id number] PRN
Glucagon [GlucaGen] 1 mg IM PRN PRN
Insulin Aspart Corrective Mod [Novolog Flexpen-Moderate Resistance] See Protocol SC AC
Ipratropium/Albuterol Sulfate [Duoneb] 3 ml INH R Q6HPRN PRN sob
Ipratropium/Albuterol Sulfate [Duoneb] 3 ml INH R QID
droxidopa 200 mg PO AC
10/03/25 16:39
CARDIOLOGY CONSULT Routine
Consulting Provider: Patricia Ledbetter
Was physician already notified: Yes
NEPHROLOGY CONSULT Routine
Consulting Provider: Jc Yanez V.
Was physician already notified: Yes
Activity As Directed
Activity Level: Out of Bed- Chair
Bedside Glucose Monitoring As Directed
Frequency: AC&HS
Additional Instructions:: Change to q6h if pt on TPN, tube feeding or not eating
I&O [Intake/ Output] As Directed
Frequency: q12h
Orthostatic Vital Signs As Directed
Orthostatic VS Frequency: Daily
Vital Signs As Directed
Frequency: Per unit guidelines
Weight As Directed
Frequency: Daily
Bipap [RESP] Routine
Patient to use own unit?: No
Inspiratory Pressure (cm H2O): 18
Expiratory Pressure (cm H2O): 10
Oxygen Therapy [O2 Therapy] [RESP] Routine
Titrate/Wean O2 to maintain O2 sat greater than (%): 92
Wean Oxygen to Pre Admission Baseline Therapy-if applicable: Yes
10/03/25 18:00
Midodrine [ProAmatine] 15 mg PO TID@0800,1300,1800
Rosuvastatin Calcium [Crestor] 40 mg PO QPM
10/03/25 20:00
Apixaban [Eliquis] 5 mg PO BID
Famotidine [Pepcid] 20 mg PO BID
Lacosamide [Vimpat] 50 mg PO BID
10/03/25 22:00
Melatonin 5 mg PO HSPRN PRN sleep
Sennosides [Senokot] 17.2 mg PO HSPRN PRN constipation
insulin glargine [Basaglar KwikPen U-100 Insulin] 5 unit SC HS
10/04/25 06:00
Levothyroxine [Synthroid] 25 mcg PO DAILY@0600
10/04/25 08:00
Clopidogrel Bisulfate [Plavix] 75 mg PO DAILY
Polyethylene Glycol Powder [Miralax] 17 grams PO DAILY
10/04/25 08:01
Basic Metabolic Panel IN AM
Complete Blood Count/No Diff IN AM
Glycohemoglobin (HgbA1c) IN AM
Magnesium IN AM
Phosphorus IN AM
TSH Reflex To Free T4 IN AM
10/06/25 11:00
DC Protocol for Telemetry ONCE
Abnormal Lab Results
10/03/25
13:39
RBC 2.97 L 10^6/uL
(4.70-6.10)
Hgb 9.2 L g/dL
(13.0-18.0)
Hct 29.8 L %
(39.0-52.0)
MCV 100.3 H fL
(80.0-94.0)
MCHC 30.9 L g/dL
(33.0-37.0)
RDW 16.8 H %
(11.5-14.5)
MPV 10.7 H fL
(7.4-10.4)
Absolute Neuts (auto) 8.3 H 10^3/uL
(1.4-6.5)
Absolute Lymphs (auto) 1.1 L 10^3/uL
(1.2-3.4)
Absolute Monos (auto) 1.1 H 10^3/uL
(0.1-0.6)
Neutrophils % 77.9 H %
(42.2-75.2)
Lymphocytes % 10.0 L %
(20.5-51.1)
Monocytes % 9.9 H %
(1.7-9.3)
Chloride 96 L mmol/L
(98-107)
Carbon Dioxide 31 H mmol/L
(22-30)
BUN 43 H mg/dl
(9-20)
Creatinine 5.1 H* mg/dL
(0.7-1.3)
Glucose 163 H mg/dl
(70-99)
Alkaline Phosphatase 127 H U/L
(38-126)
Troponin I 0.075 H* ng/ml
10/03/25 13:39
10/03/25 13:39
Vital Signs
Initial and Last Documented VS:
Initial Vital Signs
Temp Pulse Resp
98.1 F 70 22
10/03/25 13:27 10/03/25 13:27 10/03/25 13:27
Last Documented Vital Signs
Temp Pulse Resp BP Pulse Ox
97.9 F 73 18 129/76 100
10/06/25 11:30 10/06/25 11:30 10/06/25 11:30 10/06/25 11:30 10/06/25 11:30
MDM/Problems Addressed
Differential Diagnosis Includes:
Progressive shortness of breath. Weight is elevated. proBNP high but typically is high. Some effusion/infiltrate. Also needs further watching of his bleeding shunt. Pressure dressing was placed. Good distal pulses and color.
*Radiology
Radiology exam reviewed: radiology read reviewed (Moderate pleural effusion possible infiltrate progressed)
*Pulse Oximetry
SaO2: 96
Nasal Cannula flow liters per minute: 4
Oxygen Mode of Delivery: Room air
Patient hypoxic: yes
*EKG
Interpreted by ED Provider?: Yes
Interpretation: abnormal
Comparison EKG: changes noted
Heart Rate: 72
Rate: normal
Rhythm: atrial flutter, PVC's and other (Ventricular paced)
*Optical Laboratory Manager Interpretation
Rate: normal
Interpretation: abnormal
Heart Rate: 72
Rhythm: other (A flutter with ventricular paced)
*Critical Care Note
Total Time (30-74mins, 75-104mins- exclusive of procedures): Not Applicable
Data Reviewed
Review of Other/Old Records Reveals: Labs, Records, Radiology Studies and Testing
ED Attending Note
-
Portions of this chart may have been created with voice recognition software.� Occasional wrong word or��sound alike� substitutions may have occurred due to the inherent limitations of voice recognition software.
Discharge Plan
Departure
Patient Disposition: Admit
Date of Disposition: 10/03/25
Time of Disposition: 15:21
Presentation/result/management discussed w/ accepting MD/DO: Hospitalist
Discharge Problem:
Short of breath/CHF, Left pleural effusion/possible pneumonia, History of renal failure, Bleeding from left graft site
Interventions
Interventions:
*Risk Screen - Suicide Last Done: 10/03/25 17:42
*General Assessment Last Done: 10/03/25 13:27
*Neglect/Abuse Screening Last Done: 10/03/25 13:27
*ED- Fall Risk Assessment Last Done: 10/03/25 13:35
*ED COVID-19 Vaccine History Last Done: 10/03/25 13:35
*ED Influenza Vaccine History Last Done: 10/03/25 13:35
*Nursing Disposition Last Done: 10/03/25 16:30
ED- Cardiac Assessment Last Done: 10/03/25 13:49
ED- Pulmonary Assessment Last Done: 10/03/25 13:49
Discharge Date and Time
Discharge Date/Time: 10/03/25 16:00
--- NOTE | 2025-10-03 14:59 | HPS.HSE ---
Family Physician
-
Family Physician: NOT KNOW UNKNOWN - PT DOES
Chief Complaint
-
Shortness of breath
History of Present Illness
Patient is a 65 y/o male past medical history of chronic hypoxia, COPD, CHF, A-Fib, DM, ESRD, Orthostatic Hypotension, ALVIN, and Seizure disorder who presents with increased shortness of breath. Patient reports increasing shortness of breath over
the past week. Today he was received his usual dialysis treatment and they need to stop due to the severity of his symptoms. He denies any chest pains or palpitations. He denies cough, fevers, sweats or chills.
Medical History
Past Medical History
Past Medical History: Reports Other
Additional Past Medical History:
Chronic Hypoxic Respiratory Failure
COPD
Pulmonary Hypertension
Coronary Artery Disease s/p Stents
Chronic Heart Failure
Paroxysmal Atrial Fibrillation
Diabetes Mellitus, Type II - Insulin Dependent
ESRD
Anemia of Chronic Disease
Orthostatic Hypotension
Obstructive Sleep Apnea
Seizure Disorder
Hypothyroidism
BPH
Past Surgical History: Reports Other
Additional Past Surgical History:
Left Thoracentesis
Bariatric Surgery
Hernia Repair
Left AV Fistula
Social History
Tobacco: Non-smoker
Alcohol: None
Drug: None
Living: Correction
Family History
Family History: Not pertinent
Allergies / Home Medications
Allergies reflects when Allergies were last updated in [facility].
Home Medications with original date entered in [facility]
Allergy/Medication List:
Allergies
Allergy/AdvReac Type Severity Reaction Status Date / Time
cephalexin Allergy Hives Verified 10/03/25 13:27
Home Medications
acetaminophen 325 mg tablet 650 mg PO Q6HPRN PRN mild pain 07/27/25
bisacodyl 10 mg rectal suppository (Dulcolax (bisacodyl)) 10 mg DE DAILYPRN PRN if no bm aftr mom 07/27/25
calcium acetate 667 mg tablet 667 mg PO AC Hyperphosphatemia 07/27/25
cholecalciferol (vitamin D3) 50 mcg (2,000 unit) capsule (Vitamin D3) 50 mcg PO DAILY Supplement 07/27/25
droxidopa 200 mg capsule 200 mg PO AC Orthostatic hypotension 07/27/25
famotidine 20 mg tablet 20 mg PO BID Gastrointestinal Issue 07/27/25
insulin lispro 100 unit/mL subcutaneous pen 1 sliding scale dose SC AC Diabetes 07/27/25
ipratropium 0.5 mg-albuterol 3 mg (2.5 mg base)/3 mL nebulization soln 3 ml inhalation R QID 07/27/25
lacosamide 50 mg tablet 50 mg PO BID Seizures 07/27/25
melatonin 5 mg tablet 5 mg PO HSPRN PRN sleep 07/27/25
midodrine 5 mg tablet 15 mg PO TID Hypotension 07/27/25
polyethylene glycol 3350 17 gram oral powder packet 17 g PO DAILY Constipation 07/27/25
rosuvastatin 40 mg tablet 40 mg PO QPM High Cholesterol 07/27/25
sodium chloride-hypochlorous acid 0.033 % irrigation solution (Vashe) 1 irrig irrigation BID Wounds 07/27/25
insulin glargine 100 unit/mL (3 mL) subcutaneous pen (Basaglar KwikPen U-100 Insulin) 5 unit (0.05 mL) SC HS Diabetes #0 mL 08/04/25
apixaban 5 mg tablet (Eliquis) 5 mg PO BID Blood Clot Prevention/Tx 10/03/25
benzonatate 100 mg capsule 100 mg PO TID Cough 10/03/25
clopidogrel 75 mg tablet (Plavix) 75 mg PO DAILY Blood Clot Prevention/Tx 10/03/25
docusate sodium 100 mg capsule (Colace) 100 mg PO DAILY Constipation 10/03/25
ipratropium 0.5 mg-albuterol 3 mg (2.5 mg base)/3 mL nebulization soln 3 ml inhalation R Q6HPRN PRN sob 10/03/25
levothyroxine 25 mcg tablet (Synthroid) 25 mcg PO DAILY Thyroid 10/03/25
midodrine 5 mg tablet 5 mg PO TIDPRN PRN bp 10/03/25
oxycodone 5 mg tablet 5 mg PO BIDPRN PRN severe pain 10/03/25
sennosides 8.6 mg tablet (senna) 17.2 mg PO HSPRN PRN constipation 10/03/25
Review of Systems
-
History Source: Patient
A 12 point ROS was completed and negative except as noted: Yes
Constitutional: Denies Fever or Chills
Respiratory: Reports Trouble Breathing; Denies Cough
Cardiac: Denies Chest Pain or Palpitations
Abdomen/GI: Denies Abdominal Pain, Nausea, Vomiting, Diarrhea or Constipated
Physical Exam
Vital Signs
Vital Signs
Temp Pulse Resp BP Pulse Ox
98.1 F 81 25 130/82 96
10/03/25 13:27 10/03/25 14:10 10/03/25 13:45 10/03/25 14:10 10/03/25 14:55
Physical Exam
General: Well Developed, No Apparent Distress and Obese
HEENT: NormoCephalic, Anicteric, Moist mucous membranes and Atraumatic
Respiratory: Clear, Decreased Breath Sounds (Left base) and Other (Tachypneic )
Cardiac: S1/S2 and Regular Rhythm; No Murmur
GI: Soft, Non Tender and Other (Obese / Protuberant)
Rectal: Deferred by Provider
Musculoskeletal: No Clubbing and Other (Trace edema bilateral lower extremities)
Skin: Warm, Dry and Other (Left hand discolored patient reports is chronic); No Rash
Neuro: Other (Slightly lethargic but easily arousable; Slow to follow commands)
Psych: Calm
Laboratory Results
-
10/03/25 13:39
10/03/25 13:39
Laboratory Results
Total Bilirubin 0.9 mg/dl (0.2-1.3) 10/03/25 13:39
AST 25 U/L (17-59) 10/03/25 13:39
ALT 19 U/L (0-50) 10/03/25 13:39
Alkaline Phosphatase 127 U/L (38-126) H 10/03/25 13:39
Troponin I 0.075 ng/ml H* 10/03/25 13:39
Data Reviewed
-
Diagnostic Radiology: Report Reviewed by me
Lab Data: Labs Reviewed by me
Old Records: Reviewed
Impression/Plan
-
Recurrent Left Pleural Effusion, suspect related to volume overload
-Consult IR for thoracentesis
-Check fluid studies
Acute on Chronic HFpEF
-Consult Cardiology
-Echo Jul 2025: Mild left ventricular hypertrophy with multiple regional wall motion abnormalities. EF 45%. Dilated and focally hypokinetic right ventricle, mildly dilated right atrium, severe tricuspid regurgitation and pulmonary artery pressure
62mmHg.
-Attempt to manage volume with dialysis - Patient does states he previous was taking Lasix and still makes urine
-Monitor Daily Weights
ESRD on HD MoWeFr
-Consult Nephrology
-Continue calcium acetate
Chronic Hypoxic Respiratory Failure
COPD
Pulmonary Hypertension
-Continue supplemental oxygen at 4L via nasal cannula which is baseline
-Continue DuoNeb
Paroxysmal Atrial Fibrillation
-Continue Eliquis for anticoagulation
Coronary Artery Disease s/p Stent
-Continue Plavix
-Continue Crestor
Diabetes Mellitus, Type II - Insulin Dependent
-Continue Basaglar
-Monitor sugars and continue converge insulin
Orthostatic Hypotension
-Continue droxidopa
-Continue midodrine
Obstructive Sleep Apnea
-Continue BiPAP 30/08
Seizure Disorder
-Continue lacosamide
Hypothyroidism
-Continue levothyroxine
DVT proph: Eliquis
Code Status: Full Code
--- NOTE | 2025-10-03 15:59 | W.PN.UPDATE ---
Update Note
Progress Note Update
I saw and examined the patient.
The FURNACE RELINER's note was reviewed and I agree with the note.
Comment:
HPI: 65 y/o male past medical history of chronic hypoxic RF on 4 NC, COPD, CHF, A-Fib, DM, ESRD on HD MWF, Orthostatic Hypotension, ALVIN, and Seizure disorder who presented with increased shortness of breath. Patient reports increasing shortness of
breath over the past week. Today he was received his usual dialysis treatment and they need to stop due to the severity of his symptoms. He denies any chest pains or palpitations. He denies cough, fevers, sweats or chills.
A/P:
# Recurrent Left Pleural Effusion, suspect related to volume overload
# Acute on Chronic HFrEF
Consult IR for thoracentesis, follow thora labs
Recent echo Jul 2025: EF 45%. Dilated and focally hypokinetic right ventricle, mildly dilated right atrium, severe tricuspid regurgitation and pulmonary artery pressure 62mmHg.
Attempt to manage volume with dialysis - Patient does states he previous was taking Lasix and still makes urine
Monitor Daily Weights
Consult Cardiology
# ESRD on HD MoWeFr
Consult Nephrology
Continue calcium acetate
# Chronic Hypoxic Respiratory Failure
# COPD
# Pulmonary Hypertension
Continue supplemental oxygen at 4L via nasal cannula which is baseline
Continue DuoNeb
# Paroxysmal Atrial Fibrillation
Continue Eliquis for anticoagulation
# Coronary Artery Disease s/p Stent
Continue Plavix
Continue Crestor
# Diabetes Mellitus, Type II - Insulin Dependent
Continue Basaglar
Monitor sugars and continue converge insulin
Follow A1C
# Orthostatic Hypotension
Continue droxidopa
Continue midodrine
# Obstructive Sleep Apnea
Continue BiPAP 18/10
# Seizure Disorder
Continue lacosamide
# Hypothyroidism
Continue levothyroxine
DVT proph: Eliquis
Code Status: Full Code
--- NOTE | 2025-10-03 16:12 | W.CON.NEPH ---
Consultation
-
Date/Time Consultation Requested: 10/03/2025 3:30 PM
Date/Time Consultation Performed: 10/03/2025 4:10 PM
Requesting Provider: Dr. Nguyễn
Performing Provider: Dr. Yanez
Reason for Consultation: End-stage renal disease
Medical History
-
Chief Complaint: End-stage renal disease
History of Present Illness:
This is a 65-year-old male with past medical history of ESRD requiring dialysis MWF at [facility], atrial fibrillation on Eliquis, COPD, ALVIN on CPAP, T2DM who presents to ED significant shortness of breath. His dialysis today was discontinued
due to ongoing shortness of breath and he presented to the emergency room for further evaluation. We were consulted for end-stage renal disease management in the setting of his hypoxic respiratory failure. A large left pleural effusion was noted
on chest x-ray on admission to the emergency room.
To his history, he has a history of ESRD requiring dialysis diagnosed in 2019. Patient reports ESRD was caused by an antiviral medication which was used to treat COVID-19 at that time. Since then he has been receiving dialysis Monday
Monday.
Past Medical History
Past medical history
ALVIN on BiPAP, paroxysmal atrial fibrillation, ESRD on dialysis MWF, heart failure, T2DM, COPD, hyperlipidemia
Pulmonary hypertension CAD with prior stenting hyperphosphatemia anemia of chronic kidney disease
Past Surgical History
Bariatric surgery, Lithotripsy, hernia, Cardiac stents
Social History
Living: Assisted Living
Family History
Family History: Not Pertinent
Allergies / Home Medications
Allergy/AdvReac Type Severity Reaction Status Date / Time
cephalexin Allergy Hives Verified 10/03/25 13:27
�Medication �Instructions �Recorded �Confirmed �Type
acetaminophen 325 mg tablet 650 mg PO Q6HPRN PRN mild pain 07/27/25 10/03/25 History
bisacodyl 10 mg rectal suppository 10 mg MO DAILYPRN PRN if no bm 07/27/25 10/03/25 History
(Dulcolax (bisacodyl)) aftr mom
calcium acetate 667 mg tablet 667 mg PO AC Hyperphosphatemia 07/27/25 10/03/25 History
cholecalciferol (vitamin D3) 50 50 mcg PO DAILY Supplement 07/27/25 10/03/25 History
mcg (2,000 unit) capsule (Vitamin
D3)
droxidopa 200 mg capsule 200 mg PO AC Orthostatic 07/27/25 10/03/25 History
hypotension
famotidine 20 mg tablet 20 mg PO BID Gastrointestinal Issue 07/27/25 10/03/25 History
insulin lispro 100 unit/mL 1 sliding scale dose SC AC Diabetes 07/27/25 10/03/25 History
subcutaneous pen
ipratropium 0.5 mg-albuterol 3 mg 3 ml inhalation R QID 07/27/25 10/03/25 History
(2.5 mg base)/3 mL nebulization Lung/Breathing Issues
soln
lacosamide 50 mg tablet 50 mg PO BID Seizures 07/27/25 10/03/25 History
melatonin 5 mg tablet 5 mg PO HSPRN PRN sleep 07/27/25 10/03/25 History
midodrine 5 mg tablet 15 mg PO TID Hypotension 07/27/25 10/03/25 History
polyethylene glycol 3350 17 gram 17 g PO DAILY Constipation 07/27/25 10/03/25 History
oral powder packet
rosuvastatin 40 mg tablet 40 mg PO QPM High Cholesterol 07/27/25 10/03/25 History
sodium chloride-hypochlorous acid 1 irrig irrigation BID Wounds 07/27/25 10/03/25 History
0.033 % irrigation solution (Vashe)
insulin glargine 100 unit/mL (3 5 unit (0.05 mL) SC HS Diabetes #0 08/04/25 10/03/25 Rx
mL) subcutaneous pen (Basaglar mL
KwikPen U-100 Insulin)
apixaban 5 mg tablet (Eliquis) 5 mg PO BID Blood Clot 10/03/25 10/03/25 History
Prevention/Tx
benzonatate 100 mg capsule 100 mg PO TID Cough 10/03/25 10/03/25 History
clopidogrel 75 mg tablet (Plavix) 75 mg PO DAILY Blood Clot 10/03/25 10/03/25 History
Prevention/Tx
docusate sodium 100 mg capsule 100 mg PO DAILY Constipation 10/03/25 10/03/25 History
(Colace)
ipratropium 0.5 mg-albuterol 3 mg 3 ml inhalation R Q6HPRN PRN sob 10/03/25 10/03/25 History
(2.5 mg base)/3 mL nebulization
soln
levothyroxine 25 mcg tablet 25 mcg PO DAILY Thyroid 10/03/25 10/03/25 History
(Synthroid)
midodrine 5 mg tablet 5 mg PO TIDPRN PRN HYPOTENSION 10/03/25 10/03/25 History
oxycodone 5 mg tablet 5 mg PO BIDPRN PRN severe pain 10/03/25 10/03/25 History
sennosides 8.6 mg tablet (senna) 17.2 mg PO HSPRN PRN constipation 10/03/25 10/03/25 History
Review of Systems
-
Respiratory: Trouble Breathing
Physical Exam
Vital Signs
Vital Signs
Temp Pulse Resp BP Pulse Ox
98.1 F 70 30 105/67 96
10/03/25 13:27 10/03/25 15:00 10/03/25 15:00 10/03/25 15:00 10/03/25 14:55
Lab Results
10/03/25 13:39
10/03/25 13:39
WBC 10.7 10^3/uL (4.8-10.8) 10/03/25 13:39
RBC 2.97 10^6/uL (4.70-6.10) L 10/03/25 13:39
Hgb 9.2 g/dL (13.0-18.0) L 10/03/25 13:39
Hct 29.8 % (39.0-52.0) L 10/03/25 13:39
Plt Count 182 10^3/uL (130-400) 10/03/25 13:39
Sodium 137 mmol/L (135-145) 10/03/25 13:39
Potassium 4.3 mmol/L (3.5-5.1) 10/03/25 13:39
Chloride 96 mmol/L (98-107) L 10/03/25 13:39
Carbon Dioxide 31 mmol/L (22-30) H 10/03/25 13:39
BUN 43 mg/dl (9-20) H 10/03/25 13:39
Creatinine 5.1 mg/dL (0.7-1.3) H* 10/03/25 13:39
eGFR 11.90 10/03/25 13:39
Glucose 163 mg/dl (70-99) H 10/03/25 13:39
Calcium 8.9 mg/dl (8.4-10.2) 10/03/25 13:39
Aok-Q-Pqmceeacyru Pept > 01790 pg/ml 10/03/25 13:39
Albumin 4.2 g/dl (3.5-5.0) 10/03/25 13:39
Physical Exam
General: Awake, Alert, Nontoxic and Other (Lethargic but answers questions weakly)
HEENT: PERRL and Other (On BiPAP)
Respiratory: Normal Excursion and Other (Decreased breath sounds bilateral bases left greater than right)
Cardiac: S1/S2
Abdomen: Soft, Nontender and Nondistended
Musculoskeletal: Edema, No Edema (+1) and Other (Chronic venous stasis changes along lower extremity)
Skin: No Rash
Neuro: Nonfocal/Grossly Intact
Hematologic/Lymphatic: No Cervical Lymphadenopathy, No Submandibular Lymphadenopathy and No Supraclavicular Lymphadenopathy
Psych: Other (Lethargic but arousable and answers questions)
Vascular Access: AVF (Left upper extremity brachiocephalic with thrill and bruit)
Data Reviewed
-
Radiology: Image Personally Visualized and interpreted (Chest x-ray personally reviewed notes of left large pleural effusion/ caridac device in left anterior chest wall)
Labs: Labs Reviewed by me (BMP CBC)
Old Records: Reviewed (Reviewed previous nephrology consult for ESRD on date 07/27/2025 and hospital electronic medical record)
Assessment/Plan
-
Assessment
ESRD Monday at [facility]
Acute hypoxic respiratory insufficiency/left pleural effusion
Hyperphosphatemia
History of COPD
Diabetes
Orthostatic hypotension
Coronary artery disease with previous stent
Paroxysmal atrial fibrillation
T2DM
Anemia
Plan
As patient had abbreviated treatment today we will provide dialysis tomorrow for volume overload and shortness of breath
Hopefully for left thoracentesis in regards to pleural effusion, this unfortunately was unsuccessful and was unable to be accessed via IR
ELNARD will be provided for anemia of chronic kidney disease
Appropriate fluid restriction of 50 ounces daily for ESRD in addition to appropriate sodium potassium restriction
Maintain calcium acetate for hyperphosphatemia with meals
Remains on droxidopa and midodrine for orthostatic hypotension
--- NOTE | 2025-10-03 16:18 | CM ---
Chart reviewed
Pt is staying at [facility] under SNF stay
Spoke with nurse Lupis at at [phone]
HD M-W-
BIPAP at night
O2 @ 2LPM
Holding his bed at [facility]
He plans to go home from SNF
DCP is to return back to [facility]
Please call [phone]

CM to follow up for any dcp needs
--- NOTE | 2025-10-03 16:30 | CON.CAR ---
Addendum entered and electronically signed by Sharath Weinstein MD 10/03/25 17:57:
Attending addendum: This is a 65-year-old gentleman with a past medical history notable for end-stage renal disease on hemodialysis, long-standing diabetes, hypertension, hyperlipidemia, paroxysmal/persistent atrial fibrillation and flutter for
which she is on chronic oral anticoagulation. He has a history of coronary artery disease and '9 coronary stents' per his report. He tells me that he chronically follows with Dr. Anupam Aiken. He states that the vast majority of his coronary
interventions were performed at [facility]. He has a history of pleural effusions and has required thoracentesis in the past.
He has been at [facility] for about 2 months and presented to [facility] for evaluation of shortness of breath. It sounds as if he has been unhappy with the HD he had been receiving at [facility] and tells me that he
stopped several HD treatments recently. He now notes increased shortness of breath. He was offered transfer to [facility] for evaluation of shortness of breath last night but stated 'it was too cold and too dark' to go to the hospital.
Symptoms persisted this morning. He denies chest pain.
-07/29/2025: Echo: LV: Lumason was utilized to improve endocardial definition. EF 50-55%. Mild LVH. RV: Dilated, LA: Mildly dilated, RA: Mildly dilated, AV: Thickened with moderate AI. MV: Mild MR, TV: Severe TR with severe pulmonary hypertension
and estimated PAP 62 mmHg
- 10/03/2025: Chest x-ray:Moderate left pleural effusion with atelectasis. Trace pleural effusion and mild atelectasis on the right (s/p thoracentesis)
PE:
GEN: Morbidly obese gentleman who is AAO x 3.��He is very talkative and does not seem short of breath conversationally
HEENT:��NC/AT, sclera are anicteric
LUNGS: Poor air movement. Hyperresonant breath sounds base to mid lung field on left and base on right. No wheezing or rhonchi
CV: Irregular rhythm. (paced rhythm on monitor). Murmur: None
ABD : Soft. Bowel sounds are present.
EXT: Chronic venous stasis changes
NEURO: No focal neurologic deficits�
RECOMMENDATIONS:
-By history, it sounds as if patient has been receiving inadequate HD runs because he has been asking them to terminate early. He is volume expanded and needs HD for volume control
-He is currently nonanginal. Troponin level is very mildly elevated as it was on last admission and believe it is a non-mi associated troponin elevation
-His most recent echocardiogram about 2 months ago looked reasonable
-We should request records from Dr. Aiken's office.
Original Note:
Consultation
Consultation Request
Date/Time Consultation Requested: 10/03/2025
Date/Time Consultation Performed: 10/03/2025
Requesting Provider: Dr. Nguyễn
Performing Provider: Deedee Winter PA-C for Dr. Weinstein
Reason for Consultation: CHF
Medical History
-
History of Present Illness:
Erich Talbert is a 65M w/ PMHx persistent atrial fibrillation on chronic anticoagulation with Eliquis, chronic hypoxic respiratory insufficiency requiring supplemental O2 and BiPAP qhs, ESRD on HD MWF, pacemaker, Heart failure with mildly reduced
ejection fraction, ALVIN, seizure disorder, and type II/insulin-dependent diabetes, orthostasis, and GERD who presented to the [facility] ED 10/03/2025 from [facility] with worsening shortness of breath. Patient reports over the last
several days he has noted worsening shortness of breath, orthopnea and PND. He reports he has had difficulty with dialysis on Monday and again today as it was not his usual dialysis techs and he was having significant bleeding issues with his
fistula. Patient was very upset which she reports made his shortness of breath worse and he was sent to emergency department for evaluation. He admits occasional intermittent chest heaviness which he reports has been going for at least 6 months..
He also reports he had reddish/blood-tinged urine this morning and is questioning if he has a UTI. Hemoglobin 9.2 on admission. Troponin 0.075, EKG demonstrated atrial fibrillation/flutter with ventricular paced beats. EKG is poor quality. Chest
x-ray showed moderate left pleural effusion and trace right pleural effusion with atelectasis. Patient was sent for thoracentesis however procedure was canceled and was unable to be accessed by IR. On previous admission in July 2025 there was
a question of loculated pleural effusion. Patient has been seen by nephrology and plan is for dialysis in AM. Patient has a longstanding history of orthostatic hypotension and remains on droxidopa and midodrine
PMH:
Chronic heart failure, EF 45%
Anemia
Obstructive sleep apnea
CAD with multiple stents per patient
Chronic respiratory failure, likely multifactorial
End-stage renal disease on hemodialysis Monday, Monday, Monday since 2019
Paroxysmal atrial fibrillation, currently in atrial flutter
Orthostatic hypotension on both midodrine and droxidopa
Morbid obesity
GERD
Gilbert's disease
Seizure disorder
Anxiety
Pacemaker -[employer] pacemaker
AV block s/p pacemaker
GERD
Hypercholesterolemia
Type 2 diabetes
Hematuria
Past Medical History
Past Medical History: Other (CHF? (unknown type?), atrial fibrillation, chronic hypoxic respiratory failure requiring supplemental O2 and BiPAP qhs, ESRD on HD MWF, ACD, ALVIN, Sz d/o, and IDDM)
Past Surgical History: Other (History of left thoracentesis, bariatric surgery, hernia repair, left AV fistula)
Social History
Tobacco: Non-Smoker
Alcohol: None
Drug: None
Living: [facility])
Family History
Family History: Reviewed & Not Pertinent
Allergies / Home Medications
Allergy/AdvReac Type Severity Reaction Status Date / Time
cephalexin Allergy Hives Verified 10/03/25 13:27
�Medication �Instructions �Recorded �Confirmed �Type
acetaminophen 325 mg tablet 650 mg PO Q6HPRN PRN mild pain 07/27/25 10/03/25 History
bisacodyl 10 mg rectal suppository 10 mg OH DAILYPRN PRN if no bm 07/27/25 10/03/25 History
(Dulcolax (bisacodyl)) aftr mom
calcium acetate 667 mg tablet 667 mg PO AC Hyperphosphatemia 07/27/25 10/03/25 History
cholecalciferol (vitamin D3) 50 50 mcg PO DAILY Supplement 07/27/25 10/03/25 History
mcg (2,000 unit) capsule (Vitamin
D3)
droxidopa 200 mg capsule 200 mg PO AC Orthostatic 07/27/25 10/03/25 History
hypotension
famotidine 20 mg tablet 20 mg PO BID Gastrointestinal Issue 07/27/25 10/03/25 History
insulin lispro 100 unit/mL 1 sliding scale dose SC AC Diabetes 07/27/25 10/03/25 History
subcutaneous pen
ipratropium 0.5 mg-albuterol 3 mg 3 ml inhalation R QID 07/27/25 10/03/25 History
(2.5 mg base)/3 mL nebulization Lung/Breathing Issues
soln
lacosamide 50 mg tablet 50 mg PO BID Seizures 07/27/25 10/03/25 History
melatonin 5 mg tablet 5 mg PO HSPRN PRN sleep 07/27/25 10/03/25 History
midodrine 5 mg tablet 15 mg PO TID Hypotension 07/27/25 10/03/25 History
polyethylene glycol 3350 17 gram 17 g PO DAILY Constipation 07/27/25 10/03/25 History
oral powder packet
rosuvastatin 40 mg tablet 40 mg PO QPM High Cholesterol 07/27/25 10/03/25 History
sodium chloride-hypochlorous acid 1 irrig irrigation BID Wounds 07/27/25 10/03/25 History
0.033 % irrigation solution (Vashe)
insulin glargine 100 unit/mL (3 5 unit (0.05 mL) SC HS Diabetes #0 08/04/25 10/03/25 Rx
mL) subcutaneous pen (Basaglar mL
KwikPen U-100 Insulin)
apixaban 5 mg tablet (Eliquis) 5 mg PO BID Blood Clot 10/03/25 10/03/25 History
Prevention/Tx
benzonatate 100 mg capsule 100 mg PO TID Cough 10/03/25 10/03/25 History
clopidogrel 75 mg tablet (Plavix) 75 mg PO DAILY Blood Clot 10/03/25 10/03/25 History
Prevention/Tx
docusate sodium 100 mg capsule 100 mg PO DAILY Constipation 10/03/25 10/03/25 History
(Colace)
ipratropium 0.5 mg-albuterol 3 mg 3 ml inhalation R Q6HPRN PRN sob 10/03/25 10/03/25 History
(2.5 mg base)/3 mL nebulization
soln
levothyroxine 25 mcg tablet 25 mcg PO DAILY Thyroid 10/03/25 10/03/25 History
(Synthroid)
midodrine 5 mg tablet 5 mg PO TIDPRN PRN HYPOTENSION 10/03/25 10/03/25 History
oxycodone 5 mg tablet 5 mg PO BIDPRN PRN severe pain 10/03/25 10/03/25 History
sennosides 8.6 mg tablet (senna) 17.2 mg PO HSPRN PRN constipation 10/03/25 10/03/25 History
Review of Systems
-
History Source: Patient
All other systems: Negative unless noted
Physical Exam
Vital Signs
Temp Pulse Resp BP Pulse Ox
98.1 F 70 30 105/67 96
10/03/25 13:27 10/03/25 15:00 10/03/25 15:00 10/03/25 15:00 10/03/25 14:55
GEN: No distress when sitting however feels very short of breath attempts to lay flat, awake, Ox3, on oxygen
HEENT: supple, anicteric, mmm
LUNGS: Absent breath sounds at left base approximately alf up. Crackles at right base, no wheezes. On 4 L of oxygen via nasal cannula
CV: Irregularly irregular, S1/S2, 2/6 syst LSB murmur, no rub or gallop
Chest: Very large mobile mass consistent with lipoma of left chest wall axillary area
ABD: soft, BS+, NT/ND
EXT: Trace edema, no clubbing or cyanosis
NEURO: Gross non-focal
SKIN: No rash, warm, dry, pink
Lab Results
10/03/25 13:39
10/03/25 13:39
Troponin I 0.075 ng/ml H* 10/03/25 13:39
Fpo-J-Knyszczsvbv Pept > 31037 pg/ml 10/03/25 13:39
Impression / Plan
-
.
Clinical Lab Technologist: Dr Aiken, [facility]
Impression:
Presented 10/03/2025 with worsening shortness of breath
Acute on chronic heart failure, EF 45%, proBNP greater than 27,000
b/l pleural effusions left greater than right
Unsuccessful thoracentesis 10/03/2025
Abnormal troponin
Anemia of chronic disease
Obstructive sleep apnea
History of CAD with multiple stents per patient
Acute on chronic respiratory failure, likely multifactorial
End-stage renal disease
Persistent atrial fibrillation/flutter
Orthostatic hypotension on both midodrine and droxidopa
Morbid obesity
GERD
Gilbert's disease
Seizure disorder
Anxiety
Pacemaker -[employer] pacemaker
AV block s/p pacemaker
GERD
Hypercholesterolemia
Type 2 diabetes
Hematuria
Echo Jul 29 2025: Mild left ventricular hypertrophy with septal contraction abnormalities, multiple regional wall motion abnormalities as described below with estimated ejection fraction 45%. Probable restrictive physiology.
mild mitral regurgitation and dilated left atrium, moderate aortic regurgitation, Dilated and focally hypokinetic right ventricle, mildly dilated right atrium, severe tricuspid regurgitation, PASP 62 mmHg. Pacing wire
identified. Large left pleural effusion is seen.
TTE 06/30/2025 at [place]: EF 55%, moderate TR, PASP 58 mmHg
Plan:
Presented 10/03/2025 with worsening shortness of breath from [facility]
Attempted dialysis today however had bleeding of fistula and had worsening shortness of breath. Was unable to get full dialysis session
-Nephrology on board and recommending dialysis 10/04/2025
Acute on chronic heart failure, EF 45%, proBNP greater than 27,000
-Weight up 12 pounds compared to prior weight at discharge in July 2025
-Diuresis with dialysis
-Echo done in July 2025 with mildly reduced ejection fraction and mild to moderate mixed valve disease. Would not repeat echo this admission
Known coronary artery disease with prior stents at [facility] [address].
-Initially 0.075. Continue to monitor and trend to peak., Suspect nonischemic myocardial injury secondary to volume overload and end-stage renal disease
- Will attempt to obtain outpatient records from Dr. Hamilton
- Continue statin therapy and Plavix
Noted to have bilateral b/l pleural effusions left greater than right
Unsuccessful thoracentesis by IR 10/03/2025
History of paroxysmal atrial fibrillation/flutter.
-Now appears to be persistent as noted to be in atrial fibrillation/flutter on EKG and on telemetry. He is ventricular paced.
-He continues with Eliquis for stroke prophylaxis and the setting of paroxysmal atrial fibrillation/flutter
He has chronic orthostasis maintained on both midodrine and droxidopa.
-Currently asymptomatic
Continue midodrine/droxidopa for orthostasis. BPs have been 95-108/65-70
Patient does report some blood-tinged urine this morning. He recently had UTI on last admission in July. Will defer workup to primary service but consider UA to rule out UTI if patient able to urinate
Data Reviewed
-
EKG: Report Reviewed by me, Discussed with Physician and Discussed with Patient
Radiology: Report Reviewed by me, Discussed with Physician and Discussed with Patient
Labs: Labs Reviewed by me, Discussed with Physician and Discussed with Patient
Old Records: Requested
[2025-10-03] MEDS: DUONEB INH (16:41)
[2025-10-03 18:04] LABS: Glucose - Point of Care 119 mg/dl (70-99)
[2025-10-03] MEDS: PHOSLO 667 MG PO (18:35)
[2025-10-03] MEDS: CRESTOR 40 MG PO (18:36)
[2025-10-03] MEDS: NOVOLOG FLEXPEN-MODERATE RESISTANCE SC (18:38)
[2025-10-03] MEDS: DROXIDOPA 200 MG PO (18:38)
[2025-10-03] MEDS: DUONEB 3 ML INH (19:32)
--- NOTE | 2025-10-03 19:39 | PTCARENOTE ---
pt came up from the ED and was made comfortable in the room. He had a pressure dressing on the fistula, L upper arm. The dressing was quite tight around his arm such that his L lower arm was edematous and tender to the touch. ED nurse was contacted
to get details then the hospitalist was contacted. The nurse was instructed to loosen the dressing. This was done, the dressing was unwrapped and rewrapped looser with no sign of continued bleeding. Arm was assessed 30 minutes later. The swelling
had gone down and the pt reported more mobility and that the tenderness had resolved. talent acquisition sourcer nurse was made aware.
[2025-10-03] MEDS: PEPCID 20 MG PO (20:22)
[2025-10-03] MEDS: ELIQUIS 5 MG PO (20:22)
[2025-10-03] MEDS: VIMPAT 50 MG PO (20:22)
[2025-10-03 21:40] LABS: Glucose - Point of Care 177 mg/dl (70-99)
[2025-10-03] MEDS: LANTUS 0.05 UNITS SC (22:40)
[2025-10-03] MEDS: MELATONIN 5 MG PO (22:43)
[2025-10-03] MEDS: TYLENOL 650 MG PO (22:43)
[2025-10-04] VITALS (9 sets, daily range): BP systolic 104–129; BP diastolic 64–75; PULSE 2–86; BMI 35.0
[2025-10-04 07:15] LABS: Glucose - Point of Care 110 mg/dl (70-99)
[2025-10-04] MEDS: DUONEB 3 ML INH ×4 (08:09→20:29)
[2025-10-04] MEDS: MIRALAX 17 GRAMS PO (08:31)
[2025-10-04] MEDS: PHOSLO 667 MG PO ×3 (08:31→16:10)
[2025-10-04] MEDS: DESENEX/MITRAZOL/ZEASORB TOPICAL (08:33)
[2025-10-04] MEDS: VIMPAT 50 MG PO ×2 (08:34→20:24)
[2025-10-04] MEDS: ELIQUIS 5 MG PO ×2 (08:34→20:24)
[2025-10-04] MEDS: PLAVIX 75 MG PO (08:34)
[2025-10-04] MEDS: PEPCID 20 MG PO (08:34)
[2025-10-04 08:53] LABS: Hematocrit 26.4 % (39.0-52.0); Hemoglobin 8.2 g/dL (13.0-18.0); Mean Corp Hgb Conc. 31.1 g/dL (33.0-37.0); Mean Corpuscular Volume 99.6 fL (80.0-94.0); Platelet Count 164 10^3/uL (130-400); Red Cell Dist. Width 16.7 % (11.5-14.5)
[2025-10-04] MEDS: MANNITOL 25% 12.5 GRAMS IV ×2 (08:55→10:30)
[2025-10-04] MEDS: FLEXBUMIN 25% FOR HEMODIALYSIS 12.5 GRAMS IV ×2 (09:05→10:31)
[2025-10-04] MEDS: RETACRIT 4000 UNITS IV (09:12)
--- NOTE | 2025-10-04 09:13 | W.PN.NEPH.HD ---
Assessment
-
Patient seen on dialysis
Systolic blood pressure 106 at current UF
Significant bleeding from fistula yesterday after use if there is significant bleeding after dialysis today I will need vascular surgery to investigate with possible AV fistulogram
Receives high-dose midodrine for blood pressure support but has significant orthostasis which complicates effective UF and maintenance of appropriate dry weight
Progress Note - Hemodialysis
-
Date of Service: October 04, 2025
Duration: 3 hours
Potassium Bath: 3
Calcium Bath: 2.5
Opti-Dialyzer: 160
Ultrafiltration: Other (2 kg is hemodynamically tolerated)
Blood Flow: 400
Dialysate Flow: 600
Heparin: None
EPO: 4000
[2025-10-04 09:19] LABS: Blood Urea Nitrogen 48 mg/dl (9-20); Calcium 8.7 mg/dl (8.4-10.2); Carbon Dioxide 28 mmol/L (22-30); Chloride 95 mmol/L (98-107); Estimated Creatinine Clearance 16 ml/min; Glucose 244 mg/dl (70-99); Magnesium 2.3 mg/dl (1.6-2.3); Potassium 4.5 mmol/L (3.5-5.1); Sodium 133 mmol/L (135-145); eGFR 9.79
[2025-10-04 09:23] LABS: Troponin I 0.061 ng/ml
[2025-10-04 10:11] LABS: Glycohemoglobin (HgbA1c) 5.2 % (4.0-5.9)
[2025-10-04 11:43] LABS: Glucose - Point of Care 120 mg/dl (70-99)
[2025-10-04] MEDS: DROXIDOPA PO (11:53)
[2025-10-04] MEDS: NOVOLOG FLEXPEN-MODERATE RESISTANCE SC ×2 (11:53→12:05)
[2025-10-04] MEDS: DROXIDOPA 200 MG PO ×2 (12:09→16:10)
--- NOTE | 2025-10-04 13:06 | W.PN.HOSP.TC ---
Today's Communication/Plan
-
Assessment / Plan
Assessment / Plan
NAD, on hd
Scleral Anicteric
MMM
No JVD
CTABL
RRR, S1/S2
Left upper extremity AV fistula
FInger tips blue (states this occurs on every HD)
Soft, NT, ND, BS+
Warm, Dry
AAOx3
Calm
Pleural effusion
HD for volume managements
IR for THora
ESRD on HD
Neph follow
HD as tolerated
Chronic Hypoxic Respiratory Failure secodnary to copd
Continue supplemental oxygen at 4L via nasal cannula which is baseline
Continue DuoNeb
Paroxysmal Atrial Fibrillation
Continue Eliquis for anticoagulation
Coronary Artery Disease s/p Stent
Continue Plavix
Continue Crestor
Diabetes Mellitus, Type II - Insulin Dependent
Continue Basaglar
Monitor sugars and continue converge insulin
Follow A1C
Orthostatic Hypotension
Continue droxidopa
Continue midodrine
Obstructive Sleep Apnea
Continue BiPAP 30/08
Seizure Disorder
Continue lacosamide
Hypothyroidism
Continue levothyroxine
Anticipated Discharge: > 48 hours
Subjective/Interval History
-
Date of Service: October 04, 2025
seen and examined. no new complaints. no acute ovenright events
Objective Data
-
Labs:
Laboratory Results
10/04/25
08:01
WBC 6.3
Hgb 8.2 L
Hct 26.4 L
Plt Count 164
Sodium 133 L
Potassium 4.5
Chloride 95 L
Carbon Dioxide 28
BUN 48 H
Creatinine 6.0 H*
Glucose 244 H
Calcium 8.7
Vital Signs:
Vital Signs
Temp Pulse Resp BP Pulse Ox
97.6 F 70 18 110/65 92
10/04/25 11:02 10/04/25 11:54 10/04/25 11:54 10/04/25 11:02 10/04/25 11:54
[2025-10-04] MEDS: SENOKOT 17.2 MG PO (16:28)
[2025-10-04] MEDS: CRESTOR 40 MG PO (16:29)
[2025-10-04 17:05] LABS: Glucose - Point of Care 216 mg/dl (70-99)
[2025-10-04] MEDS: NOVOLOG FLEXPEN-MODERATE RESISTANCE 3 UNITS SC (17:37)
[2025-10-04] MEDS: SYNTHROID PO (20:23)
[2025-10-04] MEDS: DESENEX/MITRAZOL/ZEASORB 1 APPLIC TOPICAL (20:23)
[2025-10-04] MEDS: PEPCID 10 MG PO (20:26)
[2025-10-04 21:34] LABS: Glucose - Point of Care 173 mg/dl (70-99)
[2025-10-04] MEDS: LANTUS 0.05 UNITS SC (21:53)
[2025-10-05] VITALS (8 sets, daily range): BP systolic 106–130; BP diastolic 65–83; PULSE 2–72; BMI 34.5
[2025-10-05] MEDS: ROXICODONE 5 MG PO (04:04)
[2025-10-05] MEDS: SYNTHROID 25 MCG PO (06:32)
[2025-10-05 07:10] LABS: Glucose - Point of Care 116 mg/dl (70-99)
[2025-10-05] MEDS: DUONEB 3 ML INH ×3 (07:43→19:28)
--- NOTE | 2025-10-05 08:31 | W.PN.CARDCBS ---
Today's Communication / Plan
-
Volume control through dialysis as you are
Oral anticoagulation for A-fib
Appears to be nearing discharge can probably go home after October 06 dialysis treatment
We will sign off please call with further questions
Impression / Plan
-
.
Facing Baster Jumpbasting: Dr Aiken, [facility]
Impression:
Presented 10/03/2025 with worsening shortness of breath
Acute on chronic heart failure, EF 45%, proBNP greater than 27,000
b/l pleural effusions left greater than right
Unsuccessful thoracentesis 10/03/2025
Abnormal troponin
Anemia of chronic disease
Obstructive sleep apnea
History of CAD with multiple stents per patient
Acute on chronic respiratory failure, likely multifactorial
End-stage renal disease
Persistent atrial fibrillation/flutter
Orthostatic hypotension on both midodrine and droxidopa
Morbid obesity
GERD
Gilbert's disease
Seizure disorder
Anxiety
Pacemaker -[employer] pacemaker
AV block s/p pacemaker
GERD
Hypercholesterolemia
Type 2 diabetes
Hematuria
Echo Jul 29 2025: Mild left ventricular hypertrophy with septal contraction abnormalities, multiple regional wall motion abnormalities as described below with estimated ejection fraction 45%. Probable restrictive physiology.
mild mitral regurgitation and dilated left atrium, moderate aortic regurgitation, Dilated and focally hypokinetic right ventricle, mildly dilated right atrium, severe tricuspid regurgitation, PASP 62 mmHg. Pacing wire
identified. Large left pleural effusion is seen.
TTE 06/30/2025 at [place]: EF 55%, moderate TR, PASP 58 mmHg
Plan:
Presented 10/03/2025 with worsening shortness of breath from [facility]
Attempted dialysis today however had bleeding of fistula and had worsening shortness of breath. Was unable to get full dialysis session
- Received dialysis on October 04, 2025
Acute on chronic heart failure, EF 45%, proBNP greater than 27,000
- Weight improving
-Diuresis with dialysis
-Echo done in July 2025 with mildly reduced ejection fraction and mild to moderate mixed valve disease. Would not repeat echo this admission
Known coronary artery disease with prior stents at [facility].
-Initially 0.075. Continue to monitor and trend to peak., Suspect nonischemic myocardial injury secondary to volume overload and end-stage renal disease
- Please obtain outpatient records from Dr. Hamilton
- Continue statin therapy and Plavix
Noted to have bilateral b/l pleural effusions left greater than right
Unsuccessful thoracentesis by IR 10/03/2025
History of paroxysmal atrial fibrillation/flutter.
-Now appears to be persistent as noted to be in atrial fibrillation/flutter on EKG and on telemetry. He is ventricular paced.
-He continues with Eliquis for stroke prophylaxis and the setting of paroxysmal atrial fibrillation/flutter
He has chronic orthostasis maintained on both midodrine and droxidopa.
-Currently asymptomatic
Continue midodrine/droxidopa for orthostasis. BPs have been 95-108/65-70
Patient does report some blood-tinged urine this morning. He recently had UTI on last admission in July. Will defer workup to primary service but consider UA to rule out UTI if patient able to urinate
Progress Note - Facing Baster Jumpbasting
Subjective
Date of Service: October 05, 2025
Breathing better after dialysis
Objective
Labs:
10/04/25 08:01
10/04/25 08:01
Labs
Hgb 8.2 g/dL (13.0-18.0) L 10/04/25 08:01
Hct 26.4 % (39.0-52.0) L 10/04/25 08:01
Plt Count 164 10^3/uL (130-400) 10/04/25 08:01
Sodium 133 mmol/L (135-145) L 10/04/25 08:01
Potassium 4.5 mmol/L (3.5-5.1) 10/04/25 08:01
BUN 48 mg/dl (9-20) H 10/04/25 08:01
Creatinine 6.0 mg/dL (0.7-1.3) H* 10/04/25 08:01
Glucose 244 mg/dl (70-99) H 10/04/25 08:01
Troponins
10/03/25 10/04/25
13:39 08:01
Troponin I 0.075 H* 0.061 H*
Vital Signs and I&O:
Vital Signs
Temp Pulse Resp BP Pulse Ox
97.5 F 70 18 125/83 95
10/05/25 07:30 10/05/25 07:47 10/05/25 07:47 10/05/25 07:30 10/05/25 07:47
Vital Signs
Temp Pulse Resp BP Pulse Ox
97.5 F 70 18 125/83 95
10/05/25 07:30 10/05/25 07:47 10/05/25 07:47 10/05/25 07:30 10/05/25 07:47
Intake & Output
10/03/25 10/04/25 10/05/25 10/06/25
06:59 06:59 06:59 06:59
Intake Total 660 / 660
Balance 660 / 660
Physical Exam
Physical Exam
����Physical Exam
���������������������General:��no apparent distress, not acutely ill
���������������������������Neck:��supple. no meningeal signs. normal psoterior pharynx
������������������������
���������������������������Heart:��s1/s2 regular rate and rhythm, no murmur. equal radial pulses.
Paced on telemetry
��������������������������Lungs: ��no acute respiratory distress. clear bilaterally
����������������������Abdomen:�normal bowel sounds. not tender. no CVAT
��������������������������Neuro:��alert and oriented. no focal neurological deficits
������������������������������Skin: ��no rash
�����������������������Psychiatric:�well kept. interactive and cooperative
�����������������������Extremities:��no edema. no calf tenderness. negative homans. good distal pulses
��
�
[2025-10-05] MEDS: NOVOLOG FLEXPEN-MODERATE RESISTANCE SC (08:58)
--- NOTE | 2025-10-05 09:07 | W.PN.HOSP.TC ---
Today's Communication/Plan
-
Assessment / Plan
Assessment / Plan
NAD, on hd
Scleral Anicteric
MMM
No JVD
CTABL
RRR, S1/S2
Left upper extremity AV fistula with thrill and bruit
Soft, NT, ND, BS+
Warm, Dry
AAOx3
Calm
Pleural effusion
HD for volume managements
IR for THora
ESRD on HD
Neph follow
HD as tolerated
Chronic Hypoxic Respiratory Failure secodnary to copd
Continue supplemental oxygen at 4L via nasal cannula which is baseline
Continue DuoNeb
Paroxysmal Atrial Fibrillation
Continue Eliquis for anticoagulation
Coronary Artery Disease s/p Stent
Continue Plavix
Continue Crestor
Diabetes Mellitus, Type II - Insulin Dependent
Continue Basaglar
Monitor sugars and continue converge insulin
Follow A1C
Orthostatic Hypotension
Continue droxidopa
Continue midodrine
Obstructive Sleep Apnea
Continue BiPAP 30/08
Seizure Disorder
Continue lacosamide
Hypothyroidism
Continue levothyroxine
Anticipated Discharge: Within 24 hours
Subjective/Interval History
-
Date of Service: October 05, 2025
seen and examined. no new complaints. no acute ovnerjght events
Objective Data
-
Vital Signs:
Vital Signs
Temp Pulse Resp BP Pulse Ox
97.5 F 70 18 125/83 95
10/05/25 07:30 10/05/25 07:47 10/05/25 07:47 10/05/25 07:30 10/05/25 07:47
I&O
10/04/25 10/05/25 10/06/25
06:59 06:59 06:59
Intake Total 660 / 660
Balance 660 / 660
[2025-10-05] MEDS: MIRALAX 17 GRAMS PO (09:10)
[2025-10-05] MEDS: DROXIDOPA 200 MG PO ×3 (09:11→15:49)
[2025-10-05] MEDS: SENOKOT 17.2 MG PO (09:11)
[2025-10-05] MEDS: VIMPAT 50 MG PO ×2 (09:12→20:17)
[2025-10-05] MEDS: ELIQUIS 5 MG PO ×2 (09:13→20:17)
[2025-10-05] MEDS: PLAVIX 75 MG PO (09:13)
[2025-10-05] MEDS: DESENEX/MITRAZOL/ZEASORB 1 APPLIC TOPICAL ×2 (09:13→20:18)
[2025-10-05] MEDS: PHOSLO 667 MG PO ×3 (09:14→15:49)
[2025-10-05] MEDS: DUONEB INH (11:02)
[2025-10-05 11:38] LABS: Glucose - Point of Care 163 mg/dl (70-99)
[2025-10-05] MEDS: NOVOLOG FLEXPEN-MODERATE RESISTANCE 1 UNITS SC ×2 (11:54→15:49)
--- NOTE | 2025-10-05 11:58 | W.PN.NEPH.PH ---
Today's Communication / Plan
-
Dialysis in the morning will push UF as hemodynamically tolerated which is unfortunately complicated by orthostasis
Assessment/Plan
-
Assessment
ESRD Monday at [facility]
Acute hypoxic respiratory insufficiency/left pleural effusion
Hyperphosphatemia
History of COPD
Diabetes
Orthostatic hypotension
Coronary artery disease with previous stent
Paroxysmal atrial fibrillation
T2DM
Anemia
Plan
Dialysis tomorrow orders provided
Hopefully for left thoracentesis in regards to pleural effusion, this unfortunately was unsuccessful and was unable to be accessed via IR
LENARD will be provided for anemia of chronic kidney disease
Appropriate fluid restriction of 50 ounces daily for ESRD in addition to appropriate sodium potassium restriction
Maintain calcium acetate for hyperphosphatemia with meals
Remains on droxidopa and midodrine for orthostatic hypotension
-
-
Date of Service: October 05, 2025
CC / HPI / ROS
-
Chief Complaint:
ESRD
History of Present Illness:
ESRD Monday
Hemodynamically stable on midodrine support 15mg TID
Review of Systems:
Weights down
No fever
Labs
-
Labs:
WBC 6.3 10^3/uL (4.8-10.8) 10/04/25 08:01
RBC 2.65 10^6/uL (4.70-6.10) L 10/04/25 08:01
Hgb 8.2 g/dL (13.0-18.0) L 10/04/25 08:01
Hct 26.4 % (39.0-52.0) L 10/04/25 08:01
Plt Count 164 10^3/uL (130-400) 10/04/25 08:01
Sodium 133 mmol/L (135-145) L 10/04/25 08:01
Potassium 4.5 mmol/L (3.5-5.1) 10/04/25 08:01
Chloride 95 mmol/L (98-107) L 10/04/25 08:01
Carbon Dioxide 28 mmol/L (22-30) 10/04/25 08:01
BUN 48 mg/dl (9-20) H 10/04/25 08:01
Creatinine 6.0 mg/dL (0.7-1.3) H* 10/04/25 08:01
eGFR 9.79 10/04/25 08:01
Glucose 244 mg/dl (70-99) H 10/04/25 08:01
Calcium 8.7 mg/dl (8.4-10.2) 10/04/25 08:01
Phosphorus 5.9 mg/dl (2.5-4.5) H 10/04/25 08:01
Sjb-D-Lpyjhxdhces Pept > 54748 pg/ml 10/03/25 13:39
Albumin 4.2 g/dl (3.5-5.0) 10/03/25 13:39
Physical Exam
-
Vital Signs:
Vital Signs
Temp Pulse Resp BP Pulse Ox
97.5 F 70 18 125/83 95
10/05/25 07:30 10/05/25 07:47 10/05/25 07:47 10/05/25 07:30 10/05/25 07:47
Respiratory:: Bilateral: CTA
Lung Excursion:: Normal
Abdomen:: Soft
Bowel Sounds:: Normal
Extremity Edema:: None: Bilateral:
[2025-10-05 15:13] LABS: Glucose - Point of Care 153 mg/dl (70-99)
[2025-10-05] MEDS: CRESTOR 40 MG PO (15:48)
[2025-10-05] MEDS: PEPCID 10 MG PO (20:18)
[2025-10-05 22:08] LABS: Glucose - Point of Care 147 mg/dl (70-99)
[2025-10-05] MEDS: LANTUS 0.05 UNITS SC (22:14)
[2025-10-06] VITALS (8 sets, daily range): BP systolic 103–132; BP diastolic 60–85; PULSE 2–105; O2SAT 100; BMI 34.5
[2025-10-06] MEDS: ROXICODONE 5 MG PO (03:20)
[2025-10-06] MEDS: SYNTHROID 25 MCG PO (06:18)
[2025-10-06 07:07] LABS: Glucose - Point of Care 123 mg/dl (70-99)
[2025-10-06] MEDS: PLAVIX 75 MG PO (07:30)
[2025-10-06] MEDS: DESENEX/MITRAZOL/ZEASORB 1 APPLIC TOPICAL ×2 (07:31→19:40)
[2025-10-06] MEDS: PHOSLO 667 MG PO ×3 (07:31→16:48)
[2025-10-06] MEDS: ELIQUIS 5 MG PO ×2 (07:31→19:40)
[2025-10-06] MEDS: VIMPAT 50 MG PO ×2 (07:31→19:40)
[2025-10-06] MEDS: MIRALAX 17 GRAMS PO (07:32)
[2025-10-06] MEDS: NOVOLOG FLEXPEN-MODERATE RESISTANCE SC ×2 (07:32→16:44)
[2025-10-06] MEDS: DUONEB 3 ML INH ×4 (08:15→19:07)
--- NOTE | 2025-10-06 08:42 | W.PN.HOSP.TC ---
Addendum entered and electronically signed by Nettie Nguyễn MD 10/06/25 12:27:
# Acute on chronic HFrEF was present on admission and is now resolved.
Original Note:
Today's Communication/Plan
-
see A/P
Assessment / Plan
Assessment / Plan
A/P:
# Pleural effusion
Cont HD for volume managements
on Chest US, amount of fluid was inadequate for safe thoracentesis, therefore thoracentesis was not performed.
# ESRD on HD MWF
HD per renal
# Chronic Hypoxic Respiratory Failure secondary to COPD
Continue supplemental oxygen at 4L via nasal cannula which is baseline
Continue DuoNeb
# Paroxysmal Atrial Fibrillation
Continue Eliquis for anticoagulation
# Coronary Artery Disease s/p Stent
Continue Plavix
Continue Crestor
# Diabetes Mellitus, Type II - Insulin Dependent
Continue Glargine 5 units HS
Monitor sugars and continue converge insulin
A1C 5.2 %
# Orthostatic Hypotension
Continue droxidopa
Continue midodrine
# Obstructive Sleep Apnea
Continue BiPAP 30/08
# Seizure Disorder
Continue lacosamide
# Hypothyroidism
Continue levothyroxine
DVT ppx: [employer] AP[employer]ENTICE Eliquis
FC
Anticipated Discharge: 24 - 48 hours
Subjective/Interval History
-
Date of Service: October 06, 2025
Objective Data
-
Labs:
Laboratory Results
10/06/25
07:00
Hgb Pending
Hct Pending
Sodium Pending
Potassium Pending
Chloride Pending
Carbon Dioxide Pending
Vital Signs:
Vital Signs
Temp Pulse Resp BP Pulse Ox
36.6 C 70 16 132/79 95
10/06/25 07:30 10/06/25 08:17 10/06/25 08:17 10/06/25 07:30 10/06/25 08:17
I&O
10/05/25 10/06/25 10/07/25
06:59 06:59 06:59
Intake Total 660 / 660 720 / 720
Balance 660 / 660 720 / 720
Review of Systems
-
History Source: Patient
All other systems: Reviewed and negative
Physical Exam
-
General: Well Developed, Well Nourished, Comfortable, Respiratory Distress (chronic), Conversant and Obese
HEENT: Normocephalic, Atraumatic and Oxygen (3L NC)
Respiratory: Clear to Auscultation and Non Labored Respirations; Negative Accessory Resp Muscle Use
Cardiac: Regular Rhythm and S1/S2
GI: Soft, Nontender, Nondistended and Normal Bowel Sounds
Neuro: Awake and Alert
Psych: Calm and Intact Judgement/Insight
Data Reviewed
-
Labs: Labs Reviewed by me
[2025-10-06] MEDS: DROXIDOPA 200 MG PO ×3 (08:55→16:48)
--- NOTE | 2025-10-06 09:12 | CM ---
Addendum entered by Eli Raman 10/06/25 15:22:
Serology tests for Hepatitis B and HD treatment sheet faxed to Investigation Manager.
Addendum entered by Eli Raman 10/06/25 14:54:
Kylee, Investigation Manager at [facility] clinic
Clinic only dialyzed on schedule
Pt has be using [facility], , for transportation from home to the dialysis clinic
Addendum entered by Eli Raman 10/06/25 14:40:
[facility] for Dialysis
phone: [phone]

Addendum entered by Eli Raman 10/06/25 14:34:
PT evaluation done today. Feels that patient could be discharged back to home. CM spoke with [facility] liaison, Jennifer, who stated that the pt was ready to be discharged home just before he became ill and need to back to the hospital.
Pt states he lives a [place] and dialyses at [facility].
Plan: discharge to [place] when stable
Original Note:
Met with pt chairside. Due to have HD today. Will need ambulance for transport when ready to be discharged
Pt 's portable take is at the [facility] according to the patient
Plan: Discharge to [facility] when stable.
[2025-10-06 11:09] LABS: Glucose - Point of Care 192 mg/dl (70-99)
[2025-10-06] MEDS: NOVOLOG FLEXPEN-MODERATE RESISTANCE 1 UNITS SC (11:25)
--- NOTE | 2025-10-06 12:15 | PN.CDI ---
CDI
- -
CDI:
Physician Documentation Request
Admit Date: 10/03/25 16:00
Dear Doctor Delma,
Please review the following and provide your response in the progress notes.
Clinical Indicators:
The diagnosis of Acute on chronic HFrEF was documented on 10/03 H&P Update Note but is not consistently noted in subsequent documentation.
- 10/03 H&P Update note 'Acute on Chronic HFrEF'
- 'Recent echo Jul 2025: EF 45%'
- 'Attempt to manage volume with dialysis'
- 10/06 PN 'Pleural effusion...Cont HD for volume managements'
- 10/05 Nephrology 'Dialysis in the morning will push UF as hemodynamically tolerated which is unfortunately complicated by orthostasis'
- proBNP >80925
Please clarify the following:
____ - Acute on chronic HFrEF was present on admission and is now resolved.
____ - Acute on chronic HFrEF was present on admission and is still being monitored, evaluated or treated
____ - Acute on chronic HFrEF was ruled out
____ - Other (please specify)
Use of terms such as suspected, likely, concern for, or probable (associated with a specific diagnosis that is being evaluated, monitored, or treated as if it exists) are acceptable and can be coded in the inpatient setting, when documented at the
time of discharge.
Thank you,
Nick Santos RN
CDI Specialist
Please use your independent medical judgment in providing your response.
--- NOTE | 2025-10-06 13:47 | W.PN.NEPH.HD ---
Assessment
-
Seen on HD. midodrine on HD. VSS, access ok
c/o diet
Progress Note - Hemodialysis
-
Date of Service: October 06, 2025
Duration: 3 hours
Potassium Bath: 3
Calcium Bath: 2.5
Opti-Dialyzer: 160
Ultrafiltration: Other (3kg)
Blood Flow: 400
Dialysate Flow: 600
Heparin: 0
EPO: 8000 units
[2025-10-06 14:23] LABS: Hematocrit 25.1 % (39.0-52.0); Hemoglobin 7.9 g/dL (13.0-18.0)
[2025-10-06] MEDS: RETACRIT 8000 UNITS IV (15:00)
[2025-10-06] MEDS: MANNITOL 25% 12.5 GRAMS IV ×2 (15:04→16:10)
[2025-10-06 15:05] LABS: Carbon Dioxide 28 mmol/L (22-30); Chloride 96 mmol/L (98-107); Potassium 4.7 mmol/L (3.5-5.1); Sodium 133 mmol/L (135-145)
[2025-10-06] MEDS: FLEXBUMIN 25% FOR HEMODIALYSIS 12.5 GRAMS IV ×2 (15:05→16:10)
[2025-10-06 15:49] LABS: Glucose - Point of Care 107 mg/dl (70-99)
[2025-10-06 15:49] LABS: Glucose - Point of Care 111 mg/dl (70-99)
[2025-10-06] MEDS: CRESTOR 40 MG PO (16:48)
[2025-10-06 17:33] LABS: Glucose - Point of Care 131 mg/dl (70-99)
[2025-10-06 21:21] LABS: Glucose - Point of Care 230 mg/dl (70-99)
[2025-10-06] MEDS: LANTUS 0.05 UNITS SC (21:40)
[2025-10-06] MEDS: PEPCID 10 MG PO (21:41)
[2025-10-07 02:45] VITALS: BP 105/65
[2025-10-07 04:59] VITALS: BMI 33.3
[2025-10-07] MEDS: SYNTHROID 25 MCG PO (06:30)
[2025-10-07] MEDS: DROXIDOPA 200 MG PO ×2 (07:17→11:52)
[2025-10-07] MEDS: MIRALAX 17 GRAMS PO (07:17)
[2025-10-07] MEDS: ELIQUIS 5 MG PO (07:17)
[2025-10-07] MEDS: PLAVIX 75 MG PO (07:17)
[2025-10-07] MEDS: VIMPAT 50 MG PO (07:17)
[2025-10-07] MEDS: PHOSLO 667 MG PO ×2 (07:17→12:01)
--- NOTE | 2025-10-07 07:18 | PN.CDI ---
CDI
- -
CDI:
Physician Documentation Request
Admit Date: 10/03/25 16:00
Dear Doctor Delma,
Please review the following and provide your response in the progress notes.
Clinical Indicators:
- Patient admit with pleural effusion, fluid overload with ESRD
- 10/03 Cardiology 'Abnormal troponin...non-mi associated troponin elevation'
- Troponins as follows:
Laboratory Tests
10/03/25 10/04/25
13:39 08:01
Troponin I 0.075 H* 0.061 H*
Please provide a diagnosis for the above lab values that were monitored and treatment rendered:
Non-ischemic myocardial injury
Abnormal lab value only
Other (please specify)
Use of terms such as suspected, likely, concern for, or probable (associated with a specific diagnosis that is being evaluated, monitored, or treated as if it exists) are acceptable and can be coded in the inpatient setting, when documented at the
time of discharge.
Thank you,
Nick Santos RN
CDI Specialist
Please use your independent medical judgment in providing your response.
[2025-10-07] MEDS: DUONEB 3 ML INH ×2 (07:37→11:19)
[2025-10-07 07:45] LABS: Glucose - Point of Care 125 mg/dl (70-99)
[2025-10-07] MEDS: NOVOLOG FLEXPEN-MODERATE RESISTANCE SC ×2 (07:47→12:35)
[2025-10-07] MEDS: DESENEX/MITRAZOL/ZEASORB 1 APPLIC TOPICAL (07:47)
[2025-10-07 07:59] VITALS: BP 116/75
--- NOTE | 2025-10-07 09:10 | CM ---
Addendum entered by Eli Raman 10/07/25 11:49:
Pt is discharged. Pt has decided to go back to [facility] with new O2. via n/c. DR. Nguyễn made aware.
[facility]
Report: [phone]

Original Note:
Met with pt chairside to discuss DC plan; pt is going back to [place]. His ne O2 equipment (concentrator and portable tank) are a [facility] along with his belongings. Left a message with Liaison, Jennifer, to call me back to discuss a plan
for this barrier.
Also obtained pt's address at [employer] [facility]. Address will be updated in the computer.
Left message with Community [facility] Social Worker at [facility] to call me back to discuss transportation arrangements and chair time for dialysis
Referral placed to [facility].
Plan: DC home with O2 @ 4LPM via n/c continuously, BiPap and VN for PT,OT and wound care
--- NOTE | 2025-10-07 09:21 | W.PN.HOSP.TC ---
Addendum entered and electronically signed by Nettie Nguyễn MD 10/07/25 12:07:
# Non-ischemic myocardial injury
Original Note:
Today's Communication/Plan
-
see A/P
Dispo planning
Assessment / Plan
Assessment / Plan
A/P:
# Pleural effusion
Cont HD for volume managements
on Chest US, amount of fluid was inadequate for safe thoracentesis, therefore thoracentesis was not performed.
# ESRD on HD MWF
HD per renal
# Chronic Hypoxic Respiratory Failure secondary to COPD
Continue supplemental oxygen at 4L via nasal cannula which is baseline
Continue DuoNeb
# Paroxysmal Atrial Fibrillation
Continue Eliquis for anticoagulation
# Coronary Artery Disease s/p Stent
Continue Plavix
Continue Crestor
# Diabetes Mellitus, Type II - Insulin Dependent
Continue Glargine 5 units HS
Monitor sugars and continue converge insulin
A1C 5.2 %
# Orthostatic Hypotension
Continue droxidopa
Continue midodrine
# Obstructive Sleep Apnea
Continue BiPAP 30/08
# Seizure Disorder
Continue lacosamide
# Hypothyroidism
Continue levothyroxine
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
FC
Dispo: return to apartment per PT recc
Anticipated Discharge: Today
Subjective/Interval History
-
Date of Service: October 07, 2025
Objective Data
-
Vital Signs:
Vital Signs
Temp Pulse Resp BP Pulse Ox
36.6 C 71 20 116/75 100
10/07/25 07:59 10/07/25 07:59 10/07/25 07:59 10/07/25 07:59 10/07/25 07:59
I&O
10/06/25 10/07/25 10/08/25
06:59 06:59 06:59
Intake Total 720 / 720 480 / 480
Balance 720 / 720 480 / 480
Review of Systems
-
History Source: Patient
All other systems: Reviewed and negative
Physical Exam
-
General: Well Developed, Well Nourished, Comfortable, Respiratory Distress (chronic), Conversant and Obese
HEENT: Normocephalic, Atraumatic and Oxygen (3L NC)
Respiratory: Clear to Auscultation and Non Labored Respirations; Negative Accessory Resp Muscle Use
Cardiac: Regular Rhythm and S1/S2
GI: Soft, Nontender, Nondistended and Normal Bowel Sounds
Neuro: Awake and Alert
Psych: Calm and Intact Judgement/Insight
Data Reviewed
-
Labs: Labs Reviewed by me
[2025-10-07 12:01] VITALS: BP 120/77
[2025-10-07 12:02] VITALS: BP 100/67; BP 105/64; BP 120/77
[2025-10-07 12:27] LABS: Glucose - Point of Care 149 mg/dl (70-99)
--- NOTE | 2025-10-07 12:34 | W.DCSUMMARY ---
Discharge Summary
Discharge Data
Date of Admission: 10/03/25
Date of Discharge: 10/07/25
Total time spent discharging patient (in min): 40
-
Pending Results: No
Hospital Course
Principal Diagnosis:
Recurrent Left Pleural Effusion, related to volume overload.
Chronic Diagnoses:�
# ESRD on HD MWF
# Chronic Hypoxic Respiratory Failure secondary to COPD, on 4L NC
# Paroxysmal Atrial Fibrillation, on Eliquis
# Coronary Artery Disease s/p Stent
# Diabetes Mellitus, Type II - Insulin Dependent
# Orthostatic Hypotension, on droxidopa and midodrine
# Obstructive Sleep Apnea, on BiPAP 30/08
# Seizure Disorder, on lacosamide
# Hypothyroidism, on levothyroxine
Consultations:�
Nephrology
Procedures:�
None
Clinical course:�
This is a 65-year-old male, with past medical history as stated above, who presented with worsening shortness of breath. His CXR showed recurrent Left Pleural Effusion, suspect related to volume overload.
Problem 1:
Recurrent Left Pleural Effusion, related to volume overload.
On Chest US, the amount of fluid was inadequate for safe thoracentesis, therefore thoracentesis was not performed.
He was continued with HD for volume management while in the hospital.
He was discharged after achieving euvolemic state.
As for the rest of his medical problems, they were stable during his hospital stay.
Discharge Plan
-
Patient Disposition: Home (Routine Discharge)
Discharge Diagnosis/Procedures: Pleural effusion (on Chest US, amount of fluid was inadequate for safe thoracentesis, therefore thoracentesis was not performed);
ESRD on HD MWF;
Chronic Hypoxic Respiratory Failure secondary to COPD
Condition: Fair
Diet: As tolerated, Low Fat, Low Cholesterol and Diabetic, Carb Controlled
Activity: As tolerated
Driving Restrictions: As prior to admission
Instructions: *PCP/Other Machine Tool Builder Heart Failure Instructions
Referrals:
UNKNOWN - PT DOES,NOT KNOW [Family Provider] - in less than 1 week
Prescriptions:
Continued
acetaminophen 325 mg Tablet
650 mg PO Q6HPRN PRN (Reason: mild pain)
ipratropium-albuterol 0.5 mg-3 mg(2.5 mg base)/3 mL Solution For Nebulization
3 ml INHALATION R QID
polyethylene glycol 3350 17 gram Powder In Packet
17 g PO DAILY
midodrine 5 mg Tablet
15 mg PO TID
famotidine 20 mg Tablet
20 mg PO BID
insulin lispro 100 unit/mL Insulin Pen
1 sliding scale dose SC AC
Rx Instructions:
150-200=2units, 201-250=4units, 251-300=6units
rosuvastatin 40 mg Tablet
40 mg PO QPM
melatonin 5 mg Tablet
5 mg PO HSPRN PRN (Reason: sleep)
cholecalciferol (vitamin D3) [Vitamin D3] 50 mcg (2,000 unit) Capsule
50 mcg PO DAILY
lacosamide 50 mg Tablet
50 mg PO BID
droxidopa 200 mg Capsule
200 mg PO AC
calcium acetate 667 mg Tablet
667 mg PO AC
bisacodyl [Dulcolax (bisacodyl)] 10 mg Suppository
10 mg MD DAILYPRN PRN (Reason: if no bm aftr mom)
Vashe 0.033 % Irrigation Solution
1 irrig IRRIGATION BID
insulin glargine [Basaglar KwikPen U-100 Insulin] 100 unit/mL (3 mL) Insulin Pen
5 unit SC HS Qty: 0 0RF
sennosides [senna] 8.6 mg Tablet
17.2 mg PO HSPRN PRN (Reason: constipation)
ipratropium-albuterol 0.5 mg-3 mg(2.5 mg base)/3 mL Solution For Nebulization
3 ml INHALATION R Q6HPRN PRN (Reason: sob)
midodrine 5 mg Tablet
5 mg PO TIDPRN PRN (Reason: HYPOTENSION)
clopidogrel [Plavix] 75 mg Tablet
75 mg PO DAILY
levothyroxine [Synthroid] 25 mcg Tablet
25 mcg PO DAILY
benzonatate 100 mg Capsule
100 mg PO TID
docusate sodium [Colace] 100 mg Capsule
100 mg PO DAILY
Eliquis 5 mg tablet
5 mg PO BID
Discontinued
oxycodone 5 mg Tablet
5 mg PO BIDPRN PRN (Reason: severe pain)
Discharge Orders:
Discharge Patient (As Directed); Ordered 10/07/25
Ordered By: Nettie Nguyễn
Discharge Date and Time
Print Language: URDU
--- NOTE | 2025-10-08 10:30 | W.HF.CON ---
Heart Failure
- LV Function
Left ventricular function study result: LV Ejection fraction 41-49%
Ejection Fraction Percentage: 45
- ARNI
Patient already on ARNI: No
Heart Failure ARNI Not Indicated: LV Ejection Fraction >/= 40%
- ACEI/ARB
Patient already on ACEI/ARB: No
Heart Failure ACEI/ARB Not Indicated: LV Ejection Fraction > 40%
- Beta Jose Juan
Patient already on Evidence Based Beta Jose Juan: No
Heart Failure Evidence Based Beta Jose Juan Not Indicated: LV Ejection Fraction > 40%
- Mineralocorticord Receptor Antagonist
Patient already on MRA: No
Heart Failure MRA Not Indicated: LV Ejection Fraction > 40%
- SGLT-2 Inhibitor
Patient already on SGLT-2 Inhibitor: No
Heart Failure SGLT-2 Inhibitor Contraindication: Patient currently on Dialysis
- Afib Anticoagulation
Patient already on Anticoagulation for Afib: Yes
- NYHA CHF Classification
NYHA CHF Classification Level: Class III - Symptoms w/ min exertion, interferes w/ nml daily activity (ESRD)
- ACC/AHA Stage
ACC/AHA Stage: Stage C: Symptomatic Heart Failure
== END 2025-10-07 13:11 | DRG 640 ==
LOC: 4 WEST ACU 16:00
PROVIDERS: Physician Assistant Medical; Specialist; ADMITTING PHYSICIAN Internal Medicine; CONSULT PHYSICIAN Specialist; EMERGENCY PHYSICIAN Emergency Medicine; OTHER PHYSICIAN Internal Medicine Interventional Cardiology
PROC: 5A1D70Z Performance of Urinary Filtration, Intermittent, Less than 6 Hours Per Day (ICD-10-PCS; 2025-10-04)
DX: E87.70 Fluid overload, unspecified (principal); I50.43 Acute on chronic combined systolic (congestive) and diastolic (congestive) heart failure; J96.21 Acute and chronic respiratory failure with hypoxia; N18.6 End stage renal disease; I5A Non-ischemic myocardial injury (non-traumatic); I48.19 Other persistent atrial fibrillation; I48.92 Unspecified atrial flutter; Z99.2 Dependence on renal dialysis; E11.22 Type 2 diabetes mellitus with diabetic chronic kidney disease; J44.9 Chronic obstructive pulmonary disease, unspecified; I27.20 Pulmonary hypertension, unspecified; Z79.01 Long term (current) use of anticoagulants; I25.10 Atherosclerotic heart disease of native coronary artery without angina pectoris; Z95.5 Presence of coronary angioplasty implant and graft; Z79.02 Long term (current) use of antithrombotics/antiplatelets; I95.1 Orthostatic hypotension; G47.33 Obstructive sleep apnea (adult) (pediatric); G40.909 Epilepsy, unspecified, not intractable, without status epilepticus; E03.9 Hypothyroidism, unspecified; E66.01 Morbid (severe) obesity due to excess calories; Z68.33 Body mass index [BMI] 33.0-33.9, adult; D63.1 Anemia in chronic kidney disease; E80.4 Gilbert syndrome; F41.9 Anxiety disorder, unspecified; Z79.4 Long term (current) use of insulin; Z79.899 Other long term (current) drug therapy
CPT/HCPCS: 71046; 76604; 80048; 80051; 80053; 82962; 83036; 83735; 83880; 84100; 84443; 84484; 85014; 85018; 85025; 85027; 87070; 87147; 93005; 94640; 94660; 97163; 99285; G0257; P9047; Q5106

== ENCOUNTER 2025-10-17 14:54 | Inpatient (IN) | payer MEDICARE, OTHER, SELFPAY ==
[2025-10-17] VITALS (13 sets, daily range): BP systolic 93–120; BP diastolic 56–80; PULSE 2–72; BMI 33.9; BMI 33.0
--- NOTE | 2025-10-17 08:57 | ED.GENMED ---
History of Present Illness
General
Chief Complaint: Male Genito-Urinary Symptoms
Source: patient
Exam Limitations: none
Time Seen by Provider: 10/17/25 08:52
History of Present Illness
History of Present Illness:
See MDM
Past History
Past History
ED Past Medical History: CAD, CHF, GERD, IDDM and Other (Renal failure)
ED Past Surgical History: Cardiac, Urological and Other (Bariatric surgery)
Social History
Tobacco: Non-smoker
Alcohol: None
Phy Exam
Physical Exam
Physical Exam:
See MDM
Course
Orders/Labs/Results
Orders:
Orders
10/17/25 08:56
Catheter [Lyles Placement- Treatment] ONCE
Reason for insertion: Acute Retention
10/17/25 09:23
Lidocaine 2% [Lidocaine Uro-Jet 2%] 1 syringe .ROUTE .STK-MED ONE
10/17/25 09:45
Urinalysis Reflex To Culture Urgent
Date Specimen was Collected: 10/17/25
Time Specimen was Collected: 09:41
Urine Microscopic Reflex Cult Urgent
Urine Culture Urgent
IMELDA Source: U
Specimen Description:
Date Specimen was Collected: 10/17/25
Time Specimen was Collected: 09:41
10/17/25 11:10
Meropenem [Merrem] 1,000 mg IV NOW STA
10/17/25 11:37
Complete Blood Count/With Diff Urgent
Comprehensive Metabolic Panel Urgent
10/17/25 12:22
Sterile Water [Sterile Water For Injection] 20 ml .ROUTE .STK-MED
Abnormal Lab Results
10/17/25 10/17/25
09:45 11:37
RBC 2.64 L 10^6/uL
(4.70-6.10)
Hgb 8.1 L g/dL
(13.0-18.0)
Hct 26.1 L %
(39.0-52.0)
MCV 98.9 H fL
(80.0-94.0)
MCHC 31.0 L g/dL
(33.0-37.0)
RDW 16.3 H %
(11.5-14.5)
MPV 10.6 H fL
(7.4-10.4)
Absolute Lymphs (auto) 0.9 L 10^3/uL
(1.2-3.4)
Absolute Monos (auto) 0.9 H 10^3/uL
(0.1-0.6)
Immature Gran % 0.6 H %
(0-0.5)
Lymphocytes % 12.4 L %
(20.5-51.1)
Monocytes % 12.0 H %
(1.7-9.3)
Sodium 133 L mmol/L
(135-145)
Chloride 96 L mmol/L
(98-107)
BUN 67 H mg/dl
(9-20)
Creatinine 6.3 H* mg/dL
(0.7-1.3)
Glucose 155 H mg/dl
(70-99)
Urine Ketones 1+ A
(Negative)
Ur Occult Blood Reflex 4+ A
(Negative)
Leukocyte Esterase Rfl 3+ A
(Negative)
Urine WBC (Reflex) >100 A /HPF
(0-5)
Urine Albumin (Reflex) 3+ A
(Neg - Trace)
10/17/25 11:37
10/17/25 11:37
Vital Signs
Initial and Last Documented VS:
Initial Vital Signs
Temp Pulse Resp BP Pulse Ox
98.2 F 71 16 118/73 99
10/17/25 09:06 10/17/25 09:06 10/17/25 09:06 10/17/25 09:06 10/17/25 09:06
Last Documented Vital Signs
Temp Pulse Resp BP Pulse Ox
98.2 F 69 16 120/70 100
10/17/25 09:06 10/17/25 10:00 10/17/25 10:00 10/17/25 10:00 10/17/25 10:00
MDM/Problems Addressed
Differential Diagnosis Includes:
Note:
CHIEF COMPLAINT(S)
Difficulty with urination, potential need for catheter.
HISTORY OF PRESENT ILLNESS
The patient is a 65-year-old male with a history of a large prostate and is oxygen-dependent. He presented with difficulty urinating, describing urgency and reduced urine output in the morning. He has a history of needing a catheter before, and
upon presenting today, he feels like he might need one again. Although patient is on dialysis, he states he makes urine every morning. Patient has been unable to urinate for the past few days
CHRONIC MEDICAL CONDITIONS SIGNIFICANTLY AFFECTING CARE
Chronic conditions affecting care include a large prostate and oxygen dependence.
PHYSICAL EXAM
General: Alert, no acute distress.
Skin: Warm, dry.
Head: Normocephalic, atraumatic
Neck: Appears supple, trachea midline.
Eyes, Ears, Nose, Mouth, and Throat: Moist mucous membranes
Cardiovascular: No signs of cyanosis
Respiratory: Respirations are non-labored. Decreased breath sounds
Abdomen: Non-distended and nontender
Musculoskeletal: No deformities
Neurological: No focal neurological deficit observed.
Psychiatric: Cooperative, appropriate mood and affect.
SUMMARY OF ENCOUNTER
The patient was seen in the emergency department for difficulty with urination believed to be due to a large prostate. Based on the assessment, the patients condition was considered uncomplicated needing potential catheterization due to urinary
retention concerns related to his prostate condition.
DIFFERENTIAL DIAGNOSIS
The Differential Diagnosis includes, in no particular order and is not limited to:
- Urinary retention due to an enlarged prostate
- Urinary tract infection
- Bladder outlet obstruction
- Neurogenic bladder dysfunction
- Prostatitis
- Renal insufficiency
- Urethral stricture
- Infection related to catheter use
- Dehydration
- Diuretic use effects
MEDICAL DECISION MAKING
-Complexity of Data Reviewed: Chronic conditions affecting care include a large prostate and oxygen dependence.
-Data:
Category 1
No tests or external records mentioned.
Category 2
No input from independent historians mentioned.
Category 3
No discussion with other healthcare providers mentioned.
-Risk:
Prescription medication was not discussed.
Care significantly affected by Social Determinants of Health was not mentioned.
DIAGNOSIS
N40.1 - Benign prostatic hyperplasia with lower urinary tract symptoms.
*Pulse Oximetry
Patient hypoxic: no
*Critical Care Note
Total Time (30-74mins, 75-104mins- exclusive of procedures): Not Applicable
ED Attending Note
-
Portions of this chart may have been created with voice recognition software.� Occasional wrong word or��sound alike� substitutions may have occurred due to the inherent limitations of voice recognition software.
Discharge Plan
Departure
Patient Disposition: Admit
Date of Disposition: 10/17/25
Time of Disposition: 12:29
Admit to: Med/Surg
Presentation/result/management discussed w/ accepting MD/DO: Hospitalist
Discharge Problem:
Bacteriuria with pyuria, ESRD (end stage renal disease)
Prescriptions:
No Action
acetaminophen 325 mg Tablet
650 mg PO Q6HPRN PRN (Reason: mild pain)
ipratropium-albuterol 0.5 mg-3 mg(2.5 mg base)/3 mL Solution For Nebulization
3 ml INHALATION R QID
polyethylene glycol 3350 17 gram Powder In Packet
17 g PO DAILY
midodrine 5 mg Tablet
15 mg PO TID
famotidine 20 mg Tablet
20 mg PO BID
insulin lispro 100 unit/mL Insulin Pen
1 sliding scale dose SC AC
Rx Instructions:
150-200=2units, 201-250=4units, 251-300=6units
rosuvastatin 40 mg Tablet
40 mg PO QPM
melatonin 5 mg Tablet
5 mg PO HSPRN PRN (Reason: sleep)
cholecalciferol (vitamin D3) [Vitamin D3] 50 mcg (2,000 unit) Capsule
50 mcg PO DAILY
lacosamide 50 mg Tablet
50 mg PO BID
droxidopa 200 mg Capsule
200 mg PO AC
calcium acetate 667 mg Tablet
667 mg PO AC
bisacodyl [Dulcolax (bisacodyl)] 10 mg Suppository
10 mg MA DAILYPRN PRN (Reason: if no bm aftr mom)
Vashe 0.033 % Irrigation Solution
1 irrig IRRIGATION BID
insulin glargine [Basaglar KwikPen U-100 Insulin] 100 unit/mL (3 mL) Insulin Pen
5 unit SC HS Qty: 0 0RF
sennosides [senna] 8.6 mg Tablet
17.2 mg PO HSPRN PRN (Reason: constipation)
ipratropium-albuterol 0.5 mg-3 mg(2.5 mg base)/3 mL Solution For Nebulization
3 ml INHALATION R Q6HPRN PRN (Reason: sob)
midodrine 5 mg Tablet
5 mg PO TIDPRN PRN (Reason: HYPOTENSION)
clopidogrel [Plavix] 75 mg Tablet
75 mg PO DAILY
levothyroxine [Synthroid] 25 mcg Tablet
25 mcg PO DAILY
benzonatate 100 mg Capsule
100 mg PO TID
docusate sodium [Colace] 100 mg Capsule
100 mg PO DAILY
Eliquis 5 mg tablet
5 mg PO BID
Referrals:
Jose Alfred MD [Family Provider]
Interventions
Interventions:
*Risk Screen - Suicide Last Done: 10/17/25 09:16
*General Assessment Last Done: 10/17/25 09:16
*Neglect/Abuse Screening Last Done: 10/17/25 09:16
*ED COVID-19 Vaccine History Last Done: 10/17/25 09:16
*ED Influenza Vaccine History Last Done: 10/17/25 09:16
[facility] Fall Risk Assessment Tool Last Done: 10/17/25 09:16
ED-Male Genitourinary Assessment Last Done: 10/17/25 10:00
Discharge Date and Time
Print Language: IRISH
[2025-10-17 09:57] LABS: Urine Character Cloudy (Clear)
[2025-10-17 10:47] LABS: Urine White Cell >100 /HPF (0-5)
[2025-10-17 12:01] LABS: Hematocrit 26.1 % (39.0-52.0); Hemoglobin 8.1 g/dL (13.0-18.0); Mean Corp Hgb Conc. 31.0 g/dL (33.0-37.0); Mean Corpuscular Volume 98.9 fL (80.0-94.0); Nucleated Red Blood Cells % 0 % (-); Platelet Count 201 10^3/uL (130-400); Red Cell Dist. Width 16.3 % (11.5-14.5)
[2025-10-17 12:23] LABS: ALT (SGPT) 16 U/L (0-50); AST (SGOT) 24 U/L (17-59); Albumin 3.9 g/dl (3.5-5.0); Alkaline Phosphatase 122 U/L (38-126); Blood Urea Nitrogen 67 mg/dl (9-20); Calcium 8.4 mg/dl (8.4-10.2); Carbon Dioxide 27 mmol/L (22-30); Chloride 96 mmol/L (98-107); Estimated Creatinine Clearance 16 ml/min; Glucose 155 mg/dl (70-99); Potassium 4.9 mmol/L (3.5-5.1); Sodium 133 mmol/L (135-145); Total Protein 7.3 g/dl (6.3-8.2); eGFR 9.23
[2025-10-17] MEDS: MERREM 1000 MG IV (12:27)
--- NOTE | 2025-10-17 12:31 | W.PN.UPDATE ---
Addendum entered and electronically signed by Pj Edwards MD 10/17/25 13:17:
HD via Lt arm AVF
+ bruit and thrills
Original Note:
Update Note
Progress Note Update
This note serves as an addendum to the H&P by public relations representative Jose Daniel Lee
HPI
65M Res at [facility], PMHX of chronic hypoxia, Home O2 dependent . COPD, CHF, A-Fib, IDDM, ESRD, Orthostatic Hypotension, ALVIN, and Seizure disorder seen at ER
- HX large prostate presented with difficulty urinating
+ urgency
+ decreased urine output in the morning.
- HX UR needing a catheter before
- makes urine every morning
- Missed HD for HD dependent ESRD on MWF
Relevant VS
Temp Pulse Resp BP Pulse Ox
98.2 F 70 16 114/73 100
10/17/25 09:06 10/17/25 12:00 10/17/25 12:00 10/17/25 12:00 10/17/25 12:00
PE
Class I Obesity
Gen: Lethargy but easily arousable - patient reports it is at baseline
HEENT: anicteric
Neck:supple
Lungs:CTA
Cor:RRR S1 S2 No murmur
Abdomen:�soft NT NG
LAW CLERK:AAO3 NFND
MS: no edema
Psych: Cooperative, appropriate mood and affect.
Relevant Data
10/04/25 10/06/25 10/17/25
08:01 13:15 11:37
WBC 7.2
Hgb 8.2 L 7.9 L 8.1 L
Plt Count 201
10/04/25 10/06/25 10/17/25
08:01 13:15 11:37
Sodium 133 L 133 L
Potassium 4.7 4.9
Chloride 96 L 96 L
Carbon Dioxide 28 27
BUN 48 H 67 H
Creatinine 6.0 H* 6.3 H*
eGFR 9.79 9.23
Calcium 8.4
Albumin 3.9
UA
10/17/25
09:45
Urine Clarity Cloudy
Urine Nitrite (Reflex) Negative
Leukocyte Esterase Rfl 3+ A
Urine WBC (Reflex) >100 A
07/31/25 -UCx
CC: Greater than 100,000 CFU/ML Escherichia coli - ESBL
Organism 1 Escherichia coli - ESBL
1. Escherichia coli - ESBL
M.I.C. RX
--------- ---
Amoxicillin/Potas. Clavulanate <=8/4 S
Ampicillin >16 R
Ampicillin/Sulbactam 8/4 S
Aztreonam >16 R
Cefazolin >16 R
Cefepime >16 R
Ceftazidime >16 R
Ceftriaxone >2 R
Ertapenem <=0.5 S
Ciprofloxacin >2 R
Gentamicin <=2 S
Meropenem <=1 S
Nitrofurantoin-Urine Only <=32 S
Piperacillin/Tazobactam <=8 S
Tetracycline >8 R
Tobramycin <=2 S
Trimethoprim/Sulfamethoxazole >2/38 R
Last hospitalist admission: 10/03/25 - 10/07/25
DC Dx: Recurrent Left Pleural Effusion, related to volume overload.
ASSESSMENT & PLAN
Acute Urinary retention thus placed F cath at ER - dirt cloudy brown drainage
UA concerning for UTI - afebrile , nl WCC
HX ESBL E Coli
HX UR requiring F cath
- Hemodynamically stable
- Abnormal UA reflex to UCx pending
- received IV Meropenem at ER - to be continued - await ID input
- Routine ID consult for choice of ABx or what not
ESRD on HD MWF
NAG MA 10
- Last HD on Monday
- Missed HD today
- Normokalemia
- Routine Renal consult for HD today
Chronic Hypoxic RF due to COPD
- c/w PROGRAMMING INTERN Home O2 dependent
- supplemental O2 at 4L via NC which is baseline
- c/w PROGRAMMING INTERN DuoNeb
Intermittent lethargy and easily arousable - reports it is his baseline per patient
Coherent when awake
Stable Bicarb
- ABG if persistent lethargy
Paroxysmal Atrial Fibrillation
- in NSR and stable
- c/w PROGRAMMING INTERN Eliquis for anticoagulation
CAD s/p Stent HX
HLD
- stable
- c/w PROGRAMMING INTERN Plavix
- c/w PROGRAMMING INTERN Crestor
ID DMT2- Insulin Dependent
- c/w PROGRAMMING INTERN Glargine 5 units HS
- last A1C 5.2 %
Orthostatic Hypotension
- c/w PROGRAMMING INTERN droxidopa
- c/w PROGRAMMING INTERN midodrine
ALVIN
- c/w PROGRAMMING INTERN BiPAP 18/10 HS
Seizure Disorder
- stable
- c/w PROGRAMMING INTERN lacosamide
Hypothyroidism
- stable
- c/w PROGRAMMING INTERN levothyroxine
DVT ppx: PROGRAMMING INTERN Eliquis
Full code
IP MS
--- NOTE | 2025-10-17 12:45 | HPS.HSE ---
Family Physician
-
Family Physician: Jose Alfred
Chief Complaint
-
Difficulty urinating x 4 days with urine retention, suprapubic tenderness
History of Present Illness
65-year-old male complaining of difficulty urinating for the past few days with some suprapubic tenderness. He makes urine every morning however is on dialysis Monday he missed dialysis today
He has history of enlarged prostate. He was noted to have acute urinary retention requiring Lyles catheter in ER which drained cloudy in color 342 cc. He does have history of urinary retention/ESBL in urine. He has chronic PVD bilateral lower
legs with 2 small pea-sized ulcerations to left anterior elizabeth with chronic purpleish brown pigmentation. He denies fever, chills, headache, sore throat, chest pain, palpitations, cough, shortness of breath, nausea, vomiting, diarrhea. He has past
medical history of chronic ambulatory dysfunction uses wheelchair, ESRD dialysis Monday he does void daily, history of ESBL UTI, orthostatic hypotension, anemia of chronic disease/ESRD, microcytic anemia, chronic hypoxic respiratory
failure related to COPD on chronic 4 L nasal cannula, paroxysmal A-fib on Eliquis, Chronic CHF/cardiomyopathy, Severe TR, pulm HTN seizure disorder, hypothyroidism, CAD/cardiac stent, DM2, hypothyroidism, GERD, chronic constipation, ALVIN on BiPAP
30/08, insomnia, class II obesity.
Medical History
Past Medical History
Past Medical History: Reports Other
Additional Past Medical History:
Chronic Hypoxic Respiratory Failure
COPD chronic 4 L nasal cannula
Pulmonary Hypertension
Coronary Artery Disease s/p Stents
Chronic Heart Failure EF 45% July 2025
Severe TR, pulm HTN
Paroxysmal Atrial Fibrillation
Diabetes Mellitus, Type II - Insulin Dependent
ESRD Monday
Anemia of Chronic Disease
Orthostatic Hypotension
Obstructive Sleep Apnea
Seizure Disorder
Hypothyroidism
BPH
Past Surgical History: Reports Other
Additional Past Surgical History:
Left Thoracentesis
Bariatric Surgery
Hernia Repair
Left AV Fistula
Social History
Tobacco: Non-smoker
Alcohol: None
Drug: None
Living: Intermediate
Family History
Family History: Not pertinent
Allergies / Home Medications
Allergies reflects when Allergies were last updated in [facility].
Home Medications with original date entered in [facility]
Allergy/Medication List:
Allergies
Allergy/AdvReac Type Severity Reaction Status Date / Time
cephalexin Allergy Hives Verified 10/17/25 09:06
Home Medications
acetaminophen 325 mg tablet 650 mg PO Q6HPRN PRN mild pain 07/27/25
bisacodyl 10 mg rectal suppository (Dulcolax (bisacodyl)) 10 mg ND DAILYPRN PRN if no bm aftr mom 07/27/25
calcium acetate 667 mg tablet 667 mg PO AC Hyperphosphatemia 07/27/25
cholecalciferol (vitamin D3) 50 mcg (2,000 unit) capsule (Vitamin D3) 50 mcg PO DAILY Supplement 07/27/25
droxidopa 200 mg capsule 200 mg PO AC Orthostatic hypotension 07/27/25
famotidine 20 mg tablet 20 mg PO BID Gastrointestinal Issue 07/27/25
insulin lispro 100 unit/mL subcutaneous pen 1 sliding scale dose SC AC Diabetes 07/27/25
ipratropium 0.5 mg-albuterol 3 mg (2.5 mg base)/3 mL nebulization soln 3 ml inhalation R QID Lung/Breathing Issues 07/27/25
lacosamide 50 mg tablet 50 mg PO BID Seizures 07/27/25
melatonin 5 mg tablet 5 mg PO HSPRN PRN sleep 07/27/25
midodrine 5 mg tablet 15 mg PO TID Hypotension 07/27/25
polyethylene glycol 3350 17 gram oral powder packet 17 g PO DAILY Constipation 07/27/25
rosuvastatin 40 mg tablet 40 mg PO QPM High Cholesterol 07/27/25
sodium chloride-hypochlorous acid 0.033 % irrigation solution (Vashe) 1 irrig irrigation BID Wounds 07/27/25
insulin glargine 100 unit/mL (3 mL) subcutaneous pen (Basaglar KwikPen U-100 Insulin) 5 unit (0.05 mL) SC HS Diabetes #0 mL 08/04/25
apixaban 5 mg tablet (Eliquis) 5 mg PO BID Blood Clot Prevention/Tx 10/03/25
benzonatate 100 mg capsule 100 mg PO TID Cough 10/03/25
clopidogrel 75 mg tablet (Plavix) 75 mg PO DAILY Blood Clot Prevention/Tx 10/03/25
docusate sodium 100 mg capsule (Colace) 100 mg PO DAILY Constipation 10/03/25
ipratropium 0.5 mg-albuterol 3 mg (2.5 mg base)/3 mL nebulization soln 3 ml inhalation R Q6HPRN PRN sob 10/03/25
levothyroxine 25 mcg tablet (Synthroid) 25 mcg PO DAILY Thyroid 10/03/25
midodrine 5 mg tablet 5 mg PO TIDPRN PRN HYPOTENSION 10/03/25
sennosides 8.6 mg tablet (senna) 17.2 mg PO HSPRN PRN constipation 10/03/25
Review of Systems
-
History Source: Patient
A 12 point ROS was completed and negative except as noted: Yes
Constitutional: Reports Other (Lethargic but arousable); Denies Fever or Chills
EENT: Denies Sore Throat or Runny Nose
Respiratory: Reports Other (Chronic 4 L nasal cannula infusing); Denies Cough
Cardiac: Denies Chest Pain, Diaphoresis, Palpitations or Syncope
Abdomen/GI: Reports Abdominal Pain (Suprapubic tenderness prior to Lyles catheter insertion due to urinary retention); Denies Nausea, Vomiting, Diarrhea, Constipated, Bloody Stools or Black Stools
: Reports Difficulty Voiding and Urgency
Musculoskeletal: Reports Edema (Trace bilateral with underlying PVD changes bilateral legs, 2 small ulcerations present left anterior elizabeth on admission); Denies Joint Pain
Skin: Reports Other (Trace bilateral with underlying PVD changes bilateral legs, 2 small ulcerations present left anterior elizabeth on admission); Denies Itching or Rash
Neurological: Denies Dizzy or Headache
Endocrine: Reports No Symptoms
Hematologic/Lymphatic: Reports No Symptoms
Psych: Reports Calm
Physical Exam
Vital Signs
Vital Signs
Temp Pulse Resp BP Pulse Ox
98.2 F 70 16 114/73 100
10/17/25 09:06 10/17/25 12:00 10/17/25 12:00 10/17/25 12:00 10/17/25 12:00
Physical Exam
General: Conversant (Lethargic but arouses is oriented x 3) and Obese; No Fever or Chills
HEENT: NormoCephalic, Anicteric, Moist mucous membranes, PERRLA, [place] Conjunctivae and No Ptosis
Respiratory: Clear; No Wheezes, Rales or Rhonchi
Cardiac: S1/S2, Regular Rhythm and Peripheral Edema (Trace bilateral with underlying PVD changes bilateral legs, 2 small ulcerations present left anterior elizabeth on admission); No Murmur, Rub or Gallop
Breast: Deferred by me
GI: Soft, Non Tender, Non Distended, Normal Bowel Sounds and No Hepatosplenomegaly
Rectal: Deferred by Provider
Genito-urinary: Lyles (Draining cloudy in color)
Musculoskeletal: No Clubbing, No Cyanosis, Edema, Left Lower Extremity (Trace bilateral with underlying PVD changes bilateral legs, 2 small ulcerations present left anterior elizabeth on admission) and Edema, Right Lower Extremity (Trace bilateral with
underlying PVD changes bilateral legs,); No Edema, Left Upper Extremity or Edema, Right Upper Extremity
Skin: Warm, Dry and Other (AV fistula left upper extremity positive thrill); No Rash
Neuro: No Motor Deficits (While in bed), Nonfocal/grossly intact, Cranial Nerves Intact, No Sensory Deficits and Other (Lethargic was sleeping but does arouse and is oriented x 3); No Slurred Speech, Facial Droop, Tremors or Sedated
Psych: Calm
Laboratory Results
-
10/17/25 11:37
10/17/25 11:37
Laboratory Results
Total Bilirubin 0.7 mg/dl (0.2-1.3) 10/17/25 11:37
AST 24 U/L (17-59) 10/17/25 11:37
ALT 16 U/L (0-50) 10/17/25 11:37
Alkaline Phosphatase 122 U/L (38-126) 10/17/25 11:37
Data Reviewed
-
Lab Data: Labs Reviewed by me
Impression/Plan
-
Impression/plan:
Admit to [facility]
#Acute urinary retention requiring Lyles catheter
#Hx ESBL
Urine with pyuria urine was cloudy on insertion
Lyles catheter inserted in ER
WBC 7.2
-Consult ID
- Follow urine culture
- IV meropenem
- Placed on ESBL precautions
Follow CBC, CMP
#ESRD MOWEFR- missed dialysis
Left upper extremity AV fistula positive thrill
-Consult nephrology
Creat 6.3/bun 67
- Continue calcium acetate 667 mg before meals
#PVD with chronic ulcerations left lower anterior elizabeth present on admission
- Consult wound care
#Orthostatic hypotension
BP stable 114/73
On droxidopa/midodrine
#Anemia of chronic disease/ESRD/macrocytic anemia
Hgb 8.1, MCV 98.9 appears baseline for patient no active bleeding
#Chronic hypoxic respiratory failure secondary to COPD on 4 L nasal cannula
#History of recent pleural effusion did not require drainage September 2024
Patient is lethargic however awakens is oriented x 3
- Continue supportive O2
- Continue inhalers as needed
#Paroxysmal A-fib
Patient currently sinus rhythm
-Patient on Eliquis
#Chronic CHF/cardiomyopathy
#Severe TR
-Follows with [facility]ology
2D echo 07/29/2025 EF 45% mild LVH with septal contraction abnormalities multiple regional wall abnormalities
Mild MR dilated left atrium
Dilated and hypokinetic right ventricle mildly dilated right atrium
Severe tricuspid regurg PASP 62 mmHg
#Pulm HTN
PASP 62 mmHg 07/29/2025
#History of seizure disorder
Continue lacosamide
#Hypothyroidism
-Continue levothyroxine
#CAD status post stent
Continue Plavix 75 mg daily, rosuvastatin 40 mg every afternoon
#DM 2
Accu-Cheks with SSI, check HgbA1c
Insulin glargine U100 5 units SQ at bedtime and sliding scale insulin
#GERD
Continue Pepcid 20 mg twice daily
#Chronic constipation
Continue MiraLAX 17 g daily, senna as needed
#ALVIN
BiPAP 18/10
#Insomnia
Melatonin 5 mg at bedtime as needed
#Class II obesity�BMI 33.9
Affects all aspects of care
Thus recommended a 200 ADA diet
DVT prophylaxis
Continue [employer] Eliquis
Full code
--- NOTE | 2025-10-17 12:55 | EDRN ---
Kevin Cano TOPOGRAPHICAL ENGINEER in room w/ pt at this time.
--- NOTE | 2025-10-17 13:09 | EDRN ---
Dr. Edwards in room w/ pt.
--- NOTE | 2025-10-17 13:17 | EDRN ---
Dressing on L lower leg over 3 nickel sized red open areas, no drainage changed at this time.
--- NOTE | 2025-10-17 13:45 | W.CON.NEPH ---
Consultation
-
Date/Time Consultation Requested: 10/17/25 1233
Date/Time Consultation Performed: 10/17/25 1310
Requesting Provider: Iglesia Bonner
Performing Provider: Magdalena George
Reason for Consultation: ESRD
Medical History
-
Chief Complaint: Difficulty urinating x 4 days with urine retention, suprapubic tenderness
History of Present Illness:
This is a 65-year-old male with past medical history of ESRD requiring dialysis MWF at [place] [facility] requiring dialysis diagnosed in 2019. Patient reports ESRD was caused by an antiviral medication which was used to treat COVID-19 at that time,
hyperphosphatemia on Phoslo, atrial fibrillation on Eliquis, COPD on 4lit O2, Chronic CHF/cardiomyopathy, Severe TR, pulm HTN, ALVIN on BiPAP, T2DM on insulin, PVD, orthostatic hypotension on midodrine, droxydopa, HLD on statin, SZDO on Lacosamide,
who presents to ED complaining of difficulty urinating for the past few days with some suprapubic tenderness. He makes urine every morning however with urination issue he missed dialysis today.
He has history of enlarged prostate. He was noted to have acute urinary retention requiring Kruse catheter in ER which drained cloudy in color 342 cc. He does have history of urinary retention/ESBL in urine. He denies fever, chills, headache, sore
throat, chest pain, palpitations, cough, shortness of breath, nausea, vomiting, diarrhea. He typically urinates small amount of urine daily. His suprapubic pain improved after kruse.
Past Medical History
Chronic Hypoxic Respiratory Failure
COPD chronic 4 L nasal cannula
Pulmonary Hypertension
Coronary Artery Disease s/p Stents
Chronic Heart Failure EF 45% July 2025
Severe TR, pulm HTN
Paroxysmal Atrial Fibrillation
Diabetes Mellitus, Type II - Insulin Dependent
ESRD Monday
Anemia of Chronic Disease
Orthostatic Hypotension
Obstructive Sleep Apnea
Seizure Disorder
Hypothyroidism
BPH
Past Surgical History: Other (Left Thoracentesis Bariatric Surgery Hernia Repair Left AV Fistula)
Social History
Tobacco: Non-Smoker
Alcohol: None
Drug: None
Living: [facility]
Family History
Family History: Not Pertinent
Allergies / Home Medications
Allergy/AdvReac Type Severity Reaction Status Date / Time
cephalexin Allergy Hives Verified 10/17/25 09:06
�Medication �Instructions �Recorded �Confirmed �Type
acetaminophen 325 mg tablet 650 mg PO Q6HPRN PRN mild pain 07/27/25 10/17/25 History
bisacodyl 10 mg rectal suppository 10 mg [place] DAILYPRN PRN if no bm 07/27/25 10/17/25 History
(Dulcolax (bisacodyl)) aftr mom
calcium acetate 667 mg tablet 667 mg PO AC Hyperphosphatemia 07/27/25 10/17/25 History
cholecalciferol (vitamin D3) 50 50 mcg PO DAILY Supplement 07/27/25 10/17/25 History
mcg (2,000 unit) capsule (Vitamin
D3)
droxidopa 200 mg capsule 200 mg PO AC Orthostatic 07/27/25 10/17/25 History
hypotension
famotidine 20 mg tablet 20 mg PO BID Gastrointestinal Issue 07/27/25 10/17/25 History
insulin lispro 100 unit/mL 1 sliding scale dose SC AC Diabetes 07/27/25 10/17/25 History
subcutaneous pen
ipratropium 0.5 mg-albuterol 3 mg 3 ml inhalation R QID 07/27/25 10/17/25 History
(2.5 mg base)/3 mL nebulization Lung/Breathing Issues
soln
lacosamide 50 mg tablet 50 mg PO BID Seizures 07/27/25 10/17/25 History
melatonin 5 mg tablet 5 mg PO HSPRN PRN sleep 07/27/25 10/17/25 History
midodrine 5 mg tablet 15 mg PO TID Hypotension 07/27/25 10/17/25 History
polyethylene glycol 3350 17 gram 17 g PO DAILY Constipation 07/27/25 10/17/25 History
oral powder packet
rosuvastatin 40 mg tablet 40 mg PO QPM High Cholesterol 07/27/25 10/17/25 History
sodium chloride-hypochlorous acid 1 irrig irrigation BID Wounds 07/27/25 10/17/25 History
0.033 % irrigation solution (Vashe)
insulin glargine 100 unit/mL (3 5 unit (0.05 mL) SC HS Diabetes #0 08/04/25 10/17/25 Rx
mL) subcutaneous pen (Basaglar mL
KwikPen U-100 Insulin)
apixaban 5 mg tablet (Eliquis) 5 mg PO BID Blood Clot 10/03/25 10/17/25 History
Prevention/Tx
benzonatate 100 mg capsule 100 mg PO TID Cough 10/03/25 10/17/25 History
clopidogrel 75 mg tablet (Plavix) 75 mg PO DAILY Blood Clot 10/03/25 10/17/25 History
Prevention/Tx
docusate sodium 100 mg capsule 100 mg PO DAILY Constipation 10/03/25 10/17/25 History
(Colace)
ipratropium 0.5 mg-albuterol 3 mg 3 ml inhalation R Q6HPRN PRN sob 10/03/25 10/17/25 History
(2.5 mg base)/3 mL nebulization
soln
levothyroxine 25 mcg tablet 25 mcg PO DAILY Thyroid 10/03/25 10/17/25 History
(Synthroid)
midodrine 5 mg tablet 5 mg PO TIDPRN PRN HYPOTENSION 10/03/25 10/17/25 History
sennosides 8.6 mg tablet (senna) 17.2 mg PO HSPRN PRN constipation 10/03/25 10/17/25 History
Review of Systems
-
All other systems: Negative unless noted
Physical Exam
Vital Signs
Vital Signs
Temp Pulse Resp BP Pulse Ox
98.2 F 70 16 116/80 100
10/17/25 09:06 10/17/25 13:00 10/17/25 13:00 10/17/25 13:00 10/17/25 13:00
Lab Results
WBC 7.2 10^3/uL (4.8-10.8) 10/17/25 11:37
RBC 2.64 10^6/uL (4.70-6.10) L 10/17/25 11:37
Hgb 8.1 g/dL (13.0-18.0) L 10/17/25 11:37
Hct 26.1 % (39.0-52.0) L 10/17/25 11:37
Plt Count 201 10^3/uL (130-400) 10/17/25 11:37
Sodium 133 mmol/L (135-145) L 10/17/25 11:37
Potassium 4.9 mmol/L (3.5-5.1) 10/17/25 11:37
Chloride 96 mmol/L (98-107) L 10/17/25 11:37
Carbon Dioxide 27 mmol/L (22-30) 10/17/25 11:37
BUN 67 mg/dl (9-20) H 10/17/25 11:37
Creatinine 6.3 mg/dL (0.7-1.3) H* 10/17/25 11:37
eGFR 9.23 10/17/25 11:37
Glucose 155 mg/dl (70-99) H 10/17/25 11:37
Calcium 8.4 mg/dl (8.4-10.2) 10/17/25 11:37
Albumin 3.9 g/dl (3.5-5.0) 10/17/25 11:37
Physical Exam
General: Awake, Alert, Oriented, AOx3 and No Distress
HEENT: EOMI, Conjunctivae Clear and Facial Symmetry
Respiratory: Clear, Normal Excursion and Nonlabored Respirations
Cardiac: S1/S2 and Regular Rate/Rhythm
Breast: Deferred by me
Abdomen: Soft, Nontender and Nondistended
Musculoskeletal: No Cyanosis and No Edema
Skin: No Rash
Neuro: Nonfocal/Grossly Intact
Psych: Appropriate
Vascular Access: AVF (left UE)
Assessment/Plan
-
Assessment
Acute urinary retention requiring Kruse catheter
#Hx ESBL
ESRD [facility]
Left upper extremity AV fistula positive thrill
PVD with chronic ulcerations left lower anterior elizabeth present on admission
Orthostatic hypotension-On droxidopa/midodrine
Anemia of chronic disease
Chronic hypoxic respiratory failure secondary to COPD on 4 L nasal cannula
History of recent pleural effusion did not require drainage September 2024
Paroxysmal A-fib
Chronic CHF/cardiomyopathy
Severe TR
2D echo 07/29/2025 EF 45% mild LVH with septal contraction abnormalities multiple regional wall abnormalities
Mild MR dilated left atrium
Dilated and hypokinetic right ventricle mildly dilated right atrium
Severe tricuspid regurg PASP 62 mmHg
Pulm HTN
History of seizure disorder
Hypothyroidism
CAD status post stent
DM 2
GERD
Chronic constipation
ALVIN -BiPAP 30/08
Insomnia
Class II obesity�BMI 33.9
Plan:
A/w U retention, s/p kruse suspect UTI, known h/o ESBL
Hemodynamically stable
Metabolic parameters acceptable
Nonemergent dialysis today, planned tomorrow
Orthostatic hypotension on midodrine and droxy dopa
Continue calcium acetate for hyperphosphatemia
Renal diet and fluid restriction
Antibiotics per primary
discussed with the patient
--- NOTE | 2025-10-17 14:49 | CM ---
Chart reviewed Spoke with patient at ED bedside
He lives in [facility]
HD MWF
Prior to admission he was at [facility] for SNF and HD MWF
Per his care conference yesterday he is to remain there for another [address] Jose Alfred
DCP is to go back to [facility] SN[facility] HD MWF
for STR
phone [phone]

Cm to follow up for any dcp needs
--- NOTE | 2025-10-17 15:55 | EDRN ---
Pt c/o back and Abd pain from sitting on stretcher so long. Pt assisted to recliner for his comfort at this time. pt was very SOB after assisted to ambulate to chair. Pt had tachypnea, increased work of breathing and increased resp rate up to 30
bpm. Pt recovered in 3 minutes. POX decreased to 78% and increased up to 93% in that 2 min. Pt is presently more comfortable in chair at this time.
--- NOTE | 2025-10-17 16:35 | CON.ID ---
Consultation
-
Date/Time Consultation Requested: 10/17/25 14:11
Date/Time Consultation Performed: 10/17/25 16:35
Requesting Provider: Rosa ZHONG
Performing Provider: Dr Samuels
Reason for Consultation: uti, esrd hx ESBL
Chief Complaint / Past History
Chief Complaint
Difficulty urinating x 4 days with urine retention, suprapubic tenderness
History of Present Illness
Mr Talbert is a 65 year old male with history of ESRD on HD (makes urine and voids daily), BPH, previous ESBL E coli UTI who presented here today for several days of difficulty urinating and suprapubic tenderness. ambulatory dysfunction uses wheel
chair. He denies fever, chills, headache, sore throat, chest pain, palpitations, cough, shortness of breath, nausea, vomiting, diarrhea. Also with hypotension on midodrine 15 mg PO TID and droxidopa 200 mg PO AC
Since arrival here he has been afebrile, bp overall stable, wbc 7.2, hgb 8.1, plt 201, no L shift, na 133, cr 6.3, K 4.9, UA >100 WBC/hpf, no imaging done, urine culture in progress, 07/27 urine culture ESBL E coli, Lyles catheter was placed and 340
ccs of purulent urine were drained, patient is currently on meropenem, ID is consulted for assistance with management.
Past History
Additional Past Medical History:
Chronic Hypoxic Respiratory Failure
COPD chronic 4 L nasal cannula
Pulmonary Hypertension
Coronary Artery Disease s/p Stents
Chronic Heart Failure EF 45% July 2025
Severe TR, pulm HTN
Paroxysmal Atrial Fibrillation
Diabetes Mellitus, Type II - Insulin Dependent
ESRD Monday
Anemia of Chronic Disease
Orthostatic Hypotension
Obstructive Sleep Apnea
Seizure Disorder
Hypothyroidism
BPH
Additional Past Surgical History:
Left Thoracentesis
Bariatric Surgery
Hernia Repair
Left AV Fistula
Allergy History:
cephalexin Allergy (Verified 10/17/25 09:06)
Hives
Medications Reviewed: Yes
Social History
Tobacco: Non-Smoker
Alcohol: None
Drug: None
Family History
Family History: Not Pertinent
Review of Systems
Review of Systems
A 12 point ROS was completed and negative except as noted: Yes
Constitutional: Reports Other (Lethargic but arousable); Denies Fever or Chills
EENT: Denies Sore Throat or Runny Nose
Respiratory: Reports Other (Chronic 4 L nasal cannula infusing); Denies Cough
Cardiac: Denies Chest Pain, Diaphoresis, Palpitations or Syncope
Abdomen/GI: Reports Abdominal Pain (Suprapubic tenderness prior to Lyles catheter insertion due to urinary retention); Denies Nausea, Vomiting, Diarrhea, Constipated, Bloody Stools or Black Stools
: Reports Difficulty Voiding and Urgency
Musculoskeletal: Reports Edema (Trace bilateral with underlying PVD changes bilateral legs, 2 small ulcerations present left anterior elizabeth on admission); Denies Joint Pain
Skin: Reports Other (Trace bilateral with underlying PVD changes bilateral legs, 2 small ulcerations present left anterior elizabeth on admission); Denies Itching or Rash
Neurological: Denies Dizzy or Headache
Endocrine: Reports No Symptoms
Hematologic/Lymphatic: Reports No Symptoms
Psych: Reports Calm
Vital Signs
Temp Pulse Resp BP Pulse Ox
98.2 F 70 16 97/57 100
10/17/25 09:06 10/17/25 16:00 10/17/25 16:00 10/17/25 16:00 10/17/25 16:00
Physical Exam
Physical Exam
Constitutional: No Acute Distress and Chronically Ill
Cardiovascular: Regular Rate and S1/S2; Negative Murmur or Rub
Pulmonary: Clear and Symmetric; Negative Wheezes, Rales or Rhonchi
Gastrointestinal: Soft, Non Tender, Non Distended and Normal Bowel Sounds
Genito-Urinary: Suprapubic Tenderness, CVA Tenderness (L side) and Other (urine is milky rudolph)
Skin: Warm and Dry; Negative Rash or Jaundice
Lab / Diagnostic Study Results
10/17/25 11:37
10/17/25 11:37
Abs Immat Gran (auto) 0.0 10^3/uL (0-0.05) 10/17/25 11:37
Absolute Neuts (auto) 5.3 10^3/uL (1.4-6.5) 10/17/25 11:37
Absolute Lymphs (auto) 0.9 10^3/uL (1.2-3.4) L 10/17/25 11:37
Absolute Monos (auto) 0.9 10^3/uL (0.1-0.6) H 10/17/25 11:37
Absolute Basos (auto) 0.0 10^3/uL (0-0.2) 10/17/25 11:37
Immature Gran % 0.6 % (0-0.5) H 10/17/25 11:37
Neutrophils % 73.3 % (42.2-75.2) 10/17/25 11:37
Lymphocytes % 12.4 % (20.5-51.1) L 10/17/25 11:37
Monocytes % 12.0 % (1.7-9.3) H 10/17/25 11:37
Eosinophils % 1.4 % (0-6) 10/17/25 11:37
Basophils % 0.3 % (0-2) 10/17/25 11:37
Ur Squamous Epith Cells /LPF (Few) 10/17/25 09:45
Microbiology Results
Micro:
10/17/25 09:45 Urine Culture - Pending
Urine
Assessment / Plan
Probable UTI
Colonization with ESBL E coli
ESRD on HD
Seizure Disorder on lacosamide
History of hives with cephalexin
- urine culture is in progress
- no need for blood cultures from ID perspective
- recent colonization with ESBL forming E coli
- agree with meropenem 1 gm q24 hours given concern for ESBL
--- NOTE | 2025-10-17 16:47 | EDRN ---
Amy RN is performing admission history in room at this time. Pt has requested to go to admission bed in w/c and will go up when admission history is done.
[2025-10-17] MEDS: DUONEB INH (17:48)
[2025-10-17 17:57] LABS: Glucose - Point of Care 129 mg/dl (70-99)
[2025-10-17] MEDS: NOVOLOG FLEXPEN-LOW RESISTANCE SC (17:57)
[2025-10-17] MEDS: TESSALON PERLES 100 MG PO ×2 (18:00→21:29)
[2025-10-17] MEDS: CRESTOR 40 MG PO (18:00)
[2025-10-17] MEDS: ROXICODONE 5 MG PO (18:00)
--- NOTE | 2025-10-17 18:00 | PTCARENOTE ---
Patient admitted to 2129 from ED on contact precautions for hx ESBL. Patient assist x1 with RW OOB to chair, VSS, on 4L NC chronically with BIPAP HS. Lyles for retention placed in ED, draining brown/rudolph blood tinged milky urine output. Red/brown
legs, +pedals, L elizabeth abrasion covered in foam, Desenex ordered for MASD scrotum/groin. Wound care consult in place. Diet in place, accucheck 129. Patient medicated with one time order of 5mg PO oxy for all over body pain and suprapubic tenderness -
see JAN. Patient oriented to room and call byrne, ringing appropriately. HD session in AM, patient aware.
[2025-10-17] MEDS: PHOSLO 667 MG PO (18:03)
[2025-10-17] MEDS: DROXIDOPA 200 MG PO (18:08)
[2025-10-17] MEDS: DUONEB 3 ML INH (19:55)
[2025-10-17] MEDS: DESENEX/MITRAZOL/ZEASORB 1 APPLIC TOPICAL (20:08)
[2025-10-17] MEDS: VIMPAT 50 MG PO (20:08)
[2025-10-17] MEDS: ELIQUIS 5 MG PO (20:08)
[2025-10-17] MEDS: PEPCID 20 MG PO (20:08)
[2025-10-17 22:10] LABS: Glucose - Point of Care 253 mg/dl (70-99)
[2025-10-17] MEDS: LANTUS 0.05 UNITS SC (22:34)
[2025-10-18] MEDS: MELATONIN 5 MG PO (01:12)
[2025-10-18] MEDS: TYLENOL 650 MG PO (01:12)
[2025-10-18] MEDS: DUONEB 3 ML INH ×5 (01:25→19:46)
[2025-10-18 01:29] VITALS: PULSE 2; PULSE 70
[2025-10-18 06:00] VITALS: BMI 33.3
[2025-10-18] MEDS: SYNTHROID 25 MCG PO (06:13)
[2025-10-18 08:23] VITALS: BP 99/57
[2025-10-18 08:29] LABS: Glucose - Point of Care 241 mg/dl (70-99)
[2025-10-18 08:37] LABS: Hematocrit 25.0 % (39.0-52.0); Hemoglobin 7.8 g/dL (13.0-18.0); Mean Corp Hgb Conc. 31.2 g/dL (33.0-37.0); Mean Corpuscular Volume 97.3 fL (80.0-94.0); Nucleated Red Blood Cells % 0 % (-); Platelet Count 217 10^3/uL (130-400); Red Cell Dist. Width 16.3 % (11.5-14.5)
[2025-10-18] MEDS: MANNITOL 25% 12.5 GRAMS IV ×2 (08:50→09:54)
[2025-10-18] MEDS: RETACRIT 10000 UNITS IV (09:09)
[2025-10-18] MEDS: FLEXBUMIN 25% FOR HEMODIALYSIS 12.5 GRAMS IV ×2 (09:09→09:54)
[2025-10-18 09:17] LABS: ALT (SGPT) 15 U/L (0-50); AST (SGOT) 20 U/L (17-59); Albumin 3.9 g/dl (3.5-5.0); Alkaline Phosphatase 121 U/L (38-126); Blood Urea Nitrogen 79 mg/dl (9-20); Calcium 8.6 mg/dl (8.4-10.2); Carbon Dioxide 22 mmol/L (22-30); Chloride 97 mmol/L (98-107); Estimated Creatinine Clearance 13 ml/min; Glucose 221 mg/dl (70-99); Magnesium 2.2 mg/dl (1.6-2.3); Potassium 5.2 mmol/L (3.5-5.1); Sodium 134 mmol/L (135-145); Total Protein 7.4 g/dl (6.3-8.2); eGFR 7.26
[2025-10-18] MEDS: NOVOLOG FLEXPEN-LOW RESISTANCE 2 UNITS SC (09:17)
--- NOTE | 2025-10-18 11:56 | W.PN.NEPH.HD ---
Assessment
-
pt seen during HD
vitals stable on Droxydopa and midodrine
UF as tolerates
AVF functions fine
abx per ID
Progress Note - Hemodialysis
-
Date of Service: October 18, 2025
Duration: 30 minutes and 3 hours
Potassium Bath: 2
Calcium Bath: 2.5
Opti-Dialyzer: 160
Ultrafiltration: Other (1.5-2.5)
Blood Flow: 400
Dialysate Flow: 600
Heparin: no
EPO: [id number]
--- NOTE | 2025-10-18 12:12 | W.PN.HOSP.TC ---
Today's Communication/Plan
-
Dialysis
Antibiotics
Follow-up cultures
X-ray
Assessment / Plan
Assessment / Plan
Physical Exam
General: AAO x 3) and Obese; No Fever or Chills
HEENT: NormoCephalic, Anicteric, Moist mucous membranes, PERRLA, [place] Conjunctivae and No Ptosis
Respiratory: Clear; No Wheezes, Rales or Rhonchi
Cardiac: S1/S2, Regular Rhythm and Peripheral Edema (Trace bilateral with underlying PVD changes bilateral legs, 2 small ulcerations present left anterior elizabeth on admission); No Murmur, Rub or Gallop
Breast: Deferred by me
GI: Soft, Non Tender, Non Distended, Normal Bowel Sounds and No Hepatosplenomegaly
Rectal: Deferred by Provider
Genito-urinary: Lyles
Musculoskeletal: No Clubbing, No Cyanosis, Edema, Left Lower Extremity (Trace bilateral with underlying PVD changes bilateral legs, 2 small ulcerations present left anterior elizabeth on admission) and Edema, Right Lower Extremity (Trace bilateral with
underlying PVD changes bilateral legs,); No Edema, Left Upper Extremity or Edema, Right Upper Extremity
Skin: Warm, Dry and Other (AV fistula left upper extremity positive thrill); No Rash
Neuro: No Motor Deficits, Nonfocal/grossly intact, Cranial Nerves Intact, No Sensory Deficits; No Slurred Speech, Facial Droop, Tremors or Sedated
Psych: Calm
#Acute urinary retention requiring Lyles catheter
#Catheter associated UTI
� Lyles exchanged in ED
#Colonization with ESBL E. coli
- IV meropenem
� Follow-up cultures
� ID consulted
Follow CBC, CMP
#ESRD MOWEFR- missed dialysis
#Hyperkalemia
Left upper extremity AV fistula positive thrill
- HD
- Continue calcium acetate 667 mg before meals
#Shortness of breath
� Suspect secondary to volume overload in setting of missed dialysis
� X-ray today
� Monitor with HD
#Hyponatremia
� Most likely secondary volume overload
� Continue to monitor with HD
#PVD with chronic ulcerations left lower anterior elizabeth present on admission
- wound care
# History of orthostatic hypotension
On droxidopa/midodrine
#Anemia of chronic disease/ESRD/macrocytic anemia
- appears baseline for patient no active bleeding
#Chronic hypoxic respiratory failure secondary to COPD on 4 L nasal cannula
#History of recent pleural effusion did not require drainage September 2024
- Continue supportive O2
- Continue inhalers as needed
#Paroxysmal A-fib
Patient currently sinus rhythm
-Patient on Eliquis
#Chronic CHF/cardiomyopathy
#Severe TR
-Follows with [facility]
2D echo 07/29/2025 EF 45% mild LVH with septal contraction abnormalities multiple regional wall abnormalities; Severe tricuspid regurg PASP 62 mmHg
#Pulm HTN
f/u outpt
#History of seizure disorder
Continue lacosamide
#Hypothyroidism
-Continue levothyroxine
#CAD status post stent
Continue Plavix 75 mg daily, rosuvastatin 40 mg every afternoon
#DM 2
Accu-Cheks with SSI, check HgbA1c
Insulin glargine U100 5 units SQ at bedtime and sliding scale insulin
#GERD
Continue Pepcid 20 mg twice daily
#Chronic constipation
Continue MiraLAX 17 g daily, senna as needed
#ALVIN
BiPAP 18/10
#Insomnia
Melatonin 5 mg at bedtime as needed
#Class II obesity�BMI 33.9
Affects all aspects of care
ADA diet
DVT prophylaxis
Continue [employer] Eliquis
Full code
Anticipated Discharge: 24 - 48 hours
Subjective/Interval History
-
Date of Service: October 18, 2025
No acute events overnight, urinary symptoms have improved
Objective Data
-
Labs:
Laboratory Results
10/18/25
06:00
WBC 8.5
Hgb 7.8 L
Hct 25.0 L
Plt Count 217
Sodium 134 L
Potassium 5.2 H
Chloride 97 L
Carbon Dioxide 22
BUN 79 H
Creatinine 7.7 H*
Glucose 221 H
Calcium 8.6
Total Bilirubin 0.9
AST 20
ALT 15
Alkaline Phosphatase 121
Vital Signs:
Vital Signs
Temp Pulse Resp BP Pulse Ox
98.2 F 73 18 99/57 96
10/18/25 08:23 10/18/25 11:22 10/18/25 11:22 10/18/25 08:23 10/18/25 11:22
I&O
10/17/25 10/18/25 10/19/25
06:59 06:59 06:59
Intake Total 560 / 560
Output Total 350 / 350
Balance 210 / 210
Review of Systems
-
History Source: Patient
All other systems: Not reviewed unless documented
Data Reviewed
-
Labs: Labs Reviewed by me
[2025-10-18 12:20] LABS: Glucose - Point of Care 135 mg/dl (70-99)
[2025-10-18] MEDS: PHOSLO PO (12:27)
[2025-10-18] MEDS: DROXIDOPA PO (12:27)
[2025-10-18] MEDS: NOVOLOG FLEXPEN-LOW RESISTANCE SC (12:30)
[2025-10-18] MEDS: MIRALAX 17 GRAMS PO (12:47)
[2025-10-18] MEDS: TESSALON PERLES 100 MG PO ×3 (12:48→20:32)
[2025-10-18] MEDS: ELIQUIS 5 MG PO ×2 (12:48→20:27)
[2025-10-18] MEDS: DROXIDOPA 200 MG PO ×2 (12:48→17:02)
[2025-10-18] MEDS: PEPCID 20 MG PO ×2 (12:48→20:27)
[2025-10-18] MEDS: VIMPAT 50 MG PO ×2 (12:48→20:28)
[2025-10-18] MEDS: VITAMIN D3 (cholecalciferol) 50 MCG PO (12:48)
[2025-10-18] MEDS: COLACE 100 MG PO (12:48)
[2025-10-18] MEDS: PLAVIX 75 MG PO (12:48)
[2025-10-18] MEDS: DESENEX/MITRAZOL/ZEASORB 1 APPLIC TOPICAL ×2 (12:49→20:31)
[2025-10-18] MEDS: PHOSLO 667 MG PO ×2 (12:51→17:02)
[2025-10-18] MEDS: STERILE WATER FOR INJECTION 20 ML IV (15:02)
[2025-10-18] MEDS: MERREM 1000 MG IV (15:03)
[2025-10-18 15:35] VITALS: BP 104/58
--- NOTE | 2025-10-18 15:59 | W.PN.ID1 ---
Date of Service
Date of Service: October 18, 2025
Today's Communication
continue meropenem
Assessment / Plan
Probable UTI
Colonization with ESBL E coli
ESRD on HD
Seizure Disorder on lacosamide
History of hives with cephalexin
Chronic hypotension on droxydopa and midodrine
- urine culture is in progress - E coli awaiting sensitivities - suspect also ESBL
- urine is grossly purulent would maintain kruse for drainage at this time
- no need for blood cultures from ID perspective
- recent colonization with ESBL forming E coli
- agree with meropenem 1 gm q24 hours given concern for ESBL
Chief Complaint
-: UTI
Subjective / Review of Systems
afebrile
bp overall stable
Vital Signs / Physical Exam
Vital Signs
Vital Signs
Temp Pulse Resp BP Pulse Ox
98.2 F 80 16 99/57 94
10/18/25 08:23 10/18/25 15:03 10/18/25 15:03 10/18/25 08:23 10/18/25 15:03
Physical Exam
Constitutional: No Acute Distress
Cardiovascular: Regular Rate and S1/S2; Negative Murmur or Rub
Pulmonary: Clear and Symmetric; Negative Wheezes or Rales
Gastrointestinal: Soft, Non Tender, Non Distended and Normal Bowel Sounds
Skin: Warm and Dry; Negative Rash or Jaundice
Lines: Other (urine is grossly purulent)
Objective Data
Lab Data
Lab Results
10/18/25 06:00
10/18/25 06:00
Estimated Creat Clear 13 ml/min 10/18/25 06:00
Total Bilirubin 0.9 mg/dl (0.2-1.3) 10/18/25 06:00
AST 20 U/L (17-59) 10/18/25 06:00
ALT 15 U/L (0-50) 10/18/25 06:00
Alkaline Phosphatase 121 U/L (38-126) 10/18/25 06:00
Most recent labs reviewed.
Micro Results:
10/17/25 09:45 Urine Culture - Preliminary
Urine Escherichia coli
10/17/25 17:28 MRSA Screen - Pending
Nose
[2025-10-18 16:09] VITALS: PULSE 70; O2SAT 97
[2025-10-18] MEDS: CRESTOR 40 MG PO (17:01)
[2025-10-18] MEDS: NOVOLOG FLEXPEN-LOW RESISTANCE 1 UNITS SC (17:08)
[2025-10-18 17:11] LABS: Glucose - Point of Care 186 mg/dl (70-99)
[2025-10-18 18:13] LABS: Hepatitis B Surface Antigen Negative (Negative)
[2025-10-18] MEDS: LANTUS 0.05 UNITS SC (21:41)
[2025-10-18 21:45] VITALS: PULSE 2; PULSE 72
[2025-10-18 22:23] LABS: Glucose - Point of Care 155 mg/dl (70-99)
[2025-10-18 23:08] VITALS: BP 98/53
[2025-10-18 23:50] VITALS: BMI 33.3
[2025-10-19] MEDS: SYNTHROID 25 MCG PO (05:20)
[2025-10-19 05:25] VITALS: BMI 32.6
[2025-10-19 05:48] VITALS: BP 123/67
[2025-10-19 07:25] LABS: Glucose - Point of Care 133 mg/dl (70-99)
[2025-10-19 07:50] VITALS: BP 108/65
[2025-10-19] MEDS: DUONEB 3 ML INH ×4 (08:26→19:12)
[2025-10-19] MEDS: NOVOLOG FLEXPEN-LOW RESISTANCE SC (09:06)
[2025-10-19] MEDS: MIRALAX 17 GRAMS PO (09:09)
[2025-10-19] MEDS: PLAVIX 75 MG PO (09:10)
[2025-10-19] MEDS: PHOSLO 667 MG PO ×3 (09:10→18:13)
[2025-10-19] MEDS: PEPCID 20 MG PO ×2 (09:10→21:34)
[2025-10-19] MEDS: TESSALON PERLES 100 MG PO ×3 (09:10→21:34)
[2025-10-19] MEDS: VIMPAT 50 MG PO ×2 (09:10→21:34)
[2025-10-19] MEDS: COLACE 100 MG PO (09:10)
[2025-10-19] MEDS: ELIQUIS 5 MG PO ×2 (09:10→21:34)
[2025-10-19] MEDS: DROXIDOPA 200 MG PO ×3 (09:10→18:12)
[2025-10-19] MEDS: DESENEX/MITRAZOL/ZEASORB 1 APPLIC TOPICAL ×2 (09:11→21:34)
[2025-10-19] MEDS: VITAMIN D3 (cholecalciferol) 50 MCG PO (09:11)
[2025-10-19 10:26] LABS: Hematocrit 29.0 % (39.0-52.0); Hemoglobin 9.0 g/dL (13.0-18.0); Mean Corp Hgb Conc. 31.0 g/dL (33.0-37.0); Mean Corpuscular Volume 99.3 fL (80.0-94.0); Nucleated Red Blood Cells % 0 % (-); Platelet Count 227 10^3/uL (130-400); Red Cell Dist. Width 16.4 % (11.5-14.5)
[2025-10-19 11:44] LABS: ALT (SGPT) 14 U/L (0-50); AST (SGOT) 21 U/L (17-59); Albumin 4.1 g/dl (3.5-5.0); Alkaline Phosphatase 131 U/L (38-126); Blood Urea Nitrogen 49 mg/dl (9-20); Calcium 8.5 mg/dl (8.4-10.2); Carbon Dioxide 23 mmol/L (22-30); Chloride 92 mmol/L (98-107); Estimated Creatinine Clearance 18 ml/min; Glucose 172 mg/dl (70-99); Potassium 4.3 mmol/L (3.5-5.1); Sodium 132 mmol/L (135-145); Total Protein 7.7 g/dl (6.3-8.2); eGFR 11.36
[2025-10-19 12:10] LABS: Glucose - Point of Care 172 mg/dl (70-99)
--- NOTE | 2025-10-19 12:12 | W.PN.ID1 ---
Date of Service
Date of Service: October 19, 2025
Today's Communication
- midline
- c/w meropenem 1 gm q24 hours x 2 weeks 10/17-10/30
Assessment / Plan
Probable UTI
Colonization with ESBL E coli
ESRD on HD
Seizure Disorder on lacosamide
History of hives with cephalexin
Chronic hypotension on droxydopa and midodrine
- urine culture ESBL E coli
- no need for blood cultures from ID perspective
- recent colonization with ESBL forming E coli
- CXR with chronic changes
- midline
- c/w meropenem 1 gm q24 hours x 2 weeks 10/17-10/30
Chief Complaint
-: UTI
Subjective / Review of Systems
afebrile
bp stable
no events overnight
scant urine in the kruse now serosanguinous
Vital Signs / Physical Exam
Vital Signs
Vital Signs
Temp Pulse Resp BP Pulse Ox
97.8 F 77 18 108/65 96
10/19/25 07:50 10/19/25 11:32 10/19/25 11:32 10/19/25 07:50 10/19/25 11:32
Physical Exam
Constitutional: No Acute Distress
Cardiovascular: Regular Rate and S1/S2; Negative Murmur or Rub
Pulmonary: Clear and Symmetric; Negative Wheezes or Rales
Gastrointestinal: Soft, Non Tender, Non Distended and Normal Bowel Sounds
Skin: Warm and Dry; Negative Rash or Jaundice
Objective Data
Lab Data
Lab Results
10/19/25 08:46
10/19/25 08:46
Estimated Creat Clear 18 ml/min 10/19/25 08:46
Total Bilirubin 0.8 mg/dl (0.2-1.3) 10/19/25 08:46
AST 21 U/L (17-59) 10/19/25 08:46
ALT 14 U/L (0-50) 10/19/25 08:46
Alkaline Phosphatase 131 U/L (38-126) H 10/19/25 08:46
Most recent labs reviewed.
Micro Results:
10/17/25 09:45 Urine Culture - Final
Urine Escherichia coli - ESBL
10/17/25 17:28 MRSA Screen - Preliminary
Nose
Organism 1 Escherichia coli - ESBL
1. Escherichia coli - ESBL
M.I.C. RX
--------- ---
Amoxicillin/Potas. Clavulanate <=8/4 S
Ampicillin >16 R
Ampicillin/Sulbactam 8/4 S
Aztreonam >16 R
Cefazolin >16 R
Cefepime 16 R
Ceftazidime >16 R
Ceftriaxone >2 R
Ertapenem <=0.5 S
Ciprofloxacin >2 R
Gentamicin <=2 S
Meropenem <=1 S
Nitrofurantoin-Urine Only <=32 S
Piperacillin/Tazobactam <=8 S
Tetracycline >8 R
Tobramycin <=2 S
Trimethoprim/Sulfamethoxazole >2/38 R
Chest X-Ray: Image Reviewed and Report Reviewed (stable moderate right pleural effusion with atelectasis)
--- NOTE | 2025-10-19 12:19 | W.PN.HOSP.TC ---
Today's Communication/Plan
-
Abx course
dispo planning with infusion sheet as per ID
Assessment / Plan
Assessment / Plan
Physical Exam
General: AAO x 3) and Obese; No Fever or Chills
HEENT: NormoCephalic, Anicteric, Moist mucous membranes, PERRLA, [place] Conjunctivae and No Ptosis
Respiratory: Clear; No Wheezes, Rales or Rhonchi
Cardiac: S1/S2, Regular Rhythm and Peripheral Edema (Trace bilateral with underlying PVD changes bilateral legs, 2 small ulcerations present left anterior elizabeth on admission); No Murmur, Rub or Gallop
Breast: Deferred by me
GI: Soft, Non Tender, Non Distended, Normal Bowel Sounds and No Hepatosplenomegaly
Rectal: Deferred by Provider
Genito-urinary: Lyles
Musculoskeletal: No Clubbing, No Cyanosis, Edema, Left Lower Extremity (Trace bilateral with underlying PVD changes bilateral legs, 2 small ulcerations present left anterior elizabeth on admission) and Edema, Right Lower Extremity (Trace bilateral with
underlying PVD changes bilateral legs,); No Edema, Left Upper Extremity or Edema, Right Upper Extremity
Skin: Warm, Dry and Other (AV fistula left upper extremity positive thrill); No Rash
Neuro: No Motor Deficits, Nonfocal/grossly intact, Cranial Nerves Intact, No Sensory Deficits; No Slurred Speech, Facial Droop, Tremors or Sedated
Psych: Calm
#Acute urinary retention requiring Lyles catheter
#Catheter associated UTI
� Lyles exchanged in ED
- ESBL E. coli
- IV meropenem - will need to dc on this
� ID consulted
#ESRD MOWEFR- missed dialysis
#Hyperkalemia
Left upper extremity AV fistula positive thrill
- HD
- Continue calcium acetate 667 mg before meals
#Shortness of breath
� Suspect secondary to volume overload in setting of missed dialysis - improvd after HD
� X-ray - Stable moderate left pleural effusion with associated atelectasis and/or pneumonia - has been chronic as per patient; suspect worsened with missing HD - continue HD as scheduled
� Monitor with HD
#Hyponatremia
� Most likely secondary volume overload
� Continue to monitor with HD
#PVD with chronic ulcerations left lower anterior elizabeth present on admission
- wound care
# History of orthostatic hypotension
On droxidopa/midodrine
#Anemia of chronic disease/ESRD/macrocytic anemia
- appears baseline for patient no active bleeding
#Chronic hypoxic respiratory failure secondary to COPD on 4 L nasal cannula
#History of recent pleural effusion did not require drainage September 2024
- Continue supportive O2
- Continue inhalers as needed
#Paroxysmal A-fib
Patient currently sinus rhythm
-Patient on Eliquis
#Chronic CHF/cardiomyopathy
#Severe TR
-Follows with [facility]
2D echo 07/29/2025 EF 45% mild LVH with septal contraction abnormalities multiple regional wall abnormalities; Severe tricuspid regurg PASP 62 mmHg
#Pulm HTN
f/u outpt
#History of seizure disorder
Continue lacosamide
#Hypothyroidism
-Continue levothyroxine
#CAD status post stent
Continue Plavix 75 mg daily, rosuvastatin 40 mg every afternoon
#DM 2
Accu-Cheks with SSI, check HgbA1c
Insulin glargine U100 5 units SQ at bedtime and sliding scale insulin
#GERD
Continue Pepcid 20 mg twice daily
#Chronic constipation
Continue MiraLAX 17 g daily, senna as needed
#ALVIN
BiPAP 18/10
#Insomnia
Melatonin 5 mg at bedtime as needed
#Class II obesity�BMI 33.9
Affects all aspects of care
ADA diet
DVT prophylaxis
Continue [employer] Eliquis
Full code
Anticipated Discharge: Within 24 hours
Subjective/Interval History
-
Date of Service: October 19, 2025
no acute events overnight; dyspnea improved
Objective Data
-
Labs:
Laboratory Results
10/19/25
08:46
WBC 7.8
Hgb 9.0 L
Hct 29.0 L
Plt Count 227
Sodium 132 L
Potassium 4.3
Chloride 92 L
Carbon Dioxide 23
BUN 49 H
Creatinine 5.3 H*
Glucose 172 H
Calcium 8.5
Total Bilirubin 0.8
AST 21
ALT 14
Alkaline Phosphatase 131 H
Vital Signs:
Vital Signs
Temp Pulse Resp BP Pulse Ox
97.8 F 77 18 108/65 96
10/19/25 07:50 10/19/25 11:32 10/19/25 11:32 10/19/25 07:50 10/19/25 11:32
I&O
10/18/25 10/19/25 10/20/25
06:59 06:59 06:59
Intake Total 560 / 560 1120 / 1120
Output Total 350 / 350 75 / 75
Balance 210 / 210 1045 / 1045
Review of Systems
-
History Source: Patient
All other systems: Not reviewed unless documented
Physical Exam
-
General: Well Developed, Well Nourished, Comfortable, Respiratory Distress (chronic), Conversant and Obese
HEENT: Normocephalic, Atraumatic and Oxygen (4L NC)
Respiratory: Clear to Auscultation and Non Labored Respirations; Negative Accessory Resp Muscle Use
Cardiac: Regular Rhythm and S1/S2
GI: Soft, Nontender, Nondistended and Normal Bowel Sounds
Neuro: Awake and Alert
Psych: Calm and Intact Judgement/Insight
Data Reviewed
-
Diagnostic Radiology: Report Reviewed by me
Labs: Labs Reviewed by me
--- NOTE | 2025-10-19 13:03 | W.PN.NEPH.PH ---
Today's Communication / Plan
-
If still here HD tomorrow
Assessment/Plan
-
Assessment
Acute urinary retention requiring Kruse catheter
#Hx ESBL
ESRD MOWEFR-from [facility]
Left upper extremity AV fistula positive thrill
PVD with chronic ulcerations left lower anterior elizabeth present on admission
Orthostatic hypotension-On droxidopa/midodrine
Anemia of chronic disease
Chronic hypoxic respiratory failure secondary to COPD on 4 L nasal cannula
History of recent pleural effusion did not require drainage September 2024
Paroxysmal A-fib
Chronic CHF/cardiomyopathy
Severe TR
2D echo 07/29/2025 EF 45% mild LVH with septal contraction abnormalities multiple regional wall abnormalities
Mild MR dilated left atrium
Dilated and hypokinetic right ventricle mildly dilated right atrium
Severe tricuspid regurg PASP 62 mmHg
Pulm HTN
History of seizure disorder
Hypothyroidism
CAD status post stent
DM 2
GERD
Chronic constipation
ALVIN -BiPAP 30/08
Insomnia
Class II obesity�BMI 33.9
Plan:
A/w U retention, s/p kruse suspect UTI, known h/o ESBL
Hemodynamically stable
Metabolic parameters acceptable
Orthostatic hypotension on midodrine and droxy dopa
Continue calcium acetate for hyperphosphatemia
Renal diet and fluid restriction
Antibiotics per ID
d/c plan
-
-
Date of Service: October 19, 2025
CC / HPI / ROS
-
Chief Complaint:
ESRD
History of Present Illness:
ESRD Monday
Hemodynamically stable on midodrine support 15mg TID, DroxyDopa
Review of Systems:
Weights down
No fever
does not want to talk
toelrating diet
Labs
-
Labs:
WBC 7.8 10^3/uL (4.8-10.8) 10/19/25 08:46
RBC 2.92 10^6/uL (4.70-6.10) L 10/19/25 08:46
Hgb 9.0 g/dL (13.0-18.0) L 10/19/25 08:46
Hct 29.0 % (39.0-52.0) L 10/19/25 08:46
Plt Count 227 10^3/uL (130-400) 10/19/25 08:46
Sodium 132 mmol/L (135-145) L 10/19/25 08:46
Potassium 4.3 mmol/L (3.5-5.1) 10/19/25 08:46
Chloride 92 mmol/L (98-107) L 10/19/25 08:46
Carbon Dioxide 23 mmol/L (22-30) 10/19/25 08:46
BUN 49 mg/dl (9-20) H 10/19/25 08:46
Creatinine 5.3 mg/dL (0.7-1.3) H* 10/19/25 08:46
eGFR 11.36 10/19/25 08:46
Glucose 172 mg/dl (70-99) H 10/19/25 08:46
Calcium 8.5 mg/dl (8.4-10.2) 10/19/25 08:46
Phosphorus 8.5 mg/dl (2.5-4.5) H 10/18/25 06:00
Albumin 4.1 g/dl (3.5-5.0) 10/19/25 08:46
Physical Exam
-
Vital Signs:
Vital Signs
Temp Pulse Resp BP Pulse Ox
97.8 F 77 18 108/65 96
10/19/25 07:50 10/19/25 11:32 10/19/25 11:32 10/19/25 07:50 10/19/25 11:32
Cardiovascular:: Regular rate and rhythm
Respiratory:: Bilateral: CTA
Lung Excursion:: Normal
Abdomen:: Nontender and Soft
Extremity Edema:: None: Bilateral:
Kruse Catheter: Yes
[2025-10-19] MEDS: STERILE WATER FOR INJECTION 20 ML IV (14:05)
[2025-10-19] MEDS: MERREM 1000 MG IV (14:05)
[2025-10-19] MEDS: NOVOLOG FLEXPEN-LOW RESISTANCE 1 UNITS SC ×2 (14:05→18:13)
[2025-10-19 15:13] VITALS: BP 131/86
[2025-10-19 17:30] LABS: Glucose - Point of Care 179 mg/dl (70-99)
[2025-10-19] MEDS: CRESTOR 40 MG PO (18:13)
[2025-10-19] MEDS: LANTUS 0.05 UNITS SC (21:36)
[2025-10-19 22:02] LABS: Glucose - Point of Care 146 mg/dl (70-99)
[2025-10-19 22:06] VITALS: PULSE 2; PULSE 70
[2025-10-19 23:14] VITALS: BP 133/73
[2025-10-20 05:22] LABS: Hematocrit 27.7 % (39.0-52.0); Hemoglobin 8.3 g/dL (13.0-18.0); Mean Corp Hgb Conc. 30.0 g/dL (33.0-37.0); Mean Corpuscular Volume 101.5 fL (80.0-94.0); Nucleated Red Blood Cells % 0 % (-); Platelet Count 238 10^3/uL (130-400); Red Cell Dist. Width 16.7 % (11.5-14.5)
[2025-10-20 05:50] LABS: ALT (SGPT) 13 U/L (0-50); AST (SGOT) 20 U/L (17-59); Albumin 4.0 g/dl (3.5-5.0); Alkaline Phosphatase 128 U/L (38-126); Blood Urea Nitrogen 66 mg/dl (9-20); Calcium 8.8 mg/dl (8.4-10.2); Carbon Dioxide 24 mmol/L (22-30); Chloride 94 mmol/L (98-107); Estimated Creatinine Clearance 14 ml/min; Glucose 139 mg/dl (70-99); Potassium 5.1 mmol/L (3.5-5.1); Sodium 134 mmol/L (135-145); Total Protein 7.5 g/dl (6.3-8.2); eGFR 8.42
[2025-10-20] MEDS: SYNTHROID 25 MCG PO (05:54)
[2025-10-20 06:00] VITALS: BMI 32.8
[2025-10-20] MEDS: DUONEB 3 ML INH ×3 (07:18→19:25)
[2025-10-20 07:51] VITALS: BP 141/76
[2025-10-20] MEDS: VIMPAT 50 MG PO ×2 (07:56→20:15)
[2025-10-20] MEDS: TESSALON PERLES 100 MG PO ×3 (07:56→22:24)
[2025-10-20] MEDS: COLACE 100 MG PO (07:56)
[2025-10-20] MEDS: VITAMIN D3 (cholecalciferol) 50 MCG PO (07:56)
[2025-10-20] MEDS: ELIQUIS 5 MG PO ×2 (07:56→20:15)
[2025-10-20] MEDS: PEPCID 20 MG PO ×2 (07:56→20:15)
[2025-10-20] MEDS: PLAVIX 75 MG PO (07:56)
[2025-10-20] MEDS: DROXIDOPA 200 MG PO ×3 (07:57→17:50)
[2025-10-20] MEDS: PHOSLO PO (07:58)
[2025-10-20] MEDS: MIRALAX 17 GRAMS PO (07:58)
[2025-10-20] MEDS: NOVOLOG FLEXPEN-LOW RESISTANCE SC ×2 (08:13→13:12)
[2025-10-20] MEDS: DESENEX/MITRAZOL/ZEASORB 1 APPLIC TOPICAL ×2 (08:14→20:15)
[2025-10-20 08:40] LABS: Glucose - Point of Care 146 mg/dl (70-99)
[2025-10-20] MEDS: RETACRIT 6000 UNITS IV (09:13)
--- NOTE | 2025-10-20 09:20 | W.PN.NEPH.HD ---
Assessment
-
Patient seen on HD
sbp stable at u/f
Progress Note - Hemodialysis
-
Date of Service: October 20, 2025
Duration: 30 minutes and 3 hours
Potassium Bath: 2
Calcium Bath: 2.5
Opti-Dialyzer: 160
Ultrafiltration: Other
Blood Flow: 400
Dialysate Flow: 600
Heparin: none
EPO: 6000
--- NOTE | 2025-10-20 10:04 | W.PN.HOSP.TC ---
Addendum entered and electronically signed by Nikkie Nguyen MD 10/20/25 17:35:
Addendum
Patient seems lethargic, suspect high pCO2. Ordered BiPAP. Nurse reported abdominal distention and one-time vomiting. Currently, patient denies nausea or abdominal pain upon examination. Will check abdominal x-ray
Will consult pulmonary in a.m.
End
Original Note:
Today's Communication/Plan
-
dc
Assessment / Plan
Assessment / Plan
Physical Exam
General: Obese; No Fever or Chills
HEENT: NormoCephalic, Anicteric, Moist mucous membranes, PERRLA, [place] Conjunctivae and No Ptosis
Respiratory: Clear; No Wheezes, Rales or Rhonchi
Cardiac: S1/S2, Regular Rhythm and Peripheral Edema (Trace bilateral with underlying PVD changes bilateral legs, 2 small ulcerations present left anterior elizabeth on admission); No Murmur, Rub or Gallop
GI: Soft, Non Tender, Non Distended, Normal Bowel Sounds and No Hepatosplenomegaly
Genito-urinary: Lyles
Musculoskeletal: No Clubbing, No Cyanosis, Edema, Left Lower Extremity (Trace bilateral with underlying PVD changes bilateral legs, 2 small ulcerations present left anterior elizabeth on admission) and Edema, Right Lower Extremity (Trace bilateral with
underlying PVD changes bilateral legs,); No Edema, Left Upper Extremity or Edema, Right Upper Extremity
Skin: Warm, Dry and Other (AV fistula left upper extremity positive thrill); No Rash
Neuro: awake, lethargic earlier, getting HD
Psych: Calm
#Acute urinary retention requiring Lyles catheter
#Catheter associated UTI
� Lyles exchanged in ED
- ESBL E. coli
- IV meropenem - will need to dc on this
� ID consulted. Per ID: c/w meropenem 1 gm q24 hours x 2 weeks 10/17-10/30
#ESRD MOWEFR- missed dialysis
#Hyperkalemia
Left upper extremity AV fistula positive thrill
- HD
- Continue calcium acetate 667 mg before meals
#Shortness of breath
� Suspect secondary to volume overload in setting of missed dialysis - improvd after HD
� X-ray - Stable moderate left pleural effusion with associated atelectasis and/or pneumonia - has been chronic as per patient; suspect worsened with missing HD - continue HD as scheduled
� Monitor with HD
#Hyponatremia
� Most likely secondary volume overload
� Continue to monitor with HD
# Hyperkalemia,
d/w HD nurse
#PVD with chronic ulcerations left lower anterior elizabeth present on admission
- wound care
# History of orthostatic hypotension
On droxidopa/midodrine
#Anemia of chronic disease/ESRD/macrocytic anemia
- appears baseline for patient no active bleeding
#Acute on chronic hypoxic/hypercapnic respiratory failure - due to bilateral pulmonary edema, bilateral pleural effusions, underlying COPD
Chronic hypoxic respiratory failure secondary to COPD on 4 L nasal cannula
#History of recent pleural effusion did not require drainage September 2024
- order BI pap this morning
- Continue supportive O2
- Continue inhalers as needed
#Paroxysmal A-fib
Patient currently sinus rhythm
-Patient on Eliquis
#Chronic CHF/cardiomyopathy
#Severe TR
-Follows with [facility]
2D echo 07/29/2025 EF 45% mild LVH with septal contraction abnormalities multiple regional wall abnormalities; Severe tricuspid regurg PASP 62 mmHg
#Pulm HTN
f/u outpt
#History of seizure disorder
Continue lacosamide
#Hypothyroidism
-Continue levothyroxine
#CAD status post stent
Continue Plavix 75 mg daily, rosuvastatin 40 mg every afternoon
#DM 2
Accu-Cheks with SSI, check HgbA1c
Insulin glargine U100 5 units SQ at bedtime and sliding scale insulin
#GERD
Continue Pepcid 20 mg twice daily
#Chronic constipation
Continue MiraLAX 17 g daily, senna as needed
#ALVIN
BiPAP 18/10
#Insomnia
Melatonin 5 mg at bedtime as needed
#Class II obesity�BMI 33.9
Affects all aspects of care
ADA diet
DVT prophylaxis
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
Total time spent to see the patient, examined the patient, reviewed data and lab result, discuss treatment plan with patient, nursing staff around 55 minutes
Anticipated Discharge: Within 24 hours
Subjective/Interval History
-
Date of Service: October 20, 2025
No hx of sob/ chest pain
No fevers
Objective Data
-
Labs:
Laboratory Results
10/20/25
04:35
WBC 8.3
Hgb 8.3 L
Hct 27.7 L
Plt Count 238
Sodium 134 L
Potassium 5.1
Chloride 94 L
Carbon Dioxide 24
BUN 66 H
Creatinine 6.8 H*
Glucose 139 H
Calcium 8.8
Total Bilirubin 0.8
AST 20
ALT 13
Alkaline Phosphatase 128 H
Vital Signs:
Vital Signs
Temp Pulse Resp BP Pulse Ox
98.3 F 72 18 141/76 100
10/20/25 07:51 10/20/25 07:56 10/20/25 07:51 10/20/25 07:56 10/20/25 07:51
I&O
10/19/25 10/20/25 10/21/25
06:59 06:59 06:59
Intake Total 1120 / 1120 820 / 820
Output Total 75 / 75 35 / 35
Balance 1045 / 1045 785 / 785
--- NOTE | 2025-10-20 10:53 | W.PN.ID1 ---
Date of Service
Date of Service: October 20, 2025
Today's Communication
- midline
- c/w meropenem 1 gm q24 hours x 2 weeks 10/17-10/30
- stable for dc from ID perspective
Assessment / Plan
Probable UTI
Colonization with ESBL E coli
ESRD on HD
Seizure Disorder on lacosamide
History of hives with cephalexin
Chronic hypotension on droxydopa and midodrine
- urine culture ESBL E coli
- CXR with chronic changes
- midline
- c/w meropenem 1 gm q24 hours x 2 weeks 10/17-10/30
- stable for dc from ID perspective
Chief Complaint
-: UTI
Subjective / Review of Systems
afebrile
bp stable
no suprapubic tenderness
patient is discouraged and reports lack of trust in the health care system
Vital Signs / Physical Exam
Vital Signs
Vital Signs
Temp Pulse Resp BP Pulse Ox
98.3 F 72 18 141/76 100
10/20/25 07:51 10/20/25 07:56 10/20/25 07:51 10/20/25 07:56 10/20/25 07:51
Physical Exam
Constitutional: No Acute Distress
Cardiovascular: Regular Rate and S1/S2; Negative Murmur or Rub
Pulmonary: Clear and Symmetric; Negative Wheezes or Rales
Gastrointestinal: Soft, Non Tender, Non Distended and Normal Bowel Sounds
Genito-Urinary: Negative Suprapubic Tenderness
Skin: Warm and Dry; Negative Rash or Jaundice
Lines: Other (midline)
Objective Data
Lab Data
Lab Results
10/20/25 04:35
10/20/25 04:35
Estimated Creat Clear 14 ml/min 10/20/25 04:35
Total Bilirubin 0.8 mg/dl (0.2-1.3) 10/20/25 04:35
AST 20 U/L (17-59) 10/20/25 04:35
ALT 13 U/L (0-50) 10/20/25 04:35
Alkaline Phosphatase 128 U/L (38-126) H 10/20/25 04:35
Most recent labs reviewed.
Urine Culture Final 10/19/25-941
CC: Greater than 100,000 CFU/ML Escherichia coli - ESBL*
Isolation Precautions Required
*Resistance due to extended spectrum beta lactamase.
Deacreased activity may occur with penicillins,
penicillin/inhibitor combinations, cephalosporins, and
monobactams.
Organism 1 Escherichia coli - ESBL
1. Escherichia coli - ESBL
M.I.C. RX
--------- ---
Amoxicillin/Potas. Clavulanate <=8/4 S
Ampicillin >16 R
Ampicillin/Sulbactam 8/4 S
Aztreonam >16 R
Cefazolin >16 R
Cefepime 16 R
Ceftazidime >16 R
Ceftriaxone >2 R
Ertapenem <=0.5 S
Ciprofloxacin >2 R
Gentamicin <=2 S
Meropenem <=1 S
Nitrofurantoin-Urine Only <=32 S
Piperacillin/Tazobactam <=8 S
Tetracycline >8 R
Tobramycin <=2 S
Trimethoprim/Sulfamethoxazole >2/38 R
Micro Results:
10/17/25 17:28 MRSA Screen - Final
Nose Staph aureus MRSA
10/17/25 09:45 Urine Culture - Final
Urine Escherichia coli - ESBL
[2025-10-20 12:52] LABS: Glucose - Point of Care 104 mg/dl (70-99)
--- NOTE | 2025-10-20 12:56 | WOUNDNOTE ---
SACRUM (back toward bottom of photo)
--- NOTE | 2025-10-20 12:57 | WOUNDNOTE ---
L THIGH (POSTERIOR MEDIAL)
--- NOTE | 2025-10-20 13:04 | WOUNDNOTE ---
[facility] RN note: Patient admitted with UTI. Lyles placed in ED. [facility]
See H&P for complete history.
PMH: ESRD on HD, enlarge prostate, acute urinary retention, venous insufficiency, hemosiderosis, ambulation dysfunction, uses wheelchair, COPD, anemia, a fib (Eliquis), CHF, CM, pulmonary HTN, seizure disorder, CAD/cardiac stent, L thoracentesis,
bariatric surgery, GERD, chronic constipation, ALVIN (Bipap), obesity.
Wound Location and type/assessment: Patient admitted with: L elizabeth deep dermal venous stasis ulcers, pink with scant yellow fibrin, few scabbed abrasions LLE. Posterior scrotal stage 2 pressure injury patient stated is not new. Heels blanchable red.
Mild groin MASD.
Appetite: Patient hungry for lunch.
Pressure redistribution devices in place: Centrella Max air bed. Patient can turn self in bed.
Plan: LLE dressing changed. Patient incontinent of smear of loose brown stool. Sri care given. Calazime ointment applied to scrotum and perianal skin. Patient turned and pulled up in bed with help from SOUMYA Wilcox. Heels off bed with pillows.
Instructed patient pressure injury prevention measures. Bariatric air chair cushion given.
Updated and confirmed orders with Dr. Nguyen including knee high Andrés wraps as tolerated (may remove q hs); defer to hospitalist if LLE venous Doppler indicated (trace LLE edema, patient on Eliquis) and updated CINTHYA Licea.
Care plan to be updated and will follow as needed.
Recommend follow up at wound care center upon discharge.
[2025-10-20] MEDS: PHOSLO 667 MG PO ×2 (13:19→17:55)
[2025-10-20] MEDS: MERREM 1000 MG IV (13:21)
[2025-10-20] MEDS: STERILE WATER FOR INJECTION 20 ML IV (13:21)
--- NOTE | 2025-10-20 14:27 | PN.CDI ---
Addendum entered and electronically signed by Nikkie Nguyen MD 10/20/25 16:25:
No, UTI is not related to/associated with/due to kruse catheter but due to urinary retention only.
Original Note:
CDI
- -
CDI:
Physician Documentation Request
Admit Date: 10/17/25 14:54
Dear Doctor Wendy,
Clinical Indicators:
Patient presented to ED with difficulty urinating for the past few days with suprapubic tenderness.
10/17 ED report, '...has a history of needing a catheter before, and upon presenting today, he feels like he might need one again.'
10/17 H & P, 'Acute urinary retention requiring Kruse catheter...Kruse catheter inserted in ER'
10/20 PN, '#Catheter associated UTI'
Please clarify the relationship between these conditions:
No, UTI is not related to/associated with/due to kruse catheter but due to urinary retention only.
Yes, UTI is related to/associated with/due to kruse catheter.
Unable to determine
Use of terms such as suspected, likely, concern for, or probable (associated with a specific diagnosis that is being evaluated, monitored, or treated as if it exists) are acceptable and can be coded in the inpatient setting, when documented at the
time of discharge.
Thank you,
JOSE Puentes RN
CDI Specialist
available via tiger text
Please use your independent medical judgment in providing your response.
--- NOTE | 2025-10-20 14:41 | PN.CDI ---
Addendum entered and electronically signed by Nikkie Nguyen MD 10/20/25 16:26:
Acute on chronic HFrEF, POA
Original Note:
CDI
- -
CDI:
Physician Documentation Request
Admit Date: 10/17/25 14:54
Dear Doctor Wendy,
Clinical Indicators:
Patient admitted with acute urinary retention.
10/18 CXR, 'Probable mild CHF'
10/19 PN, 'Shortness of breath� Suspect secondary to volume overload in setting of missed dialysis - improvd after HD...Chronic CHF/cardiomyopathy...2D echo 07/29/2025 EF 45% mild LVH with septal contraction abnormalities...'
10/20 PN,'#Acute on chronic hypoxic/hypercapnic respiratory failure - due to bilateral pulmonary edema, bilateral pleural effusions, underlying COPD'
Please provide further specificity regarding the most likely type and acuity of CHF you are evaluating, treating or monitoring.
Acute on chronic HFrEF, POA
Chronic HFrEF
Other, please specify
Use of terms such as suspected, likely, concern for, or probable (associated with a specific diagnosis that is being evaluated, monitored, or treated as if it exists) are acceptable and can be coded in the inpatient setting, when documented at the
time of discharge.
Thank you,
JOSE Puentes RN
CDI Specialist
available via tiger text
Please use your independent medical judgment in providing your response.
[2025-10-20] MEDS: DUONEB INH (14:55)
--- NOTE | 2025-10-20 15:01 | WOUNDNOTE ---
[facility] RN note: Patient discharged today. Patient ambulatory. Skin on heels intact. Stoma pink and budded with stoma bridge intact. Ostomy functioning for liquid brown stool. Peristomal skin intact. Instructed patient and how to empty and change
appliance using [place] wafer # [id number], Price seal and [place] pouch # [id number]. There was scant effluent moisture along medial edge of removed wafer. Instructed patient how to apply Price seal. Patient stated he's been independent with pouch
emptying. Ostomy supplies and colostomy teaching folder with patient. t/c SPD and ordered more supplies including Price seals. VN to follow patient after discharge. Next appliance change due or Monday.
[2025-10-20 15:24] VITALS: BP 136/41
--- NOTE | 2025-10-20 15:35 | CM ---
CM reviewed chart and pt with ID
Abx script received from ID for ertapenem through 10/30 via midline
Call with [facility] admissions- confirmed acceptance with midline
Abx rx and clinicals sent via [facility]
May take SNF 1-2 days to order abx and have on-site
Pt continues to received bedside HD
Attempted update to pt and sleeping soundly
Discharge Disposition- return [facility] SN[facility] with [facility] HD and ertapenem
--- NOTE | 2025-10-20 16:38 | WOUNDNOTE ---
[facility] RN note: Omid Toure re: recommend an air mattress at SNF if not already in place. Patient has a scrotal stage 2 pressure injury.
[2025-10-20] MEDS: CRESTOR 40 MG PO (17:50)
[2025-10-20 18:10] LABS: Glucose - Point of Care 158 mg/dl (70-99)
[2025-10-20] MEDS: NOVOLOG FLEXPEN-LOW RESISTANCE 1 UNITS SC (18:23)
[2025-10-20] MEDS: SENOKOT 17.2 MG PO (22:24)
[2025-10-20] MEDS: LANTUS 0.05 UNITS SC (22:25)
[2025-10-20 22:30] LABS: Glucose - Point of Care 156 mg/dl (70-99)
[2025-10-20 23:24] VITALS: PULSE 2; PULSE 71
[2025-10-20 23:30] VITALS: BP 139/91
[2025-10-21 05:12] VITALS: BMI 31.7
[2025-10-21 05:23] LABS: Hematocrit 27.4 % (39.0-52.0); Hemoglobin 8.5 g/dL (13.0-18.0); Mean Corp Hgb Conc. 31.0 g/dL (33.0-37.0); Mean Corpuscular Volume 97.9 fL (80.0-94.0); Nucleated Red Blood Cells % 0 % (-); Platelet Count 258 10^3/uL (130-400); Red Cell Dist. Width 16.7 % (11.5-14.5)
[2025-10-21 05:38] LABS: ALT (SGPT) 15 U/L (0-50); AST (SGOT) 23 U/L (17-59); Albumin 4.2 g/dl (3.5-5.0); Alkaline Phosphatase 144 U/L (38-126); Blood Urea Nitrogen 44 mg/dl (9-20); Calcium 9.4 mg/dl (8.4-10.2); Carbon Dioxide 29 mmol/L (22-30); Chloride 92 mmol/L (98-107); Estimated Creatinine Clearance 19 ml/min; Glucose 147 mg/dl (70-99); Potassium 4.3 mmol/L (3.5-5.1); Sodium 134 mmol/L (135-145); Total Protein 7.9 g/dl (6.3-8.2); eGFR 11.90
[2025-10-21] MEDS: SYNTHROID 25 MCG PO (05:45)
[2025-10-21 07:45] VITALS: BP 173/93
[2025-10-21 07:55] LABS: Glucose - Point of Care 140 mg/dl (70-99)
[2025-10-21] MEDS: DUONEB 3 ML INH ×4 (08:00→19:52)
[2025-10-21] MEDS: PHOSLO 667 MG PO ×3 (08:35→17:23)
[2025-10-21] MEDS: DROXIDOPA 200 MG PO ×3 (08:36→17:23)
[2025-10-21] MEDS: PLAVIX 75 MG PO (08:36)
[2025-10-21] MEDS: COLACE 100 MG PO (08:37)
[2025-10-21] MEDS: VIMPAT 50 MG PO ×2 (08:37→20:22)
[2025-10-21] MEDS: PEPCID 20 MG PO ×2 (08:37→20:22)
[2025-10-21] MEDS: ELIQUIS 5 MG PO ×2 (08:37→20:22)
[2025-10-21] MEDS: DULCOLAX 10 MG PO (08:37)
[2025-10-21] MEDS: MIRALAX 17 GRAMS PO (08:38)
[2025-10-21] MEDS: VITAMIN D3 (cholecalciferol) 50 MCG PO (08:38)
[2025-10-21] MEDS: NOVOLOG FLEXPEN-LOW RESISTANCE SC ×2 (08:38→17:25)
[2025-10-21] MEDS: TESSALON PERLES 100 MG PO ×3 (08:38→20:22)
[2025-10-21] MEDS: DESENEX/MITRAZOL/ZEASORB 1 APPLIC TOPICAL ×2 (08:41→20:23)
--- NOTE | 2025-10-21 09:42 | W.PN.HOSP.TC ---
Today's Communication/Plan
-
.
Assessment / Plan
Assessment / Plan
Physical Exam
General: Obese; No Fever or Chills
HEENT: NormoCephalic, Anicteric, Moist mucous membranes, PERRLA, [place] Conjunctivae and No Ptosis
Respiratory: Clear; No Wheezes, Rales or Rhonchi
Cardiac: S1/S2, Regular Rhythm and Peripheral Edema (Trace bilateral with underlying PVD changes bilateral legs, 2 small ulcerations present left anterior elizabeth on admission); No Murmur, Rub or Gallop
GI: Soft, Non Tender, Non Distended, Normal Bowel Sounds and No Hepatosplenomegaly
Genito-urinary: Lyles
Musculoskeletal: No Clubbing, No Cyanosis, Edema, Left Lower Extremity (Trace bilateral with underlying PVD changes bilateral legs, 2 small ulcerations present left anterior elizabeth on admission) and Edema, Right Lower Extremity (Trace bilateral with
underlying PVD changes bilateral legs,); No Edema, Left Upper Extremity or Edema, Right Upper Extremity
Skin: Warm, Dry and Other (AV fistula left upper extremity positive thrill); No Rash
Neuro: awake, lethargic earlier, getting HD
Psych: Calm
#Acute urinary retention requiring Lyles catheter
#Catheter associated UTI
� Lyles exchanged in ED
- ESBL E. coli
- IV meropenem - will need to dc on this
� ID consulted. Per ID: c/w meropenem 1 gm q24 hours x 2 weeks 10/17-10/30
# Change in mental status secondary to metabolic encephalopathy
Patient has history of altered mentation in the past. CAT scan of the head was consistent with his a chronic sheetrock/encephalomalacia.
Currently, he is able to follow commands and answer questions.
Prognosis remains poor
Patient was seen by palliative care at [place] in May 2025 recommended DNR/DNI but patient declined
#ESRD MOWEFR- missed dialysis
#Hyperkalemia
Left upper extremity AV fistula positive thrill
- HD
- Continue calcium acetate 667 mg before meals
#Shortness of breath
� Suspect secondary to volume overload in setting of missed dialysis - improvd after HD
� X-ray - Stable moderate left pleural effusion with associated atelectasis and/or pneumonia - has been chronic as per patient; suspect worsened with missing HD - continue HD as scheduled
� Monitor with HD
#Hyponatremia
� Most likely secondary volume overload
� Continue to monitor with HD
# Hyperkalemia,
d/w HD nurse
#PVD with chronic ulcerations left lower anterior elizabeth present on admission
- wound care
# History of orthostatic hypotension
On droxidopa/midodrine
#Anemia of chronic disease/ESRD/macrocytic anemia
- appears baseline for patient no active bleeding
#Acute on chronic hypoxic/hypercapnic respiratory failure - due to bilateral pulmonary edema, bilateral pleural effusions, underlying COPD
Chronic hypoxic respiratory failure secondary to COPD on 4 L nasal cannula history of obstructive sleep apnea on CPAP
#History of recent pleural effusion did not require drainage September 2024
- order BI pap this morning
- Continue supportive O2
- Continue inhalers as needed
#Paroxysmal A-fib
History of AV block status post pacemaker
Patient currently sinus rhythm
-Patient on Eliquis
#Chronic CHF/cardiomyopathy
#Severe TR
-Follows with [facility]
2D echo 07/29/2025 EF 45% mild LVH with septal contraction abnormalities multiple regional wall abnormalities; Severe tricuspid regurg PASP 62 mmHg
#Pulm HTN
f/u outpt
#History of seizure disorder
History of embolic stroke
History of hemorrhagic stroke in 2019
History of chronic metabolic encephalopathy with associated vascular encephalopathy
Continue lacosamide
# History of Gilbert disease
#Hypothyroidism
-Continue levothyroxine
#CAD status post stent
Continue Plavix 75 mg daily, rosuvastatin 40 mg every afternoon
#DM 2 with diabetic polyneuropathy
Accu-Cheks with SSI,
Insulin glargine U100 5 units SQ at bedtime and sliding scale insulin
#GERD
Continue Pepcid 20 mg twice daily
#Chronic constipation
Continue MiraLAX 17 g daily, senna as needed
#ALVIN
BiPAP 30/08
#Insomnia
Melatonin 5 mg at bedtime as needed
#Class II obesity�BMI 33.9 status post bariatric surgery
Affects all aspects of care
ADA diet
DVT prophylaxis
Continue MANAGED CARE COORDINATOR Eliquis
Total time spent to see the patient, examined the patient, reviewed data and lab result, discuss treatment plan with patient, RADHA Hoyos, nursing staff around 55 minutes
Anticipated Discharge: Within 24 hours
Subjective/Interval History
-
Date of Service: October 21, 2025
Objective Data
-
Labs:
Laboratory Results
10/21/25
05:01
WBC 7.8
Hgb 8.5 L
Hct 27.4 L
Plt Count 258
Sodium 134 L
Potassium 4.3
Chloride 92 L
Carbon Dioxide 29
BUN 44 H
Creatinine 5.1 H*
Glucose 147 H
Calcium 9.4
Total Bilirubin 1.1
AST 23
ALT 15
Alkaline Phosphatase 144 H
Vital Signs:
Vital Signs
Temp Pulse Resp BP Pulse Ox
98.2 F 71 18 173/93 100
10/21/25 07:45 10/21/25 08:01 10/21/25 08:01 10/21/25 07:45 10/21/25 08:01
I&O
10/20/25 10/21/25 10/22/25
06:59 06:59 06:59
Intake Total 820 / 820
Output Total 35 / 35
Balance 785 / 785
--- NOTE | 2025-10-21 11:03 | CON.PUL ---
Consultation
Consultation Request
Date/Time Consultation Requested: 10/21/2025-7:30 AM
Date/Time Consultation Performed: 10/21/2025-8 AM
Requesting Provider: Hospitalist
Performing Provider: Dr. Montoya
Reason for Consultation: Shortness of breath/hypercapnia
Medical History
-
Chief Complaint: Shortness of breath and somnolence
History of Present Illness:
65-year-old obese former smoking male with underlying COPD on chronic. 4 L of oxygen, pulmonary attention, CAD, CHF, pulmonary hypertension, PAF, diabetes, end-stage renal disease on hemodialysis, ALVIN, hypothyroid, and BPH presented initially with
urinary retention and suprapubic tenderness found to be increasingly lethargic, hypercapnic requiring BiPAP-pulmonary consulted for hypercapnia/BiPAP use 10/21/25. The patient was somnolent but arousable and off BiPAP. Nursing was instructed placed
back on BiPAP. Did not complain of any shortness of breath, chest pain, abdominal pain, or leg swelling.
Past Medical History
Past Medical History: None (COPD chronic 4 L oxygen. Pulmonary hypertension. CAD/stent. CHF, EF 45%. PAF. Diabetes. ESRD on HD. Anemia. ALVIN. Seizure. Hypothyroid. BPH. Left thoracentesis. Bariatric surgery. Hernia repair. AV fistula.)
Social History
Tobacco: Former Smoker
Alcohol: None
Drug: None
Living: Halfway
Occupational Exposures: No known asbestos exposure
Environmental Exposures: No known tuberculosis exposure
Family History
Family History: Reviewed & Not Pertinent
Allergies / Home Medications
Allergies
Allergy/AdvReac Type Severity Reaction Status Date / Time
cephalexin Allergy Hives Verified 10/17/25 09:06
Home Medications
�Medication �Instructions �Recorded �Confirmed �Last Taken �Type
acetaminophen 325 mg tablet 650 mg PO Q6HPRN PRN mild pain 07/27/25 10/17/25 09/29/25 History
bisacodyl 10 mg rectal suppository 10 mg [place] DAILYPRN PRN if no bm 07/27/25 10/17/25 Unknown History
(Dulcolax (bisacodyl)) aftr mom
calcium acetate 667 mg tablet 667 mg PO AC Hyperphosphatemia 07/27/25 10/17/25 10/16/25 History
cholecalciferol (vitamin D3) 50 50 mcg PO DAILY Supplement 07/27/25 10/17/25 10/16/25 History
mcg (2,000 unit) capsule (Vitamin
D3)
droxidopa 200 mg capsule 200 mg PO AC Orthostatic 07/27/25 10/17/25 10/16/25 History
hypotension
famotidine 20 mg tablet 20 mg PO BID Gastrointestinal Issue 07/27/25 10/17/25 10/16/25 History
insulin lispro 100 unit/mL 1 sliding scale dose SC AC Diabetes 07/27/25 10/17/25 10/17/25 History
subcutaneous pen
ipratropium 0.5 mg-albuterol 3 mg 3 ml inhalation R QID 07/27/25 10/17/25 10/17/25 History
(2.5 mg base)/3 mL nebulization Lung/Breathing Issues
soln
lacosamide 50 mg tablet 50 mg PO BID Seizures 07/27/25 10/17/25 10/16/25 History
melatonin 5 mg tablet 5 mg PO HSPRN PRN sleep 07/27/25 10/17/25 Unknown History
midodrine 5 mg tablet 15 mg PO TID Hypotension 07/27/25 10/17/25 10/16/25 History
polyethylene glycol 3350 17 gram 17 g PO DAILY Constipation 07/27/25 10/17/25 10/16/25 History
oral powder packet
rosuvastatin 40 mg tablet 40 mg PO QPM High Cholesterol 07/27/25 10/17/25 10/16/25 History
sodium chloride-hypochlorous acid 1 irrig irrigation BID Wounds 07/27/25 10/17/25 10/16/25 History
0.033 % irrigation solution (Vashe)
insulin glargine 100 unit/mL (3 5 unit (0.05 mL) SC HS Diabetes #0 08/04/25 10/17/25 10/16/25 Rx
mL) subcutaneous pen (Basaglar mL
KwikPen U-100 Insulin)
apixaban 5 mg tablet (Eliquis) 5 mg PO BID Blood Clot 10/03/25 10/17/25 10/16/25 History
Prevention/Tx
benzonatate 100 mg capsule 100 mg PO TID Cough 10/03/25 10/17/25 10/16/25 History
clopidogrel 75 mg tablet (Plavix) 75 mg PO DAILY Blood Clot 10/03/25 10/17/25 10/16/25 History
Prevention/Tx
docusate sodium 100 mg capsule 100 mg PO DAILY Constipation 10/03/25 10/17/25 10/16/25 History
(Colace)
ipratropium 0.5 mg-albuterol 3 mg 3 ml inhalation R Q6HPRN PRN sob 10/03/25 10/17/25 Unknown History
(2.5 mg base)/3 mL nebulization
soln
levothyroxine 25 mcg tablet 25 mcg PO DAILY Thyroid 10/03/25 10/17/25 10/17/25 History
(Synthroid)
midodrine 5 mg tablet 5 mg PO TIDPRN PRN HYPOTENSION 10/03/25 10/17/25 09/19/25 History
sennosides 8.6 mg tablet (senna) 17.2 mg PO HSPRN PRN constipation 10/03/25 10/17/25 08/06/25 History
Review of Systems
-
Unable to Obtain full review of systems at this time due to: Other ( per HPI)
Vitals / Labs / Diagnostic Testing
Vital Signs
Temp Pulse Resp BP Pulse Ox
98.2 F 71 18 173/93 100
10/21/25 07:45 10/21/25 08:01 10/21/25 08:01 10/21/25 07:45 10/21/25 08:01
Lab Data
10/21/25 05:01
10/21/25 05:01
Microbiology
10/17/25 17:28 Nose MRSA Screen - Final
Staph aureus MRSA
10/17/25 09:45 Urine Urine Culture - Final
Escherichia coli - ESBL
Diagnostic Testing:
Physical Exam
-
Exam:
Well-nourished and well-developed in no apparent distress
HEENT-atraumatic, normocephalic
Neck-supple, no JVD, no bruit
Heart-regular rate and rhythm-no murmurs, rubs or gallops
Chest with diminished breath sounds, no crackles or wheezes
Back-no tenderness
Abdomen-soft, nontender, nondistended, no hepatosplenomegaly
Extremities-no cyanosis, clubbing, peripheral edema
Integument-intact, no rashes, lesions or ecchymosis
Neurologically somnolent, arousable, nonfocal
Assessment
-
65-year-old obese former smoking male with underlying COPD on chronic. 4 L of oxygen, pulmonary attention, CAD, CHF, pulmonary hypertension, PAF, diabetes, end-stage renal disease on hemodialysis, ALVIN, hypothyroid, and BPH presented initially with
urinary retention and suprapubic tenderness found to be increasingly lethargic, hypercapnic requiring BiPAP-pulmonary consulted for hypercapnia/BiPAP use 10/21/25.
.
Metabolic encephalopathy likely related to hypercapnia.
Acute on top of chronic hypercapnic respiratory failure requiring BiPAP.
Last ABG 08/03/25-58/109/731
Acute urinary retention requiring Lyles catheter/UTI
End-stage renal disease
Hyponatremia.
Hyperkalemia.
Sfugyy-ctvarctsmc-jaxnxzpmjm 8.5
Hyperglycemia
Conditions present prior to admission:
COPD chronic 4 L oxygen.
Pulmonary hypertension.
CAD/stent.
CHF, EF 45%.
PAF.
Diabetes.
ESRD on BN-Wfbaph-Yukodwdys-Monday
Anemia.
ALVIN.
Seizure.
Hypothyroid.
BPH. .
PAD.
History of pleural effusion status post drainage September 2024
Left thoracentesis. Bariatric surgery. Hernia repair. AV fistula.
Plan
Metabolic encephalopathy , suspect related to hypercapnia-responding to BiPAP.
Supplemental oxygen as needed.
Check ABG if remains somnolent
BiPAP 18/15 cm with set rate of 12 and 4 L of oxygen- reviewed with nursing
Consider left thoracentesis again
Duonebs
Follow left pleural effusion-consider thoracentesis.
Check cultures
Infectious disease following-correspondence reviewed
Antibiotics per infectious disease-meropenem
Monitor renal function.
Nephrology following-correspondence reviewed.
Lyles catheter for retention.
Hemodialysis Outtza-Zpxnvnnbt-Bszf[facility]
Replace and correct electrolytes.
Monitor hemoglobin.
Transfuse if needed.
Monitor blood sugar.
Insulin supplementation as needed.
DVT prophylaxis-on Eliquis
GI prophylaxis-on famotidine.
Nutrition
[place] mobilization.
Reviewed with nursing and primary team
Consider outpatient pulmonary/sleep disorders follow-up
Diagnostic data:
Chest x-ray 10/18/25-moderate, stable left pleural effusion compared to 10/03/25
CT chest 07/27/25-mild right upper lobe pneumonia, consolidation left upper lobe, moderate loculated left pleural effusion
CT head 10/21/2569-lfzwiloa-mrkcl region of encephalomalacia suggesting moderate size chronic transcortical infarct or previous traumatic brain injury
Left thoracentesis 08/01/25--1000 mL serosanguineous colored pleural fluid
Echocardiogram 07/29/25-mild left ventricular dysfunction, EF 45%, aortic sclerosis with moderate aortic regurgitation,
Data Reviewed
-
Radiology: Report reviewed by me
CT Scan: Report reviewed by me
Medical Tests (Nuc Med, Echo etc): Report reviewed by me
Labs: Labs reviewed by me
Old Records: Reviewed
Total Time Spent with Patient (in minutes): 55
[2025-10-21 11:48] LABS: Glucose - Point of Care 184 mg/dl (70-99)
--- NOTE | 2025-10-21 11:52 | W.PN.NEPH.PH ---
Today's Communication / Plan
-
dialysis tomorrow
Now on meropenem
Assessment/Plan
-
Assessment
Acute urinary retention requiring Kruse catheter
#Hx ESBL
ESRD [facility]FR-from [facility]
Left upper extremity AV fistula positive thrill
PVD with chronic ulcerations left lower anterior elizabeth present on admission
Orthostatic hypotension-On droxidopa/midodrine
Anemia of chronic disease
Chronic hypoxic respiratory failure secondary to COPD on 4 L nasal cannula
History of recent pleural effusion did not require drainage September 2024
Paroxysmal A-fib
Chronic CHF/cardiomyopathy
Severe TR
2D echo 07/29/2025 EF 45% mild LVH with septal contraction abnormalities multiple regional wall abnormalities
Mild MR dilated left atrium
Dilated and hypokinetic right ventricle mildly dilated right atrium
Severe tricuspid regurg PASP 62 mmHg
Pulm HTN
History of seizure disorder
Hypothyroidism
CAD status post stent
DM 2
GERD
Chronic constipation
ALVIN -BiPAP 30/08
Insomnia
Class II obesity�BMI 33.9
Plan:
HD tomorrow
A/w U retention, s/p kruse suspect UTI, known h/o ESBL
Hemodynamically stable
Metabolic parameters acceptable
Orthostatic hypotension on midodrine and droxy dopa
Continue calcium acetate for hyperphosphatemia
Renal diet and fluid restriction
Antibiotics per ID
d/c plan
-
-
Date of Service: October 21, 2025
CC / HPI / ROS
-
Chief Complaint:
ESRD
History of Present Illness:
ESRD Monday
Hemodynamically stable on midodrine support 15mg TID, DroxyDopa
Now on meropenem
Review of Systems:
Weights down
No fever
does not want to talk
toelrating diet
Labs
-
Labs:
WBC 7.8 10^3/uL (4.8-10.8) 10/21/25 05:01
RBC 2.80 10^6/uL (4.70-6.10) L 10/21/25 05:01
Hgb 8.5 g/dL (13.0-18.0) L 10/21/25 05:01
Hct 27.4 % (39.0-52.0) L 10/21/25 05:01
Plt Count 258 10^3/uL (130-400) 10/21/25 05:01
Sodium 134 mmol/L (135-145) L 10/21/25 05:01
Potassium 4.3 mmol/L (3.5-5.1) 10/21/25 05:01
Chloride 92 mmol/L (98-107) L 10/21/25 05:01
Carbon Dioxide 29 mmol/L (22-30) 10/21/25 05:01
BUN 44 mg/dl (9-20) H 10/21/25 05:01
Creatinine 5.1 mg/dL (0.7-1.3) H* 10/21/25 05:01
eGFR 11.90 10/21/25 05:01
Glucose 147 mg/dl (70-99) H 10/21/25 05:01
Calcium 9.4 mg/dl (8.4-10.2) 10/21/25 05:01
Phosphorus 8.5 mg/dl (2.5-4.5) H 10/18/25 06:00
Albumin 4.2 g/dl (3.5-5.0) 10/21/25 05:01
Physical Exam
-
Vital Signs:
Vital Signs
Temp Pulse Resp BP Pulse Ox
98.2 F 72 18 173/93 100
10/21/25 07:45 10/21/25 11:21 10/21/25 11:21 10/21/25 07:45 10/21/25 11:21
Cardiovascular:: Regular rate and rhythm
Respiratory:: Bilateral: CTA
Lung Excursion:: Normal
Abdomen:: Nontender and Soft
Extremity Edema:: None: Bilateral:
Kruse Catheter: Yes
--- NOTE | 2025-10-21 12:15 | W.PN.ID1 ---
Date of Service
Date of Service: October 21, 2025
Today's Communication
- c/w meropenem 1 gm q24 hours x 2 weeks 10/17-10/30
Assessment / Plan
UTI
Colonization with ESBL E coli
ESRD on HD
Seizure Disorder on lacosamide
History of hives with cephalexin
Chronic hypotension on droxydopa and midodrine
- urine culture ESBL E coli
- CXR with chronic changes
- midline
- c/w meropenem 1 gm q24 hours x 2 weeks 10/17-10/30
Chief Complaint
-: UTI
Subjective / Review of Systems
afebrile
bp stable
was lethargic last night, started on bipap
CT head and AXR nonrevealing
today able to follow inverted two step command, oriented
Vital Signs / Physical Exam
Vital Signs
Vital Signs
Temp Pulse Resp BP Pulse Ox
98.2 F 72 18 173/93 100
10/21/25 07:45 10/21/25 11:21 10/21/25 11:21 10/21/25 07:45 10/21/25 11:21
Physical Exam
Constitutional: No Acute Distress
Cardiovascular: Regular Rate and S1/S2; Negative Murmur or Rub
Pulmonary: Clear and Symmetric; Negative Wheezes or Rales
Gastrointestinal: Soft, Non Tender, Non Distended and Normal Bowel Sounds
Skin: Warm and Dry; Negative Rash or Jaundice
Lines: Other (midline)
Objective Data
Lab Data
Lab Results
10/21/25 05:01
10/21/25 05:01
Estimated Creat Clear 19 ml/min 10/21/25 05:01
Total Bilirubin 1.1 mg/dl (0.2-1.3) 10/21/25 05:01
AST 23 U/L (17-59) 10/21/25 05:01
ALT 15 U/L (0-50) 10/21/25 05:01
Alkaline Phosphatase 144 U/L (38-126) H 10/21/25 05:01
Most recent labs reviewed.
Micro Results:
10/17/25 17:28 MRSA Screen - Final
Nose Staph aureus MRSA
10/17/25 09:45 Urine Culture - Final
Urine Escherichia coli - ESBL
CT Scan: Report Reviewed (head: encephalomalacia fright frontal lobe - no acute changes)
Other: Image Reviewed (AXR) and Report Reviewed (nonobsturctive bowel gas pattern)
[2025-10-21] MEDS: NOVOLOG FLEXPEN-LOW RESISTANCE 1 UNITS SC (12:46)
[2025-10-21 13:17] VITALS: PULSE 70; O2SAT 99
--- NOTE | 2025-10-21 14:16 | CM ---
CM reviewed pt with attending- [facility] tomorrow
[facility] liaison confirmed abx will be available at SNF tomorrow
WOC with air mattress recs- liaison noted pt already has one at [facility]
Pt will need bipap arranged at SNF
Settings sent via [facility]- liaison will make arrangements
Discharge Disposition- return [facility] with ertapenem and new bipap
--- NOTE | 2025-10-21 14:53 | PN.CDI ---
Addendum entered and electronically signed by Nikkie Nguyen MD 10/21/25 15:42:
scrotal stage 2 preesure injury, POA
Original Note:
CDI
- -
CDI:
Physician Documentation Request
Admit Date: 10/17/25 14:54
Dear Doctor Wendy,
Clinical Indicators:
Patient admitted with acute urinary retention.
10/20 [facility] note, 'Posterior scrotal stage 2 pressure injury patient stated is not new'
Treatment: Centrella Max air bed, Calazime ointment
Physician documentation of the type and location of wounds is required for compliant documentation. Based on the above clinical findings and your assessment, please provide the following in your progress note:
1. Location of the ulcer/wound, including laterality.
2. Type (etiology) of ulcer/wound:
- Scrotal Stage 2 Pressure Injury, POA
- Other, please specify
- Unable to determine
3. If a pressure ulcer, please also include the stage* of the ulcer:
- Stage 1 - Skin intact, non-blanchable redness
- Stage 2 - Partial thickness loss of dermis, includes intact or open blister
- Stage 3 - Full thickness tissue not including bone, tendon or muscle
- Stage 4 - Full thickness tissue loss, including exposed bone, tendon or muscle
- Unstageable - Full thickness loss in which the base of the ulcer is covered by slough (yellow, fatima, rudolph, green or brown) and/or eschar (fatima, brown or black) in the wound bed.
- Unable to determine
Use of terms such as suspected, likely, concern for, or probable (associated with a specific diagnosis that is being evaluated, monitored, or treated as if it exists) are acceptable and can be coded in the inpatient setting, when documented at the
time of discharge.
Thank you,
JOSE Puentes RN
CDI Specialist
available via tiger text
Please use your independent medical judgment in providing your response.
*Source: National Pressure Ulcer Advisory Panel (NPUAP)
[2025-10-21] MEDS: MERREM 1000 MG IV (15:15)
[2025-10-21] MEDS: STERILE WATER FOR INJECTION 20 ML IV (15:15)
[2025-10-21 16:00] VITALS: BP 183/97
[2025-10-21 16:45] VITALS: PULSE 2; PULSE 72
[2025-10-21 17:14] LABS: Glucose - Point of Care 128 mg/dl (70-99)
[2025-10-21] MEDS: CRESTOR 40 MG PO (17:24)
[2025-10-21] MEDS: SENOKOT PO (20:20)
[2025-10-21] MEDS: LANTUS 0.05 UNITS SC (21:48)
[2025-10-21 21:51] LABS: Glucose - Point of Care 194 mg/dl (70-99)
[2025-10-21 23:17] VITALS: PULSE 2; PULSE 74
[2025-10-21 23:21] VITALS: BP 145/94
[2025-10-22 03:25] VITALS: PULSE 2
[2025-10-22] MEDS: SYNTHROID 25 MCG PO (05:17)
[2025-10-22 06:00] VITALS: BMI 32.1
[2025-10-22 07:00] VITALS: BP 188/86
[2025-10-22 07:42] LABS: Glucose - Point of Care 108 mg/dl (70-99)
[2025-10-22] MEDS: PHOSLO 667 MG PO ×3 (07:56→17:42)
[2025-10-22] MEDS: DROXIDOPA 200 MG PO ×3 (07:56→17:42)
[2025-10-22] MEDS: ELIQUIS 5 MG PO ×2 (07:57→20:03)
[2025-10-22] MEDS: DUONEB 3 ML INH ×4 (08:11→19:11)
[2025-10-22] MEDS: NOVOLOG FLEXPEN-LOW RESISTANCE SC ×2 (08:12→12:37)
[2025-10-22] MEDS: RETACRIT 6000 UNITS IV (08:55)
[2025-10-22] MEDS: MANNITOL 25% 12.5 GRAMS IV (08:55)
--- NOTE | 2025-10-22 09:03 | W.PN.HOSP.TC ---
Today's Communication/Plan
-
.
Assessment / Plan
Assessment / Plan
Physical Exam
General: Obese; No Fever or Chills, chronically ill looking.
HEENT: NormoCephalic, Anicteric, Moist mucous membranes, PERRLA, [place] Conjunctivae and No Ptosis
Respiratory: Clear; No Wheezes, Rales or Rhonchi
Cardiac: S1/S2, Regular Rhythm and mild Peripheral Edema.
GI: Soft, Non Tender, Non Distended, Normal Bowel Sounds.
Genito-urinary: No Lyles
Musculoskeletal: No Clubbing, No Cyanosis.
Skin: Warm, Dry and Other (AV fistula left upper extremity positive thrill); No Rash
Neuro: AAO X3, getting HD, non focal, following commands.
Psych: Calm
#History of Acute urinary retention requiring Lyles catheter
#UTI this time is not related to/associated with/due to Lyles catheter but due to urinary retention only.
� Lyles placed in ED then removed per protocol, no urine out.
- Colonization with ESBL E coli
- Repeat bladder scan no urine
- IV meropenem, tolerating it well
� ID consulted. Per ID: c/w meropenem 1 gm q24 hours x 2 weeks 10/17-10/30
# Chronic nausea
Intermittent in frequency.
PRN Zofran
# Change in mental status secondary to metabolic encephalopathy
Patient has history of altered mentation in the past. CAT scan of the head was consistent with his a chronic sheetrock/encephalomalacia.
Currently, he is able to follow commands and answer questions.
Prognosis remains guarded.
Patient was seen by palliative care at [place] in May 2025 recommended DNR/DNI but patient declined
# scrotal stage 2 pressure injury, POA
#ESRD MOWEFR- missed dialysis
#Hyperkalemia
Left upper extremity AV fistula positive thrill
- HD
- Continue calcium acetate 667 mg before meals
#Shortness of breath
� Suspect secondary to volume overload in setting of missed dialysis - improvd after HD
� X-ray - Stable moderate left pleural effusion with associated atelectasis and/or pneumonia - has been chronic as per patient; suspect worsened with missing HD - continue HD as scheduled
� Monitor with HD
#Hyponatremia
� Most likely secondary volume overload
� Continue to monitor with HD
# Hyperkalemia,
d/w HD nurse
#PVD with chronic ulcerations left lower anterior elizabeth present on admission
- wound care
# History of orthostatic hypotension
On droxidopa/midodrine
#Anemia of chronic disease/ESRD/macrocytic anemia
- appears baseline for patient no active bleeding
#Acute on chronic hypoxic/hypercapnic respiratory failure - due to bilateral pulmonary edema, bilateral pleural effusions, underlying COPD
Chronic hypoxic respiratory failure secondary to COPD on 4 L nasal cannula history of obstructive sleep apnea on CPAP
#History of recent pleural effusion did not require drainage September 2024
- order BI pap this morning
- Continue supportive O2
- Continue inhalers as needed
#Paroxysmal A-fib
History of AV block status post pacemaker
Patient currently sinus rhythm
-Patient on Eliquis
#Chronic CHF/cardiomyopathy
#Severe TR
-Follows with [facility] cardiology
2D echo 07/29/2025 EF 45% mild LVH with septal contraction abnormalities multiple regional wall abnormalities; Severe tricuspid regurg PASP 62 mmHg
#Pulm HTN
f/u outpt
#History of seizure disorder
History of embolic stroke
History of hemorrhagic stroke in 2019
History of chronic metabolic encephalopathy with associated vascular encephalopathy
Continue lacosamide
# History of Gilbert disease
#Hypothyroidism
-Continue levothyroxine
#CAD status post stent
Continue Plavix 75 mg daily, rosuvastatin 40 mg every afternoon
#DM 2 with diabetic polyneuropathy
Accu-Cheks with SSI,
Insulin glargine U100 5 units SQ at bedtime and sliding scale insulin
#GERD
Continue Pepcid 20 mg twice daily
#Chronic constipation
Continue MiraLAX 17 g daily, senna as needed
#ALVIN
BiPAP 30/08
#Insomnia
Melatonin 5 mg at bedtime as needed
#Class II obesity�BMI 33.9 status post bariatric surgery
Affects all aspects of care
ADA diet
DVT prophylaxis
Continue [employer] Eliquis
d/w PT & RADHA Hoyos, requested dc in AM due to lethargy. d/w ID doctor, asked dot do bladder scan to make sure no retention before dc.
Total time spent to see the patient, examined the patient, reviewed data and lab result, discuss treatment plan with patient, RADHA Hoyos, ID doctor, nursing staff around 63 minutes
Anticipated Discharge: Within 24 hours
Subjective/Interval History
-
Date of Service: October 22, 2025
Doing well, no complaints
Had BM
He feels tired and undergoing HD
Objective Data
-
Labs:
Laboratory Results
10/22/25
07:46
Hgb Pending
Hct Pending
Sodium Pending
Potassium Pending
Chloride Pending
Carbon Dioxide Pending
Vital Signs:
Vital Signs
Temp Pulse Resp BP Pulse Ox
98.1 F 74 16 188/86 98
10/22/25 07:00 10/22/25 08:12 10/22/25 08:12 10/22/25 07:00 10/22/25 08:12
[2025-10-22 09:11] LABS: Hematocrit 27.5 % (39.0-52.0); Hemoglobin 8.6 g/dL (13.0-18.0)
[2025-10-22 09:43] LABS: Carbon Dioxide 26 mmol/L (22-30); Chloride 94 mmol/L (98-107); Potassium 4.0 mmol/L (3.5-5.1); Sodium 135 mmol/L (135-145)
--- NOTE | 2025-10-22 10:51 | W.PN.PUL.V3 ---
Today's Communication / Plan
-
.
Wean oxygen.
Continue BiPAP.
Hemodialysis.
Antibiotics per infectious disease
Assessment
-
65-year-old obese former smoking male with underlying COPD on chronic. 4 L of oxygen, pulmonary attention, CAD, CHF, pulmonary hypertension, PAF, diabetes, end-stage renal disease on hemodialysis, ALVIN, hypothyroid, and BPH presented initially with
urinary retention and suprapubic tenderness found to be increasingly lethargic, hypercapnic requiring BiPAP-pulmonary consulted for hypercapnia/BiPAP use 10/21/25.
.
Metabolic encephalopathy likely related to hypercapnia.
Acute on top of chronic hypercapnic respiratory failure requiring BiPAP.
Last ABG 08/03/25-58/109/731
Acute urinary retention requiring Lyles catheter/UTI
End-stage renal disease
Hyponatremia.
Hyperkalemia.
Rlfkub-ebfcjtzwel-vbmbrnwnuf 8.5
Hyperglycemia
Conditions present prior to admission:
COPD chronic 4 L oxygen.
Pulmonary hypertension.
CAD/stent.
CHF, EF 45%.
PAF.
Diabetes.
ESRD on PL-Lcacgk-Joduiwghp-Monday
Anemia.
ALVIN.
Seizure.
Hypothyroid.
BPH. .
PAD.
History of pleural effusion status post drainage September 2024
Left thoracentesis. Bariatric surgery. Hernia repair. AV fistula.
Plan
Metabolic encephalopathy, suspect related to hypercapnia-responding to BiPAP.
Supplemental oxygen as needed-assess discharge needs
Check ABG not obtained, as patient's mental status returned to baseline with BiPAP
BiPAP 18/15 cm with set rate of 12 and 4 L of oxygen- reviewed with nursing
Consider left thoracentesis again if fluid increases
Duonebs continue
Follow left pleural effusion-consider thoracentesis.
Cultures reviewed
Infectious disease following-correspondence reviewed
Antibiotics per infectious disease-meropenem
Monitor renal function.
Nephrology following-correspondence reviewed.
Lyles catheter for retention.
Hemodialysis Adezsq-Vldjlcmgo-[facility]
Replace and correct electrolytes.
Monitor hemoglobin.
Transfuse if needed.
Monitor blood sugar.
Insulin supplementation as needed.
DVT prophylaxis-on Eliquis
GI prophylaxis-on famotidine.
Nutrition
[place] mobilization.
Reviewed with nursing and primary team
Consider outpatient pulmonary/sleep disorders follow-up
Diagnostic data:
Chest x-ray 10/18/25-moderate, stable left pleural effusion compared to 10/03/25
CT chest 07/27/25-mild right upper lobe pneumonia, consolidation left upper lobe, moderate loculated left pleural effusion
CT head 10/21/2582-tcqgcrkx-ixjax region of encephalomalacia suggesting moderate size chronic transcortical infarct or previous traumatic brain injury
Left thoracentesis 08/01/25--1000 mL serosanguineous colored pleural fluid
Echocardiogram 07/29/25-mild left ventricular dysfunction, EF 45%, aortic sclerosis with moderate aortic regurgitation,
Subjective Data
-
Date of Service:
Date of Service: October 22, 2025
Chief Complaint: Pulmonary Follow Up and Dyspnea Follow Up
Subjective:
More awake today, tolerated BiPAP most of the night, no complaints of increased shortness of breath, has some dyspnea on exertion, no chest pain, chest congestion, productive cough
Review of Systems
General: Other ( per HPI)
Objective Data
Data Reviewed
Vital Signs / I&O:
Vital Signs
Temp Pulse Resp BP Pulse Ox
98.1 F 74 16 188/86 98
10/22/25 07:00 10/22/25 08:12 10/22/25 08:12 10/22/25 07:00 10/22/25 08:12
SaO2: 98
Nasal Cannula flow liters per minute: 2
Physical Exam
General: Respiratory Distress (n) and Comfortable
HEENT: Normocephalic, Anicteric and Moist Mucous Membranes
Cardiovascular: Regular Rhythm and Murmur
Respiratory: Crackles ( few basilar), Non-Labored Respirations and Accessory Resp Muscle Use (n)
GI: Soft, Non Distended and Non Tender
Neurology: Awake, Alert and No Motor Deficits
Skin: Warm, Good Color, Cyanosis (n) and Jaundice (n)
Labs/Micro/Reports
Lab Data
10/22/25 07:46
10/22/25 07:46
Microbiology
10/17/25 17:28 Nose MRSA Screen - Final
Staph aureus MRSA
10/17/25 09:45 Urine Urine Culture - Final
Escherichia coli - ESBL
--- NOTE | 2025-10-22 11:26 | W.PN.NEPH.HD ---
Assessment
-
pt seen during HD
vitals stable with midodrine and Droxy Dopa
abx per ID
AVF functions fine
d/c plan to NH
Progress Note - Hemodialysis
-
Date of Service: October 22, 2025
Duration: 30 minutes and 3 hours
Potassium Bath: 2
Calcium Bath: 2.5
Opti-Dialyzer: 160
Ultrafiltration: Other (2-3kg)
Blood Flow: 400
Dialysate Flow: 600
Heparin: no
EPO: 6000
[2025-10-22] MEDS: DULCOLAX 10 MG PO (12:19)
[2025-10-22] MEDS: COLACE 100 MG PO (12:19)
[2025-10-22] MEDS: VIMPAT 50 MG PO ×2 (12:19→20:03)
[2025-10-22] MEDS: PLAVIX 75 MG PO (12:20)
[2025-10-22] MEDS: VITAMIN D3 (cholecalciferol) 50 MCG PO (12:20)
[2025-10-22] MEDS: TESSALON PERLES 100 MG PO ×3 (12:20→21:22)
[2025-10-22] MEDS: DESENEX/MITRAZOL/ZEASORB 1 APPLIC TOPICAL ×2 (12:20→20:03)
[2025-10-22] MEDS: MIRALAX 17 GRAMS PO (12:20)
[2025-10-22 12:32] LABS: Glucose - Point of Care 120 mg/dl (70-99)
--- NOTE | 2025-10-22 13:46 | CM ---
CM confirmed with [facility] admissions that patient for transfer today. CM sent TT to physician awaiting confirmation for discharge. Please call report to [phone]/fax [phone]. CM will call to family to confirm discharge plan and IMM.
CM will continue to follow for discharge planning needs.
Plan; transfer to SNF pending physician assessment
--- NOTE | 2025-10-22 13:50 | W.PN.ID1 ---
Date of Service
Date of Service: October 22, 2025
Today's Communication
- hasnt urinated since kruse removed several days ago - bladder scan with straight cath
- c/w meropenem 1 gm q24 hours x 2 weeks 10/17-10/30
- complaining of nausea post HD which is typical for him, put in a one time dose of zofran
Assessment / Plan
UTI
Colonization with ESBL E coli
ESRD on HD
Seizure Disorder on lacosamide
History of hives with cephalexin
Chronic hypotension on droxydopa and midodrine
- urine culture ESBL E coli
- midline
- hasnt urinated since kruse removed several days ago - bladder scan with straight cath
- c/w meropenem 1 gm q24 hours x 2 weeks 10/17-10/30
- complaining of nausea post HD which is typical for him, put in a one time dose of zofran
Chief Complaint
-: UTI
Subjective / Review of Systems
afebrile
bp stable
no events overnight
had HD today
nausea
Vital Signs / Physical Exam
Vital Signs
Vital Signs
Temp Pulse Resp BP Pulse Ox
98.1 F 70 16 188/86 100
10/22/25 07:00 10/22/25 11:39 10/22/25 11:39 10/22/25 07:00 10/22/25 11:39
Physical Exam
Constitutional: No Acute Distress
Cardiovascular: Regular Rate and S1/S2; Negative Murmur or Rub
Pulmonary: Clear and Symmetric; Negative Wheezes or Rales
Gastrointestinal: Soft, Non Tender, Non Distended and Normal Bowel Sounds
Skin: Warm and Dry; Negative Rash or Jaundice
Objective Data
Lab Data
Lab Results
10/22/25 07:46
10/22/25 07:46
Estimated Creat Clear 19 ml/min 10/21/25 05:01
Total Bilirubin 1.1 mg/dl (0.2-1.3) 10/21/25 05:01
AST 23 U/L (17-59) 10/21/25 05:01
ALT 15 U/L (0-50) 10/21/25 05:01
Alkaline Phosphatase 144 U/L (38-126) H 10/21/25 05:01
Most recent labs reviewed.
Micro Results:
10/17/25 17:28 MRSA Screen - Final
Nose Staph aureus MRSA
10/17/25 09:45 Urine Culture - Final
Urine Escherichia coli - ESBL
Care Review
Plan reviewed with: Physician (Dr Nguyen - bladder scan with straight cath)
[2025-10-22] MEDS: MERREM 1000 MG IV (14:58)
[2025-10-22] MEDS: STERILE WATER FOR INJECTION 20 ML IV (14:58)
[2025-10-22] MEDS: ZOFRAN 4 MG PO (14:58)
[2025-10-22 15:00] VITALS: BP 144/62
[2025-10-22] MEDS: CRESTOR 40 MG PO (17:42)
[2025-10-22] MEDS: NOVOLOG FLEXPEN-LOW RESISTANCE 1 UNITS SC (17:43)
[2025-10-22] MEDS: TYLENOL 650 MG PO (20:03)
[2025-10-22] MEDS: SENOKOT 17.2 MG PO (21:22)
[2025-10-22 22:05] LABS: Glucose - Point of Care 183 mg/dl (70-99)
[2025-10-22 22:06] LABS: Glucose - Point of Care 184 mg/dl (70-99)
[2025-10-22] MEDS: LANTUS 0.05 UNITS SC (22:32)
[2025-10-22 22:51] VITALS: PULSE 2; PULSE 70
[2025-10-22 23:00] VITALS: BP 104/63
[2025-10-23 05:12] VITALS: BMI 31.5
[2025-10-23] MEDS: SYNTHROID 25 MCG PO (05:44)
[2025-10-23] MEDS: DUONEB 3 ML INH ×2 (07:22→11:02)
[2025-10-23 07:35] VITALS: BP 141/96
[2025-10-23] MEDS: DROXIDOPA 200 MG PO ×2 (08:14→13:00)
[2025-10-23] MEDS: PHOSLO 667 MG PO ×2 (08:15→12:27)
[2025-10-23] MEDS: COLACE 100 MG PO (08:15)
[2025-10-23] MEDS: VIMPAT 50 MG PO (08:15)
[2025-10-23] MEDS: PLAVIX 75 MG PO (08:15)
[2025-10-23] MEDS: VITAMIN D3 (cholecalciferol) 50 MCG PO (08:15)
[2025-10-23] MEDS: DULCOLAX 10 MG PO (08:15)
[2025-10-23] MEDS: ELIQUIS 5 MG PO (08:16)
[2025-10-23] MEDS: TESSALON PERLES 100 MG PO (08:16)
[2025-10-23] MEDS: MIRALAX 17 GRAMS PO (08:17)
[2025-10-23 08:50] LABS: Glucose - Point of Care 164 mg/dl (70-99)
[2025-10-23] MEDS: ZOFRAN 4 MG IV (09:11)
[2025-10-23] MEDS: NOVOLOG FLEXPEN-LOW RESISTANCE 1 UNITS SC ×2 (09:12→12:32)
[2025-10-23] MEDS: DESENEX/MITRAZOL/ZEASORB TOPICAL (09:14)
--- NOTE | 2025-10-23 10:00 | CM ---
Patient seen at bedside on [address]. Patient POA aware of plan for transition back to SNF; Liaison aware of patient return. Patient reviewed IMM with CM and CM spoke with POA with information. Patient declined to sign form at this time, copy of form
placed on chart. Transportation forms completed and provided to loading unit operator powder charging. CM will continue to follow for discharge planning needs.
Plan; return to SNF; [facility].Please call report to [phone]/fax [phone]
--- NOTE | 2025-10-23 10:37 | W.PN.PUL.V3 ---
Today's Communication / Plan
-
Wean oxygen.
BiPAP 18/10 cm
Antibiotics per infectious disease.
Hemodialysis per nephrology..
Stable for discharge from a pulmonary perspective
Assessment
-
65-year-old obese former smoking male with underlying COPD on chronic. 4 L of oxygen, pulmonary attention, CAD, CHF, pulmonary hypertension, PAF, diabetes, end-stage renal disease on hemodialysis, ALVIN, hypothyroid, and BPH presented initially with
urinary retention and suprapubic tenderness found to be increasingly lethargic, hypercapnic requiring BiPAP-pulmonary consulted for hypercapnia/BiPAP use 10/21/25.
.
Metabolic encephalopathy likely related to hypercapnia.
Acute on top of chronic hypercapnic respiratory failure requiring BiPAP.
Last ABG 08/03/25-58/109/731
Acute urinary retention requiring Lyles catheter/UTI
End-stage renal disease
Hyponatremia.
Hyperkalemia.
Yyxsmx-hpnyzlhgua-hrcrjzqzax 8.5
Hyperglycemia
Conditions present prior to admission:
COPD chronic 4 L oxygen.
Pulmonary hypertension.
CAD/stent.
CHF, EF 45%.
PAF.
Diabetes.
ESRD on UQ-Cmkqhf-Ausdkaecl-Monday
Anemia.
ALVIN.
Seizure.
Hypothyroid.
BPH. .
PAD.
History of pleural effusion status post drainage September 2024
Left thoracentesis. Bariatric surgery. Hernia repair. AV fistula.
Plan
Metabolic encephalopathy, suspect related to hypercapnia-responding to BiPAP.
Supplemental oxygen as needed-assess discharge needs
Check ABG not obtained, as patient's mental status returned to baseline with BiPAP
BiPAP 18/10 cm with set rate of 12 and 4 L of oxygen- reviewed with nursing
Consider left thoracentesis again if fluid increases
Duonebs continue
Follow left pleural effusion-consider thoracentesis.
Cultures reviewed
Infectious disease following-correspondence reviewed
Antibiotics per infectious disease-meropenem
Monitor renal function.
Nephrology following-correspondence reviewed.
Lyles catheter for retention.
Hemodialysis Gqvmov-Gvxabotwj-Bvwkaw
Replace and correct electrolytes.
Monitor hemoglobin.
Transfuse if needed.
Monitor blood sugar.
Insulin supplementation as needed.
DVT prophylaxis-on Eliquis
GI prophylaxis-on famotidine.
Nutrition
[place] mobilization.
Patient stable from a pulmonary perspective for proposed discharge-BiPAP 18/10 cm
Reviewed with nursing and primary team
Consider outpatient pulmonary/sleep disorders follow-up
Diagnostic data:
Chest x-ray 10/18/25-moderate, stable left pleural effusion compared to 10/03/25
CT chest 07/27/25-mild right upper lobe pneumonia, consolidation left upper lobe, moderate loculated left pleural effusion
CT head 10/21/2574-klrqvyuu-pzvkx region of encephalomalacia suggesting moderate size chronic transcortical infarct or previous traumatic brain injury
Left thoracentesis 08/01/25--1000 mL serosanguineous colored pleural fluid
Echocardiogram 07/29/25-mild left ventricular dysfunction, EF 45%, aortic sclerosis with moderate aortic regurgitation,
Subjective Data
-
Date of Service:
Date of Service: October 23, 2025
Chief Complaint: Pulmonary Follow Up and Dyspnea Follow Up
Subjective:
. With BiPAP overnight, somnolence, no shortness breath at rest, chest pain or abdominal pain
Review of Systems
General: Other (per HPI)
Objective Data
Data Reviewed
Vital Signs / I&O:
Vital Signs
Temp Pulse Resp BP Pulse Ox
97.6 F 71 18 141/96 100
10/23/25 07:35 10/23/25 08:16 10/23/25 07:35 10/23/25 08:16 10/23/25 08:51
SaO2: 100
Nasal Cannula flow liters per minute: 2
Physical Exam
General: Respiratory Distress (n) and Comfortable
HEENT: Normocephalic, Anicteric and Moist Mucous Membranes
Cardiovascular: Regular Rhythm and Murmur
Respiratory: Crackles ( few basilar), Non-Labored Respirations and Accessory Resp Muscle Use (n)
GI: Soft, Non Distended and Non Tender
Neurology: Awake, Alert and No Motor Deficits
Skin: Warm, Good Color, Cyanosis (n) and Jaundice (n)
Labs/Micro/Reports
Lab Data
10/22/25 07:46
10/22/25 07:46
--- NOTE | 2025-10-23 11:11 | W.PN.NEPH.PH ---
Today's Communication / Plan
-
d/c plan
Assessment/Plan
-
Assessment
Acute urinary retention requiring Kruse catheter
#Hx ESBL
ESRD MOWEFR-from [facility]
Left upper extremity AV fistula positive thrill
PVD with chronic ulcerations left lower anterior elizabeth present on admission
Orthostatic hypotension-On droxidopa/midodrine
Anemia of chronic disease
Chronic hypoxic respiratory failure secondary to COPD on 4 L nasal cannula
History of recent pleural effusion did not require drainage September 2024
Paroxysmal A-fib
Chronic CHF/cardiomyopathy
Severe TR
2D echo 07/29/2025 EF 45% mild LVH with septal contraction abnormalities multiple regional wall abnormalities
Mild MR dilated left atrium
Dilated and hypokinetic right ventricle mildly dilated right atrium
Severe tricuspid regurg PASP 62 mmHg
Pulm HTN
History of seizure disorder
Hypothyroidism
CAD status post stent
DM 2
GERD
Chronic constipation
ALVIN -BiPAP 30/08
Insomnia
Class II obesity�BMI 33.9
Plan:
HD tomorrow if still here
A/w U retention, s/p kruse suspect UTI, known h/o ESBL
off kruse for days and no PVR or urinated yet
Hemodynamically stable
Orthostatic hypotension on midodrine and droxy dopa
Continue calcium acetate for hyperphosphatemia
Renal diet and fluid restriction
Antibiotics per ID
d/c plan
-
-
Date of Service: October 23, 2025
CC / HPI / ROS
-
Chief Complaint:
ESRD
History of Present Illness:
ESRD Monday
Hemodynamically stable on midodrine support 15mg TID, DroxyDopa
Now on meropenem
no fever
Review of Systems:
reports improving sob
feels well
toelrating diet
Labs
-
Labs:
WBC 7.8 10^3/uL (4.8-10.8) 10/21/25 05:01
RBC 2.80 10^6/uL (4.70-6.10) L 10/21/25 05:01
Hgb 8.6 g/dL (13.0-18.0) L 10/22/25 07:46
Hct 27.5 % (39.0-52.0) L 10/22/25 07:46
Plt Count 258 10^3/uL (130-400) 10/21/25 05:01
Sodium 135 mmol/L (135-145) 10/22/25 07:46
Potassium 4.0 mmol/L (3.5-5.1) 10/22/25 07:46
Chloride 94 mmol/L (98-107) L 10/22/25 07:46
Carbon Dioxide 26 mmol/L (22-30) 10/22/25 07:46
BUN 44 mg/dl (9-20) H 10/21/25 05:01
Creatinine 5.1 mg/dL (0.7-1.3) H* 10/21/25 05:01
eGFR 11.90 10/21/25 05:01
Glucose 147 mg/dl (70-99) H 10/21/25 05:01
Calcium 9.4 mg/dl (8.4-10.2) 10/21/25 05:01
Phosphorus 8.5 mg/dl (2.5-4.5) H 10/18/25 06:00
Albumin 4.2 g/dl (3.5-5.0) 10/21/25 05:01
Physical Exam
-
Vital Signs:
Vital Signs
Temp Pulse Resp BP Pulse Ox
97.6 F 62 16 141/96 94
10/23/25 07:35 10/23/25 11:05 10/23/25 11:05 10/23/25 08:16 10/23/25 11:05
Cardiovascular:: Regular rate and rhythm
Respiratory:: Bilateral: CTA
Lung Excursion:: Normal
Abdomen:: Nontender and Soft
Extremity Edema:: None: Bilateral: (chr skin chnages)
Kruse Catheter: No
--- NOTE | 2025-10-23 12:24 | PTCARENOTE ---
Report called to Nancie Breen, no answer. Message, RN name, call back number, and pickup time left in voicemail. Transport set to [facility] patient at 1330.
[2025-10-23 12:36] VITALS: BP 159/91
[2025-10-23] MEDS: MERREM 1000 MG IV (13:00)
[2025-10-23] MEDS: STERILE WATER FOR INJECTION 20 ML IV (13:00)
--- NOTE | 2025-10-23 14:57 | W.PN.HOSP.TC ---
Today's Communication/Plan
-
dc
Assessment / Plan
Assessment / Plan
Physical Exam
General: Obese; No Fever or Chills, chronically ill looking.
HEENT: NormoCephalic, Anicteric, Moist mucous membranes, PERRLA, [place] Conjunctivae and No Ptosis
Respiratory: Clear; No Wheezes, Rales or Rhonchi
Cardiac: S1/S2, Regular Rhythm and mild Peripheral Edema.
GI: Soft, Non Tender, Non Distended, Normal Bowel Sounds.
Genito-urinary: No Lyles
Musculoskeletal: No Clubbing, No Cyanosis.
Skin: Warm, Dry and Other (AV fistula left upper extremity positive thrill); No Rash
Neuro: AAO X3, getting HD, non focal, following commands.
Psych: Calm
#History of Acute urinary retention requiring Lyles catheter
#UTI this time is not related to/associated with/due to Lyles catheter but due to urinary retention only.
� Lyles placed in ED then removed per protocol, no urine out.
- Colonization with ESBL E coli
- Repeat bladder scan no urine
- IV meropenem, tolerating it well
� ID consulted. Per ID: c/w meropenem 1 gm q24 hours x 2 weeks 10/17-10/30
# Chronic nausea
Intermittent in frequency.
PRN Zofran
# Change in mental status secondary to metabolic encephalopathy
Patient has history of altered mentation in the past. CAT scan of the head was consistent with his a chronic sheetrock/encephalomalacia.
Currently, he is able to follow commands and answer questions.
Prognosis remains guarded.
Patient was seen by palliative care at [facility] in May 2025 recommended DNR/DNI but patient declined
# scrotal stage 2 pressure injury, POA
#ESRD MOWEFR- missed dialysis
#Hyperkalemia
Left upper extremity AV fistula positive thrill
- HD
- Continue calcium acetate 667 mg before meals
#Shortness of breath
� Suspect secondary to volume overload in setting of missed dialysis - improvd after HD
� X-ray - Stable moderate left pleural effusion with associated atelectasis and/or pneumonia - has been chronic as per patient; suspect worsened with missing HD - continue HD as scheduled
� Monitor with HD
#Hyponatremia
� Most likely secondary volume overload
� Continue to monitor with HD
# Hyperkalemia,
d/w HD nurse
#PVD with chronic ulcerations left lower anterior elizabeth present on admission
- wound care
# History of orthostatic hypotension
On droxidopa/midodrine
#Anemia of chronic disease/ESRD/macrocytic anemia
- appears baseline for patient no active bleeding
#Acute on chronic hypoxic/hypercapnic respiratory failure - due to bilateral pulmonary edema, bilateral pleural effusions, underlying COPD
Chronic hypoxic respiratory failure secondary to COPD on 4 L nasal cannula history of obstructive sleep apnea on CPAP
#History of recent pleural effusion did not require drainage September 2024
- order BI pap this morning
- Continue supportive O2
- Continue inhalers as needed
#Paroxysmal A-fib
History of AV block status post pacemaker
Patient currently sinus rhythm
-Patient on Eliquis
#Chronic CHF/cardiomyopathy
#Severe TR
-Follows with [facility]ology
2D echo 07/29/2025 EF 45% mild LVH with septal contraction abnormalities multiple regional wall abnormalities; Severe tricuspid regurg PASP 62 mmHg
#Pulm HTN
f/u outpt
#History of seizure disorder
History of embolic stroke
History of hemorrhagic stroke in 2019
History of chronic metabolic encephalopathy with associated vascular encephalopathy
Continue lacosamide
# History of Gilbert disease
#Hypothyroidism
-Continue levothyroxine
#CAD status post stent
Continue Plavix 75 mg daily, rosuvastatin 40 mg every afternoon
#DM 2 with diabetic polyneuropathy
Accu-Cheks with SSI,
Insulin glargine U100 5 units SQ at bedtime and sliding scale insulin
#GERD
Continue Pepcid 20 mg twice daily
#Chronic constipation
Continue MiraLAX 17 g daily, senna as needed
#ALVIN
BiPAP 30/08
#Insomnia
Melatonin 5 mg at bedtime as needed
#Class II obesity�BMI 33.9 status post bariatric surgery
Affects all aspects of care
ADA diet
DVT prophylaxis
Continue FLY FRAME TENDER Eliquis
Total dc time spent to see the patient, examined the patient, reviewed data and lab result, discuss treatment plan with patient, RADHA Hoyos, caseworker intake, ID doctor, nursing staff around 67 minutes
Anticipated Discharge: Today
Subjective/Interval History
-
Date of Service: October 23, 2025
He feels ready to go to OR today
Denies pain
Feels better overall
Objective Data
-
Vital Signs:
Vital Signs
Temp Pulse Resp BP Pulse Ox
98.2 F 71 18 159/91 98
10/23/25 12:36 10/23/25 12:36 10/23/25 12:36 10/23/25 12:36 10/23/25 12:36
I&O
10/22/25 10/23/25 10/24/25
06:59 06:59 06:59
Intake Total 300 / 300
Output Total 0 / 0
Balance 300 / 300
--- NOTE | 2025-10-23 15:45 | W.DCSUMMARY ---
Discharge Summary
Discharge Data
Date of Admission: 10/17/25
Date of Discharge: 10/23/25
-
Pending Results: No
Hospital Course
65 years old male presented with urine retention and suprapubic tenderness. Patient had history of recurrent urinary tract infection and retention. He was on hemodialysis 3 times a day but was still able to make small amounts of urine. He did not
have fever or leukocytosis. Patient was admitted to the hospital for further evaluation. Lyles catheter was placed and 340 ccs of purulent urine were drained. Subsequent urine culture showed ESBL E coli. He was evaluated by ID doctor. He was
started on meropenem with good response. Lyles catheter was unable. Subsequent bladder scan did not show urinary retention. Patient had history of multiple medical problem. He was noted to have altered mentation at times. CAT scan of the head
showed old stroke and encephalomalacia. He was noted to have hypercapnic respiratory failure. Pulmonary doctor evaluated the patient. BiPAP setting was adjusted. Patient had a chronic nausea and was given Zofran at times. He underwent
hemodialysis and was followed by senior peoplesoft developer. manager business operations evaluated patient for outpatient intravenous antibiotic. He had midline. Patient remained hemodynamically stable and was discharged back to half-way in stable condition. Discharge
instructions included recommendation to do daily straight cath and as needed.
Discharge Plan
-
Patient Disposition: Acute Rehab Facility
Discharge Diagnosis/Procedures: UTI
Colonization with ESBL E coli
ESRD on HD
Seizure Disorder on lacosamide
History of hives with cephalexin
Chronic hypotension on droxydopa and midodrine
Seen by ID doctor: c/w meropenem 1 gm q24 hours x 2 weeks 10/17-10/30. Straight cath daily and PRN
Condition: Fair
Diet: As tolerated
Activity Restrictions/Additional Instructions:
Wound Care Instructions
LLE wounds-clean with saline or Vashe wound cleanser, silicone border foam, change q 2 days and prn drainage.
Bilateral knee Andrés wrap as tolerated; may remove q hs; rewrap daily.
Zinc barrier ointment (i.e. Calazime) to scrotal ulcer bid.
Miconazole powder to carlos/groin bid.
Air mattress
Pressure redistributing chair cushion (i.e. Bariatric Roho)
Elevate heels off bed with pillows/air chair cushion.
Follow up with wound care associate or at wound care center call for an appointment.
Referrals:
Jose Alfred MD [Family Provider]
Prescriptions:
New
meropenem 1 gram Recon Soln
1,000 mg IV Q24H Qty: 8 0RF
ondansetron HCl 4 mg tablet
4 mg PO BIDPRN PRN (Reason: nausea and vomiting) Qty: 10 0RF
Continued
acetaminophen 325 mg Tablet
650 mg PO Q6HPRN PRN (Reason: mild pain)
ipratropium-albuterol 0.5 mg-3 mg(2.5 mg base)/3 mL Solution For Nebulization
3 ml INHALATION R QID
polyethylene glycol 3350 17 gram Powder In Packet
17 g PO DAILY
midodrine 5 mg Tablet
15 mg PO TID
insulin lispro 100 unit/mL Insulin Pen
1 sliding scale dose SC AC
Rx Instructions:
150-200=2units, 201-250=4units, 251-300=6units
rosuvastatin 40 mg Tablet
40 mg PO QPM
melatonin 5 mg Tablet
5 mg PO HSPRN PRN (Reason: sleep)
cholecalciferol (vitamin D3) [Vitamin D3] 50 mcg (2,000 unit) Capsule
50 mcg PO DAILY
lacosamide 50 mg Tablet
50 mg PO BID
droxidopa 200 mg Capsule
200 mg PO AC
calcium acetate 667 mg Tablet
667 mg PO AC
bisacodyl [Dulcolax (bisacodyl)] 10 mg Suppository
10 mg MA DAILYPRN PRN (Reason: if no bm aftr mom)
Vashe 0.033 % Irrigation Solution
1 irrig IRRIGATION BID
insulin glargine [Basaglar KwikPen U-100 Insulin] 100 unit/mL (3 mL) Insulin Pen
5 unit SC HS Qty: 0 0RF
ipratropium-albuterol 0.5 mg-3 mg(2.5 mg base)/3 mL Solution For Nebulization
3 ml INHALATION R Q6HPRN PRN (Reason: sob)
midodrine 5 mg Tablet
5 mg PO TIDPRN PRN (Reason: HYPOTENSION)
clopidogrel [Plavix] 75 mg Tablet
75 mg PO DAILY
levothyroxine [Synthroid] 25 mcg Tablet
25 mcg PO DAILY
docusate sodium [Colace] 100 mg Capsule
100 mg PO DAILY
Eliquis 5 mg tablet
5 mg PO BID
Changed
sennosides [senna] 8.6 mg Tablet
17.2 mg PO HS Qty: 0 0RF
famotidine 20 mg Tablet
20 mg PO Q48H Qty: 0 0RF
benzonatate 100 mg Capsule
100 mg PO TIDPRN PRN (Reason: cough) Qty: 0 0RF
Discharge Orders:
Discharge Patient (As Directed); Ordered 10/23/25
Ordered By: Nikkie Nguyen
Discharge Date and Time
Discharge Date/Time: 10/23/25 14:01
Print Language: FRISIAN
[2025-10-23 17:42] LABS: Glucose - Point of Care 163 mg/dl (70-99)
== END 2025-10-23 14:01 | DRG 291 ==
LOC: 2 NORTH 14:54
PROVIDERS: Clinical Nurse Specialist Family Health; Specialist; ADMITTING PHYSICIAN Internal Medicine; ATTENDING PHYSICIAN Internal Medicine; CONSULT PHYSICIAN Internal Medicine; CONSULT PHYSICIAN Internal Medicine Critical Care Medicine; CONSULT PHYSICIAN Student in an Organized Health Care Education/Training Program; EMERGENCY PHYSICIAN Student in an Organized Health Care Education/Training Program; FAMILY PHYSICIAN Internal Medicine
PROC: 5A1D70Z Performance of Urinary Filtration, Intermittent, Less than 6 Hours Per Day (ICD-10-PCS; 2025-10-18)
DX: I50.23 Acute on chronic systolic (congestive) heart failure (principal); G93.41 Metabolic encephalopathy; N18.6 End stage renal disease; J96.21 Acute and chronic respiratory failure with hypoxia; J96.22 Acute and chronic respiratory failure with hypercapnia; N39.0 Urinary tract infection, site not specified; Z16.12 Extended spectrum beta lactamase (ESBL) resistance; E87.1 Hypo-osmolality and hyponatremia; I42.9 Cardiomyopathy, unspecified; B96.20 Unspecified Escherichia coli [E. coli] as the cause of diseases classified elsewhere; Z99.2 Dependence on renal dialysis; E11.22 Type 2 diabetes mellitus with diabetic chronic kidney disease; G40.909 Epilepsy, unspecified, not intractable, without status epilepticus; E87.5 Hyperkalemia; I95.1 Orthostatic hypotension; D53.9 Nutritional anemia, unspecified; D63.1 Anemia in chronic kidney disease; J44.9 Chronic obstructive pulmonary disease, unspecified; G47.33 Obstructive sleep apnea (adult) (pediatric); I48.0 Paroxysmal atrial fibrillation; I27.20 Pulmonary hypertension, unspecified; E03.9 Hypothyroidism, unspecified; Z95.5 Presence of coronary angioplasty implant and graft; I25.10 Atherosclerotic heart disease of native coronary artery without angina pectoris; Z79.02 Long term (current) use of antithrombotics/antiplatelets; K21.9 Gastro-esophageal reflux disease without esophagitis; K59.09 Other constipation; G47.00 Insomnia, unspecified; N40.1 Benign prostatic hyperplasia with lower urinary tract symptoms; E11.51 Type 2 diabetes mellitus with diabetic peripheral angiopathy without gangrene; Z79.4 Long term (current) use of insulin; E66.812 Obesity, class 2; Z68.33 Body mass index [BMI] 33.0-33.9, adult; E78.00 Pure hypercholesterolemia, unspecified; E83.39 Other disorders of phosphorus metabolism; Z79.01 Long term (current) use of anticoagulants; Z79.890 Hormone replacement therapy; Z79.899 Other long term (current) drug therapy; Z86.73 Personal history of transient ischemic attack (TIA), and cerebral infarction without residual deficits; Z87.440 Personal history of urinary (tract) infections; Z87.891 Personal history of nicotine dependence; Z88.1 Allergy status to other antibiotic agents; Z99.81 Dependence on supplemental oxygen; L89.892 Pressure ulcer of other site, stage 2
CPT/HCPCS: 51702; 51798; 70450; 71046; 74018; 80051; 80053; 81003; 81015; 82962; 83735; 84100; 85014; 85018; 85025; 86706; 87070; 87077; 87086; 87147; 87186; 87340; 94640; 94660; 96374; 97116; 97162; 99285; G0257; J2185; P9047; Q5106

== ENCOUNTER 2025-10-31 18:06 | Emergency (ER) | payer MEDICARE, OTHER, SELFPAY ==
[2025-10-31 18:07] VITALS: BP 158/79
[2025-10-31 21:12] VITALS: BMI 33.2
[2025-10-31 21:31] VITALS: BP 125/52
--- NOTE | 2025-10-31 21:37 | VATNOTE ---
TT to remove right arm midline placed 10/19 here @ . TCL 20cm removed per protocol.
--- NOTE | 2025-10-31 21:55 | ED.GENMED ---
History of Present Illness
General
Chief Complaint: Catheter/Tube Problem
Source: patient
Exam Limitations: none
Time Seen by Provider: 10/31/25 21:06
Nursing documentation reviewed up to this point in time: agreed with
History of Present Illness
History of Present Illness:
Patient to the emergency department from [facility] for removal of a midline catheter. He was receiving IV antibiotics at the facility, and has completed this course. Facility states that they are prohibited from removing the catheter at the
facility so was sent to the emergency department for removal. Patient offers no complaints.
Past History
Past History
ED Past Medical History: CAD, CHF, GERD, IDDM and Other (Renal failure)
ED Past Surgical History: Cardiac, Urological and Other (Bariatric surgery)
Social History
Tobacco: Non-smoker
Alcohol: None
Review of Systems
Review of Systems
Allergies reviewed?: Yes
All Other Systems: ROS reviewed and negative except as documented in HPI and ROS
Constitutional: Reports no symptoms
EENT: Reports no symptoms
Respiratory: Reports no symptoms
Cardiac: Reports no symptoms
ABD/GI: Reports no symptoms
: Reports no symptoms
Musculoskeletal: Reports no symptoms
Skin: Reports other (Midline catheter in intact right upper extremity. Removed by IV team.)
Neurological: Reports no symptoms
Psychiatric: Reports no symptoms
Phy Exam
General Physical Exam
General Presentation: well appearing and no apparent distress
General age: appears stated age
General Skin: warm and dry
General Habitus: normal
General Mental: alert
Musculoskeletal Exam
Musculoskeletal Exam: full ROM and neuro vasc intact
Skin Exam
Skin Exam: normal color, warm/dry, no rash and other (Patient arrives to ED with midline catheter intact to right upper extremity. Catheter was removed by IV team without difficulty. A dry sterile dressing was placed by IV team. There is no
redness swelling or bruising at site. No edema noted to right upper extremity.)
Psychiatric Exam
Psychiatric Exam: normal mood/affect
Course
Vital Signs
Initial and Last Documented VS:
Initial Vital Signs
Temp Pulse Resp BP Pulse Ox
97.5 F 70 18 158/79 100
10/31/25 18:07 10/31/25 18:07 10/31/25 18:07 10/31/25 18:07 10/31/25 18:07
Last Documented Vital Signs
Temp Pulse Resp BP Pulse Ox
97.5 F 69 20 125/52 100
10/31/25 18:07 10/31/25 21:31 10/31/25 21:31 10/31/25 21:31 10/31/25 21:55
*Pulse Oximetry
SaO2: 100
Nasal Cannula flow liters per minute: 4
Patient hypoxic: no
*Critical Care Note
Total Time (30-74mins, 75-104mins- exclusive of procedures): Not Applicable
ED Attending Note
-
Portions of this chart may have been created with voice recognition software.� Occasional wrong word or��sound alike� substitutions may have occurred due to the inherent limitations of voice recognition software.
Discharge Plan
Departure
Patient Disposition: Home (Routine Discharge)
Date of Disposition: 10/31/25
Time of Disposition: 21:54
Patient with high blood pressure during this ER visit?: No
Condition: Good
Covid-19: Not Applicable
Discharge Problem:
PICC (peripherally inserted central catheter) removal
Instructions: General
Prescriptions:
No Action
acetaminophen 325 mg Tablet
650 mg PO Q6HPRN PRN (Reason: mild pain)
ipratropium-albuterol 0.5 mg-3 mg(2.5 mg base)/3 mL Solution For Nebulization
3 ml INHALATION R QID
polyethylene glycol 3350 17 gram Powder In Packet
17 g PO DAILY
midodrine 5 mg Tablet
15 mg PO TID
insulin lispro 100 unit/mL Insulin Pen
1 sliding scale dose SC AC
Rx Instructions:
150-200=2units, 201-250=4units, 251-300=6units
rosuvastatin 40 mg Tablet
40 mg PO QPM
melatonin 5 mg Tablet
5 mg PO HSPRN PRN (Reason: sleep)
cholecalciferol (vitamin D3) [Vitamin D3] 50 mcg (2,000 unit) Capsule
50 mcg PO DAILY
lacosamide 50 mg Tablet
50 mg PO BID
droxidopa 200 mg Capsule
200 mg PO AC
calcium acetate 667 mg Tablet
667 mg PO AC
bisacodyl [Dulcolax (bisacodyl)] 10 mg Suppository
10 mg [place] DAILYPRN PRN (Reason: if no bm aftr mom)
Vashe 0.033 % Irrigation Solution
1 irrig IRRIGATION BID
insulin glargine [Basaglar KwikPen U-100 Insulin] 100 unit/mL (3 mL) Insulin Pen
5 unit SC HS Qty: 0 0RF
ipratropium-albuterol 0.5 mg-3 mg(2.5 mg base)/3 mL Solution For Nebulization
3 ml INHALATION R Q6HPRN PRN (Reason: sob)
midodrine 5 mg Tablet
5 mg PO TIDPRN PRN (Reason: HYPOTENSION)
clopidogrel [Plavix] 75 mg Tablet
75 mg PO DAILY
levothyroxine [Synthroid] 25 mcg Tablet
25 mcg PO DAILY
docusate sodium [Colace] 100 mg Capsule
100 mg PO DAILY
Eliquis 5 mg tablet
5 mg PO BID
meropenem 1 gram Recon Soln
1,000 mg IV Q24H Qty: 8 0RF
sennosides [senna] 8.6 mg Tablet
17.2 mg PO HS Qty: 0 0RF
famotidine 20 mg Tablet
20 mg PO Q48H Qty: 0 0RF
benzonatate 100 mg Capsule
100 mg PO TIDPRN PRN (Reason: cough) Qty: 0 0RF
ondansetron HCl 4 mg tablet
4 mg PO BIDPRN PRN (Reason: nausea and vomiting) Qty: 10 0RF
Referrals:
Julián Nolen DO [Family Provider, Internal Medicine] - Follow up in 2-3 days
Interventions
Interventions:
*General Assessment Last Done: 10/31/25 18:08
*Neglect/Abuse Screening Last Done: 10/31/25 18:08
*ED COVID-19 Vaccine History Last Done: 10/31/25 18:08
*ED Influenza Vaccine History Last Done: 10/31/25 18:08
[facility] Fall Risk Assessment Tool Last Done: 10/31/25 21:12
*Risk Screen - Suicide (C-SSRS) Last Done: 10/31/25 18:08
*Nursing Disposition Last Done: 10/31/25 22:13
Discharge Date and Time
Discharge Date/Time: 10/31/25 22:15
Print Language: [id number]
== END 2025-10-31 22:15 | disposition home or self-care (01) ==
LOC: EMR 18:06
PROVIDERS: EMERGENCY PHYSICIAN Emergency Medicine; FAMILY PHYSICIAN Internal Medicine
DX: Z45.2 Encounter for adjustment and management of vascular access device (principal); I25.10 Atherosclerotic heart disease of native coronary artery without angina pectoris; E11.9 Type 2 diabetes mellitus without complications; I50.9 Heart failure, unspecified
CPT/HCPCS: 99283